=== PATIENT | female | born 1975 | race Caucasian/White ===

== ENCOUNTER 2016-11-21 22:54 | Inpatient (IN) | payer OTHER ==
[~2016-11-21] VITALS: Ht 162.6 cm; Wt 88.9 kg
[~2016-11-21 22:54] MED LIST: RANI300T3 PO
[2016-11-22 00:14] LABS: BASO % 0 % (0-3); EOS % 0 % (0-3); HEMATOCRIT 38.8 % (36.0-47.0); HEMOGLOBIN 12.6 g/dL (12.0-15.5); LYMPH # 2.5 x10^3/uL (1.0-4.8); LYMPH % 42 % (24-48); MEAN CORPUSCULAR HEMOGLOBIN 26 pg (25-35); MEAN CORPUSCULAR HGB CONC 32 g/dL (31-37); MEAN CORPUSCULAR VOLUME 80 fL (79-100); MONO % 8 % (0-9); NEUT % 50 % (31-73); PLATELET COUNT 247 x10^3/uL (140-400); RED BLOOD COUNT 4.85 x10^6/uL (3.50-5.40); RED CELL DISTRIBUTION WIDTH 18.2 % (11.5-14.5); WHITE BLOOD COUNT 5.9 x10^3/uL (4.0-11.0)
[2016-11-22 00:24] LABS: GFR 61.1; INR 1.1 (0.8-1.1); POTASSIUM 3.1 mmol/L (3.5-5.1); PROTHROMBIN TIME PATIENT 13.8 SEC (11.7-14.0)
[2016-11-22 00:28] LABS: TOTAL BILIRUBIN 0.6 mg/dL (0.2-1.0); TOTAL PROTEIN 8.2 g/dL (6.4-8.2)
--- NOTE | 2016-11-22 00:37 | RAD ---
INDICATION: Right-sided weakness and slurred speech COMPARISON: None TECHNIQUE: Axial CT images obtained through the head. One or more of the following individualized dose reduction techniques were utilized for this examination: 1. Automated exposure control; 2. Adjustment of the mA and/or kV according to patient size; 3. Use of iterative reconstruction technique. FINDINGS: No midline shift. Ventricles and sulci are prominent. Basilar cistern patent. No gross hemorrhage or intracranial mass. No displaced skull fracture. Regions of low attenuation of the white matter. IMPRESSION: No acute intracranial hemorrhage. Regions of low attenuation of the white matter. Nonspecific but frequently secondary to small vessel ischemic disease. Other possible causes include sequela of demyelination or migraine. MRI could better assess whether any of these foci are acute. This is more than typically seen for the patient's age. Electronically signed by: Bienvenido Quigley (November 22, 2016 00:34:55)
[2016-11-22 01:05] LABS: BILIRUBIN,URINE SMALL (NEG); GLUCOSE,URINE NEGATIVE (NEG); NITRITE,URINE NEGATIVE (NEG); PH,URINE 5.5; PROTEIN,URINE NEGATIVE (NEG-TRACE); UROBILINOGEN,URINE 0.2 mg/dL (0.2 mg/dL)
[2016-11-22 01:17] LABS: BACTERIA,URINE FEW /HPF (0-FEW); RBC,URINE 0 /HPF (0-2)
[2016-11-22 01:18] LABS: SQUAMOUS EPITHELIAL CELL,UR MOD /LPF
[2016-11-22] MEDS ORDERED: ACETAMINOPHEN 325 MG TABLET. PO PRN (01:45)
[2016-11-22] MEDS ORDERED: POTASSIUM CHLORIDE 20 MEQ TABLET.ER. PO ONE (01:45)
[2016-11-22] MEDS ORDERED: ONDANSETRON PF 4 MG/2 ML VIAL. IV PRN (01:45)
[2016-11-22 02:00] LABS: BARBITURATES NEG (NEG); BENZODIAZEPINES NEG (NEG); CANNABINOIDS NEG (NEG); COCAINE NEG (NEG); METHADONE NEG (NEG); OPIATES NEG (NEG); PHENCYCLIDINE NEG (NEG)
[2016-11-22] MEDS ORDERED: ASPIRIN CHEWABLE 81 MG TABLET. PO ONE (02:00)
[2016-11-22 03:00] VITALS: BP 125/65
[2016-11-22] MEDS ORDERED: TOPI50TA75 PO (04:56)
[2016-11-22] MEDS ORDERED: ELET40TA PO (04:56)
[2016-11-22] MEDS ORDERED: ALPR0.5T6 PO (04:56)
[2016-11-22] MEDS ORDERED: HYDR25TA PO (04:56)
[2016-11-22] MEDS ORDERED: VORT10TA PO (04:56)
[2016-11-22] MEDS ORDERED: MIRT30TA3 PO (04:56)
[2016-11-22] MEDS ORDERED: ALPR0.254 PO (04:56)
[2016-11-22] MEDS ORDERED: METO25TA9 PO (04:56)
--- NOTE | 2016-11-22 05:39 | PHYS DOC ---
Past Medical History Past Medical History: Anxiety, Hypertension, Migraines, Other Additional Past Medical Histor: MS Past Surgical History: Alcohol Use: None Drug Use: Marijuana Adult General Chief Complaint Chief Complaint: NEURO SYMPTOMS/DEFICITS HPI HPI Patient is a 40 year old female who has a history significant for multiple sclerosis, hypertension, presents here today secondary to right sided pain for 2 days. Patient reports that her family was concerned that she was having a stroke so they brought her here to the ER. Patient reports that she was unable to the car secondary to weakness to her right side of her body. Patient presents to the ER today reporting that the symptoms been going on for approximately 2 days now. Patient complaining of right-sided facial droop also that's occurred about 2 days ago. Patient plans of right arm and leg weakness for 2 days. Patient appears to have a very hard time distinguishing whether or not her weakness difficulty walking secondary to pain to her upper and lower extremities versus secondary to weakness however patient reports that she feels unsteady and feels like she is going to fall patient denies any history of Nguyen' s palsy in the past. Patient denies any history of right facial droop in the past. Patient denies any recent fevers shakes chills nausea vomiting diarrhea chest pain shortness of breath cough cold or runny nose. Patient reports that she does have a history significant for bipolar affective disorder as well as multiple sclerosis. Patient reports that she had a back in 1999. Patient reports that she smokes does not drink occasionally smokes marijuana secondary to an eye problem. She reports that she had a recent admission for heart problems back in July at [facility]. Patient's physical exam is significant for right facial droop with difficulty raising her right eyebrow. This makes me feel that her symptoms are more likely secondary to Nguyen's palsy however patient reports that she has weakness to her right upper and lower extremities as well too. On examination patient's strength are 5 out of 5 in her upper and lower extremities. Patient's sensation is intact to her upper or lower 70s. Patient is able to ambulate in the ER around her room however she reports that when she does stand she feels that she' s been off all over to her right side. Patient's tongue deviates to the right. Patient's cranial nerves other than described above were all intact. Patient's ER workup was significant for a CT scan that did not show any acute pathology. Patient's symptoms started greater than 2 days ago therefore a stroke alert was not called and the patient is not a candidate for any kind of lytic therapy. Patient's presentation is somewhat confusing as her facial droop and her weakness to her right forehead makes me think that her facial droop is more consistent with a Nguyen's palsy however patient is insistent that she also has right upper and lower extremities weakness as well. Patient is able to and blood however she does feel that she is going to fall over to her right side. Given the complexity of the patient's symptoms I feel it would be prudent to admit the patient for further evaluation and evaluation by neurological specialist. Patient's Nguyen's palsy is greater than 48 hours out therefore steroids and antiretrovirals are likely not indicated at this time either. Review of Systems Review of Systems Constitutional: Denies fever or chills [] Eyes: Denies change in visual acuity, redness, or eye pain [] HENT: Denies nasal congestion or sore throat [] All other review systems are negative except as documented in history of present illness portion. Allergies Allergies Allergies Coded Allergies Type Severity Reaction Last Updated Verified Sulfa (Sulfonamide Antibiotics) Allergy Intermediate 07/31/15 Yes Physical Exam Physical Exam Constitutional: Well developed, well nourished, no acute distress, non-toxic appearance. [] HENT: Normocephalic, atraumatic, bilateral external ears normal, oropharynx moist, no oral exudates, nose normal. [] Eyes: PERRLA, EOMI, conjunctiva normal, no discharge. [] Neck: Normal range of motion, no tenderness, supple, no stridor. [] Cardiovascular:Heart rate regular rhythm, Lungs & Thorax: Bilateral breath sounds clear to auscultation [] Abdomen: Bowel sounds normal, soft, no tenderness, no masses, no pulsatile masses. [] Skin: Warm, dry, no erythema, no rash. [] Back: No tenderness, Extremities: Patient is tenderness palpation with range of motion to her lower extremities. Patient's full range of motion intact. Patient has no deformities noted. Neurologic: Alert and oriented X 3, see above for neuro exam. Psychologic: Affect normal, judgement normal, mood normal. [] Current Patient Data Vital Signs Vital Signs Date Time Temp Pulse Resp B/P (MAP) Pulse Ox O2 Delivery O2 Flow Rate FiO2 11/22/16 01:39 82 98/60 (73) 98 Room Air 11/21/16 23:13 97.8 16 97.8 Lab Values Laboratory Tests Test 11/21/16 23:07 11/22/16 00:24 White Blood Count 5.9 x10^3/uL (4.0-11.0) Red Blood Count 4.85 x10^6/uL (3.50-5.40) Hemoglobin 12.6 g/dL (12.0-15.5) Hematocrit 38.8 % (36.0-47.0) Mean Corpuscular Volume 80 fL (79-100) Mean Corpuscular Hemoglobin 26 pg (25-35) Mean Corpuscular Hemoglobin Concent 32 g/dL (31-37) Red Cell Distribution Width 18.2 % (11.5-14.5) H Platelet Count 247 x10^3/uL (140-400) Neutrophils (%) (Auto) 50 % (31-73) Lymphocytes (%) (Auto) 42 % (24-48) Monocytes (%) (Auto) 8 % (0-9) Eosinophils (%) (Auto) 0 % (0-3) Basophils (%) (Auto) 0 % (0-3) Neutrophils # (Auto) 2.9 x10^3uL (1.8-7.7) Lymphocytes # (Auto) 2.5 x10^3/uL (1.0-4.8) Monocytes # (Auto) 0.4 x10^3/uL (0.0-1.1) Eosinophils # (Auto) 0.0 x10^3/uL (0.0-0.7) Basophils # (Auto) 0.0 x10^3/uL (0.0-0.2) Prothrombin Time 13.8 SEC (11.7-14.0) Prothrombin Time INR 1.1 (0.8-1.1) Sodium Level 140 mmol/L (136-145) Potassium Level 3.1 mmol/L (3.5-5.1) L Chloride Level 103 mmol/L (98-107) Carbon Dioxide Level 22 mmol/L (21-32) Anion Gap 15 (6-14) H Blood Urea Nitrogen 22 mg/dL (7-20) H Creatinine 1.0 mg/dL (0.6-1.0) Estimated GFR (Cockcroft-Gault) 61.1 BUN/Creatinine Ratio 22 (6-20) H Glucose Level 84 mg/dL (70-99) Calcium Level 9.0 mg/dL (8.5-10.1) Total Bilirubin 0.6 mg/dL (0.2-1.0) Aspartate Amino Transferase (AST) 23 U/L (15-37) Alanine Aminotransferase (ALT) 38 U/L (14-59) Alkaline Phosphatase 82 U/L (46-116) Troponin I Quantitative < 0.017 ng/mL (0.000-0.055) Total Protein 8.2 g/dL (6.4-8.2) Albumin 4.0 g/dL (3.4-5.0) Albumin/Globulin Ratio 1.0 (1.0-1.7) Urine Collection Type Unknown Urine Color Yellow Urine Clarity Clear Urine pH 5.5 Urine Specific [place] 1.015 Urine Protein Negative mg/dL (NEG-TRACE) Urine Glucose (UA) Negative mg/dL (NEG) Urine Ketones (Stick) 40 mg/dL (NEG) Urine Blood Negative (NEG) Urine Nitrite Negative (NEG) Urine Bilirubin Small (NEG) Urine Urobilinogen Dipstick 0.2 mg/dL (0.2 mg/dL) Urine Leukocyte Esterase Trace (NEG) Urine RBC 0 /HPF (0-2) Urine WBC 5-10 /HPF (0-4) Urine Squamous Epithelial Cells Mod /LPF Urine Bacteria Few /HPF (0-FEW) Urine Mucus Mod /LPF Urine Opiates Screen Neg (NEG) Urine Methadone Screen Neg (NEG) Urine Barbiturates Neg (NEG) Urine Phencyclidine Screen Neg (NEG) Urine Amphetamine/Methamphetamine Neg (NEG) Urine Benzodiazepines Screen Neg (NEG) Urine Cocaine Screen Neg (NEG) Urine Cannabinoids Screen Neg (NEG) Urine Ethyl Alcohol Neg (NEG) Laboratory Tests 11/21/16 23:07 Laboratory Tests 11/21/16 23:07 EKG EKG [] Radiology/Procedures Radiology/Procedures [] Course & Med Decision Making Course & Med Decision Making Pertinent Labs and Imaging studies reviewed. (See chart for details) [] Dragon Disclaimer Dragon Disclaimer This electronic medical record was generated, in whole or in part, using a voice recognition dictation system. Departure Departure Impression: Primary Impression: Stroke Additional Impression: Nguyen's palsy Disposition: ADMITTED INPATIENT Admitting Physician: Inez Caputo Condition: STABLE Referrals: NO PCP (PCP) Problem Qualifiers INNA LO MD November 22, 2016 05:39
[2016-11-22 07:00] VITALS: BP 107/52
--- NOTE | 2016-11-22 07:16 | RAD ---
Chest, 2 views, 11/22/2016: History: Weakness The heart size and pulmonary vascularity are normal. No pulmonary infiltrates are seen. There is no evidence of pleural fluid. There is a minimal thoracic scoliosis. IMPRESSION: No acute cardiopulmonary abnormality is detected.
[2016-11-22] MEDS ORDERED: ALPRAZolam 0.5 MG TABLET PO PRN (10:30)
[2016-11-22] MEDS ORDERED: hydrOXYzine PAMOATE 25 MG CAPSULE PO PRN (10:45)
--- NOTE | 2016-11-22 10:49 | PDOC1 ---
History and Physical Date of Admission Date of Admission DATE: 11/22/16 TIME: 10:42 Identification/Chief Complaint Chief Complaint R sided facial droop, R sided weakness Problems: Source Source: Caregiver, Chart review, Patient History of Present Illness History of Present Illness 40 y.o pleasnat female dx with MS some 4 yrs ago? folows with Behzad Contreras but is not or has never been on medication for it, comes in last night as encouraged by family bec of concerns for possible stroke, SHe presented with 2 day hx of R sided weakness, R sided facial droop, and some slurring speech? but i do believe lack of teeth/dentures might be contributing to speech issues, In any case, CT head neg for acute CVA, got 324 chewable ASA at ER, COncerns for r.o stroke vs MS flare vs Nguyen's palsy hence admitted, VS ok. HOme meds reviewed and renewed. SHe was dx with MS via MRI she claims when she presented with migraines and possibly some weakness - not the best historian Past Medical History Cardiovascular: HTN CENTRAL NERVOUS SYSTEM: Migraine, Other (MS) Psych: Anxiety Past Surgical History Past Surgical History: No pertinent history Family History Family History: No Significant, Other (reviewed, non contributory) Social History Smoke: No ALCOHOL: none Drugs: None Current Problem List Problem List Problems Medical Problems: (1) Nguyen's palsy Status: Acute Problems: Current Medications Current Medications Current Medications Potassium Chloride (Klor-Con) 40 meq 1X ONCE PO Last administered on 02:27; Start 11/22/16 at 01:45; Stop 11/22/16 at 01:46; Status DC Ondansetron HCl (Zofran) 4 mg PRN Q8HRS PRN IV NAUSEA/VOMITING Last administered on 11/22/16 10:03; Start 11/22/16 at 01:45; Stop 11/23/16 at 01:44 Acetaminophen (Tylenol) 650 mg PRN Q4HRS PRN PO FEVER Last administered on 11/22 10:03; Start 11/22/16 at 01:45; Stop 11/23/16 at 01:44 Aspirin (Children'S Aspirin) 324 mg 1X ONCE PO Last administered on 11/22/16 02:26; Start 11/22/16 at 02:00; Stop 11/22/16 at 02:01; Status DC Alprazolam (Xanax) 0.25 mg DAILY PRN PO ANXIETY; Start 11/22/16 at 10:30; Status UNV Alprazolam (Xanax) 0.5 mg DAILY PRN PO ANXIETY / AGITATION; Start 11/22/16 at 10:30; Status UNV Metoprolol Succinate (Toprol Xl) 25 mg DAILY PO ; Start 11/23/16 at 09:00; Status UNV Non-Formulary Medication 40 mg DAILY PO ; Start 11/23/16 at 09:00; Status UNV Non-Formulary Medication 1 tab BID PRN PO ANXIETY; Start 11/22/16 at 10:30; Status UNV Non-Formulary Medication 1 tab QHS PO ; Start 11/22/16 at 21:00; Status UNV Non-Formulary Medication 1 tab QHS PO ; Start 11/22/16 at 21:00; Status UNV Non-Formulary Medication 1 tab BID PO ; Start 11/22/16 at 21:00; Status UNV Non-Formulary Medication 10 mg DAILY PO ; Start 11/23/16 at 09:00; Status UNV Active Scripts Active Zantac (Ranitidine Hcl) 300 Mg Tablet 1 Tab PO QHS Reported Alprazolam 0.5 Mg Tablet 1 Tab PO DAILY PRN Alprazolam 0.25 Mg Tablet 1 Tab PO DAILY PRN Topiramate 50 Mg Tablet 1 Tab PO BID Mirtazapine 30 Mg Tablet 1 Tab PO QHS Hydroxyzine Hcl 25 Mg Tablet 1 Tab PO BID PRN Relpax (Eletriptan Hbr) 40 Mg Tablet 40 Mg PO DAILY Trintellix (Vortioxetine) 10 Mg Tablet 10 Mg PO DAILY Metoprolol Succinate ( Xl ) (Metoprolol Succinate) 25 Mg Tab.er.24h 1 Tab PO DAILY Allergies Allergies: Coded Allergies: Sulfa (Sulfonamide Antibiotics) (Verified Allergy, Intermediate, 07/31/15) ROS General: No: Chills, Night Sweats, Fatigue, Malaise, Appetite, Other PSYCHOLOGICAL ROS: No: Anxiety, Behavioral Disorder, Concentration difficultie , Decreased libido, Depression, Disorientation, Hallucinations, Hostility, Irritablity, Memory difficulties, Mood Swings, Obsessive thoughts, Physical abuse, Sexual abuse, Sleep disturbances, Suicidal ideation, Other Eyes: No Blurry vision, No Decreased vision, No Double vision, No Dry eyes, No Excessive tearing, No Eye Pain, No Itchy Eyes, No Loss of vision, No Photophobia , No Scotomata, No Uses contacts, No Uses glasses, No Other HEENT: No: Heacaches, Visual Changes, Hearing change, Nasal congestion, Nasal discharge, Oral lesions, Sinus pain, Sore Throat, Epistaxis, Sneezing, Snoring, Tinnitus, Vertigo, Vocal changes, Other ALLERGY AND IMMUNOLOGY: No: Hives, Insect Bite Sensitivity, Itchy/Watery Eyes, Nasal Congestion, Post Nasal Drip, Seasonal Allergies, Other Hematological and Lymphatic: No: Bleeding Problems, Blood Clots, Blood Transfusions, Brusing, Night Sweats, Pallor, Swollen Lymph Nodes, Other ENDOCRINE: No: Breast Changes, Galactorrhea, Hair Pattern Changes, Hot Flashes , Malaise/lethargy, Mood Swings, Palpitations, Polydipsia/polyuria, Skin Changes , Temperature Intolerance, Unexpected Weight Changes, Other Breast: No New/Changing Breast Lumps, No Nipple changes, No Nipple discharge, No Other Respiratory: No: Cough, Hemoptysis, Orthopnea, Pleuritic Pain, Shortness of breath, SOB with excertion, Sputum Changes, Stridor, Tachypnea, Wheezing, Other Cardiovascular: No Chest Pain, No Palpitations, No Orthopnea, No Paroxysmal Noc. Dyspnea, No Edema, No Lt Headedness, No Other Gastrointestinal: No Nausea, No Vomiting, No Abdominal Pain, No Diarrhea, No Constipation, No Melena, No Hematochezia, No Other Genitourinary: No Dysuria, No Frequency, No Incontinence, No Hematuria, No Retention, No Discharge, No Urgency, No Pain, No Flank Pain, No Other, No , No , No , No , No , No , No Musculoskeletal: Yes Other (R sided weakness, slurred speech, R facial droop) Neurological: Yes Other (as per hPI) Skin: No Dry Skin, No Eczema, No Hair Changes, No Lumps, No Mole Changes, No Mottling, No Nail Changes, No Pruritus, No Rash, No Skin Lesion Changes, No Other, No Acne Physical Exam General: Alert, Oriented X3, Cooperative, No acute distress HEENT: Other (SHallow R NLF, weak EOMs on R ) Lungs: Clear to auscultation, Normal air movement Heart: S1S2, RRR, no thrills, no rubs, no gallops, no murmurs Cardiovascular: S1, S2 Breasts: Normal Abdomen: Normal bowel sounds, Soft, No tenderness, No hepatosplenomegaly, No masses Rectal Exam: not examined PELVIC: Nml ext genitalia Extremities: No clubbing, No cyanosis, No edema, Normal pulses, No tenderness/ swelling Skin: No rashes, No breakdown, No significant lesion Neuro: Other (R side 4/5; left 5/5; DTTR 2 plus, no sensory deficit, [place] RNLF, tongue protrusion deviated to R, intact EOMS) Psych/Mental Status: Mental status NL, Mood NL Vitals Vitals Vital Signs Date Time Temp Pulse Resp B/P (MAP) Pulse Ox O2 Delivery O2 Flow Rate FiO2 11/22/16 08:00 Room Air 11/22/16 07:00 98.0 77 18 107/52 (70) 98 98.0 Labs Labs Laboratory Tests Test 11/21/16 23:07 11/22/16 00:24 White Blood Count 5.9 x10^3/uL (4.0-11.0) Red Blood Count 4.85 x10^6/uL (3.50-5.40) Hemoglobin 12.6 g/dL (12.0-15.5) Hematocrit 38.8 % (36.0-47.0) Mean Corpuscular Volume 80 fL (79-100) Mean Corpuscular Hemoglobin 26 pg (25-35) Mean Corpuscular Hemoglobin Concent 32 g/dL (31-37) Red Cell Distribution Width 18.2 % (11.5-14.5) Platelet Count 247 x10^3/uL (140-400) Neutrophils (%) (Auto) 50 % (31-73) Lymphocytes (%) (Auto) 42 % (24-48) Monocytes (%) (Auto) 8 % (0-9) Eosinophils (%) (Auto) 0 % (0-3) Basophils (%) (Auto) 0 % (0-3) Neutrophils # (Auto) 2.9 x10^3uL (1.8-7.7) Lymphocytes # (Auto) 2.5 x10^3/uL (1.0-4.8) Monocytes # (Auto) 0.4 x10^3/uL (0.0-1.1) Eosinophils # (Auto) 0.0 x10^3/uL (0.0-0.7) Basophils # (Auto) 0.0 x10^3/uL (0.0-0.2) Prothrombin Time 13.8 SEC (11.7-14.0) Prothromb Time International Ratio 1.1 (0.8-1.1) Sodium Level 140 mmol/L (136-145) Potassium Level 3.1 mmol/L (3.5-5.1) Chloride Level 103 mmol/L (98-107) Carbon Dioxide Level 22 mmol/L (21-32) Anion Gap 15 (6-14) Blood Urea Nitrogen 22 mg/dL (7-20) Creatinine 1.0 mg/dL (0.6-1.0) Estimated GFR (Cockcroft-Gault) 61.1 BUN/Creatinine Ratio 22 (6-20) Glucose Level 84 mg/dL (70-99) Calcium Level 9.0 mg/dL (8.5-10.1) Total Bilirubin 0.6 mg/dL (0.2-1.0) Aspartate Amino Transf (AST/SGOT) 23 U/L (15-37) Alanine Aminotransferase (ALT/SGPT) 38 U/L (14-59) Alkaline Phosphatase 82 U/L (46-116) Troponin I Quantitative < 0.017 ng/mL (0.000-0.055) Total Protein 8.2 g/dL (6.4-8.2) Albumin 4.0 g/dL (3.4-5.0) Albumin/Globulin Ratio 1.0 (1.0-1.7) Urine Collection Type Unknown Urine Color Yellow Urine Clarity Clear Urine pH 5.5 Urine Specific [place] 1.015 Urine Protein Negative mg/dL (NEG-TRACE) Urine Glucose (UA) Negative mg/dL (NEG) Urine Ketones (Stick) 40 mg/dL (NEG) Urine Blood Negative (NEG) Urine Nitrite Negative (NEG) Urine Bilirubin Small (NEG) Urine Urobilinogen Dipstick 0.2 mg/dL (0.2 mg/dL) Urine Leukocyte Esterase Trace (NEG) Urine RBC 0 /HPF (0-2) Urine WBC 5-10 /HPF (0-4) Urine Squamous Epithelial Cells Mod /LPF Urine Bacteria Few /HPF (0-FEW) Urine Mucus Mod /LPF Urine Opiates Screen Neg (NEG) Urine Methadone Screen Neg (NEG) Urine Barbiturates Neg (NEG) Urine Phencyclidine Screen Neg (NEG) Urine Amphetamine/Methamphetamine Neg (NEG) Urine Benzodiazepines Screen Neg (NEG) Urine Cocaine Screen Neg (NEG) Urine Cannabinoids Screen Neg (NEG) Urine Ethyl Alcohol Neg (NEG) Laboratory Tests Test 11/21/16 23:07 11/22/16 00:24 White Blood Count 5.9 x10^3/uL (4.0-11.0) Red Blood Count 4.85 x10^6/uL (3.50-5.40) Hemoglobin 12.6 g/dL (12.0-15.5) Hematocrit 38.8 % (36.0-47.0) Mean Corpuscular Volume 80 fL (79-100) Mean Corpuscular Hemoglobin 26 pg (25-35) Mean Corpuscular Hemoglobin Concent 32 g/dL (31-37) Red Cell Distribution Width 18.2 % (11.5-14.5) Platelet Count 247 x10^3/uL (140-400) Neutrophils (%) (Auto) 50 % (31-73) Lymphocytes (%) (Auto) 42 % (24-48) Monocytes (%) (Auto) 8 % (0-9) Eosinophils (%) (Auto) 0 % (0-3) Basophils (%) (Auto) 0 % (0-3) Neutrophils # (Auto) 2.9 x10^3uL (1.8-7.7) Lymphocytes # (Auto) 2.5 x10^3/uL (1.0-4.8) Monocytes # (Auto) 0.4 x10^3/uL (0.0-1.1) Eosinophils # (Auto) 0.0 x10^3/uL (0.0-0.7) Basophils # (Auto) 0.0 x10^3/uL (0.0-0.2) Prothrombin Time 13.8 SEC (11.7-14.0) Prothromb Time International Ratio 1.1 (0.8-1.1) Sodium Level 140 mmol/L (136-145) Potassium Level 3.1 mmol/L (3.5-5.1) Chloride Level 103 mmol/L (98-107) Carbon Dioxide Level 22 mmol/L (21-32) Anion Gap 15 (6-14) Blood Urea Nitrogen 22 mg/dL (7-20) Creatinine 1.0 mg/dL (0.6-1.0) Estimated GFR (Cockcroft-Gault) 61.1 BUN/Creatinine Ratio 22 (6-20) Glucose Level 84 mg/dL (70-99) Calcium Level 9.0 mg/dL (8.5-10.1) Total Bilirubin 0.6 mg/dL (0.2-1.0) Aspartate Amino Transf (AST/SGOT) 23 U/L (15-37) Alanine Aminotransferase (ALT/SGPT) 38 U/L (14-59) Alkaline Phosphatase 82 U/L (46-116) Troponin I Quantitative < 0.017 ng/mL (0.000-0.055) Total Protein 8.2 g/dL (6.4-8.2) Albumin 4.0 g/dL (3.4-5.0) Albumin/Globulin Ratio 1.0 (1.0-1.7) Urine Collection Type Unknown Urine Color Yellow Urine Clarity Clear Urine pH 5.5 Urine Specific [place] 1.015 Urine Protein Negative mg/dL (NEG-TRACE) Urine Glucose (UA) Negative mg/dL (NEG) Urine Ketones (Stick) 40 mg/dL (NEG) Urine Blood Negative (NEG) Urine Nitrite Negative (NEG) Urine Bilirubin Small (NEG) Urine Urobilinogen Dipstick 0.2 mg/dL (0.2 mg/dL) Urine Leukocyte Esterase Trace (NEG) Urine RBC 0 /HPF (0-2) Urine WBC 5-10 /HPF (0-4) Urine Squamous Epithelial Cells Mod /LPF Urine Bacteria Few /HPF (0-FEW) Urine Mucus Mod /LPF Urine Opiates Screen Neg (NEG) Urine Methadone Screen Neg (NEG) Urine Barbiturates Neg (NEG) Urine Phencyclidine Screen Neg (NEG) Urine Amphetamine/Methamphetamine Neg (NEG) Urine Benzodiazepines Screen Neg (NEG) Urine Cocaine Screen Neg (NEG) Urine Cannabinoids Screen Neg (NEG) Urine Ethyl Alcohol Neg (NEG) VTE Prophylaxis Ordered VTE Prophylaxis Devices: Yes VTE Pharmacological Prophylaxi: Yes Assessment/Plan Assessment/Plan 1. R facial droop, R sided weakness RUE and RLE. - could be Nguyen's palsy, r.o acute CVA or even MS flare - MMT might be 4.5 on R side, 5./5 on left, DTRs appreciable - could be Nguyen's palsy, r.o acute CVA or even MS flare - check ESR, MRI brain, cont ASA 325 daily for now - consult neuro 2. Anxiety NOS 3. HTN, controlled Resume meds JUAN RN and pt ALINE SOLIS MD November 22, 2016 10:49
[2016-11-22 11:00] VITALS: BP 103/51
[2016-11-22] MEDS: METOPROLOL SUCC 24HR ER 25 MG TAB.ER.24H. PO SCH (11:00)
--- NOTE | 2016-11-22 11:41 | ACF ---
Admission Forms Criteria TELEMETRY CARE Telemetry Admission Guidelines (Place 'X' for any and all applicable criteria): Admission to telemetry [A] may be indicated for ANY ONE of the following(1)(2)(3 )(4)(5): [ ]I. Cardiac disease, including ANY ONE of the following (9)(10)(11)(12)(13 ): [ ]a) Postacute LA [ ]b) Low-risk patients with ST-segment elevation LA who have undergone successful percutaneous coronary intervention [ ]c) Unstable angina [ ]d) Suspected LA (until it is ruled out) [ ]e) Post cardiac surgery (first 48 to 72 hours unless complications occur) [ ]f) Acute arrhythmias (including significant tachycardia or bradycardia) [B] [ ]g) Firing of an implantable cardioverter defibrillator [C] [ ]h) Suspected pacemaker or implantable cardioverter defibrillator malfunction (10) [ ]i) New administration or adjustment of an antiarrhythmic drug [D ] [ ]j) Child admitted for acute congestive heart failure [ ]j) Long QT syndrome [ ]k) Advanced heart block (eg, second-degree Mobitz type II, third- degree heart block) [ ]l) Acute myocarditis or pericarditis [ ]m) Short-term (ambulatory or inpatient) monitoring after a cardiac procedure as indicated by ANY ONE of the following [E]: [ ]i) Electrophysiologic studies [ ]ii) Percutaneous coronary intervention with stent placement [ ]iii) Pacemaker placement with cardiac conduction defect [ ]iv) Implantable cardiac defibrillator placement [ ]II. Drug overdose or poisoning with substance that causes arrhythmias or QT prolongation (eg, phenothiazines, sympathomimetic agents, cyclic antidepressants, digitalis, antiarrhythmic drugs)(15) [ ]III. Short-term (ambulatory or inpatient) monitoring after therapeutic or diagnostic procedure requiring conscious sedation or anesthesia (eg, endoscopy, elective cardioversion) [X]IV. Acute cerebrovascular even[F](18) [ ]V. Massive blood transfusion (eg, at least 10 units of packed red blood cells in 24 hours) [ ]. Variceal bleeding after endoscopy, sclerotherapy, or IV vasopressin [ ]VII. Uncorrected electrolyte abnormalities associated with an increased risk of dangerous arrhythmia [G]; examples include [ ]a) Hyperkalemia with attributable ECG changes [ ]b) Potassium greater than 6.5 mmol/L (mEq/L) in a patient without history of chronic renal disease [ ]c) Prolonged QT attributed to hypokalemia, hypomagnesemia, or hypocalcemia [ ]VIII.Unexplained syncope or other neurologic event suspected of being due to arrhythmia due to a finding that increases risk; examples include(19)(20)(21): [ ]a) High-risk ECG findings (eg, bifascicular block, bradycardia, abnormal QT interval, ventricular pre- excitation) [ ]b) History of previous syncope due to arrhythmia [ ]c) Abnormal ventricular function (eg, reduced ejection fraction ) [ ]d) Exertional or supine syncope [ ]e) Concerning syncope characteristics (eg, sudden loss of consciousness without prodrome) [ ]f) Family history of sudden [ ]g) Use of arrhythmogenic medication [ ]h) Suspected cardiac ischemia [ ]i) Known channelopathy (eg, long QT syndrome, Brugada syndrome, or catecholaminergic paroxysmal ventricular tachycardia) [ ]j) Known structural heart disease (eg, hypertrophic cardiomyopathy , severe valvular disease) [ ]k) Palpitations preceding syncope The original [employer] content created by [employer] has been revised. The portions of the content which have been revised are identified through the use of italic text or in bold, and [facility] has neither reviewed nor approved the modified material. All other unmodified content is copyright [employer]. Please see references footnoted in the original [employer] edition 2016 Admission Criteria Met?: Yes JENNIFER TOM November 22, 2016 11:41
[2016-11-22] MEDS: TOPIRAMATE 25 MG TABLET. PO SCH ×2 (11:49→20:12)
[2016-11-22] MEDS: ASPIRIN ENTERIC COATED 325 MG TABLET.DR. PO SCH (11:51)
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
[2016-11-22] MEDS: VORTIOXETINE 10 MG PO SCH (14:02)
[2016-11-22] MEDS: ELETRIPTAN HBR PO SCH (14:02)
--- NOTE | 2016-11-22 14:38 | EKG ---
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
[2016-11-22 15:00] VITALS: BP 113/77
[2016-11-22] MEDS ORDERED: GADOBUTROL 10 MMOL/10 ML VIAL IV ONE (15:15)
--- NOTE | 2016-11-22 16:37 | RAD ---
PROCEDURE MRI of the brain without and with contrast 11/22/2016 HISTORY Bilateral hand tremors. History multiple sclerosis. New right facial weakness. TECHNIQUE Unenhanced T1 weighted and FLAIR sagittal and axial and gradient echo, T2 weighted and diffusion weighted axial and T1 weighted coronal images of the brain were obtained. After the intravenous administration off of 9 cc of Gadovist, enhanced T1 weighted axial, sagittal and coronal images of the brain were obtained. FINDINGS Comparison is made the patient's CT scan of the head dated 11/22/2016. The ventricles and sulci are within normal limits in size and configuration. Extensive patchy, confluent and oval-shaped areas of abnormally increased signal intensity are seen throughout the periventricular, deep and subcortical white matter of both cerebral hemispheres along with the cerebellar hemispheres, right greater than left and scattered throughout the basal ganglia regions and padmini/medulla on the FLAIR and T2 weighted images. These lesions vary from 2 millimeters to 2.1 centimeters in size. They are consistent with the patient's history of multiple sclerosis. Innumerable focal areas of abnormal contrast enhancement (numbering greater than 30 discrete areas) are seen involving lesions throughout the white matter of both cerebral hemispheres along with the padmini and medulla. These areas of enhancement vary from 2 millimeters to 2 centimeters in size and are consistent with areas of active demyelination. There is no MRI evidence of acute ischemia/infarction. No extra-axial fluid collection is seen The paranasal sinuses are essentially clear. There is a minimal left mastoid effusion. Normal flow voids are seen within the major vascular structures surrounding the brain parenchyma. IMPRESSION Extensive areas of signal abnormality are seen throughout the brain consistent with the patient's history of multiple sclerosis. Innumerable areas of abnormal contrast enhancement are seen consistent with areas of extensive active demyelination. Electronically signed by: Afshin Palafox MD (November 22, 2016 16:35:14)
[2016-11-22 19:00] VITALS: BP 107/47
[2016-11-22] MEDS: ALPRAZolam 0.25 MG TABLET PO PRN (20:13)
[2016-11-22] MEDS: FAMOTIDINE 20 MG TABLET. PO SCH (20:13)
[2016-11-22] MEDS: MIRTAZAPINE 15 MG TABLET PO SCH (20:13)
[2016-11-23 03:24] VITALS: BP 92/48
[2016-11-23] MEDS: ACETAMINOPHEN 325 MG TABLET. PO PRN ×2 (07:48→15:26)
[2016-11-23 07:57] VITALS: BP 102/46
[2016-11-23] MEDS: TOPIRAMATE 25 MG TABLET. PO SCH ×2 (09:22→20:29)
[2016-11-23] MEDS: METOPROLOL SUCC 24HR ER 25 MG TAB.ER.24H. PO SCH (09:22)
[2016-11-23] MEDS: ASPIRIN ENTERIC COATED 325 MG TABLET.DR. PO SCH (09:22)
[2016-11-23] MEDS: ELETRIPTAN HBR PO SCH (09:23)
[2016-11-23] MEDS: VORTIOXETINE 10 MG PO SCH (09:23)
[2016-11-23] MEDS: methylPREDNISolone SOD SUCC 1,000 MG in IV NORMAL SALINE 100ML 100 ML IV SCH (09:59)
[2016-11-23] MEDS ORDERED: ONDANSETRON PF 4 MG/2 ML VIAL. IV PRN (10:15)
[2016-11-23 10:55] VITALS: BP 109/64
--- NOTE | 2016-11-23 12:11 | PDOC ---
PROGRESS NOTES Chief Complaint Chief Complaint 1. MS flare 2. Anxiety NOS 3. HTN, controlled History of Present Illness History of Present Illness MRI brain, i have personally reviewed shows active demyelination ESR normal NOw getting first of 5 dose IV solumedrol 1 gm daily Neuro note reviewed BP ok (not high) BS not recorded - non dm PLAN: needs 5 days in house stay IV solu WOF hyperglycemia and hTN COnt daily PT/OT Dw RN and case mx Vitals Vitals Vital Signs Date Time Temp Pulse Resp B/P (MAP) Pulse Ox O2 Delivery O2 Flow Rate FiO2 11/23/16 10:55 97.8 94 109/64 (79) 98 Room Air 97.8 11/22/16 23:00 16 Physical Exam General: Alert, Oriented X3, Cooperative, No acute distress Abdomen: Normal bowel sounds, Soft, No tenderness, No hepatosplenomegaly, No masses Extremities: No clubbing, No cyanosis, No edema, Normal pulses, No tenderness/ swelling Skin: No rashes, No breakdown, No significant lesion Review of Systems Review of Systems shakes, facial droop, no emesis, n.v.abd pain, cp, soa Assessment and Plan Assessmemt and Plan Problems Medical Problems: (1) Nguyen's palsy Status: Acute Problems: Comment Review of Relevant I have reviewed the following items rayne (where applicable) has been applied. Labs Laboratory Tests Test 11/21/16 23:07 11/22/16 00:24 11/22/16 11:20 White Blood Count 5.9 x10^3/uL (4.0-11.0) Red Blood Count 4.85 x10^6/uL (3.50-5.40) Hemoglobin 12.6 g/dL (12.0-15.5) Hematocrit 38.8 % (36.0-47.0) Mean Corpuscular Volume 80 fL (79-100) Mean Corpuscular Hemoglobin 26 pg (25-35) Mean Corpuscular Hemoglobin Concent 32 g/dL (31-37) Red Cell Distribution Width 18.2 % (11.5-14.5) Platelet Count 247 x10^3/uL (140-400) Neutrophils (%) (Auto) 50 % (31-73) Lymphocytes (%) (Auto) 42 % (24-48) Monocytes (%) (Auto) 8 % (0-9) Eosinophils (%) (Auto) 0 % (0-3) Basophils (%) (Auto) 0 % (0-3) Neutrophils # (Auto) 2.9 x10^3uL (1.8-7.7) Lymphocytes # (Auto) 2.5 x10^3/uL (1.0-4.8) Monocytes # (Auto) 0.4 x10^3/uL (0.0-1.1) Eosinophils # (Auto) 0.0 x10^3/uL (0.0-0.7) Basophils # (Auto) 0.0 x10^3/uL (0.0-0.2) Prothrombin Time 13.8 SEC (11.7-14.0) Prothromb Time International Ratio 1.1 (0.8-1.1) Sodium Level 140 mmol/L (136-145) Potassium Level 3.1 mmol/L (3.5-5.1) Chloride Level 103 mmol/L (98-107) Carbon Dioxide Level 22 mmol/L (21-32) Anion Gap 15 (6-14) Blood Urea Nitrogen 22 mg/dL (7-20) Creatinine 1.0 mg/dL (0.6-1.0) Estimated GFR (Cockcroft-Gault) 61.1 BUN/Creatinine Ratio 22 (6-20) Glucose Level 84 mg/dL (70-99) Calcium Level 9.0 mg/dL (8.5-10.1) Total Bilirubin 0.6 mg/dL (0.2-1.0) Aspartate Amino Transf (AST/SGOT) 23 U/L (15-37) Alanine Aminotransferase (ALT/SGPT) 38 U/L (14-59) Alkaline Phosphatase 82 U/L (46-116) Troponin I Quantitative < 0.017 ng/mL (0.000-0.055) Total Protein 8.2 g/dL (6.4-8.2) Albumin 4.0 g/dL (3.4-5.0) Albumin/Globulin Ratio 1.0 (1.0-1.7) Urine Collection Type Unknown Urine Color Yellow Urine Clarity Clear Urine pH 5.5 Urine Specific [place] 1.015 Urine Protein Negative mg/dL (NEG-TRACE) Urine Glucose (UA) Negative mg/dL (NEG) Urine Ketones (Stick) 40 mg/dL (NEG) Urine Blood Negative (NEG) Urine Nitrite Negative (NEG) Urine Bilirubin Small (NEG) Urine Urobilinogen Dipstick 0.2 mg/dL (0.2 mg/dL) Urine Leukocyte Esterase Trace (NEG) Urine RBC 0 /HPF (0-2) Urine WBC 5-10 /HPF (0-4) Urine Squamous Epithelial Cells Mod /LPF Urine Bacteria Few /HPF (0-FEW) Urine Mucus Mod /LPF Urine Opiates Screen Neg (NEG) Urine Methadone Screen Neg (NEG) Urine Barbiturates Neg (NEG) Urine Phencyclidine Screen Neg (NEG) Urine Amphetamine/Methamphetamine Neg (NEG) Urine Benzodiazepines Screen Neg (NEG) Urine Cocaine Screen Neg (NEG) Urine Cannabinoids Screen Neg (NEG) Urine Ethyl Alcohol Neg (NEG) Erythrocyte Sedimentation Rate 12 (0-25) Microbiology 11/22/16 Urine Culture - Preliminary, Resulted 11/22/16 Urine Culture Result 1 (SHERRI) - Preliminary, Resulted Medications Current Medications Potassium Chloride (Klor-Con) 40 meq 1X ONCE PO Last administered on 02:27; Start 11/22/16 at 01:45; Stop 11/22/16 at 01:46; Status DC Ondansetron HCl (Zofran) 4 mg PRN Q8HRS PRN IV NAUSEA/VOMITING Last administered on 11/22/16 10:03; Start 11/22/16 at 01:45; Stop 11/23/16 at 01:44 ; Status DC Acetaminophen (Tylenol) 650 mg PRN Q4HRS PRN PO FEVER Last administered on 11/22 10:03; Start 11/22/16 at 01:45; Stop 11/23/16 at 01:44; Status DC Aspirin (Children'S Aspirin) 324 mg 1X ONCE PO Last administered on 11/22/16 02:26; Start 11/22/16 at 02:00; Stop 11/22/16 at 02:01; Status DC Alprazolam (Xanax) 0.25 mg PRN DAILY PRN PO ANXIETY Last administered on 20:13; Start 11/22/16 at 10:30 Alprazolam (Xanax) 0.5 mg PRN DAILY PRN PO ANXIETY / AGITATION; Start 11/22/16 at 10:30 Metoprolol Succinate (Toprol Xl) 25 mg DAILY PO Last administered on 11/23/16 09:22; Start 11/22/16 at 11:00 Non-Formulary Medication 10 mg DAILY PO Last administered on 11/23/16 09:23; Start 11/22/16 at 14:00 Hydroxyzine Pamoate (Vistaril) 25 mg PRN BID PRN PO ANXIETY; Start 11/22/16 at 10:45 Mirtazapine (Remeron) 30 mg QHS PO Last administered on 11/22/16 20:13; Start 11/22/16 at 21:00 Famotidine (Pepcid) 20 mg QHS PO Last administered on 11/22/16 20:13; Start at 21:00 Topiramate (Topamax) 50 mg BID PO Last administered on 11/23/16 09:22; Start 11/22/16 at 11:00 Non-Formulary Medication 40 mg DAILY PO Last administered on 11/23/16 09:23; Start 11/22/16 at 14:00 Aspirin (Ecotrin) 325 mg DAILYWBKFT PO Last administered on 11/23/16 09:22; Start 11/22/16 at 11:30 Gadobutrol (Gadavist) 9 mmol 1X ONCE IV Last administered on 11/22/16 15:33; Start 11/22/16 at 15:15; Stop 11/22/16 at 15:16; Status DC Methylprednisolone Sodium Succinate 1000 mg/Sodium Chloride 100 ml @ 100 mls/ hr DAILY IV Last administered on 11/23/16 09:59; Start 11/23/16 at 09:00; Stop 11/27/16 at 09:59 Acetaminophen (Tylenol) 650 mg PRN Q6HRS PRN PO PAIN Last administered on 07:48; Start 11/23/16 at 07:45 Ondansetron HCl (Zofran) 4 mg PRN Q6HRS PRN IV NAUSEA/VOMITING Last administered on 11/23/16 10:19; Start 11/23/16 at 10:15 Active Scripts Active Zantac (Ranitidine Hcl) 300 Mg Tablet 1 Tab PO QHS Reported Alprazolam 0.5 Mg Tablet 1 Tab PO DAILY PRN Alprazolam 0.25 Mg Tablet 1 Tab PO DAILY PRN Topiramate 50 Mg Tablet 1 Tab PO BID Mirtazapine 30 Mg Tablet 1 Tab PO QHS Hydroxyzine Hcl 25 Mg Tablet 1 Tab PO BID PRN Relpax (Eletriptan Hbr) 40 Mg Tablet 40 Mg PO DAILY Trintellix (Vortioxetine) 10 Mg Tablet 10 Mg PO DAILY Metoprolol Succinate ( Xl ) (Metoprolol Succinate) 25 Mg Tab.er.24h 1 Tab PO DAILY Vitals/I & O Vital Sign - Last 24 Hours 11/22/16 11/22/16 11/22/16 11/22/16 15:00 19:00 20:00 23:00 Temp 96.6 97.9 96.6 97.9 Pulse 98 86 Resp 14 16 16 B/P (MAP) 113/77 (89) 107/47 (67) Pulse Ox 98 O2 Delivery Room Air Room Air Room Air Room Air 11/23/16 11/23/16 11/23/16 11/23/16 03:24 07:53 07:57 09:22 Temp 98.1 97.9 98.1 97.9 Pulse 74 79 79 B/P (MAP) 92/48 (63) 102/46 (64) 102/46 Pulse Ox 98 99 O2 Delivery Room Air Room Air Room Air 11/23/16 10:55 Temp 97.8 97.8 Pulse 94 B/P (MAP) 109/64 (79) Pulse Ox 98 O2 Delivery Room Air Intake and Output 11/22/16 11/22/16 11/23/16 15:00 23:00 07:00 Intake Total 120 ml 800 ml Balance 120 ml 800 ml ALINE SOLIS MD November 23, 2016 12:11
[2016-11-23 15:13] VITALS: BP 115/59
--- NOTE | 2016-11-23 15:35 | PDOC ---
PROGRESS NOTES Assessment Problems Medical Problems: (1) Nguyen's palsy Status: Acute Multiple sclerosis exacerbation, facial weakness is peripheral in nature but this can sometimes be seen in multiple sclerosis due to demyelination of central fibers of the facial nerve Plan IV Solu-Medrol 5 days, then oral steroid taper Rehabilitation modalities and consult Obtain prior records from Dr. Wen She has Tylenol for pain and I will add on some tramadol. Subjective Complains of right-sided pain Objective Vital Signs Date Time Temp Pulse Resp B/P (MAP) Pulse Ox O2 Delivery O2 Flow Rate FiO2 11/23/16 15:13 97.5 101 115/59 (77) 99 Room Air 97.5 11/22/16 23:00 16 Intake and Output 11/23/16 07:00 Intake Total 920 ml Balance 920 ml Intake Oral 920 ml # Voids 2 PHYSICAL EXAM Alert. Oriented to time, place and person. Consistent with intellectual disability PERRL. EOMI. CN: Right peripheral facial weakness. Muscle tone: normal. Muscle strength: 4/5 DTR: 2+ Plantar reflex: Flexor Gait: not examined in bed. Sensory exam: no abnormal findings. No cerebellar signs elicited. Review of Relevant I have reviewed the following items rayne (where applicable) has been applied. Labs Laboratory Tests Test 11/21/16 23:07 11/22/16 00:24 11/22/16 11:20 White Blood Count 5.9 x10^3/uL (4.0-11.0) Red Blood Count 4.85 x10^6/uL (3.50-5.40) Hemoglobin 12.6 g/dL (12.0-15.5) Hematocrit 38.8 % (36.0-47.0) Mean Corpuscular Volume 80 fL (79-100) Mean Corpuscular Hemoglobin 26 pg (25-35) Mean Corpuscular Hemoglobin Concent 32 g/dL (31-37) Red Cell Distribution Width 18.2 % (11.5-14.5) Platelet Count 247 x10^3/uL (140-400) Neutrophils (%) (Auto) 50 % (31-73) Lymphocytes (%) (Auto) 42 % (24-48) Monocytes (%) (Auto) 8 % (0-9) Eosinophils (%) (Auto) 0 % (0-3) Basophils (%) (Auto) 0 % (0-3) Neutrophils # (Auto) 2.9 x10^3uL (1.8-7.7) Lymphocytes # (Auto) 2.5 x10^3/uL (1.0-4.8) Monocytes # (Auto) 0.4 x10^3/uL (0.0-1.1) Eosinophils # (Auto) 0.0 x10^3/uL (0.0-0.7) Basophils # (Auto) 0.0 x10^3/uL (0.0-0.2) Prothrombin Time 13.8 SEC (11.7-14.0) Prothromb Time International Ratio 1.1 (0.8-1.1) Sodium Level 140 mmol/L (136-145) Potassium Level 3.1 mmol/L (3.5-5.1) Chloride Level 103 mmol/L (98-107) Carbon Dioxide Level 22 mmol/L (21-32) Anion Gap 15 (6-14) Blood Urea Nitrogen 22 mg/dL (7-20) Creatinine 1.0 mg/dL (0.6-1.0) Estimated GFR (Cockcroft-Gault) 61.1 BUN/Creatinine Ratio 22 (6-20) Glucose Level 84 mg/dL (70-99) Calcium Level 9.0 mg/dL (8.5-10.1) Total Bilirubin 0.6 mg/dL (0.2-1.0) Aspartate Amino Transf (AST/SGOT) 23 U/L (15-37) Alanine Aminotransferase (ALT/SGPT) 38 U/L (14-59) Alkaline Phosphatase 82 U/L (46-116) Troponin I Quantitative < 0.017 ng/mL (0.000-0.055) Total Protein 8.2 g/dL (6.4-8.2) Albumin 4.0 g/dL (3.4-5.0) Albumin/Globulin Ratio 1.0 (1.0-1.7) Urine Collection Type Unknown Urine Color Yellow Urine Clarity Clear Urine pH 5.5 Urine Specific [place] 1.015 Urine Protein Negative mg/dL (NEG-TRACE) Urine Glucose (UA) Negative mg/dL (NEG) Urine Ketones (Stick) 40 mg/dL (NEG) Urine Blood Negative (NEG) Urine Nitrite Negative (NEG) Urine Bilirubin Small (NEG) Urine Urobilinogen Dipstick 0.2 mg/dL (0.2 mg/dL) Urine Leukocyte Esterase Trace (NEG) Urine RBC 0 /HPF (0-2) Urine WBC 5-10 /HPF (0-4) Urine Squamous Epithelial Cells Mod /LPF Urine Bacteria Few /HPF (0-FEW) Urine Mucus Mod /LPF Urine Opiates Screen Neg (NEG) Urine Methadone Screen Neg (NEG) Urine Barbiturates Neg (NEG) Urine Phencyclidine Screen Neg (NEG) Urine Amphetamine/Methamphetamine Neg (NEG) Urine Benzodiazepines Screen Neg (NEG) Urine Cocaine Screen Neg (NEG) Urine Cannabinoids Screen Neg (NEG) Urine Ethyl Alcohol Neg (NEG) Erythrocyte Sedimentation Rate 12 (0-25) Microbiology 11/22/16 Urine Culture - Preliminary, Resulted 11/22/16 Urine Culture Result 1 (SHERRI) - Preliminary, Resulted Medications Current Medications Potassium Chloride (Klor-Con) 40 meq 1X ONCE PO Last administered on 02:27; Start 11/22/16 at 01:45; Stop 11/22/16 at 01:46; Status DC Ondansetron HCl (Zofran) 4 mg PRN Q8HRS PRN IV NAUSEA/VOMITING Last administered on 11/22/16 10:03; Start 11/22/16 at 01:45; Stop 11/23/16 at 01:44 ; Status DC Acetaminophen (Tylenol) 650 mg PRN Q4HRS PRN PO FEVER Last administered on 11/22 10:03; Start 11/22/16 at 01:45; Stop 11/23/16 at 01:44; Status DC Aspirin (Children'S Aspirin) 324 mg 1X ONCE PO Last administered on 11/22/16 02:26; Start 11/22/16 at 02:00; Stop 11/22/16 at 02:01; Status DC Alprazolam (Xanax) 0.25 mg PRN DAILY PRN PO ANXIETY Last administered on 20:13; Start 11/22/16 at 10:30 Alprazolam (Xanax) 0.5 mg PRN DAILY PRN PO ANXIETY / AGITATION; Start 11/22/16 at 10:30 Metoprolol Succinate (Toprol Xl) 25 mg DAILY PO Last administered on 11/23/16 09:22; Start 11/22/16 at 11:00 Non-Formulary Medication 10 mg DAILY PO Last administered on 11/23/16 09:23; Start 11/22/16 at 14:00 Hydroxyzine Pamoate (Vistaril) 25 mg PRN BID PRN PO ANXIETY; Start 11/22/16 at 10:45 Mirtazapine (Remeron) 30 mg QHS PO Last administered on 11/22/16 20:13; Start 11/22/16 at 21:00 Famotidine (Pepcid) 20 mg QHS PO Last administered on 11/22/16 20:13; Start at 21:00 Topiramate (Topamax) 50 mg BID PO Last administered on 11/23/16 09:22; Start 11/22/16 at 11:00 Non-Formulary Medication 40 mg DAILY PO Last administered on 11/23/16 09:23; Start 11/22/16 at 14:00 Aspirin (Ecotrin) 325 mg DAILYWBKFT PO Last administered on 11/23/16 09:22; Start 11/22/16 at 11:30 Gadobutrol (Gadavist) 9 mmol 1X ONCE IV Last administered on 11/22/16 15:33; Start 11/22/16 at 15:15; Stop 11/22/16 at 15:16; Status DC Methylprednisolone Sodium Succinate 1000 mg/Sodium Chloride 100 ml @ 100 mls/ hr DAILY IV Last administered on 11/23/16 09:59; Start 11/23/16 at 09:00; Stop 11/27/16 at 09:59 Acetaminophen (Tylenol) 650 mg PRN Q6HRS PRN PO PAIN Last administered on 15:26; Start 11/23/16 at 07:45 Ondansetron HCl (Zofran) 4 mg PRN Q6HRS PRN IV NAUSEA/VOMITING Last administered on 11/23/16 10:19; Start 11/23/16 at 10:15 Active Scripts Active Zantac (Ranitidine Hcl) 300 Mg Tablet 1 Tab PO QHS Reported Alprazolam 0.5 Mg Tablet 1 Tab PO DAILY PRN Alprazolam 0.25 Mg Tablet 1 Tab PO DAILY PRN Topiramate 50 Mg Tablet 1 Tab PO BID Mirtazapine 30 Mg Tablet 1 Tab PO QHS Hydroxyzine Hcl 25 Mg Tablet 1 Tab PO BID PRN Relpax (Eletriptan Hbr) 40 Mg Tablet 40 Mg PO DAILY Trintellix (Vortioxetine) 10 Mg Tablet 10 Mg PO DAILY Metoprolol Succinate ( Xl ) (Metoprolol Succinate) 25 Mg Tab.er.24h 1 Tab PO DAILY Vitals/I & O Vital Sign - Last 24 Hours 11/22/16 11/22/16 11/22/16 11/23/16 19:00 20:00 23:00 03:24 Temp 97.9 98.1 97.9 98.1 Pulse 86 74 Resp 16 16 B/P (MAP) 107/47 (67) 92/48 (63) Pulse Ox 98 98 O2 Delivery Room Air Room Air Room Air Room Air 11/23/16 11/23/16 11/23/16 11/23/16 07:53 07:57 09:22 10:55 Temp 97.9 97.8 97.9 97.8 Pulse 79 79 94 B/P (MAP) 102/46 (64) 102/46 109/64 (79) Pulse Ox 99 98 O2 Delivery Room Air Room Air Room Air 11/23/16 15:13 Temp 97.5 97.5 Pulse 101 B/P (MAP) 115/59 (77) Pulse Ox 99 O2 Delivery Room Air Intake and Output 11/22/16 11/22/16 11/23/16 15:00 23:00 07:00 Intake Total 120 ml 800 ml Balance 120 ml 800 ml Images Brain MRI: FINDINGS Comparison is made the patient's CT scan of the head dated 11/22/2016. The ventricles and sulci are within normal limits in size and configuration. Extensive patchy, confluent and oval-shaped areas of abnormally increased signal intensity are seen throughout the periventricular, deep and subcortical white matter of both cerebral hemispheres along with the cerebellar hemispheres, right greater than left and scattered throughout the basal ganglia regions and padmini/medulla on the FLAIR and T2 weighted images. These lesions vary from 2 millimeters to 2.1 centimeters in size. They are consistent with the patient's history of multiple sclerosis. Innumerable focal areas of abnormal contrast enhancement (numbering greater than 30 discrete areas) are seen involving lesions throughout the white matter of both cerebral hemispheres along with the padmini and medulla. These areas of enhancement vary from 2 millimeters to 2 centimeters in size and are consistent with areas of active demyelination. There is no MRI evidence of acute ischemia/infarction. No extra-axial fluid collection is seen The paranasal sinuses are essentially clear. There is a minimal left mastoid effusion. Normal flow voids are seen within the major vascular structures surrounding the brain parenchyma. IMPRESSION Extensive areas of signal abnormality are seen throughout the brain consistent with the patient's history of multiple sclerosis. Innumerable areas of abnormal contrast enhancement are seen consistent with areas of extensive active demyelination. BRITTANIE WILLIS MD November 23, 2016 15:35
[2016-11-23] MEDS ORDERED: traMADol 50 MG TABLET PO PRN (15:45)
[2016-11-23 19:20] VITALS: BP 104/60
[2016-11-23] MEDS: GABAPENTIN 100 MG CAPSULE. PO SCH (20:29)
[2016-11-23] MEDS: MIRTAZAPINE 15 MG TABLET PO SCH (20:29)
[2016-11-23] MEDS: FAMOTIDINE 20 MG TABLET. PO SCH (20:29)
[2016-11-23 23:25] VITALS: BP 95/50
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
[2016-11-24 03:30] VITALS: BP 97/53
[2016-11-24 06:53] LABS: CREATININE 0.7 mg/dL (0.6-1.0); GFR 92.2; POTASSIUM 4.3 mmol/L (3.5-5.1)
[2016-11-24 07:00] VITALS: BP 107/65
[2016-11-24] MEDS: ACETAMINOPHEN 325 MG TABLET. PO PRN (07:30)
[2016-11-24] MEDS: GABAPENTIN 100 MG CAPSULE. PO SCH ×3 (08:35→20:50)
[2016-11-24] MEDS: ASPIRIN ENTERIC COATED 325 MG TABLET.DR. PO SCH (08:35)
[2016-11-24] MEDS: ELETRIPTAN HBR PO SCH (08:36)
[2016-11-24] MEDS: METOPROLOL SUCC 24HR ER 25 MG TAB.ER.24H. PO SCH (08:36)
[2016-11-24] MEDS: TOPIRAMATE 25 MG TABLET. PO SCH ×2 (08:36→20:50)
[2016-11-24] MEDS: VORTIOXETINE 10 MG PO SCH (08:38)
--- NOTE | 2016-11-24 09:43 | PDOC ---
PROGRESS NOTES Subjective Subjective No new complaints. Objective Objective Vital Signs Date Time Temp Pulse Resp B/P (MAP) Pulse Ox O2 Delivery O2 Flow Rate FiO2 11/24/16 08:36 80 107/65 11/24/16 08:00 Room Air 11/24/16 07:00 97.5 18 100 97.5 Intake and Output 11/24/16 07:00 Intake Total 1790 ml Balance 1790 ml Intake Oral 1790 ml # Voids 4 Physical Exam Physical Exam She is alert and comfortable and walking independently using roller walker. Assessment Assessment Problems Medical Problems: (1) Nguyen's palsy Status: Acute Plan Plan of Care To ask physical therapy to work on stairs and home with out patient follow up when medically stable. Comment Review of Relevant I have reviewed the following items rayne (where applicable) has been applied. Labs Laboratory Tests Test 11/22/16 11:20 11/24/16 05:55 Erythrocyte Sedimentation Rate 12 (0-25) Sodium Level 143 mmol/L (136-145) Potassium Level 4.3 mmol/L (3.5-5.1) Chloride Level 110 mmol/L (98-107) Carbon Dioxide Level 22 mmol/L (21-32) Anion Gap 11 (6-14) Blood Urea Nitrogen 17 mg/dL (7-20) Creatinine 0.7 mg/dL (0.6-1.0) Estimated GFR (Cockcroft-Gault) 92.2 Glucose Level 131 mg/dL (70-99) Calcium Level 9.0 mg/dL (8.5-10.1) Laboratory Tests Test 11/24/16 05:55 Sodium Level 143 mmol/L (136-145) Potassium Level 4.3 mmol/L (3.5-5.1) Chloride Level 110 mmol/L (98-107) Carbon Dioxide Level 22 mmol/L (21-32) Anion Gap 11 (6-14) Blood Urea Nitrogen 17 mg/dL (7-20) Creatinine 0.7 mg/dL (0.6-1.0) Estimated GFR (Cockcroft-Gault) 92.2 Glucose Level 131 mg/dL (70-99) Calcium Level 9.0 mg/dL (8.5-10.1) Microbiology 11/22/16 Urine Culture - Final, Complete 11/22/16 Urine Culture Result 1 (SHERRI) - Final, Complete Medications Current Medications Potassium Chloride (Klor-Con) 40 meq 1X ONCE PO Last administered on 02:27; Start 11/22/16 at 01:45; Stop 11/22/16 at 01:46; Status DC Ondansetron HCl (Zofran) 4 mg PRN Q8HRS PRN IV NAUSEA/VOMITING Last administered on 11/22/16 10:03; Start 11/22/16 at 01:45; Stop 11/23/16 at 01:44 ; Status DC Acetaminophen (Tylenol) 650 mg PRN Q4HRS PRN PO FEVER Last administered on 11/22 10:03; Start 11/22/16 at 01:45; Stop 11/23/16 at 01:44; Status DC Aspirin (Children'S Aspirin) 324 mg 1X ONCE PO Last administered on 11/22/16 02:26; Start 11/22/16 at 02:00; Stop 11/22/16 at 02:01; Status DC Alprazolam (Xanax) 0.25 mg PRN DAILY PRN PO ANXIETY Last administered on 20:13; Start 11/22/16 at 10:30 Alprazolam (Xanax) 0.5 mg PRN DAILY PRN PO ANXIETY / AGITATION; Start 11/22/16 at 10:30 Metoprolol Succinate (Toprol Xl) 25 mg DAILY PO Last administered on 11/24/16 08:36; Start 11/22/16 at 11:00 Non-Formulary Medication 10 mg DAILY PO Last administered on 11/23/16 09:23; Start 11/22/16 at 14:00 Hydroxyzine Pamoate (Vistaril) 25 mg PRN BID PRN PO ANXIETY; Start 11/22/16 at 10:45 Mirtazapine (Remeron) 30 mg QHS PO Last administered on 11/23/16 20:29; Start 11/22/16 at 21:00 Famotidine (Pepcid) 20 mg QHS PO Last administered on 11/23/16 20:29; Start at 21:00 Topiramate (Topamax) 50 mg BID PO Last administered on 11/24/16 08:36; Start 11/22/16 at 11:00 Non-Formulary Medication 40 mg DAILY PO Last administered on 11/24/16 08:36; Start 11/22/16 at 14:00 Aspirin (Ecotrin) 325 mg DAILYWBKFT PO Last administered on 11/24/16 08:35; Start 11/22/16 at 11:30 Gadobutrol (Gadavist) 9 mmol 1X ONCE IV Last administered on 11/22/16 15:33; Start 11/22/16 at 15:15; Stop 11/22/16 at 15:16; Status DC Methylprednisolone Sodium Succinate 1000 mg/Sodium Chloride 100 ml @ 100 mls/ hr DAILY IV Last administered on 11/23/16 09:59; Start 11/23/16 at 09:00; Stop 11/27/16 at 09:59 Acetaminophen (Tylenol) 650 mg PRN Q6HRS PRN PO PAIN Last administered on 07:30; Start 11/23/16 at 07:45 Ondansetron HCl (Zofran) 4 mg PRN Q6HRS PRN IV NAUSEA/VOMITING Last administered on 11/23/16 10:19; Start 11/23/16 at 10:15 Tramadol HCl (Ultram) 50 mg PRN Q6HRS PRN PO PAIN; Start 11/23/16 at 15:45 Gabapentin (Neurontin) 100 mg TID PO Last administered on 11/24/16 08:35; Start 11/23/16 at 21:00 Insulin Aspart (NovoLOG) 0-9 UNITS TIDWMEALS SQ ; Start 11/24/16 at 12:00; Status UNV Dextrose (Dextrose 50%-Water Syringe) 12.5 gm PRN Q15MIN PRN IV SEE COMMENTS; Start 11/24/16 at 09:45; Status UNV Albuterol/ Ipratropium (Duoneb) 3 ml RTQID NEB ; Start 11/24/16 at 12:00; Status UNV Albuterol Sulfate (Ventolin Neb Soln) 2.5 mg PRN Q4HRS PRN NEB SHORTNESS OF BREATH; Start 11/24/16 at 09:45; Status UNV Active Scripts Active Zantac (Ranitidine Hcl) 300 Mg Tablet 1 Tab PO QHS Reported Alprazolam 0.5 Mg Tablet 1 Tab PO DAILY PRN Alprazolam 0.25 Mg Tablet 1 Tab PO DAILY PRN Topiramate 50 Mg Tablet 1 Tab PO BID Mirtazapine 30 Mg Tablet 1 Tab PO QHS Hydroxyzine Hcl 25 Mg Tablet 1 Tab PO BID PRN Relpax (Eletriptan Hbr) 40 Mg Tablet 40 Mg PO DAILY Trintellix (Vortioxetine) 10 Mg Tablet 10 Mg PO DAILY Metoprolol Succinate ( Xl ) (Metoprolol Succinate) 25 Mg Tab.er.24h 1 Tab PO DAILY Vitals/I & O Vital Sign - Last 24 Hours 11/23/16 11/23/16 11/23/16 11/23/16 10:55 15:13 19:20 20:05 Temp 97.8 97.5 97.5 97.8 97.5 97.5 Pulse 94 101 104 Resp 18 B/P (MAP) 109/64 (79) 115/59 (77) 104/60 (75) Pulse Ox 98 99 98 O2 Delivery Room Air Room Air Room Air Room Air 11/23/16 11/24/16 11/24/16 11/24/16 23:25 03:30 07:00 08:00 Temp 97.5 97.7 97.5 97.5 97.7 97.5 Pulse 67 80 80 Resp 18 18 18 B/P (MAP) 95/50 (65) 97/53 (68) 107/65 (79) Pulse Ox 98 97 100 O2 Delivery Room Air Room Air Room Air Room Air 11/24/16 08:36 Pulse 80 B/P (MAP) 107/65 Intake and Output 11/23/16 11/23/16 11/24/16 15:00 23:00 07:00 Intake Total 840 ml 950 ml Balance 840 ml 950 ml ELKE ROBIN MD November 24, 2016 09:43
[2016-11-24] MEDS ORDERED: ALBUTEROL SULFATE 2.5 MG/3 ML NEBU. NEB PRN (09:45)
[2016-11-24] MEDS ORDERED: DEXTROSE 50% 25 GM / 50ML DISP.SYRIN. IV PRN (09:45)
[2016-11-24] MEDS: methylPREDNISolone SOD SUCC 1,000 MG in IV NORMAL SALINE 100ML 100 ML IV SCH (09:53)
[2016-11-24 11:00] VITALS: BP 97/64
--- NOTE | 2016-11-24 11:32 | PDOC ---
PROGRESS NOTES Assessment Problems Medical Problems: (1) Nguyen's palsy Status: Acute Multiple sclerosis exacerbation, facial weakness is peripheral in nature but this can sometimes be seen in multiple sclerosis due to demyelination of central fibers of the facial nerve Plan She has Tylenol for pain and I will add on some tramadol. Subjective Complains of right-sided pain Objective Vital Signs Date Time Temp Pulse Resp B/P (MAP) Pulse Ox O2 Delivery O2 Flow Rate FiO2 11/23/16 15:13 97.5 101 115/59 (77) 99 Room Air 97.5 11/22/16 23:00 16 Intake and Output 11/23/16 07:00 Intake Total 920 ml Balance 920 ml Intake Oral 920 ml # Voids 2 PHYSICAL EXAM Plan IV Solu-Medrol day 08/13 today, then oral steroid taper Rehabilitation modalities, appreciate Dr. Saldivar's consult; it looks like he is anticipating discharge with home physical therapy Await prior records from Dr. Wen Subjective Feeling better Objective Vital Signs Date Time Temp Pulse Resp B/P (MAP) Pulse Ox O2 Delivery O2 Flow Rate FiO2 11/24/16 11:00 97.4 62 18 97/64 (75) 96 Room Air 97.4 Intake and Output 11/24/16 07:00 Intake Total 1790 ml Balance 1790 ml Intake Oral 1790 ml # Voids 4 PHYSICAL EXAM Alert. Oriented to time, place and person. Consistent with intellectual disability PERRL. EOMI. CN: Right peripheral facial weakness. No evidence of conjunctivitis Muscle tone: normal. Muscle strength: 4/5 DTR: 2+ Plantar reflex: Flexor Gait: not examined in bed. Sensory exam: no abnormal findings. No cerebellar signs elicited. Review of Relevant I have reviewed the following items rayne (where applicable) has been applied. Labs Laboratory Tests Test 11/24/16 05:55 Sodium Level 143 mmol/L (136-145) Potassium Level 4.3 mmol/L (3.5-5.1) Chloride Level 110 mmol/L (98-107) Carbon Dioxide Level 22 mmol/L (21-32) Anion Gap 11 (6-14) Blood Urea Nitrogen 17 mg/dL (7-20) Creatinine 0.7 mg/dL (0.6-1.0) Estimated GFR (Cockcroft-Gault) 92.2 Glucose Level 131 mg/dL (70-99) Calcium Level 9.0 mg/dL (8.5-10.1) Laboratory Tests Test 11/24/16 05:55 Sodium Level 143 mmol/L (136-145) Potassium Level 4.3 mmol/L (3.5-5.1) Chloride Level 110 mmol/L (98-107) Carbon Dioxide Level 22 mmol/L (21-32) Anion Gap 11 (6-14) Blood Urea Nitrogen 17 mg/dL (7-20) Creatinine 0.7 mg/dL (0.6-1.0) Estimated GFR (Cockcroft-Gault) 92.2 Glucose Level 131 mg/dL (70-99) Calcium Level 9.0 mg/dL (8.5-10.1) Microbiology 11/22/16 Urine Culture - Final, Complete 11/22/16 Urine Culture Result 1 (SHERRI) - Final, Complete Medications Current Medications Potassium Chloride (Klor-Con) 40 meq 1X ONCE PO Last administered on 02:27; Start 11/22/16 at 01:45; Stop 11/22/16 at 01:46; Status DC Ondansetron HCl (Zofran) 4 mg PRN Q8HRS PRN IV NAUSEA/VOMITING Last administered on 11/22/16 10:03; Start 11/22/16 at 01:45; Stop 11/23/16 at 01:44 ; Status DC Acetaminophen (Tylenol) 650 mg PRN Q4HRS PRN PO FEVER Last administered on 11/22 10:03; Start 11/22/16 at 01:45; Stop 11/23/16 at 01:44; Status DC Aspirin (Children'S Aspirin) 324 mg 1X ONCE PO Last administered on 11/22/16 02:26; Start 11/22/16 at 02:00; Stop 11/22/16 at 02:01; Status DC Alprazolam (Xanax) 0.25 mg PRN DAILY PRN PO ANXIETY Last administered on 20:13; Start 11/22/16 at 10:30 Alprazolam (Xanax) 0.5 mg PRN DAILY PRN PO ANXIETY / AGITATION; Start 11/22/16 at 10:30 Metoprolol Succinate (Toprol Xl) 25 mg DAILY PO Last administered on 11/24/16 08:36; Start 11/22/16 at 11:00 Non-Formulary Medication 10 mg DAILY PO Last administered on 11/23/16 09:23; Start 11/22/16 at 14:00 Hydroxyzine Pamoate (Vistaril) 25 mg PRN BID PRN PO ANXIETY; Start 11/22/16 at 10:45 Mirtazapine (Remeron) 30 mg QHS PO Last administered on 11/23/16 20:29; Start 11/22/16 at 21:00 Famotidine (Pepcid) 20 mg QHS PO Last administered on 11/23/16 20:29; Start at 21:00 Topiramate (Topamax) 50 mg BID PO Last administered on 11/24/16 08:36; Start 11/22/16 at 11:00 Non-Formulary Medication 40 mg DAILY PO Last administered on 11/24/16 08:36; Start 11/22/16 at 14:00 Aspirin (Ecotrin) 325 mg DAILYWBKFT PO Last administered on 11/24/16 08:35; Start 11/22/16 at 11:30 Gadobutrol (Gadavist) 9 mmol 1X ONCE IV Last administered on 11/22/16 15:33; Start 11/22/16 at 15:15; Stop 11/22/16 at 15:16; Status DC Methylprednisolone Sodium Succinate 1000 mg/Sodium Chloride 100 ml @ 100 mls/ hr DAILY IV Last administered on 11/24/16 09:53; Start 11/23/16 at 09:00; Stop 11/27/16 at 09:59 Acetaminophen (Tylenol) 650 mg PRN Q6HRS PRN PO PAIN Last administered on 07:30; Start 11/23/16 at 07:45 Ondansetron HCl (Zofran) 4 mg PRN Q6HRS PRN IV NAUSEA/VOMITING Last administered on 11/23/16 10:19; Start 11/23/16 at 10:15 Tramadol HCl (Ultram) 50 mg PRN Q6HRS PRN PO PAIN; Start 11/23/16 at 15:45 Gabapentin (Neurontin) 100 mg TID PO Last administered on 11/24/16 08:35; Start 11/23/16 at 21:00 Insulin Aspart (NovoLOG) 0-9 UNITS TIDWMEALS SQ ; Start 11/24/16 at 12:00 Dextrose (Dextrose 50%-Water Syringe) 12.5 gm PRN Q15MIN PRN IV SEE COMMENTS; Start 11/24/16 at 09:45 Albuterol/ Ipratropium (Duoneb) 3 ml RTQID NEB ; Start 11/24/16 at 12:00 Albuterol Sulfate (Ventolin Neb Soln) 2.5 mg PRN Q4HRS PRN NEB SHORTNESS OF BREATH; Start 11/24/16 at 09:45 Active Scripts Active Zantac (Ranitidine Hcl) 300 Mg Tablet 1 Tab PO QHS Reported Alprazolam 0.5 Mg Tablet 1 Tab PO DAILY PRN Alprazolam 0.25 Mg Tablet 1 Tab PO DAILY PRN Topiramate 50 Mg Tablet 1 Tab PO BID Mirtazapine 30 Mg Tablet 1 Tab PO QHS Hydroxyzine Hcl 25 Mg Tablet 1 Tab PO BID PRN Relpax (Eletriptan Hbr) 40 Mg Tablet 40 Mg PO DAILY Trintellix (Vortioxetine) 10 Mg Tablet 10 Mg PO DAILY Metoprolol Succinate ( Xl ) (Metoprolol Succinate) 25 Mg Tab.er.24h 1 Tab PO DAILY Vitals/I & O Vital Sign - Last 24 Hours 11/23/16 11/23/16 11/23/16 11/23/16 15:13 19:20 20:05 23:25 Temp 97.5 97.5 97.5 97.5 97.5 97.5 Pulse 101 104 67 Resp 18 18 B/P (MAP) 115/59 (77) 104/60 (75) 95/50 (65) Pulse Ox 99 98 98 O2 Delivery Room Air Room Air Room Air Room Air 11/24/16 11/24/16 11/24/16 11/24/16 03:30 07:00 08:00 08:36 Temp 97.7 97.5 97.7 97.5 Pulse 80 80 80 Resp 18 18 B/P (MAP) 97/53 (68) 107/65 (79) 107/65 Pulse Ox 97 100 O2 Delivery Room Air Room Air Room Air 11/24/16 11:00 Temp 97.4 97.4 Pulse 62 Resp 18 B/P (MAP) 97/64 (75) Pulse Ox 96 O2 Delivery Room Air Intake and Output 11/23/16 11/23/16 11/24/16 15:00 23:00 07:00 Intake Total 840 ml 950 ml Balance 840 ml 950 ml BRITTANIE WILLIS MD November 24, 2016 11:32
[2016-11-24] MEDS: INSULIN ASPART 300 UNITS/3 ML INSULN.PEN SQ SCH ×2 (12:00→17:34)
--- NOTE | 2016-11-24 12:34 | PDOC ---
PROGRESS NOTES Chief Complaint Chief Complaint 1. MS flare 2. Anxiety NOS 3. HTN, controlled History of Present Illness History of Present Illness Complains of some SOA or chest congestion VS ok Sats ok CXR on admit ok CLaims uses inhalers at home Still R sided facial droop Claimed yesterday feet went numb and R leg still weak ON day 2 1gm IV steroid Appreciate physiatry note K 4 plus from 3.1 dw [employer] - will upgrade to reg diet today (she needs dentures) PLAN: Nebs PT/OT- HH vs snu - pt agreeable to rehab SW on case Add SSI, high dose (non dm but on 1 gm steroid0 - dw her she is ok with it Dw RN and case mx Vitals Vitals Vital Signs Date Time Temp Pulse Resp B/P (MAP) Pulse Ox O2 Delivery O2 Flow Rate FiO2 11/24/16 11:00 97.4 62 18 97/64 (75) 96 Room Air 97.4 Physical Exam General: Alert, Oriented X3, Cooperative, No acute distress Abdomen: Normal bowel sounds, Soft, No tenderness, No hepatosplenomegaly, No masses Extremities: No clubbing, No cyanosis, No edema, Normal pulses, No tenderness/ swelling Skin: No rashes, No breakdown, No significant lesion Labs LABS Laboratory Tests Test 11/24/16 05:55 11/24/16 11:44 Sodium Level 143 mmol/L (136-145) Potassium Level 4.3 mmol/L (3.5-5.1) Chloride Level 110 mmol/L (98-107) Carbon Dioxide Level 22 mmol/L (21-32) Anion Gap 11 (6-14) Blood Urea Nitrogen 17 mg/dL (7-20) Creatinine 0.7 mg/dL (0.6-1.0) Estimated GFR (Cockcroft-Gault) 92.2 Glucose Level 131 mg/dL (70-99) Calcium Level 9.0 mg/dL (8.5-10.1) Glucose (Fingerstick) 151 mg/dL (70-99) Review of Systems Review of Systems R sided facial droop, weak R side, R ft numbness Assessment and Plan Assessmemt and Plan Problems Medical Problems: (1) Nguyen's palsy Status: Acute Problems: Comment Review of Relevant I have reviewed the following items rayne (where applicable) has been applied. Labs Laboratory Tests Test 11/24/16 05:55 11/24/16 11:44 Sodium Level 143 mmol/L (136-145) Potassium Level 4.3 mmol/L (3.5-5.1) Chloride Level 110 mmol/L (98-107) Carbon Dioxide Level 22 mmol/L (21-32) Anion Gap 11 (6-14) Blood Urea Nitrogen 17 mg/dL (7-20) Creatinine 0.7 mg/dL (0.6-1.0) Estimated GFR (Cockcroft-Gault) 92.2 Glucose Level 131 mg/dL (70-99) Calcium Level 9.0 mg/dL (8.5-10.1) Glucose (Fingerstick) 151 mg/dL (70-99) Laboratory Tests Test 11/24/16 05:55 11/24/16 11:44 Sodium Level 143 mmol/L (136-145) Potassium Level 4.3 mmol/L (3.5-5.1) Chloride Level 110 mmol/L (98-107) Carbon Dioxide Level 22 mmol/L (21-32) Anion Gap 11 (6-14) Blood Urea Nitrogen 17 mg/dL (7-20) Creatinine 0.7 mg/dL (0.6-1.0) Estimated GFR (Cockcroft-Gault) 92.2 Glucose Level 131 mg/dL (70-99) Calcium Level 9.0 mg/dL (8.5-10.1) Glucose (Fingerstick) 151 mg/dL (70-99) Microbiology 11/22/16 Urine Culture - Final, Complete 11/22/16 Urine Culture Result 1 (SHERRI) - Final, Complete Medications Current Medications Potassium Chloride (Klor-Con) 40 meq 1X ONCE PO Last administered on 02:27; Start 11/22/16 at 01:45; Stop 11/22/16 at 01:46; Status DC Ondansetron HCl (Zofran) 4 mg PRN Q8HRS PRN IV NAUSEA/VOMITING Last administered on 11/22/16 10:03; Start 11/22/16 at 01:45; Stop 11/23/16 at 01:44 ; Status DC Acetaminophen (Tylenol) 650 mg PRN Q4HRS PRN PO FEVER Last administered on 11/22 10:03; Start 11/22/16 at 01:45; Stop 11/23/16 at 01:44; Status DC Aspirin (Children'S Aspirin) 324 mg 1X ONCE PO Last administered on 11/22/16 02:26; Start 11/22/16 at 02:00; Stop 11/22/16 at 02:01; Status DC Alprazolam (Xanax) 0.25 mg PRN DAILY PRN PO ANXIETY Last administered on 20:13; Start 11/22/16 at 10:30 Alprazolam (Xanax) 0.5 mg PRN DAILY PRN PO ANXIETY / AGITATION; Start 11/22/16 at 10:30 Metoprolol Succinate (Toprol Xl) 25 mg DAILY PO Last administered on 11/24/16 08:36; Start 11/22/16 at 11:00 Non-Formulary Medication 10 mg DAILY PO Last administered on 11/23/16 09:23; Start 11/22/16 at 14:00 Hydroxyzine Pamoate (Vistaril) 25 mg PRN BID PRN PO ANXIETY; Start 11/22/16 at 10:45 Mirtazapine (Remeron) 30 mg QHS PO Last administered on 11/23/16 20:29; Start 11/22/16 at 21:00 Famotidine (Pepcid) 20 mg QHS PO Last administered on 11/23/16 20:29; Start at 21:00 Topiramate (Topamax) 50 mg BID PO Last administered on 11/24/16 08:36; Start 11/22/16 at 11:00 Non-Formulary Medication 40 mg DAILY PO Last administered on 11/24/16 08:36; Start 11/22/16 at 14:00 Aspirin (Ecotrin) 325 mg DAILYWBKFT PO Last administered on 11/24/16 08:35; Start 11/22/16 at 11:30 Gadobutrol (Gadavist) 9 mmol 1X ONCE IV Last administered on 11/22/16 15:33; Start 11/22/16 at 15:15; Stop 11/22/16 at 15:16; Status DC Methylprednisolone Sodium Succinate 1000 mg/Sodium Chloride 100 ml @ 100 mls/ hr DAILY IV Last administered on 11/24/16 09:53; Start 11/23/16 at 09:00; Stop 11/27/16 at 09:59 Acetaminophen (Tylenol) 650 mg PRN Q6HRS PRN PO PAIN Last administered on 07:30; Start 11/23/16 at 07:45 Ondansetron HCl (Zofran) 4 mg PRN Q6HRS PRN IV NAUSEA/VOMITING Last administered on 11/23/16 10:19; Start 11/23/16 at 10:15 Tramadol HCl (Ultram) 50 mg PRN Q6HRS PRN PO PAIN; Start 11/23/16 at 15:45 Gabapentin (Neurontin) 100 mg TID PO Last administered on 11/24/16 08:35; Start 11/23/16 at 21:00 Insulin Aspart (NovoLOG) 0-9 UNITS TIDWMEALS SQ ; Start 11/24/16 at 12:00 Dextrose (Dextrose 50%-Water Syringe) 12.5 gm PRN Q15MIN PRN IV SEE COMMENTS; Start 11/24/16 at 09:45 Albuterol/ Ipratropium (Duoneb) 3 ml RTQID NEB ; Start 11/24/16 at 12:00 Albuterol Sulfate (Ventolin Neb Soln) 2.5 mg PRN Q4HRS PRN NEB SHORTNESS OF BREATH; Start 11/24/16 at 09:45 Active Scripts Active Zantac (Ranitidine Hcl) 300 Mg Tablet 1 Tab PO QHS Reported Alprazolam 0.5 Mg Tablet 1 Tab PO DAILY PRN Alprazolam 0.25 Mg Tablet 1 Tab PO DAILY PRN Topiramate 50 Mg Tablet 1 Tab PO BID Mirtazapine 30 Mg Tablet 1 Tab PO QHS Hydroxyzine Hcl 25 Mg Tablet 1 Tab PO BID PRN Relpax (Eletriptan Hbr) 40 Mg Tablet 40 Mg PO DAILY Trintellix (Vortioxetine) 10 Mg Tablet 10 Mg PO DAILY Metoprolol Succinate ( Xl ) (Metoprolol Succinate) 25 Mg Tab.er.24h 1 Tab PO DAILY Vitals/I & O Vital Sign - Last 24 Hours 11/23/16 11/23/16 11/23/16 11/23/16 15:13 19:20 20:05 23:25 Temp 97.5 97.5 97.5 97.5 97.5 97.5 Pulse 101 104 67 Resp 18 18 B/P (MAP) 115/59 (77) 104/60 (75) 95/50 (65) Pulse Ox 99 98 98 O2 Delivery Room Air Room Air Room Air Room Air 11/24/16 11/24/16 11/24/16 11/24/16 03:30 07:00 08:00 08:36 Temp 97.7 97.5 97.7 97.5 Pulse 80 80 80 Resp 18 18 B/P (MAP) 97/53 (68) 107/65 (79) 107/65 Pulse Ox 97 100 O2 Delivery Room Air Room Air Room Air 11/24/16 11:00 Temp 97.4 97.4 Pulse 62 Resp 18 B/P (MAP) 97/64 (75) Pulse Ox 96 O2 Delivery Room Air Intake and Output 11/23/16 11/23/16 11/24/16 15:00 23:00 07:00 Intake Total 840 ml 950 ml Balance 840 ml 950 ml ALINE SOLIS MD November 24, 2016 12:34
[2016-11-24] MEDS: IPRATRPIUM/ALBUTEROL 0.5/2.5MG 3 ML NEBU. NEB SCH ×3 (12:40→19:41)
[2016-11-24 15:00] VITALS: BP 131/62
[2016-11-24 19:30] VITALS: BP 108/58
[2016-11-24] MEDS: FAMOTIDINE 20 MG TABLET. PO SCH (20:50)
[2016-11-24] MEDS: MIRTAZAPINE 15 MG TABLET PO SCH (20:50)
[2016-11-24 23:30] VITALS: BP 99/56
[2016-11-25 03:35] VITALS: BP 107/61
[2016-11-25 07:00] VITALS: BP 115/68
[2016-11-25] MEDS: IPRATRPIUM/ALBUTEROL 0.5/2.5MG 3 ML NEBU. NEB SCH ×4 (07:57→19:14)
[2016-11-25] MEDS: INSULIN ASPART 300 UNITS/3 ML INSULN.PEN SQ SCH ×3 (08:00→17:00)
[2016-11-25] MEDS: ASPIRIN ENTERIC COATED 325 MG TABLET.DR. PO SCH (08:32)
[2016-11-25] MEDS: GABAPENTIN 100 MG CAPSULE. PO SCH ×3 (08:32→21:12)
[2016-11-25] MEDS: ELETRIPTAN HBR PO SCH (08:33)
[2016-11-25] MEDS: METOPROLOL SUCC 24HR ER 25 MG TAB.ER.24H. PO SCH (08:33)
[2016-11-25] MEDS: VORTIOXETINE 10 MG PO SCH (08:33)
[2016-11-25] MEDS: TOPIRAMATE 25 MG TABLET. PO SCH ×2 (08:33→21:12)
[2016-11-25] MEDS: methylPREDNISolone SOD SUCC 1,000 MG in IV NORMAL SALINE 100ML 100 ML IV SCH (09:36)
--- NOTE | 2016-11-25 09:43 | PDOC ---
PROGRESS NOTES Subjective Subjective No new complaints. Objective Objective Vital Signs Date Time Temp Pulse Resp B/P (MAP) Pulse Ox O2 Delivery O2 Flow Rate FiO2 11/25/16 08:33 82 115/68 11/25/16 07:59 99 Room Air 11/25/16 07:00 97.9 18 97.9 Intake and Output 11/25/16 06:59 Intake Total 600 ml Output Total 975 ml Balance -375 ml Intake Oral 500 ml IV Total 100 ml Output Urine Total 975 ml Physical Exam Physical Exam She is comfortable supine in bed but has been walking with roller walker in her room. Assessment Assessment Problems Medical Problems: (1) Nguyen's palsy Status: Acute Plan Plan of Care To ask physical therapy to work on stairs climbing. Comment Review of Relevant I have reviewed the following items rayne (where applicable) has been applied. Labs Laboratory Tests Test 11/24/16 05:55 11/24/16 11:44 11/24/16 16:48 11/24/16 20:58 Sodium Level 143 mmol/L (136-145) Potassium Level 4.3 mmol/L (3.5-5.1) Chloride Level 110 mmol/L (98-107) Carbon Dioxide Level 22 mmol/L (21-32) Anion Gap 11 (6-14) Blood Urea Nitrogen 17 mg/dL (7-20) Creatinine 0.7 mg/dL (0.6-1.0) Estimated GFR (Cockcroft-Gault) 92.2 Glucose Level 131 mg/dL (70-99) Calcium Level 9.0 mg/dL (8.5-10.1) Glucose (Fingerstick) 151 mg/dL (70-99) 182 mg/dL (70-99) 168 mg/dL (70-99) Laboratory Tests Test 11/24/16 11:44 11/24/16 16:48 11/24/16 20:58 Glucose (Fingerstick) 151 mg/dL (70-99) 182 mg/dL (70-99) 168 mg/dL (70-99) Microbiology 11/22/16 Urine Culture - Final, Complete 11/22/16 Urine Culture Result 1 (SHERRI) - Final, Complete Medications Current Medications Potassium Chloride (Klor-Con) 40 meq 1X ONCE PO Last administered on t 02:27; Start 11/22/16 at 01:45; Stop 11/22/16 at 01:46; Status DC Ondansetron HCl (Zofran) 4 mg PRN Q8HRS PRN IV NAUSEA/VOMITING Last administered on 11/22/16 10:03; Start 11/22/16 at 01:45; Stop 11/23/16 at 01:44 ; Status DC Acetaminophen (Tylenol) 650 mg PRN Q4HRS PRN PO FEVER Last administered on 11/22 10:03; Start 11/22/16 at 01:45; Stop 11/23/16 at 01:44; Status DC Aspirin (Children'S Aspirin) 324 mg 1X ONCE PO Last administered on 11/22/16 02:26; Start 11/22/16 at 02:00; Stop 11/22/16 at 02:01; Status DC Alprazolam (Xanax) 0.25 mg PRN DAILY PRN PO ANXIETY Last administered on 20:13; Start 11/22/16 at 10:30 Alprazolam (Xanax) 0.5 mg PRN DAILY PRN PO ANXIETY / AGITATION; Start 11/22/16 at 10:30 Metoprolol Succinate (Toprol Xl) 25 mg DAILY PO Last administered on 11/25/16 08:33; Start 11/22/16 at 11:00 Non-Formulary Medication 10 mg DAILY PO Last administered on 11/23/16 09:23; Start 11/22/16 at 14:00 Hydroxyzine Pamoate (Vistaril) 25 mg PRN BID PRN PO ANXIETY; Start 11/22/16 at 10:45 Mirtazapine (Remeron) 30 mg QHS PO Last administered on 11/24/16 20:50; Start 11/22/16 at 21:00 Famotidine (Pepcid) 20 mg QHS PO Last administered on 11/24/16 20:50; Start at 21:00 Topiramate (Topamax) 50 mg BID PO Last administered on 11/25/16 08:33; Start 11/22/16 at 11:00 Non-Formulary Medication 40 mg DAILY PO Last administered on 11/25/16 08:33; Start 11/22/16 at 14:00 Aspirin (Ecotrin) 325 mg DAILYWBKFT PO Last administered on 11/25/16 08:32; Start 11/22/16 at 11:30 Gadobutrol (Gadavist) 9 mmol 1X ONCE IV Last administered on 11/22/16 15:33; Start 11/22/16 at 15:15; Stop 11/22/16 at 15:16; Status DC Methylprednisolone Sodium Succinate 1000 mg/Sodium Chloride 100 ml @ 100 mls/ hr DAILY IV Last administered on 11/25/16 09:36; Start 11/23/16 at 09:00; Stop 11/27/16 at 09:59 Acetaminophen (Tylenol) 650 mg PRN Q6HRS PRN PO PAIN Last administered on 07:30; Start 11/23/16 at 07:45 Ondansetron HCl (Zofran) 4 mg PRN Q6HRS PRN IV NAUSEA/VOMITING Last administered on 11/23/16 10:19; Start 11/23/16 at 10:15 Tramadol HCl (Ultram) 50 mg PRN Q6HRS PRN PO PAIN; Start 11/23/16 at 15:45 Gabapentin (Neurontin) 100 mg TID PO Last administered on 11/25/16 08:32; Start 11/23/16 at 21:00 Insulin Aspart (NovoLOG) 0-9 UNITS TIDWMEALS SQ Last administered on 11/24/16 17:34; Start 11/24/16 at 12:00 Dextrose (Dextrose 50%-Water Syringe) 12.5 gm PRN Q15MIN PRN IV SEE COMMENTS; Start 11/24/16 at 09:45 Albuterol/ Ipratropium (Duoneb) 3 ml RTQID NEB Last administered on 11/25/16 07:57; Start 11/24/16 at 12:00 Albuterol Sulfate (Ventolin Neb Soln) 2.5 mg PRN Q4HRS PRN NEB SHORTNESS OF BREATH; Start 11/24/16 at 09:45 Active Scripts Active Zantac (Ranitidine Hcl) 300 Mg Tablet 1 Tab PO QHS Reported Alprazolam 0.5 Mg Tablet 1 Tab PO DAILY PRN Alprazolam 0.25 Mg Tablet 1 Tab PO DAILY PRN Topiramate 50 Mg Tablet 1 Tab PO BID Mirtazapine 30 Mg Tablet 1 Tab PO QHS Hydroxyzine Hcl 25 Mg Tablet 1 Tab PO BID PRN Relpax (Eletriptan Hbr) 40 Mg Tablet 40 Mg PO DAILY Trintellix (Vortioxetine) 10 Mg Tablet 10 Mg PO DAILY Metoprolol Succinate ( Xl ) (Metoprolol Succinate) 25 Mg Tab.er.24h 1 Tab PO DAILY Vitals/I & O Vital Sign - Last 24 Hours 11/24/16 11/24/16 11/24/16 11/24/16 11:00 12:46 15:00 16:09 Temp 97.4 97.6 97.4 97.6 Pulse 62 96 Resp 18 18 B/P (MAP) 97/64 (75) 131/62 (85) Pulse Ox 96 99 97 99 O2 Delivery Room Air Room Air Room Air Room Air 11/24/16 11/24/16 11/24/16 11/24/16 19:30 19:42 20:15 23:30 Temp 97.7 98.2 97.7 98.2 Pulse 89 77 Resp 18 18 B/P (MAP) 108/58 (75) 99/56 (70) Pulse Ox 97 96 O2 Delivery Room Air Room Air Room Air Room Air 11/25/16 11/25/16 11/25/16 11/25/16 03:35 07:00 07:59 08:33 Temp 97.6 97.9 97.6 97.9 Pulse 64 82 82 Resp 18 18 B/P (MAP) 107/61 (76) 115/68 (84) 115/68 Pulse Ox 100 100 99 O2 Delivery Room Air Room Air Room Air Intake and Output 11/24/16 11/24/16 11/25/16 14:59 22:59 06:59 Intake Total 100 ml 500 ml 0 ml Output Total 975 ml 0 ml Balance 100 ml -475 ml 0 ml ELKE ROBIN MD November 25, 2016 09:43
[2016-11-25 10:50] VITALS: BP 116/45
--- NOTE | 2016-11-25 13:07 | PDOC ---
PROGRESS NOTES Chief Complaint Chief Complaint 1. MS flare 2. Anxiety NOS 3. HTN, controlled History of Present Illness History of Present Illness R foot numbness BS ok, BP ok On day 2 1 gm solu IV for MS flare FAce now improved, I appreciate a R NLF PLAN: COnt IV steroids for 5 days duration total (end day Sunday) Recommend Acute rehab dw Rn and pt Vitals Vitals Vital Signs Date Time Temp Pulse Resp B/P (MAP) Pulse Ox O2 Delivery O2 Flow Rate FiO2 11/25/16 11:43 Room Air 11/25/16 10:50 97.9 86 18 116/45 (68) 99 97.9 Physical Exam General: Alert, Oriented X3, Cooperative, No acute distress Abdomen: Normal bowel sounds, Soft, No tenderness, No hepatosplenomegaly, No masses Extremities: No clubbing, No cyanosis, No edema, Normal pulses, No tenderness/ swelling Skin: No rashes, No breakdown, No significant lesion Labs LABS Laboratory Tests Test 11/24/16 16:48 11/24/16 20:58 11/25/16 07:49 11/25/16 12:02 Glucose (Fingerstick) 182 mg/dL (70-99) 168 mg/dL (70-99) 98 mg/dL (70-99) 104 mg/dL (70-99) Review of Systems Review of Systems R foot numbness, improved weakness, no n.v.d.emesis Assessment and Plan Assessmemt and Plan Problems Medical Problems: (1) Nguyen's palsy Status: Acute Problems: Comment Review of Relevant I have reviewed the following items rayne (where applicable) has been applied. Labs Laboratory Tests Test 11/24/16 05:55 11/24/16 11:44 11/24/16 16:48 11/24/16 20:58 Sodium Level 143 mmol/L (136-145) Potassium Level 4.3 mmol/L (3.5-5.1) Chloride Level 110 mmol/L (98-107) Carbon Dioxide Level 22 mmol/L (21-32) Anion Gap 11 (6-14) Blood Urea Nitrogen 17 mg/dL (7-20) Creatinine 0.7 mg/dL (0.6-1.0) Estimated GFR (Cockcroft-Gault) 92.2 Glucose Level 131 mg/dL (70-99) Calcium Level 9.0 mg/dL (8.5-10.1) Glucose (Fingerstick) 151 mg/dL (70-99) 182 mg/dL (70-99) 168 mg/dL (70-99) Test 11/25/16 07:49 11/25/16 12:02 Glucose (Fingerstick) 98 mg/dL (70-99) 104 mg/dL (70-99) Laboratory Tests Test 11/24/16 16:48 11/24/16 20:58 11/25/16 07:49 11/25/16 12:02 Glucose (Fingerstick) 182 mg/dL (70-99) 168 mg/dL (70-99) 98 mg/dL (70-99) 104 mg/dL (70-99) Microbiology 11/22/16 Urine Culture - Final, Complete 11/22/16 Urine Culture Result 1 (SHERRI) - Final, Complete Medications Current Medications Potassium Chloride (Klor-Con) 40 meq 1X ONCE PO Last administered on 02:27; Start 11/22/16 at 01:45; Stop 11/22/16 at 01:46; Status DC Ondansetron HCl (Zofran) 4 mg PRN Q8HRS PRN IV NAUSEA/VOMITING Last administered on 11/22/16 10:03; Start 11/22/16 at 01:45; Stop 11/23/16 at 01:44 ; Status DC Acetaminophen (Tylenol) 650 mg PRN Q4HRS PRN PO FEVER Last administered on 11/22 10:03; Start 11/22/16 at 01:45; Stop 11/23/16 at 01:44; Status DC Aspirin (Children'S Aspirin) 324 mg 1X ONCE PO Last administered on 11/22/16 02:26; Start 11/22/16 at 02:00; Stop 11/22/16 at 02:01; Status DC Alprazolam (Xanax) 0.25 mg PRN DAILY PRN PO ANXIETY Last administered on 20:13; Start 11/22/16 at 10:30 Alprazolam (Xanax) 0.5 mg PRN DAILY PRN PO ANXIETY / AGITATION; Start 11/22/16 at 10:30 Metoprolol Succinate (Toprol Xl) 25 mg DAILY PO Last administered on 11/25/16 08:33; Start 11/22/16 at 11:00 Non-Formulary Medication 10 mg DAILY PO Last administered on 11/23/16 09:23; Start 11/22/16 at 14:00 Hydroxyzine Pamoate (Vistaril) 25 mg PRN BID PRN PO ANXIETY; Start 11/22/16 at 10:45 Mirtazapine (Remeron) 30 mg QHS PO Last administered on 11/24/16 20:50; Start 11/22/16 at 21:00 Famotidine (Pepcid) 20 mg QHS PO Last administered on 11/24/16 20:50; Start at 21:00 Topiramate (Topamax) 50 mg BID PO Last administered on 11/25/16 08:33; Start 11/22/16 at 11:00 Non-Formulary Medication 40 mg DAILY PO Last administered on 11/25/16 08:33; Start 11/22/16 at 14:00 Aspirin (Ecotrin) 325 mg DAILYWBKFT PO Last administered on 11/25/16 08:32; Start 11/22/16 at 11:30 Gadobutrol (Gadavist) 9 mmol 1X ONCE IV Last administered on 11/22/16 15:33; Start 11/22/16 at 15:15; Stop 11/22/16 at 15:16; Status DC Methylprednisolone Sodium Succinate 1000 mg/Sodium Chloride 100 ml @ 100 mls/ hr DAILY IV Last administered on 11/25/16 09:36; Start 11/23/16 at 09:00; Stop 11/27/16 at 09:59 Acetaminophen (Tylenol) 650 mg PRN Q6HRS PRN PO PAIN Last administered on 07:30; Start 11/23/16 at 07:45 Ondansetron HCl (Zofran) 4 mg PRN Q6HRS PRN IV NAUSEA/VOMITING Last administered on 11/23/16 10:19; Start 11/23/16 at 10:15 Tramadol HCl (Ultram) 50 mg PRN Q6HRS PRN PO PAIN; Start 11/23/16 at 15:45 Gabapentin (Neurontin) 100 mg TID PO Last administered on 11/25/16 08:32; Start 11/23/16 at 21:00 Insulin Aspart (NovoLOG) 0-9 UNITS TIDWMEALS SQ Last administered on 11/24/16 17:34; Start 11/24/16 at 12:00 Dextrose (Dextrose 50%-Water Syringe) 12.5 gm PRN Q15MIN PRN IV SEE COMMENTS; Start 11/24/16 at 09:45 Albuterol/ Ipratropium (Duoneb) 3 ml RTQID NEB Last administered on 11/25/16 11:42; Start 11/24/16 at 12:00 Albuterol Sulfate (Ventolin Neb Soln) 2.5 mg PRN Q4HRS PRN NEB SHORTNESS OF BREATH; Start 11/24/16 at 09:45 Active Scripts Active Zantac (Ranitidine Hcl) 300 Mg Tablet 1 Tab PO QHS Reported Alprazolam 0.5 Mg Tablet 1 Tab PO DAILY PRN Alprazolam 0.25 Mg Tablet 1 Tab PO DAILY PRN Topiramate 50 Mg Tablet 1 Tab PO BID Mirtazapine 30 Mg Tablet 1 Tab PO QHS Hydroxyzine Hcl 25 Mg Tablet 1 Tab PO BID PRN Relpax (Eletriptan Hbr) 40 Mg Tablet 40 Mg PO DAILY Trintellix (Vortioxetine) 10 Mg Tablet 10 Mg PO DAILY Metoprolol Succinate ( Xl ) (Metoprolol Succinate) 25 Mg Tab.er.24h 1 Tab PO DAILY Vitals/I & O Vital Sign - Last 24 Hours 11/24/16 11/24/16 11/24/16 11/24/16 15:00 16:09 19:30 19:42 Temp 97.6 97.7 97.6 97.7 Pulse 96 89 Resp 18 18 B/P (MAP) 131/62 (85) 108/58 (75) Pulse Ox 97 99 97 O2 Delivery Room Air Room Air Room Air Room Air 11/24/16 11/24/16 11/25/16 11/25/16 20:15 23:30 03:35 07:00 Temp 98.2 97.6 97.9 98.2 97.6 97.9 Pulse 77 64 82 Resp 18 18 18 B/P (MAP) 99/56 (70) 107/61 (76) 115/68 (84) Pulse Ox 96 100 100 O2 Delivery Room Air Room Air Room Air Room Air 11/25/16 11/25/16 11/25/16 11/25/16 07:59 08:33 10:50 11:43 Temp 97.9 97.9 Pulse 82 86 Resp 18 B/P (MAP) 115/68 116/45 (68) Pulse Ox 99 99 O2 Delivery Room Air Room Air Room Air Intake and Output 11/24/16 11/24/16 11/25/16 15:00 23:00 07:00 Intake Total 100 ml 500 ml 0 ml Output Total 975 ml 0 ml Balance 100 ml -475 ml 0 ml ALINE SOLIS MD November 25, 2016 13:07
[2016-11-25 15:00] VITALS: BP 112/63
[2016-11-25 19:35] VITALS: BP 118/56
[2016-11-25] MEDS: FAMOTIDINE 20 MG TABLET. PO SCH (21:12)
[2016-11-25] MEDS: ALPRAZolam 0.25 MG TABLET PO PRN (21:12)
[2016-11-25] MEDS: MIRTAZAPINE 15 MG TABLET PO SCH (21:12)
[2016-11-25 23:56] VITALS: BP 86/46
[2016-11-26 03:54] VITALS: BP 101/59
[2016-11-26 07:00] VITALS: BP 113/73
[2016-11-26] MEDS: IPRATRPIUM/ALBUTEROL 0.5/2.5MG 3 ML NEBU. NEB SCH ×4 (07:50→20:36)
[2016-11-26] MEDS: INSULIN ASPART 300 UNITS/3 ML INSULN.PEN SQ SCH ×3 (08:00→16:50)
[2016-11-26] MEDS: ASPIRIN ENTERIC COATED 325 MG TABLET.DR. PO SCH (08:38)
[2016-11-26] MEDS: methylPREDNISolone SOD SUCC 1,000 MG in IV NORMAL SALINE 100ML 100 ML IV SCH (08:39)
[2016-11-26] MEDS: METOPROLOL SUCC 24HR ER 25 MG TAB.ER.24H. PO SCH (08:39)
[2016-11-26] MEDS: TOPIRAMATE 25 MG TABLET. PO SCH ×2 (08:39→21:31)
[2016-11-26] MEDS: GABAPENTIN 100 MG CAPSULE. PO SCH ×3 (08:39→21:31)
[2016-11-26] MEDS: ELETRIPTAN HBR PO SCH (08:40)
[2016-11-26] MEDS: VORTIOXETINE 10 MG PO SCH (08:40)
[2016-11-26 11:00] VITALS: BP 112/65
--- NOTE | 2016-11-26 11:55 | PDOC ---
PROGRESS NOTES Chief Complaint Chief Complaint 1. MS flare 2. Anxiety NOS 3. HTN, controlled History of Present Illness History of Present Illness Did 2 sets of stairs today with PT Yesterday did only one set R LE weakness seems to be getting better She now has a visible R NLF (was shallow on admission) Agreeable to rehab () or [facility] BP and BS ok PLAN: LAst day of IV solu on sunday (to complete 5 day course) Then dc to rehab once SW has set this up, hopefully sunday too dw RN and pt Vitals Vitals Vital Signs Date Time Temp Pulse Resp B/P (MAP) Pulse Ox O2 Delivery O2 Flow Rate FiO2 11/26/16 11:47 Room Air 11/26/16 11:00 97.5 87 18 112/65 (81) 98 97.5 Physical Exam General: Alert, Oriented X3, Cooperative, No acute distress Abdomen: Normal bowel sounds, Soft, No tenderness, No hepatosplenomegaly, No masses Extremities: No clubbing, No cyanosis, No edema, Normal pulses, No tenderness/ swelling Skin: No rashes, No breakdown, No significant lesion Labs LABS Laboratory Tests Test 11/25/16 12:02 11/25/16 17:02 11/25/16 19:04 11/26/16 08:01 Glucose (Fingerstick) 104 mg/dL (70-99) 144 mg/dL (70-99) 206 mg/dL (70-99) 77 mg/dL (70-99) Review of Systems Review of Systems R LE weakness, no SOA, CP, abd pain, emesis Assessment and Plan Assessmemt and Plan Problems Medical Problems: (1) Nguyen's palsy Status: Acute Problems: Comment Review of Relevant I have reviewed the following items rayne (where applicable) has been applied. Labs Laboratory Tests Test 11/24/16 16:48 11/24/16 20:58 11/25/16 07:49 11/25/16 12:02 Glucose (Fingerstick) 182 mg/dL (70-99) 168 mg/dL (70-99) 98 mg/dL (70-99) 104 mg/dL (70-99) Test 11/25/16 17:02 11/25/16 19:04 11/26/16 08:01 Glucose (Fingerstick) 144 mg/dL (70-99) 206 mg/dL (70-99) 77 mg/dL (70-99) Laboratory Tests Test 11/25/16 12:02 11/25/16 17:02 11/25/16 19:04 11/26/16 08:01 Glucose (Fingerstick) 104 mg/dL (70-99) 144 mg/dL (70-99) 206 mg/dL (70-99) 77 mg/dL (70-99) Microbiology 11/22/16 Urine Culture - Final, Complete 11/22/16 Urine Culture Result 1 (SHERRI) - Final, Complete Medications Current Medications Potassium Chloride (Klor-Con) 40 meq 1X ONCE PO Last administered on 02:27; Start 11/22/16 at 01:45; Stop 11/22/16 at 01:46; Status DC Ondansetron HCl (Zofran) 4 mg PRN Q8HRS PRN IV NAUSEA/VOMITING Last administered on 11/22/16 10:03; Start 11/22/16 at 01:45; Stop 11/23/16 at 01:44 ; Status DC Acetaminophen (Tylenol) 650 mg PRN Q4HRS PRN PO FEVER Last administered on 11/22 10:03; Start 11/22/16 at 01:45; Stop 11/23/16 at 01:44; Status DC Aspirin (Children'S Aspirin) 324 mg 1X ONCE PO Last administered on 11/22/16 02:26; Start 11/22/16 at 02:00; Stop 11/22/16 at 02:01; Status DC Alprazolam (Xanax) 0.25 mg PRN DAILY PRN PO ANXIETY Last administered on 21:12; Start 11/22/16 at 10:30 Alprazolam (Xanax) 0.5 mg PRN DAILY PRN PO ANXIETY / AGITATION; Start 11/22/16 at 10:30 Metoprolol Succinate (Toprol Xl) 25 mg DAILY PO Last administered on 11/26/16 08:39; Start 11/22/16 at 11:00 Non-Formulary Medication 10 mg DAILY PO Last administered on 11/23/16 09:23; Start 11/22/16 at 14:00 Hydroxyzine Pamoate (Vistaril) 25 mg PRN BID PRN PO ANXIETY; Start 11/22/16 at 10:45 Mirtazapine (Remeron) 30 mg QHS PO Last administered on 11/25/16 21:12; Start 11/22/16 at 21:00 Famotidine (Pepcid) 20 mg QHS PO Last administered on 11/25/16 21:12; Start at 21:00 Topiramate (Topamax) 50 mg BID PO Last administered on 11/26/16 08:39; Start 11/22/16 at 11:00 Non-Formulary Medication 40 mg DAILY PO Last administered on 11/25/16 08:33; Start 11/22/16 at 14:00 Aspirin (Ecotrin) 325 mg DAILYWBKFT PO Last administered on 11/26/16 08:38; Start 11/22/16 at 11:30 Gadobutrol (Gadavist) 9 mmol 1X ONCE IV Last administered on 11/22/16 15:33; Start 11/22/16 at 15:15; Stop 11/22/16 at 15:16; Status DC Methylprednisolone Sodium Succinate 1000 mg/Sodium Chloride 100 ml @ 100 mls/ hr DAILY IV Last administered on 11/26/16 08:39; Start 11/23/16 at 09:00; Stop 11/27/16 at 09:59 Acetaminophen (Tylenol) 650 mg PRN Q6HRS PRN PO MILD PAIN Last administered on 11/24/16 07:30; Start 11/23/16 at 07:45 Ondansetron HCl (Zofran) 4 mg PRN Q6HRS PRN IV NAUSEA/VOMITING Last administered on 11/23/16 10:19; Start 11/23/16 at 10:15 Tramadol HCl (Ultram) 50 mg PRN Q6HRS PRN PO MODERATE PAIN Last administered on 11/26/16 08:39; Start 11/23/16 at 15:45 Gabapentin (Neurontin) 100 mg TID PO Last administered on 11/26/16 08:39; Start 11/23/16 at 21:00 Insulin Aspart (NovoLOG) 0-9 UNITS TIDWMEALS SQ Last administered on 11/24/16 17:34; Start 11/24/16 at 12:00 Dextrose (Dextrose 50%-Water Syringe) 12.5 gm PRN Q15MIN PRN IV SEE COMMENTS; Start 11/24/16 at 09:45 Albuterol/ Ipratropium (Duoneb) 3 ml RTQID NEB Last administered on 11/26/16t 11:47; Start 11/24/16 at 12:00 Albuterol Sulfate (Ventolin Neb Soln) 2.5 mg PRN Q4HRS PRN NEB SHORTNESS OF BREATH; Start 11/24/16 at 09:45 Active Scripts Active Zantac (Ranitidine Hcl) 300 Mg Tablet 1 Tab PO QHS Reported Alprazolam 0.5 Mg Tablet 1 Tab PO DAILY PRN Alprazolam 0.25 Mg Tablet 1 Tab PO DAILY PRN Topiramate 50 Mg Tablet 1 Tab PO BID Mirtazapine 30 Mg Tablet 1 Tab PO QHS Hydroxyzine Hcl 25 Mg Tablet 1 Tab PO BID PRN Relpax (Eletriptan Hbr) 40 Mg Tablet 40 Mg PO DAILY Trintellix (Vortioxetine) 10 Mg Tablet 10 Mg PO DAILY Metoprolol Succinate ( Xl ) (Metoprolol Succinate) 25 Mg Tab.er.24h 1 Tab PO DAILY Vitals/I & O Vital Sign - Last 24 Hours 11/25/16 11/25/16 11/25/16 11/25/16 15:00 15:53 19:15 19:35 Temp 97.9 98.2 97.9 98.2 Pulse 100 110 Resp 18 18 B/P (MAP) 112/63 (79) 118/56 (76) Pulse Ox 99 98 97 O2 Delivery Room Air Room Air Room Air Room Air 11/25/16 11/25/16 11/26/16 11/26/16 20:00 23:56 03:54 07:00 Temp 98.3 97.9 97.6 98.3 97.9 97.6 Pulse 79 67 103 Resp 18 16 18 B/P (MAP) 86/46 (59) 101/59 (73) 113/73 (86) Pulse Ox 97 95 98 O2 Delivery Room Air Room Air Room Air Room Air 11/26/16 11/26/16 11/26/16 11/26/16 07:52 08:39 08:39 10:27 Pulse 103 B/P (MAP) 113/73 Pulse Ox 99 O2 Delivery Room Air Room Air Room Air 11/26/16 11/26/16 11:00 11:47 Temp 97.5 97.5 Pulse 87 Resp 18 B/P (MAP) 112/65 (81) Pulse Ox 98 O2 Delivery Room Air Room Air Intake and Output 11/25/16 11/25/16 11/26/16 15:00 23:00 07:00 Intake Total 200 ml 840 ml Output Total 550 ml Balance -350 ml 840 ml ALINE SOLIS MD November 26, 2016 11:55
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
[2016-11-26 15:00] VITALS: BP 107/56
[2016-11-26 19:30] VITALS: BP 118/70
[2016-11-26] MEDS: MIRTAZAPINE 15 MG TABLET PO SCH (21:31)
[2016-11-26] MEDS: FAMOTIDINE 20 MG TABLET. PO SCH (21:31)
[2016-11-26 23:30] VITALS: BP 90/50
[2016-11-27 03:35] VITALS: BP 90/56
[2016-11-27 07:00] VITALS: BP 114/67
[2016-11-27] MEDS: IPRATRPIUM/ALBUTEROL 0.5/2.5MG 3 ML NEBU. NEB SCH ×2 (07:56→12:10)
[2016-11-27] MEDS: INSULIN ASPART 300 UNITS/3 ML INSULN.PEN SQ SCH ×2 (08:00→12:01)
[2016-11-27] MEDS: ACETAMINOPHEN 325 MG TABLET. PO PRN (08:19)
[2016-11-27] MEDS: GABAPENTIN 100 MG CAPSULE. PO SCH ×2 (08:20→14:05)
[2016-11-27] MEDS: ASPIRIN ENTERIC COATED 325 MG TABLET.DR. PO SCH (08:20)
[2016-11-27] MEDS: TOPIRAMATE 25 MG TABLET. PO SCH (08:20)
[2016-11-27] MEDS: ELETRIPTAN HBR PO SCH (08:21)
[2016-11-27] MEDS: methylPREDNISolone SOD SUCC 1,000 MG in IV NORMAL SALINE 100ML 100 ML IV SCH (08:25)
[2016-11-27] MEDS: VORTIOXETINE 10 MG PO SCH (09:00)
[2016-11-27] MEDS: METOPROLOL SUCC 24HR ER 25 MG TAB.ER.24H. PO SCH (09:00)
--- NOTE | 2016-11-27 09:30 | PDOC ---
PROGRESS NOTES Subjective Subjective No new complaints. Objective Objective Vital Signs Date Time Temp Pulse Resp B/P (MAP) Pulse Ox O2 Delivery O2 Flow Rate FiO2 11/27/16 07:57 99 Room Air 11/27/16 07:00 98.3 74 18 114/67 (83) 98.3 Intake and Output 11/27/16 07:00 Intake Total 810 ml Output Total 750 ml Balance 60 ml Intake Oral 810 ml Output Urine Total 750 ml # Voids 2 Physical Exam Physical Exam She is comfortable supine in bed and she remains independent with her mobility at roller walker level and she manages 9 stairs with railing with physical therapy yesterday under supervision. Assessment Assessment Problems Medical Problems: (1) Nguyen's palsy Status: Acute Plan Plan of Prison with home health follow up when medically stable. Comment Review of Relevant I have reviewed the following items rayne (where applicable) has been applied. Labs Laboratory Tests Test 11/25/16 12:02 11/25/16 17:02 11/25/16 19:04 11/26/16 08:01 Glucose (Fingerstick) 104 mg/dL (70-99) 144 mg/dL (70-99) 206 mg/dL (70-99) 77 mg/dL (70-99) Test 11/26/16 11:48 11/26/16 16:33 11/26/16 21:25 11/27/16 07:30 Glucose (Fingerstick) 100 mg/dL (70-99) 148 mg/dL (70-99) 150 mg/dL (70-99) 90 mg/dL (70-99) Laboratory Tests Test 11/26/16 11:48 11/26/16 16:33 11/26/16 21:25 11/27/16 07:30 Glucose (Fingerstick) 100 mg/dL (70-99) 148 mg/dL (70-99) 150 mg/dL (70-99) 90 mg/dL (70-99) Microbiology 11/22/16 Urine Culture - Final, Complete 11/22/16 Urine Culture Result 1 (SHERRI) - Final, Complete Medications Current Medications Potassium Chloride (Klor-Con) 40 meq 1X ONCE PO Last administered on t 02:27; Start 11/22/16 at 01:45; Stop 11/22/16 at 01:46; Status DC Ondansetron HCl (Zofran) 4 mg PRN Q8HRS PRN IV NAUSEA/VOMITING Last administered on 11/22/16 10:03; Start 11/22/16 at 01:45; Stop 11/23/16 at 01:44 ; Status DC Acetaminophen (Tylenol) 650 mg PRN Q4HRS PRN PO FEVER Last administered on 11/22 10:03; Start 11/22/16 at 01:45; Stop 11/23/16 at 01:44; Status DC Aspirin (Children'S Aspirin) 324 mg 1X ONCE PO Last administered on 11/22/16 02:26; Start 11/22/16 at 02:00; Stop 11/22/16 at 02:01; Status DC Alprazolam (Xanax) 0.25 mg PRN DAILY PRN PO ANXIETY Last administered on 21:12; Start 11/22/16 at 10:30 Alprazolam (Xanax) 0.5 mg PRN DAILY PRN PO ANXIETY / AGITATION Last administered on 11/26/16 21:31; Start 11/22/16 at 10:30 Metoprolol Succinate (Toprol Xl) 25 mg DAILY PO Last administered on 11/26/16 08:39; Start 11/22/16 at 11:00 Non-Formulary Medication 10 mg DAILY PO Last administered on 11/23/16 09:23; Start 11/22/16 at 14:00 Hydroxyzine Pamoate (Vistaril) 25 mg PRN BID PRN PO ANXIETY; Start 11/22/16 at 10:45 Mirtazapine (Remeron) 30 mg QHS PO Last administered on 11/26/16 21:31; Start 11/22/16 at 21:00 Famotidine (Pepcid) 20 mg QHS PO Last administered on 11/26/16 21:31; Start at 21:00 Topiramate (Topamax) 50 mg BID PO Last administered on 11/27/16 08:20; Start 11/22/16 at 11:00 Non-Formulary Medication 40 mg DAILY PO Last administered on 11/27/16 08:21; Start 11/22/16 at 14:00 Aspirin (Ecotrin) 325 mg DAILYWBKFT PO Last administered on 11/27/16 08:20; Start 11/22/16 at 11:30 Gadobutrol (Gadavist) 9 mmol 1X ONCE IV Last administered on 11/22/16 15:33; Start 11/22/16 at 15:15; Stop 11/22/16 at 15:16; Status DC Methylprednisolone Sodium Succinate 1000 mg/Sodium Chloride 100 ml @ 100 mls/ hr DAILY IV Last administered on 11/27/16 08:25; Start 11/23/16 at 09:00; Stop 11/27/16 at 09:59 Acetaminophen (Tylenol) 650 mg PRN Q6HRS PRN PO MILD PAIN Last administered on 11/27/16 08:19; Start 11/23/16 at 07:45 Ondansetron HCl (Zofran) 4 mg PRN Q6HRS PRN IV NAUSEA/VOMITING Last administered on 11/23/16 10:19; Start 11/23/16 at 10:15 Tramadol HCl (Ultram) 50 mg PRN Q6HRS PRN PO MODERATE PAIN Last administered on 11/26/16 08:39; Start 11/23/16 at 15:45 Gabapentin (Neurontin) 100 mg TID PO Last administered on 11/27/16 08:20; Start 11/23/16 at 21:00 Insulin Aspart (NovoLOG) 0-9 UNITS TIDWMEALS SQ Last administered on 11/24/16 17:34; Start 11/24/16 at 12:00 Dextrose (Dextrose 50%-Water Syringe) 12.5 gm PRN Q15MIN PRN IV SEE COMMENTS; Start 11/24/16 at 09:45 Albuterol/ Ipratropium (Duoneb) 3 ml RTQID NEB Last administered on 11/27/16 07:56; Start 11/24/16 at 12:00 Albuterol Sulfate (Ventolin Neb Soln) 2.5 mg PRN Q4HRS PRN NEB SHORTNESS OF BREATH; Start 11/24/16 at 09:45 Active Scripts Active Zantac (Ranitidine Hcl) 300 Mg Tablet 1 Tab PO QHS Reported Alprazolam 0.5 Mg Tablet 1 Tab PO DAILY PRN Alprazolam 0.25 Mg Tablet 1 Tab PO DAILY PRN Topiramate 50 Mg Tablet 1 Tab PO BID Mirtazapine 30 Mg Tablet 1 Tab PO QHS Hydroxyzine Hcl 25 Mg Tablet 1 Tab PO BID PRN Relpax (Eletriptan Hbr) 40 Mg Tablet 40 Mg PO DAILY Trintellix (Vortioxetine) 10 Mg Tablet 10 Mg PO DAILY Metoprolol Succinate ( Xl ) (Metoprolol Succinate) 25 Mg Tab.er.24h 1 Tab PO DAILY Vitals/I & O Vital Sign - Last 24 Hours 11/26/16 11/26/16 11/26/16 11/26/16 10:27 11:00 11:47 15:00 Temp 97.5 97.8 97.5 97.8 Pulse 87 88 Resp 18 16 B/P (MAP) 112/65 (81) 107/56 (73) Pulse Ox 98 97 O2 Delivery Room Air Room Air Room Air Room Air 11/26/16 11/26/16 11/26/16 11/26/16 15:42 19:30 20:00 20:37 Temp 97.9 97.9 Pulse 89 Resp 18 B/P (MAP) 118/70 (86) Pulse Ox 97 O2 Delivery Room Air Room Air Room Air Room Air 11/26/16 11/27/16 11/27/16 11/27/16 23:30 03:35 07:00 07:57 Temp 98.2 98.3 98.3 98.2 98.3 98.3 Pulse 66 76 74 Resp 18 18 18 B/P (MAP) 90/50 (63) 90/56 (67) 114/67 (83) Pulse Ox 95 98 98 99 O2 Delivery Room Air Room Air Room Air Room Air Intake and Output 11/26/16 11/26/16 11/27/16 15:00 23:00 07:00 Intake Total 200 ml 610 ml Output Total 350 ml 400 ml Balance -150 ml 210 ml ELKE ROBIN MD November 27, 2016 09:30
[2016-11-27] MEDS ORDERED: ELET40TA PO (10:28)
[2016-11-27] MEDS ORDERED: ASPI325T11 PO (10:28)
[2016-11-27] MEDS ORDERED: TOPI50TA75 PO (10:28)
[2016-11-27] MEDS ORDERED: GABA-585 PO (10:28)
[2016-11-27] MEDS ORDERED: VORT10TA PO (10:28)
[2016-11-27 11:00] VITALS: BP 111/65
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
[2016-11-27] MEDS ORDERED: MAGNESIUM HYDROXIDE 2,400 MG/30 ML ORAL.SUSP. PO PRN (14:00)
--- NOTE | 2016-11-27 14:25 | PDOC3 ---
Discharge Summary [facility] Date of Admission: November 22, 2016 Discharge Date: November 27, 2016 Admitting Diagnosis 1. MS flare 2. Anxiety NOS 3. HTN, controlled 4. Smoker Problems: Final Diagnosis CONSULTS neuro Brief Hospital Course Elise is a 40 old F, MS, not following any neurologist nor on MS maintain meds, comes for right upper ext weakness, MRI showed MS exacerbation. Pt got solumedrol 1000mg iv daily x5, feels better today, able to walk with a walker, dosenot qualify for rehab. dc home with home health. asked pt to fu with a neurologist LEE to start MS maintain meds. dc time 35min General: Alert, Oriented X3, Cooperative, No acute distress Abdomen: Normal bowel sounds, Soft, No tenderness, No hepatosplenomegaly, No masses Extremities: No clubbing, No cyanosis, No edema, Normal pulses, No tenderness/ swelling. right upper ext strength 4/5 heart: RRr, NORMAL S1S2 Skin: No rashes, No breakdown, No significant lesionMs. Problems: Disposition HH CONDITION AT DISCHARGE: Improved Diet dm Scheduled Aspirin (Aspirin Ec), 325 MG PO DAILYWBKFT Eletriptan Hbr (Relpax), 40 MG PO DAILY Gabapentin (Gabapentin), 100 MG PO TID Metoprolol Succinate (Metoprolol Succinate ( Xl )), 1 TAB PO DAILY, (Reported) Mirtazapine (Mirtazapine), 1 TAB PO QHS, (Reported) Ranitidine Hcl (Zantac), 1 TAB PO QHS Topiramate (Topiramate), 1 TAB PO BID Vortioxetine Hydrobromide (Trintellix), 10 MG PO DAILY Scheduled PRN Alprazolam (Alprazolam), 1 TAB PO DAILY PRN for ANXIETY, (Reported) Hydroxyzine Hcl (Hydroxyzine Hcl), 1 TAB PO BID PRN for ANXIETY, (Reported) Discontinued Medications Alprazolam (Alprazolam), 1 TAB PO DAILY PRN for ANXIETY / AGITATION, (Reported) Follow Up neuro lee NANY TAVARES MD November 27, 2016 14:25
[2016-11-27 15:00] VITALS: BP 128/78
== END 2016-11-27 16:00 | disposition home health service (06) | DRG 59 ==
LOC: ER 22:54 → 6 SOUTH 11-22 01:42
PROVIDERS: ADMIT Internal Medicine; ATTEND Internal Medicine
DX: G35 Multiple sclerosis (principal); N39.0 Urinary tract infection, site not specified; G51.0 Bell's palsy; F31.9 Bipolar disorder, unspecified; F41.9 Anxiety disorder, unspecified; G43.909 Migraine, unspecified, not intractable, without status migrainosus; I25.10 Atherosclerotic heart disease of native coronary artery without angina pectoris; I10 Essential (primary) hypertension; F79 Unspecified intellectual disabilities; F17.210 Nicotine dependence, cigarettes, uncomplicated; E66.9 Obesity, unspecified; E11.65 Type 2 diabetes mellitus with hyperglycemia; R09.89 Other specified symptoms and signs involving the circulatory and respiratory systems; G56.01 Carpal tunnel syndrome, right upper limb; F12.90 Cannabis use, unspecified, uncomplicated; Z88.2 Allergy status to sulfonamides; Z91.410 Personal history of adult physical and sexual abuse; I25.2 Old myocardial infarction; Z68.33 Body mass index [BMI] 33.0-33.9, adult; Z79.82 Long term (current) use of aspirin; Z79.1 Long term (current) use of non-steroidal anti-inflammatories (NSAID); Z79.899 Other long term (current) drug therapy; Z79.4 Long term (current) use of insulin
CPT/HCPCS: 36415; 70450; 70553; 71020; 80048; 80053; 81001; 82947; 84484; 85027; 85610; 85651; 87086; 93005; 94250; 94640; 94760; A9585; G0481; J1815; J2405; J2930; J7620; 92610; 97110; 97116; 99285-25

== ENCOUNTER 2017-05-23 18:07 | Inpatient (IN) | payer OTHER ==
[~2017-05-23] VITALS: Ht 162.6 cm; Wt 83.0 kg
[~2017-05-23 18:07] MED LIST changes: +ALPR0.254 PO; +ALPR0.5T6 PO; +ASPI325T11 PO; +ELET40TA PO; +GABA-585 PO; +HYDR25TA PO; +METO-239 PO; +MIRT30TA3 PO; +TOPI50TA8 PO; +VORT10TA PO
[2017-05-23 21:00] VITALS: BP 116/67
[2017-05-23] MEDS: IV NORMAL SALINE 1000ML BAG 1,000 ML IV SCH (22:45)
[2017-05-23] MEDS: ONDANSETRON PF 4 MG/2 ML VIAL. IV PRN (23:24)
[2017-05-23] MEDS: ACETAMINOPHEN 325 MG TABLET. PO PRN (23:24)
[2017-05-24] VITALS (8 sets, daily range): BP systolic 84–110; BP diastolic 47–63
[2017-05-24] MEDS ORDERED: RIVA20TA2 PO (00:16)
[2017-05-24] MEDS ORDERED: CLON0.5T3 PO (00:17)
[2017-05-24] MEDS ORDERED: PROAIR HFA8.5 GM INH (00:19)
[2017-05-24] MEDS ORDERED: TRAM50TA PO (00:19)
[2017-05-24] MEDS: MORPHINE SULFATE 4 MG/ML DISP.SYRIN. IV PRN ×2 (06:18→19:41)
[2017-05-24 08:03] LABS: BASO % 1 % (0-3); EOS % 0 % (0-3); HEMATOCRIT 25.1 % (36.0-47.0); HEMOGLOBIN 7.6 g/dL (12.0-15.5); LYMPH # 2.1 x10^3/uL (1.0-4.8); LYMPH % 51 % (24-48); MEAN CORPUSCULAR HEMOGLOBIN 23 pg (25-35); MEAN CORPUSCULAR HGB CONC 31 g/dL (31-37); MEAN CORPUSCULAR VOLUME 75 fL (79-100); MONO % 9 % (0-9); NEUT % 38 % (31-73); PLATELET COUNT 241 x10^3/uL (140-400); RED BLOOD COUNT 3.36 x10^6/uL (3.50-5.40); RED CELL DISTRIBUTION WIDTH 18.3 % (11.5-14.5); WHITE BLOOD COUNT 4.1 x10^3/uL (4.0-11.0)
[2017-05-24 08:11] LABS: ALBUMIN 2.9 g/dL (3.4-5.0); ALBUMIN/GLOBULIN RATIO 0.9 (1.0-1.7); CALCIUM 8.3 mg/dL (8.5-10.1); CREATININE 0.7 mg/dL (0.6-1.0); GFR 91.8; POTASSIUM 3.5 mmol/L (3.5-5.1); TOTAL BILIRUBIN 0.3 mg/dL (0.2-1.0); TOTAL PROTEIN 6.3 g/dL (6.4-8.2)
[2017-05-24 08:18] LABS: INR 1.2 (0.8-1.1); PROTHROMBIN TIME PATIENT 14.9 SEC (11.7-14.0)
[2017-05-24] MEDS ORDERED: ALPRAZolam 0.25 MG TABLET PO PRN (09:15)
[2017-05-24] MEDS ORDERED: NON FORMULARY ITEM (Albuterol Sulfate (Proair Hfa Inhaler) 1 PUFF) INH PRN (09:15)
[2017-05-24 09:21] LABS: ANISOCYTOSIS SLIGHT; OVALOCYTES OCC; PLT ESTIMATE ADEQUATE (ADEQUATE)
--- NOTE | 2017-05-24 09:29 | PDOC1 ---
History and Physical Date of Admission Date of Admission DATE: 05/24/17 TIME: 09:23 Identification/Chief Complaint Chief Complaint nausea, bleeding Problems: Source Source: Chart review, Patient History of Present Illness History of Present Illness transferred from [facility] for vaginal bleeding 2 total weeks of bleeding, but for 2 days of worsened, bright blood from her vagina, she is sure it is not rectal bleeding, no stool, stools have been normal in consistency she has no count of pads or # of tampons she this AM, complains of nausea and feels like she will vomit. Was able to eat eggs, Past Medical History Cardiovascular: HTN, [place] CENTRAL NERVOUS SYSTEM: CVA, Other Psych: Anxiety, Bipolar, Depression, Panic, Other Past Surgical History Past Surgical History: Family History Family History: No Significant, Other Social History ALCOHOL: none Drugs: None Current Medications Current Medications Current Medications Acetaminophen (Tylenol) 650 mg PRN Q6HRS PRN PO PAIN Last administered on 05/23 23:24; Start 05/23/17 at 22:45 Morphine Sulfate 4 mg PRN Q4HRS PRN IV PAIN Last administered on 05/24/17 06: 18; Start 05/23/17 at 22:45 Sodium Chloride 1,000 ml @ 100 mls/hr Q10H IV Last administered on 05/23/17 22:45; Start 05/23/17 at 22:45 Ondansetron HCl (Zofran) 4 mg PRN Q4HRS PRN IV NAUSEA/VOMITING Last administered on 05/23/17 23:24; Start 05/23/17 at 22:45 Alprazolam (Xanax) 0.25 mg DAILY PRN PO ANXIETY; Start 05/24/17 at 09:15; Status UNV Clonazepam (KlonoPIN) 0.5 mg DAILY PRN PO ANXIETY; Start 05/24/17 at 09:15; Status UNV Gabapentin (Neurontin) 100 mg TID PO ; Start 05/24/17 at 14:00; Status UNV Non-Formulary Medication 1 puff PRN Q6HRS PRN INH SHORTNESS OF BREATH; Start 05/24/17 at 09:15; Status UNV Non-Formulary Medication 40 mg DAILY PO ; Start 05/25/17 at 09:00; Status UNV Non-Formulary Medication 1 tab BID PRN PO ANXIETY; Start 05/24/17 at 09:15; Status UNV Non-Formulary Medication 1 tab QHS PO ; Start 05/24/17 at 21:00; Status UNV Non-Formulary Medication 1 tab QHS PO ; Start 05/24/17 at 21:00; Status UNV Non-Formulary Medication 1 tab BID PO ; Start 05/24/17 at 21:00; Status UNV Non-Formulary Medication 10 mg DAILY PO ; Start 05/25/17 at 09:00; Status UNV Active Scripts Active Gabapentin 100 Mg Capsule 100 Mg PO TID Aspirin Ec (Aspirin) 325 Mg Tablet.dr 325 Mg PO DAILYWBKFT 30 Days Topiramate 50 Mg Tablet 1 Tab PO BID Relpax (Eletriptan Hbr) 40 Mg Tablet 40 Mg PO DAILY 30 Days Trintellix (Vortioxetine) 10 Mg Tablet 10 Mg PO DAILY 30 Days Zantac (Ranitidine Hcl) 300 Mg Tablet 1 Tab PO QHS Reported Proair Hfa Inhaler (Albuterol Sulfate) 8.5 Gm Hfa.aer.ad 1 Puff INH PRN Q6HRS PRN Tramadol Hcl 50 Mg Tablet 1 Tab PO PRN Q6HRS Clonazepam 0.5 Mg Tablet 1 Tab PO DAILY PRN Xarelto (Rivaroxaban) 20 Mg Tablet 20 Mg PO DAILY Alprazolam 0.25 Mg Tablet 1 Tab PO DAILY PRN Mirtazapine 30 Mg Tablet 1 Tab PO QHS Hydroxyzine Hcl 25 Mg Tablet 1 Tab PO BID PRN Metoprolol Succinate ( Xl ) (Metoprolol Succinate) 25 Mg Tab.er.24h 1 Tab PO DAILY Allergies Allergies: Coded Allergies: Sulfa (Sulfonamide Antibiotics) (Verified Allergy, Intermediate, 07/31/15) ROS General: YES: Fatigue, No: Chills, Night Sweats, Malaise, Appetite, Other PSYCHOLOGICAL ROS: No: Anxiety, Behavioral Disorder, Concentration difficultie , Decreased libido, Depression, Disorientation, Hallucinations, Hostility, Irritablity, Memory difficulties, Mood Swings, Obsessive thoughts, Physical abuse, Sexual abuse, Sleep disturbances, Suicidal ideation, Other Eyes: No Blurry vision, No Decreased vision, No Double vision, No Dry eyes, No Excessive tearing, No Eye Pain, No Itchy Eyes, No Loss of vision, No Photophobia , No Scotomata, No Uses contacts, No Uses glasses, No Other HEENT: YES: Heacaches, No: Visual Changes, Hearing change, Nasal congestion, Nasal discharge, Oral lesions, Sinus pain, Sore Throat, Epistaxis, Sneezing, Snoring, Tinnitus, Vertigo, Vocal changes, Other Respiratory: No: Cough, Hemoptysis, Orthopnea, Pleuritic Pain, Shortness of breath, SOB with excertion, Sputum Changes, Stridor, Tachypnea, Wheezing, Other Cardiovascular: No Chest Pain, No Palpitations, No Orthopnea, No Paroxysmal Noc. Dyspnea, No Edema, No Lt Headedness, No Other Gastrointestinal: Yes Nausea, Yes Abdominal Pain, No Vomiting, No Diarrhea, No Constipation, No Melena, No Hematochezia, No Other Genitourinary: No Dysuria, No Frequency, No Incontinence, No Hematuria, No Retention, No Discharge, No Urgency, No Pain, No Flank Pain, No Other, No , No , No , No , No , No , No Musculoskeletal: Yes Joint Stiffness, No Gait Disturbance, No Joint Pain, No Joint Swelling, No Muscle Pain, No Muscular Weakness, No Pain In:, No Swelling In:, No Other Neurological: No Behavorial Changes, No Bowel/Bladder ControlChng, No Confusion , No Dizziness, No Gait Disturbance, No Headaches, No Impaired Coord/balance, No Memory Loss, No Numbness/Tingling, No Seizures, No Speech Problems, No Tremors, No Visual Changes, No Weakness, No Other Skin: Yes Dry Skin, No Eczema, No Hair Changes, No Lumps, No Mole Changes, No Mottling, No Nail Changes, No Pruritus, No Rash, No Skin Lesion Changes, No Other, No Acne Physical Exam General: Alert, Oriented X3, Cooperative, mild distress, moderate distress HEENT: EOMI Heart: no gallops, no murmurs Abdomen: Normal bowel sounds, Soft Extremities: No clubbing, No cyanosis, No edema Skin: No significant lesion Neuro: Normal speech, Sensation intact Psych/Mental Status: Mood NL Vitals Vitals Vital Signs Date Time Temp Pulse Resp B/P (MAP) Pulse Ox O2 Delivery O2 Flow Rate FiO2 05/24/17 08:00 98.9 73 16 102/60 (74) 100 Room Air 98.9 Labs Labs Laboratory Tests Test 11/16/17 07:45 White Blood Count 4.1 x10^3/uL (4.0-11.0) Red Blood Count 3.36 x10^6/uL (3.50-5.40) Hemoglobin 7.6 g/dL (12.0-15.5) Hematocrit 25.1 % (36.0-47.0) Mean Corpuscular Volume 75 fL (79-100) Mean Corpuscular Hemoglobin 23 pg (25-35) Mean Corpuscular Hemoglobin Concent 31 g/dL (31-37) Red Cell Distribution Width 18.3 % (11.5-14.5) Platelet Count 241 x10^3/uL (140-400) Neutrophils (%) (Auto) 38 % (31-73) Lymphocytes (%) (Auto) 51 % (24-48) Monocytes (%) (Auto) 9 % (0-9) Eosinophils (%) (Auto) 0 % (0-3) Basophils (%) (Auto) 1 % (0-3) Neutrophils # (Auto) 1.6 x10^3uL (1.8-7.7) Lymphocytes # (Auto) 2.1 x10^3/uL (1.0-4.8) Monocytes # (Auto) 0.4 x10^3/uL (0.0-1.1) Eosinophils # (Auto) 0.0 x10^3/uL (0.0-0.7) Basophils # (Auto) 0.0 x10^3/uL (0.0-0.2) Platelet Estimate Adequate (ADEQUATE) Anisocytosis Slight Ovalocytes Occ Prothrombin Time 14.9 SEC (11.7-14.0) Prothromb Time International Ratio 1.2 (0.8-1.1) Sodium Level 143 mmol/L (136-145) Potassium Level 3.5 mmol/L (3.5-5.1) Chloride Level 109 mmol/L (98-107) Carbon Dioxide Level 25 mmol/L (21-32) Anion Gap 9 (6-14) Blood Urea Nitrogen 15 mg/dL (7-20) Creatinine 0.7 mg/dL (0.6-1.0) Estimated GFR (Cockcroft-Gault) 91.8 BUN/Creatinine Ratio 21 (6-20) Glucose Level 85 mg/dL (70-99) Calcium Level 8.3 mg/dL (8.5-10.1) Total Bilirubin 0.3 mg/dL (0.2-1.0) Aspartate Amino Transf (AST/SGOT) 12 U/L (15-37) Alanine Aminotransferase (ALT/SGPT) 18 U/L (14-59) Alkaline Phosphatase 56 U/L (46-116) Total Protein 6.3 g/dL (6.4-8.2) Albumin 2.9 g/dL (3.4-5.0) Albumin/Globulin Ratio 0.9 (1.0-1.7) Laboratory Tests Test 05/24/17 07:45 White Blood Count 4.1 x10^3/uL (4.0-11.0) Red Blood Count 3.36 x10^6/uL (3.50-5.40) Hemoglobin 7.6 g/dL (12.0-15.5) Hematocrit 25.1 % (36.0-47.0) Mean Corpuscular Volume 75 fL (79-100) Mean Corpuscular Hemoglobin 23 pg (25-35) Mean Corpuscular Hemoglobin Concent 31 g/dL (31-37) Red Cell Distribution Width 18.3 % (11.5-14.5) Platelet Count 241 x10^3/uL (140-400) Neutrophils (%) (Auto) 38 % (31-73) Lymphocytes (%) (Auto) 51 % (24-48) Monocytes (%) (Auto) 9 % (0-9) Eosinophils (%) (Auto) 0 % (0-3) Basophils (%) (Auto) 1 % (0-3) Neutrophils # (Auto) 1.6 x10^3uL (1.8-7.7) Lymphocytes # (Auto) 2.1 x10^3/uL (1.0-4.8) Monocytes # (Auto) 0.4 x10^3/uL (0.0-1.1) Eosinophils # (Auto) 0.0 x10^3/uL (0.0-0.7) Basophils # (Auto) 0.0 x10^3/uL (0.0-0.2) Platelet Estimate Adequate (ADEQUATE) Anisocytosis Slight Ovalocytes Occ Prothrombin Time 14.9 SEC (11.7-14.0) Prothromb Time International Ratio 1.2 (0.8-1.1) Sodium Level 143 mmol/L (136-145) Potassium Level 3.5 mmol/L (3.5-5.1) Chloride Level 109 mmol/L (98-107) Carbon Dioxide Level 25 mmol/L (21-32) Anion Gap 9 (6-14) Blood Urea Nitrogen 15 mg/dL (7-20) Creatinine 0.7 mg/dL (0.6-1.0) Estimated GFR (Cockcroft-Gault) 91.8 BUN/Creatinine Ratio 21 (6-20) Glucose Level 85 mg/dL (70-99) Calcium Level 8.3 mg/dL (8.5-10.1) Total Bilirubin 0.3 mg/dL (0.2-1.0) Aspartate Amino Transf (AST/SGOT) 12 U/L (15-37) Alanine Aminotransferase (ALT/SGPT) 18 U/L (14-59) Alkaline Phosphatase 56 U/L (46-116) Total Protein 6.3 g/dL (6.4-8.2) Albumin 2.9 g/dL (3.4-5.0) Albumin/Globulin Ratio 0.9 (1.0-1.7) VTE Prophylaxis Ordered VTE Prophylaxis Devices: No VTE Pharmacological Prophylaxi: Yes Assessment/Plan Assessment/Plan acute abdominal pain, limited nausea without vomiting, will start zofran vaginal bleeding, consult Airway Controller, and stop the Xarelto and aspirin Anemia, acute blood loss, and appears iron deficient per MCV, check iron panel , B12, folate, consult Heme, recent left leg DVT, will stop Xarelto, should we consider IVC filter? MS migranes prior CVA on disability depression, anxiety, poss bipolar obesity, BMI 31, w moderate malnutrition admit GARRETT ARREAGA MD May 24, 2017 09:29
[2017-05-24] MEDS ORDERED: ALBUTEROL SULFATE 2.5 MG/3 ML NEBU. NEB PRN (09:45)
[2017-05-24 09:46] LABS: % SAT IRON 4 % (15-34); IRON,SERUM 12 ug/dL (50-170)
--- NOTE | 2017-05-24 11:31 | PDOC2 ---
GI CONSULT Reason For Consult: Nausea, abd pain HPI: HPI: 41 y/o female transferred from [facility] for menorrhagia. Describes heavy vaginal bleeding x 2 weeks. Associated w/ pelvic pain and n/v. Vomited 4 times yesterday, today able to tolerate liquids. Denies hematemesis, hematochezia, melena. No abd imaging. Recent h/o LLE DVT, has been on Xarelto and ASA. H/o occasional GERD, uses Zantac PRN. Maybe reflux has been worse x 2 weeks. No weight loss. No diarrhea or constipation. No previous EGD or colonoscopy. No NSAID use. No GB, liver, or pancreas history. Hgb was 12.6 in 11/2015, now 7.6. [employer] and hematology pending. PMH: PMH: MS, [place], CVA, HTN, GERD, migraines, anxiety, bipolar, depression, panic disorder , DVT, FH: Family History: No pertinent hx Social History: Smoke: Quit ALCOHOL: none Drugs: None ROS: GEN: Denies fevers, chills, sweats HEENT: Denies blurred vision, sore throat CV: Denies chest pain RESP: Denies shortness of air, cough GI: Per HPI : Denies hematuria, dysuria ENDO: Denies weight changes NEURO: Denies confusion, dizziness MSK: Denies weakness, joint pain/swelling SKIN: Denies jaundice, pruritus Vitals: Vitals: Vital Signs Date Time Temp Pulse Resp B/P (MAP) Pulse Ox O2 Delivery O2 Flow Rate FiO2 05/24/17 08:00 98.9 73 16 102/60 (74) 100 Room Air 98.9 Labs: Labs: Laboratory Tests Test 05/24/17 07:45 White Blood Count 4.1 x10^3/uL (4.0-11.0) Red Blood Count 3.36 x10^6/uL (3.50-5.40) Hemoglobin 7.6 g/dL (12.0-15.5) Hematocrit 25.1 % (36.0-47.0) Mean Corpuscular Volume 75 fL (79-100) Mean Corpuscular Hemoglobin 23 pg (25-35) Mean Corpuscular Hemoglobin Concent 31 g/dL (31-37) Red Cell Distribution Width 18.3 % (11.5-14.5) Platelet Count 241 x10^3/uL (140-400) Neutrophils (%) (Auto) 38 % (31-73) Lymphocytes (%) (Auto) 51 % (24-48) Monocytes (%) (Auto) 9 % (0-9) Eosinophils (%) (Auto) 0 % (0-3) Basophils (%) (Auto) 1 % (0-3) Neutrophils # (Auto) 1.6 x10^3uL (1.8-7.7) Lymphocytes # (Auto) 2.1 x10^3/uL (1.0-4.8) Monocytes # (Auto) 0.4 x10^3/uL (0.0-1.1) Eosinophils # (Auto) 0.0 x10^3/uL (0.0-0.7) Basophils # (Auto) 0.0 x10^3/uL (0.0-0.2) Platelet Estimate Adequate (ADEQUATE) Anisocytosis Slight Ovalocytes Occ Prothrombin Time 14.9 SEC (11.7-14.0) Prothromb Time International Ratio 1.2 (0.8-1.1) Sodium Level 143 mmol/L (136-145) Potassium Level 3.5 mmol/L (3.5-5.1) Chloride Level 109 mmol/L (98-107) Carbon Dioxide Level 25 mmol/L (21-32) Anion Gap 9 (6-14) Blood Urea Nitrogen 15 mg/dL (7-20) Creatinine 0.7 mg/dL (0.6-1.0) Estimated GFR (Cockcroft-Gault) 91.8 BUN/Creatinine Ratio 21 (6-20) Glucose Level 85 mg/dL (70-99) Calcium Level 8.3 mg/dL (8.5-10.1) Iron Level 12 ug/dL (50-170) Total Iron Binding Capacity 336 ug/dL (250-450) Iron Saturation 4 % (15-34) Total Bilirubin 0.3 mg/dL (0.2-1.0) Aspartate Amino Transf (AST/SGOT) 12 U/L (15-37) Alanine Aminotransferase (ALT/SGPT) 18 U/L (14-59) Alkaline Phosphatase 56 U/L (46-116) Total Protein 6.3 g/dL (6.4-8.2) Albumin 2.9 g/dL (3.4-5.0) Albumin/Globulin Ratio 0.9 (1.0-1.7) Allergies: Coded Allergies: Sulfa (Sulfonamide Antibiotics) (Verified Allergy, Intermediate, 07/31/15) Medications: Current Medications Medications (Trade) Dose Ordered Sig/Tootie Route PRN Reason Start Time Stop Time Status Last Admin Dose Admin Acetaminophen (Tylenol) 650 mg PRN Q6HRS PRN PO PAIN 05/23/17 22:45 05/23/17 23:24 Morphine Sulfate 4 mg PRN Q4HRS PRN IV PAIN 05/23/17 22:45 05/24/17 06:18 Sodium Chloride 1,000 ml @ 100 mls/hr Q10H IV 05/23/17 22:45 05/23/17 22:45 Ondansetron HCl (Zofran) 4 mg PRN Q4HRS PRN IV NAUSEA/VOMITING 05/23/17 22:45 05/23/17 23:24 Imaging: Imaging: - PE: GEN: NAD HEENT: Atraumatic, PERRL LUNGS: CTAB HEART: RRR ABD: NABS, S/ND, vague suprapubic and low BLQ discomfort toward groin EXTREMITY: No edema SKIN: No rashes, no jaundice NEURO/PSYCH: A & O 3 A/P: A/P: Menorrhagia, RUPERT LLE DVT on Xarelto, ASA N/v -onset w/ bleeding two weeks ago -tolerating liquid today Pelvic/low abd pain GERD -intermittent symptoms, takes H2 brett PRN -no previous EGD CRC screen -no previous, average risk -- Change to PPI for now, will review additional recs w/ Dr. Jane. Re: n/v, ?consider GB imaging or [facility] EGD and colonoscopy once menorrhagia/DVT addressed if anemia persists. ART BAIN May 24, 2017 11:31
--- NOTE | 2017-05-24 11:40 | PDOC2 ---
CONSULT Date of Consult Date of Consult DATE: 05/24/17 TIME: 11:30 Reason for Consult Reason for Consult: vaginal bleeding Referring Physician Referring Physician: Dr. Olvera Identification/Chief Complaint Chief Complaint vaginal bleeding and diarrhea Problems: Source Source: Chart review History of Present Illness Reason for Visit: 41 y/o presented to [facility] for vaginal bleeding for past 2 weeks and diarrhea. No fevers, chills, CP, SOB, dysuria or hematuria. Sono at [facility]' s reviewed and patient appears to have fibroids. Past Medical History Cardiovascular: HTN, [place] CENTRAL NERVOUS SYSTEM: CVA, Other Psych: Anxiety, Bipolar, Depression, Panic, Other Past Surgical History Past Surgical History: Family History Family History: No Significant, Other Social History ALCOHOL: none Drugs: None Current Medications Current Medications Current Medications Acetaminophen (Tylenol) 650 mg PRN Q6HRS PRN PO PAIN Last administered on 05/23 23:24; Start 05/23/17 at 22:45 Morphine Sulfate 4 mg PRN Q4HRS PRN IV PAIN Last administered on 05/24/17 06: 18; Start 05/23/17 at 22:45 Sodium Chloride 1,000 ml @ 100 mls/hr Q10H IV Last administered on 05/23/17 22:45; Start 05/23/17 at 22:45 Ondansetron HCl (Zofran) 4 mg PRN Q4HRS PRN IV NAUSEA/VOMITING Last administered on 05/23/17 23:24; Start 05/23/17 at 22:45 Alprazolam (Xanax) 0.25 mg PRN DAILY PRN PO ANXIETY; Start 05/24/17 at 09:15 Clonazepam (KlonoPIN) 0.5 mg PRN DAILY PRN PO ANXIETY; Start 05/24/17 at 09:15 Gabapentin (Neurontin) 100 mg TID PO ; Start 05/24/17 at 10:00 Non-Formulary Medication 1 puff PRN Q6HRS PRN INH SHORTNESS OF BREATH; Start 05/24/17 at 09:15; Stop 05/24/17 at 09:55; Status DC Non-Formulary Medication 40 mg DAILY PO ; Start 05/25/17 at 09:00; Status UNV Hydroxyzine Pamoate (Vistaril) 25 mg PRN BID PRN PO .ANXIETY; Start 05/24/17 at 09:45 Mirtazapine (Remeron) 30 mg QHS PO ; Start 05/24/17 at 21:00 Famotidine (Pepcid) 40 mg QHS PO ; Start 05/24/17 at 21:00 Topiramate (Topamax) 50 mg BID PO ; Start 05/24/17 at 09:45 Non-Formulary Medication 10 mg DAILY PO ; Start 05/25/17 at 09:00; Status UNV Albuterol Sulfate (Ventolin Neb Soln) 2.5 mg PRN Q6HRS PRN NEB SHORTNESS OF BREATH; Start 05/24/17 at 09:45 Active Scripts Active Gabapentin 100 Mg Capsule 100 Mg PO TID Aspirin Ec (Aspirin) 325 Mg Tablet.dr 325 Mg PO DAILYWBKFT 30 Days Topiramate 50 Mg Tablet 1 Tab PO BID Relpax (Eletriptan Hbr) 40 Mg Tablet 40 Mg PO DAILY 30 Days Trintellix (Vortioxetine) 10 Mg Tablet 10 Mg PO DAILY 30 Days Zantac (Ranitidine Hcl) 300 Mg Tablet 1 Tab PO QHS Reported Proair Hfa Inhaler (Albuterol Sulfate) 8.5 Gm Hfa.aer.ad 1 Puff INH PRN Q6HRS PRN Tramadol Hcl 50 Mg Tablet 1 Tab PO PRN Q6HRS Clonazepam 0.5 Mg Tablet 1 Tab PO DAILY PRN Xarelto (Rivaroxaban) 20 Mg Tablet 20 Mg PO DAILY Alprazolam 0.25 Mg Tablet 1 Tab PO DAILY PRN Mirtazapine 30 Mg Tablet 1 Tab PO QHS Hydroxyzine Hcl 25 Mg Tablet 1 Tab PO BID PRN Metoprolol Succinate ( Xl ) (Metoprolol Succinate) 25 Mg Tab.er.24h 1 Tab PO DAILY Allergies Allergies: Coded Allergies: Sulfa (Sulfonamide Antibiotics) (Verified Allergy, Intermediate, 07/31/15) ROS General: YES: Fatigue, Malaise PSYCHOLOGICAL ROS: No: Anxiety, Behavioral Disorder, Concentration difficultie , Decreased libido, Depression, Disorientation, Hallucinations, Hostility, Irritablity, Memory difficulties, Mood Swings, Obsessive thoughts, Physical abuse, Sexual abuse, Sleep disturbances, Suicidal ideation, Other Eyes: No Blurry vision, No Decreased vision, No Double vision, No Dry eyes, No Excessive tearing, No Eye Pain, No Itchy Eyes, No Loss of vision, No Photophobia , No Scotomata, No Uses contacts, No Uses glasses, No Other HEENT: No: Heacaches, Visual Changes, Hearing change, Nasal congestion, Nasal discharge, Oral lesions, Sinus pain, Sore Throat, Epistaxis, Sneezing, Snoring, Tinnitus, Vertigo, Vocal changes, Other ALLERGY AND IMMUNOLOGY: No: Hives, Insect Bite Sensitivity, Itchy/Watery Eyes, Nasal Congestion, Post Nasal Drip, Seasonal Allergies, Other Hematological and Lymphatic: No: Bleeding Problems, Blood Clots, Blood Transfusions, Brusing, Night Sweats, Pallor, Swollen Lymph Nodes, Other ENDOCRINE: No: Breast Changes, Galactorrhea, Hair Pattern Changes, Hot Flashes , Malaise/lethargy, Mood Swings, Palpitations, Polydipsia/polyuria, Skin Changes , Temperature Intolerance, Unexpected Weight Changes, Other Breast: No New/Changing Breast Lumps, No Nipple changes, No Nipple discharge, No Other Respiratory: No: Cough, Hemoptysis, Orthopnea, Pleuritic Pain, Shortness of breath, SOB with excertion, Sputum Changes, Stridor, Tachypnea, Wheezing, Other Cardiovascular: No Chest Pain, No Palpitations, No Orthopnea, No Paroxysmal Noc. Dyspnea, No Edema, No Lt Headedness, No Other Gastrointestinal: Yes Diarrhea, No Nausea, No Vomiting, No Abdominal Pain, No Constipation, No Melena, No Hematochezia, No Other Musculoskeletal: No Gait Disturbance, No Joint Pain, No Joint Stiffness, No Joint Swelling, No Muscle Pain, No Muscular Weakness, No Pain In:, No Swelling In:, No Other Physical Exam General: Alert, Cooperative HEENT: Atraumatic Lungs: Clear to auscultation Heart: Regular rate Abdomen: Normal bowel sounds, Soft Psych/Mental Status: Mental status NL Vitals VITALS Vital Signs Date Time Temp Pulse Resp B/P (MAP) Pulse Ox O2 Delivery O2 Flow Rate FiO2 05/24/17 11:29 99 Room Air 05/24/17 08:00 98.9 73 16 102/60 (74) 98.9 Labs Labs Laboratory Tests Test 05/24/17 07:45 White Blood Count 4.1 x10^3/uL (4.0-11.0) Red Blood Count 3.36 x10^6/uL (3.50-5.40) Hemoglobin 7.6 g/dL (12.0-15.5) Hematocrit 25.1 % (36.0-47.0) Mean Corpuscular Volume 75 fL (79-100) Mean Corpuscular Hemoglobin 23 pg (25-35) Mean Corpuscular Hemoglobin Concent 31 g/dL (31-37) Red Cell Distribution Width 18.3 % (11.5-14.5) Platelet Count 241 x10^3/uL (140-400) Neutrophils (%) (Auto) 38 % (31-73) Lymphocytes (%) (Auto) 51 % (24-48) Monocytes (%) (Auto) 9 % (0-9) Eosinophils (%) (Auto) 0 % (0-3) Basophils (%) (Auto) 1 % (0-3) Neutrophils # (Auto) 1.6 x10^3uL (1.8-7.7) Lymphocytes # (Auto) 2.1 x10^3/uL (1.0-4.8) Monocytes # (Auto) 0.4 x10^3/uL (0.0-1.1) Eosinophils # (Auto) 0.0 x10^3/uL (0.0-0.7) Basophils # (Auto) 0.0 x10^3/uL (0.0-0.2) Platelet Estimate Adequate (ADEQUATE) Anisocytosis Slight Ovalocytes Occ Prothrombin Time 14.9 SEC (11.7-14.0) Prothromb Time International Ratio 1.2 (0.8-1.1) Sodium Level 143 mmol/L (136-145) Potassium Level 3.5 mmol/L (3.5-5.1) Chloride Level 109 mmol/L (98-107) Carbon Dioxide Level 25 mmol/L (21-32) Anion Gap 9 (6-14) Blood Urea Nitrogen 15 mg/dL (7-20) Creatinine 0.7 mg/dL (0.6-1.0) Estimated GFR (Cockcroft-Gault) 91.8 BUN/Creatinine Ratio 21 (6-20) Glucose Level 85 mg/dL (70-99) Calcium Level 8.3 mg/dL (8.5-10.1) Iron Level 12 ug/dL (50-170) Total Iron Binding Capacity 336 ug/dL (250-450) Iron Saturation 4 % (15-34) Total Bilirubin 0.3 mg/dL (0.2-1.0) Aspartate Amino Transf (AST/SGOT) 12 U/L (15-37) Alanine Aminotransferase (ALT/SGPT) 18 U/L (14-59) Alkaline Phosphatase 56 U/L (46-116) Total Protein 6.3 g/dL (6.4-8.2) Albumin 2.9 g/dL (3.4-5.0) Albumin/Globulin Ratio 0.9 (1.0-1.7) Laboratory Tests Test 05/24/17 07:45 White Blood Count 4.1 x10^3/uL (4.0-11.0) Red Blood Count 3.36 x10^6/uL (3.50-5.40) Hemoglobin 7.6 g/dL (12.0-15.5) Hematocrit 25.1 % (36.0-47.0) Mean Corpuscular Volume 75 fL (79-100) Mean Corpuscular Hemoglobin 23 pg (25-35) Mean Corpuscular Hemoglobin Concent 31 g/dL (31-37) Red Cell Distribution Width 18.3 % (11.5-14.5) Platelet Count 241 x10^3/uL (140-400) Neutrophils (%) (Auto) 38 % (31-73) Lymphocytes (%) (Auto) 51 % (24-48) Monocytes (%) (Auto) 9 % (0-9) Eosinophils (%) (Auto) 0 % (0-3) Basophils (%) (Auto) 1 % (0-3) Neutrophils # (Auto) 1.6 x10^3uL (1.8-7.7) Lymphocytes # (Auto) 2.1 x10^3/uL (1.0-4.8) Monocytes # (Auto) 0.4 x10^3/uL (0.0-1.1) Eosinophils # (Auto) 0.0 x10^3/uL (0.0-0.7) Basophils # (Auto) 0.0 x10^3/uL (0.0-0.2) Platelet Estimate Adequate (ADEQUATE) Anisocytosis Slight Ovalocytes Occ Prothrombin Time 14.9 SEC (11.7-14.0) Prothromb Time International Ratio 1.2 (0.8-1.1) Sodium Level 143 mmol/L (136-145) Potassium Level 3.5 mmol/L (3.5-5.1) Chloride Level 109 mmol/L (98-107) Carbon Dioxide Level 25 mmol/L (21-32) Anion Gap 9 (6-14) Blood Urea Nitrogen 15 mg/dL (7-20) Creatinine 0.7 mg/dL (0.6-1.0) Estimated GFR (Cockcroft-Gault) 91.8 BUN/Creatinine Ratio 21 (6-20) Glucose Level 85 mg/dL (70-99) Calcium Level 8.3 mg/dL (8.5-10.1) Iron Level 12 ug/dL (50-170) Total Iron Binding Capacity 336 ug/dL (250-450) Iron Saturation 4 % (15-34) Total Bilirubin 0.3 mg/dL (0.2-1.0) Aspartate Amino Transf (AST/SGOT) 12 U/L (15-37) Alanine Aminotransferase (ALT/SGPT) 18 U/L (14-59) Alkaline Phosphatase 56 U/L (46-116) Total Protein 6.3 g/dL (6.4-8.2) Albumin 2.9 g/dL (3.4-5.0) Albumin/Globulin Ratio 0.9 (1.0-1.7) Assessment/Plan Assessment/Plan A: AUB : no active bleeding Fibroids Chronic blood loss anemia P: Will f/u in clinic in 2 weeks for embx. Recommend iron BID. Thank you for consult. TWAN VILLAREAL Jr, MD May 24, 2017 11:39
[2017-05-24] MEDS ORDERED: SUMAtriptan SUCCINATE 100 MG TABLET PO PRN (12:00)
[2017-05-24] MEDS: GABAPENTIN 100 MG CAPSULE. PO SCH ×3 (15:00→21:21)
[2017-05-24] MEDS: TOPIRAMATE 25 MG TABLET. PO SCH ×2 (15:14→21:24)
[2017-05-24 15:26] LABS: NEG OBC UR NEG; POS OBC UR POS
--- NOTE | 2017-05-24 17:23 | PDOC ---
Provider Note Provider Note Hem-Onc consult 1. DVT LLE 04/05/17 Plan f/u venous doppler. 2. Iron def anemia - ordered venofer. 3. vaginal bleeding - I d/w Customer Relationship Specialist See dictation [id number] JODEE SANTIAGO MD May 24, 2017 17:23
[2017-05-24 17:54] LABS: BILIRUBIN,URINE NEGATIVE (NEG); GLUCOSE,URINE NEGATIVE (NEG); NITRITE,URINE NEGATIVE (NEG); PROTEIN,URINE NEGATIVE (NEG-TRACE); UROBILINOGEN,URINE 0.2 mg/dL (0.2 mg/dL)
[2017-05-24] MEDS ORDERED: IRON SUCROSE COMPLEX 500 MG in IV NORMAL SALINE 250ML 250 ML IV ONE (18:00)
[2017-05-24 18:02] LABS: BACTERIA,URINE 0 /HPF (0-FEW); RBC,URINE 0 /HPF (0-2); SQUAMOUS EPITHELIAL CELL,UR FEW /LPF; WBC,URINE OCC /HPF (0-4)
[2017-05-24] MEDS: clonazePAM 0.5 MG TABLET PO PRN (18:13)
[2017-05-24] MEDS: hydrOXYzine PAMOATE 25 MG CAPSULE PO PRN (18:13)
[2017-05-24] MEDS: IV NORMAL SALINE 1000ML BAG 1,000 ML IV SCH (18:37)
[2017-05-24] MEDS: ONDANSETRON PF 4 MG/2 ML VIAL. IV PRN (19:40)
[2017-05-24] MEDS ORDERED: FAMOTIDINE 20 MG TABLET. PO SCH (21:00)
[2017-05-24] MEDS: MIRTAZAPINE 15 MG TABLET PO SCH (21:23)
[2017-05-25 04:40] LABS: BASO % 0 % (0-3); EOS % 0 % (0-3); HEMATOCRIT 27.7 % (36.0-47.0); HEMOGLOBIN 8.5 g/dL (12.0-15.5); LYMPH # 0.7 x10^3/uL (1.0-4.8); LYMPH % 12 % (24-48); MEAN CORPUSCULAR HEMOGLOBIN 23 pg (25-35); MEAN CORPUSCULAR HGB CONC 31 g/dL (31-37); MEAN CORPUSCULAR VOLUME 75 fL (79-100); MONO % 2 % (0-9); NEUT % 86 % (31-73); PLATELET COUNT 239 x10^3/uL (140-400); RED BLOOD COUNT 3.69 x10^6/uL (3.50-5.40); RED CELL DISTRIBUTION WIDTH 18.2 % (11.5-14.5); WHITE BLOOD COUNT 5.5 x10^3/uL (4.0-11.0)
[2017-05-25] MEDS: IV NORMAL SALINE 1000ML BAG 1,000 ML IV SCH ×2 (04:45→14:45)
[2017-05-25 05:30] VITALS: BP 112/71
[2017-05-25 05:49] LABS: ALBUMIN 3.3 g/dL (3.4-5.0); CALCIUM 8.2 mg/dL (8.5-10.1); CREATININE 0.9 mg/dL (0.6-1.0); GFR 68.7; POTASSIUM 3.4 mmol/L (3.5-5.1); TOTAL BILIRUBIN 0.1 mg/dL (0.2-1.0); TOTAL PROTEIN 6.7 g/dL (6.4-8.2)
[2017-05-25] MEDS: ONDANSETRON PF 4 MG/2 ML VIAL. IV PRN (06:46)
--- NOTE | 2017-05-25 08:06 | RAD ---
Left lower extremity venous duplex ultrasound 05/25/2017 Indication: Left lower extremity pain on walking. History of DVT. Patient currently anticoagulated. Comparison study: None Discussion: Ultrasound evaluation of the deep veins of left lower extremity was performed including color Doppler imaging evaluation of venous compressibility with augmentable blood flow on color Doppler imaging. There is no evidence of deep venous thrombosis involving left lower extremity. Interrogated veins are compressible and demonstrate augmentable flow. Impression: No evidence of deep venous thrombosis involving the left lower extremity.
--- NOTE | 2017-05-25 08:14 | RAD ---
Right upper quadrant ultrasound 05/24/2017 Indication: Right upper quadrant pain. Nausea, vomiting, abdominal pain. Comparison study: Ultrasound of the right upper quadrant from outside institution December 10, 2016 Discussion: Sonographic evaluation of the right upper quadrant was performed. Static images are submitted to PACS. The pancreas is not visualized secondary to overlying gas-filled bowel. The liver is grossly unremarkable in appearance. Liver measures 15 cm longitudinally. No focal hepatic lesions are seen. The gallbladder contains multiple shadowing stones. The gallbladder wall is non thickened. No pericholecystic fluid is identified. The common bile duct is mildly prominent at 5 mm. No intrahepatic biliary dilatation is appreciated. The right kidney is normal in appearance measuring 10.9 cm in length. Impression: 1. Cholelithiasis without evidence of cholecystitis 2. Top normal diameter of the common bile duct.
[2017-05-25 08:32] LABS: PLT ESTIMATE ADEQUATE (ADEQUATE)
[2017-05-25] MEDS ORDERED: NON FORMULARY ITEM (Vortioxetine Hydrobromide (Trintellix) 10 MG) PO SCH (09:00)
--- NOTE | 2017-05-25 09:48 | PDOC ---
PROGRESS NOTES Chief Complaint Chief Complaint acute abdominal pain, nausea without vomiting, improved vaginal bleeding, acute on chronic, may resume Xarelto soon per Heme Anemia, acute blood loss, and appears iron deficient per MCV, check iron panel , B12, folate, consult Heme, recent left leg DVT, will stop Xarelto, should we consider IVC filter? MS new on old left leg pain, pain shooting down leg, migranes prior CVA depression, anxiety, poss bipolar obesity, BMI 31, w moderate malnutrition History of Present Illness History of Present Illness left left pain Vitals Vitals Vital Signs Date Time Temp Pulse Resp B/P (MAP) Pulse Ox O2 Delivery O2 Flow Rate FiO2 05/25/17 05:30 98.6 99 18 112/71 (85) 96 Room Air 98.6 Physical Exam General: Alert, Cooperative, mild distress Heart: Regular rate, No murmurs Lungs: Clear Abdomen: Normal bowel sounds, Soft Extremities: No clubbing, No cyanosis, No edema Skin: No significant lesion Labs LABS Laboratory Tests Test 05/24/17 14:21 05/24/17 15:10 05/25/17 03:00 Urine Collection Type Unknown Urine Color Yellow Urine Clarity Clear Urine pH 6.0 Urine Specific [place] 1.010 Urine Protein Negative mg/dL (NEG-TRACE) Urine Glucose (UA) Negative mg/dL (NEG) Urine Ketones (Stick) Negative mg/dL (NEG) Urine Blood Small (NEG) Urine Nitrite Negative (NEG) Urine Bilirubin Negative (NEG) Urine Urobilinogen Dipstick 0.2 mg/dL (0.2 mg/dL) Urine Leukocyte Esterase Negative (NEG) Urine RBC 0 /HPF (0-2) Urine WBC Occ /HPF (0-4) Urine Squamous Epithelial Cells Few /LPF Urine Bacteria 0 /HPF (0-FEW) Urine Mucus Slight /LPF Urine Test Negative (NEG) White Blood Count 5.5 x10^3/uL (4.0-11.0) Red Blood Count 3.69 x10^6/uL (3.50-5.40) Hemoglobin 8.5 g/dL (12.0-15.5) Hematocrit 27.7 % (36.0-47.0) Mean Corpuscular Volume 75 fL (79-100) Mean Corpuscular Hemoglobin 23 pg (25-35) Mean Corpuscular Hemoglobin Concent 31 g/dL (31-37) Red Cell Distribution Width 18.2 % (11.5-14.5) Platelet Count 239 x10^3/uL (140-400) Neutrophils (%) (Auto) 86 % (31-73) Lymphocytes (%) (Auto) 12 % (24-48) Monocytes (%) (Auto) 2 % (0-9) Eosinophils (%) (Auto) 0 % (0-3) Basophils (%) (Auto) 0 % (0-3) Neutrophils # (Auto) 4.8 x10^3uL (1.8-7.7) Lymphocytes # (Auto) 0.7 x10^3/uL (1.0-4.8) Monocytes # (Auto) 0.1 x10^3/uL (0.0-1.1) Eosinophils # (Auto) 0.0 x10^3/uL (0.0-0.7) Basophils # (Auto) 0.0 x10^3/uL (0.0-0.2) Segmented Neutrophils % 81 % (35-66) Band Neutrophils % 1 % (0-9) Lymphocytes % 17 % (24-48) Monocytes % 1 % (0-10) Platelet Estimate Adequate (ADEQUATE) Sodium Level 144 mmol/L (136-145) Potassium Level 3.4 mmol/L (3.5-5.1) Chloride Level 108 mmol/L (98-107) Carbon Dioxide Level 26 mmol/L (21-32) Anion Gap 10 (6-14) Blood Urea Nitrogen 10 mg/dL (7-20) Creatinine 0.9 mg/dL (0.6-1.0) Estimated GFR (Cockcroft-Gault) 68.7 BUN/Creatinine Ratio 11 (6-20) Glucose Level 107 mg/dL (70-99) Calcium Level 8.2 mg/dL (8.5-10.1) Total Bilirubin 0.1 mg/dL (0.2-1.0) Aspartate Amino Transf (AST/SGOT) 14 U/L (15-37) Alanine Aminotransferase (ALT/SGPT) 18 U/L (14-59) Alkaline Phosphatase 60 U/L (46-116) Total Protein 6.7 g/dL (6.4-8.2) Albumin 3.3 g/dL (3.4-5.0) Albumin/Globulin Ratio 1.0 (1.0-1.7) Review of Systems Review of Systems no n.v.d left leg pain Assessment and Plan Assessmemt and Plan consult Dr. Saldivar, he has seen her before, may have already had MRI, he will eval Problems: Comment Review of Relevant I have reviewed the following items rayne (where applicable) has been applied. Labs Laboratory Tests Test 05/24/17 07:45 05/24/17 14:21 05/24/17 15:10 05/25/17 03:00 White Blood Count 4.1 x10^3/uL (4.0-11.0) 5.5 x10^3/uL (4.0-11.0) Red Blood Count 3.36 x10^6/uL (3.50-5.40) 3.69 x10^6/uL (3.50-5.40) Hemoglobin 7.6 g/dL (12.0-15.5) 8.5 g/dL (12.0-15.5) Hematocrit 25.1 % (36.0-47.0) 27.7 % (36.0-47.0) Mean Corpuscular Volume 75 fL (79-100) 75 fL (79-100) Mean Corpuscular Hemoglobin 23 pg (25-35) 23 pg (25-35) Mean Corpuscular Hemoglobin Concent 31 g/dL (31-37) 31 g/dL (31-37) Red Cell Distribution Width 18.3 % (11.5-14.5) 18.2 % (11.5-14.5) Platelet Count 241 x10^3/uL (140-400) 239 x10^3/uL (140-400) Neutrophils (%) (Auto) 38 % (31-73) 86 % (31-73) Lymphocytes (%) (Auto) 51 % (24-48) 12 % (24-48) Monocytes (%) (Auto) 9 % (0-9) 2 % (0-9) Eosinophils (%) (Auto) 0 % (0-3) 0 % (0-3) Basophils (%) (Auto) 1 % (0-3) 0 % (0-3) Neutrophils # (Auto) 1.6 x10^3uL (1.8-7.7) 4.8 x10^3uL (1.8-7.7) Lymphocytes # (Auto) 2.1 x10^3/uL (1.0-4.8) 0.7 x10^3/uL (1.0-4.8) Monocytes # (Auto) 0.4 x10^3/uL (0.0-1.1) 0.1 x10^3/uL (0.0-1.1) Eosinophils # (Auto) 0.0 x10^3/uL (0.0-0.7) 0.0 x10^3/uL (0.0-0.7) Basophils # (Auto) 0.0 x10^3/uL (0.0-0.2) 0.0 x10^3/uL (0.0-0.2) Platelet Estimate Adequate (ADEQUATE) Adequate (ADEQUATE) Anisocytosis Slight Ovalocytes Occ Prothrombin Time 14.9 SEC (11.7-14.0) Prothromb Time International Ratio 1.2 (0.8-1.1) Sodium Level 143 mmol/L (136-145) 144 mmol/L (136-145) Potassium Level 3.5 mmol/L (3.5-5.1) 3.4 mmol/L (3.5-5.1) Chloride Level 109 mmol/L (98-107) 108 mmol/L (98-107) Carbon Dioxide Level 25 mmol/L (21-32) 26 mmol/L (21-32) Anion Gap 9 (6-14) 10 (6-14) Blood Urea Nitrogen 15 mg/dL (7-20) 10 mg/dL (7-20) Creatinine 0.7 mg/dL (0.6-1.0) 0.9 mg/dL (0.6-1.0) Estimated GFR (Cockcroft-Gault) 91.8 68.7 BUN/Creatinine Ratio 21 (6-20) 11 (6-20) Glucose Level 85 mg/dL (70-99) 107 mg/dL (70-99) Calcium Level 8.3 mg/dL (8.5-10.1) 8.2 mg/dL (8.5-10.1) Iron Level 12 ug/dL (50-170) Total Iron Binding Capacity 336 ug/dL (250-450) Iron Saturation 4 % (15-34) Ferritin 4 ng/mL (8-252) Total Bilirubin 0.3 mg/dL (0.2-1.0) 0.1 mg/dL (0.2-1.0) Aspartate Amino Transf (AST/SGOT) 12 U/L (15-37) 14 U/L (15-37) Alanine Aminotransferase (ALT/SGPT) 18 U/L (14-59) 18 U/L (14-59) Alkaline Phosphatase 56 U/L (46-116) 60 U/L (46-116) Total Protein 6.3 g/dL (6.4-8.2) 6.7 g/dL (6.4-8.2) Albumin 2.9 g/dL (3.4-5.0) 3.3 g/dL (3.4-5.0) Albumin/Globulin Ratio 0.9 (1.0-1.7) 1.0 (1.0-1.7) Urine Collection Type Unknown Urine Color Yellow Urine Clarity Clear Urine pH 6.0 Urine Specific [place] 1.010 Urine Protein Negative mg/dL (NEG-TRACE) Urine Glucose (UA) Negative mg/dL (NEG) Urine Ketones (Stick) Negative mg/dL (NEG) Urine Blood Small (NEG) Urine Nitrite Negative (NEG) Urine Bilirubin Negative (NEG) Urine Urobilinogen Dipstick 0.2 mg/dL (0.2 mg/dL) Urine Leukocyte Esterase Negative (NEG) Urine RBC 0 /HPF (0-2) Urine WBC Occ /HPF (0-4) Urine Squamous Epithelial Cells Few /LPF Urine Bacteria 0 /HPF (0-FEW) Urine Mucus Slight /LPF Urine Test Negative (NEG) Segmented Neutrophils % 81 % (35-66) Band Neutrophils % 1 % (0-9) Lymphocytes % 17 % (24-48) Monocytes % 1 % (0-10) Laboratory Tests Test 05/24/17 14:21 05/24/17 15:10 05/25/17 03:00 Urine Collection Type Unknown Urine Color Yellow Urine Clarity Clear Urine pH 6.0 Urine Specific [place] 1.010 Urine Protein Negative mg/dL (NEG-TRACE) Urine Glucose (UA) Negative mg/dL (NEG) Urine Ketones (Stick) Negative mg/dL (NEG) Urine Blood Small (NEG) Urine Nitrite Negative (NEG) Urine Bilirubin Negative (NEG) Urine Urobilinogen Dipstick 0.2 mg/dL (0.2 mg/dL) Urine Leukocyte Esterase Negative (NEG) Urine RBC 0 /HPF (0-2) Urine WBC Occ /HPF (0-4) Urine Squamous Epithelial Cells Few /LPF Urine Bacteria 0 /HPF (0-FEW) Urine Mucus Slight /LPF Urine Test Negative (NEG) White Blood Count 5.5 x10^3/uL (4.0-11.0) Red Blood Count 3.69 x10^6/uL (3.50-5.40) Hemoglobin 8.5 g/dL (12.0-15.5) Hematocrit 27.7 % (36.0-47.0) Mean Corpuscular Volume 75 fL (79-100) Mean Corpuscular Hemoglobin 23 pg (25-35) Mean Corpuscular Hemoglobin Concent 31 g/dL (31-37) Red Cell Distribution Width 18.2 % (11.5-14.5) Platelet Count 239 x10^3/uL (140-400) Neutrophils (%) (Auto) 86 % (31-73) Lymphocytes (%) (Auto) 12 % (24-48) Monocytes (%) (Auto) 2 % (0-9) Eosinophils (%) (Auto) 0 % (0-3) Basophils (%) (Auto) 0 % (0-3) Neutrophils # (Auto) 4.8 x10^3uL (1.8-7.7) Lymphocytes # (Auto) 0.7 x10^3/uL (1.0-4.8) Monocytes # (Auto) 0.1 x10^3/uL (0.0-1.1) Eosinophils # (Auto) 0.0 x10^3/uL (0.0-0.7) Basophils # (Auto) 0.0 x10^3/uL (0.0-0.2) Segmented Neutrophils % 81 % (35-66) Band Neutrophils % 1 % (0-9) Lymphocytes % 17 % (24-48) Monocytes % 1 % (0-10) Platelet Estimate Adequate (ADEQUATE) Sodium Level 144 mmol/L (136-145) Potassium Level 3.4 mmol/L (3.5-5.1) Chloride Level 108 mmol/L (98-107) Carbon Dioxide Level 26 mmol/L (21-32) Anion Gap 10 (6-14) Blood Urea Nitrogen 10 mg/dL (7-20) Creatinine 0.9 mg/dL (0.6-1.0) Estimated GFR (Cockcroft-Gault) 68.7 BUN/Creatinine Ratio 11 (6-20) Glucose Level 107 mg/dL (70-99) Calcium Level 8.2 mg/dL (8.5-10.1) Total Bilirubin 0.1 mg/dL (0.2-1.0) Aspartate Amino Transf (AST/SGOT) 14 U/L (15-37) Alanine Aminotransferase (ALT/SGPT) 18 U/L (14-59) Alkaline Phosphatase 60 U/L (46-116) Total Protein 6.7 g/dL (6.4-8.2) Albumin 3.3 g/dL (3.4-5.0) Albumin/Globulin Ratio 1.0 (1.0-1.7) Medications Current Medications Acetaminophen (Tylenol) 650 mg PRN Q6HRS PRN PO PAIN Last administered on 05/23 23:24; Start 05/23/17 at 22:45 Morphine Sulfate 4 mg PRN Q4HRS PRN IV PAIN Last administered on 05/24/17 19: 41; Start 05/23/17 at 22:45 Sodium Chloride 1,000 ml @ 100 mls/hr Q10H IV Last administered on 05/24/17 18:37; Start 05/23/17 at 22:45 Ondansetron HCl (Zofran) 4 mg PRN Q4HRS PRN IV NAUSEA/VOMITING Last administered on 05/25/17 06:46; Start 05/23/17 at 22:45 Alprazolam (Xanax) 0.25 mg PRN DAILY PRN PO ANXIETY; Start 05/24/17 at 09:15 Clonazepam (KlonoPIN) 0.5 mg PRN DAILY PRN PO ANXIETY Last administered on 18:13; Start 05/24/17 at 09:15 Gabapentin (Neurontin) 100 mg TID PO Last administered on 05/24/17 21:21; Start 05/24/17 at 10:00 Non-Formulary Medication 1 puff PRN Q6HRS PRN INH SHORTNESS OF BREATH; Start 05/24/17 at 09:15; Stop 05/24/17 at 09:55; Status DC Sumatriptan Succinate (Imitrex) 100 mg PRN DAILY PRN PO MIGRAINE HEADACHE; Start 05/24/17 at 12:00 Hydroxyzine Pamoate (Vistaril) 25 mg PRN BID PRN PO .ANXIETY Last administered on 05/24/17 18:13; Start 05/24/17 at 09:45 Mirtazapine (Remeron) 30 mg QHS PO Last administered on 05/24/17 21:23; Start 05/24/17 at 21:00 Famotidine (Pepcid) 40 mg QHS PO ; Start 05/24/17 at 21:00; Stop 05/24/17 at 21:00; Status DC Topiramate (Topamax) 50 mg BID PO Last administered on 05/24/17 21:24; Start 05/24/17 at 09:45 Non-Formulary Medication 10 mg DAILY PO ; Start 05/25/17 at 09:00; Status UNV Albuterol Sulfate (Ventolin Neb Soln) 2.5 mg PRN Q6HRS PRN NEB SHORTNESS OF BREATH; Start 05/24/17 at 09:45 Pantoprazole Sodium (Protonix) 40 mg BIDAC PO ; Start 05/24/17 at 16:30 Iron Sucrose 500 mg/Sodium Chloride 275 ml @ 78.571 mls/ hr 1X ONCE IV Last administered on 05/24/17 19:41; Start 05/24/17 at 18:00; Stop 05/24/17 at 21 :29; Status DC Potassium Chloride (Klor-Con) 40 meq 1X ONCE PO ; Start 05/25/17 at 10:00; Stop 05/25/17 at 10:01 Active Scripts Active Gabapentin 100 Mg Capsule 100 Mg PO TID Aspirin Ec (Aspirin) 325 Mg Tablet.dr 325 Mg PO DAILYWBKFT 30 Days Topiramate 50 Mg Tablet 1 Tab PO BID Relpax (Eletriptan Hbr) 40 Mg Tablet 40 Mg PO DAILY 30 Days Trintellix (Vortioxetine) 10 Mg Tablet 10 Mg PO DAILY 30 Days Zantac (Ranitidine Hcl) 300 Mg Tablet 1 Tab PO QHS Reported Proair Hfa Inhaler (Albuterol Sulfate) 8.5 Gm Hfa.aer.ad 1 Puff INH PRN Q6HRS PRN Tramadol Hcl 50 Mg Tablet 1 Tab PO PRN Q6HRS Clonazepam 0.5 Mg Tablet 1 Tab PO DAILY PRN Xarelto (Rivaroxaban) 20 Mg Tablet 20 Mg PO DAILY Alprazolam 0.25 Mg Tablet 1 Tab PO DAILY PRN Mirtazapine 30 Mg Tablet 1 Tab PO QHS Hydroxyzine Hcl 25 Mg Tablet 1 Tab PO BID PRN Metoprolol Succinate ( Xl ) (Metoprolol Succinate) 25 Mg Tab.er.24h 1 Tab PO DAILY Vitals/I & O Vital Sign - Last 24 Hours 05/24/17 05/24/17 05/24/17 05/24/17 11:29 11:46 12:00 15:40 Temp 98.9 98.9 98.6 98.9 98.9 98.6 Pulse 76 76 86 Resp 14 B/P (MAP) 110/60 (77) 110/60 (77) 103/61 (75) Pulse Ox 99 99 99 99 O2 Delivery Room Air Room Air Room Air Room Air 05/24/17 05/24/17 05/24/17 05/25/17 19:00 20:40 22:45 00:00 Temp 98.2 98.4 98.2 98.4 Pulse 88 94 Resp 14 16 B/P (MAP) 96/60 (72) 99/63 (75) Pulse Ox 99 98 O2 Delivery Room Air Room Air Room Air Room Air 05/25/17 05/25/17 04:00 05:30 Temp 98.6 98.6 Pulse 99 Resp 18 B/P (MAP) 112/71 (85) Pulse Ox 96 O2 Delivery Room Air Room Air Intake and Output 05/24/17 05/24/17 05/25/17 15:00 23:00 07:00 Intake Total 960 ml 900 ml 400 ml Output Total 420 ml 1250 ml 1200 ml Balance 540 ml -350 ml -800 ml GARRETT ARREAGA MD May 25, 2017 09:48
[2017-05-25 10:00] VITALS: BP 89/43
[2017-05-25] MEDS ORDERED: POTASSIUM CHLORIDE 20 MEQ TABLET.ER. PO ONE (10:00)
--- NOTE | 2017-05-25 11:02 | PDOC ---
Subjective: Subjective: Left leg pain, lower abd discomfort. Nausea. No vomiting, says ate reg food last night. Objective: Vital Signs: Vital Signs Date Time Temp Pulse Resp B/P (MAP) Pulse Ox O2 Delivery O2 Flow Rate FiO2 05/25/17 10:00 98.6 90 18 89/43 (58) 97 Room Air 98.6 Labs: Laboratory Tests Test 05/24/17 14:21 05/24/17 15:10 05/25/17 03:00 Urine Collection Type Unknown Urine Color Yellow Urine Clarity Clear Urine pH 6.0 Urine Specific [place] 1.010 Urine Protein Negative mg/dL Urine Glucose (UA) Negative mg/dL Urine Ketones (Stick) Negative mg/dL Urine Blood Small Urine Nitrite Negative Urine Bilirubin Negative Urine Urobilinogen Dipstick 0.2 mg/dL Urine Leukocyte Esterase Negative Urine RBC 0 /HPF Urine WBC Occ /HPF Urine Squamous Epithelial Cells Few /LPF Urine Bacteria 0 /HPF Urine Mucus Slight /LPF Urine Test Negative White Blood Count 5.5 x10^3/uL Red Blood Count 3.69 x10^6/uL Hemoglobin 8.5 g/dL Hematocrit 27.7 % Mean Corpuscular Volume 75 fL Mean Corpuscular Hemoglobin 23 pg Mean Corpuscular Hemoglobin Concent 31 g/dL Red Cell Distribution Width 18.2 % Platelet Count 239 x10^3/uL Neutrophils (%) (Auto) 86 % Lymphocytes (%) (Auto) 12 % Monocytes (%) (Auto) 2 % Eosinophils (%) (Auto) 0 % Basophils (%) (Auto) 0 % Neutrophils # (Auto) 4.8 x10^3uL Lymphocytes # (Auto) 0.7 x10^3/uL Monocytes # (Auto) 0.1 x10^3/uL Eosinophils # (Auto) 0.0 x10^3/uL Basophils # (Auto) 0.0 x10^3/uL Segmented Neutrophils % 81 % Band Neutrophils % 1 % Lymphocytes % 17 % Monocytes % 1 % Platelet Estimate Adequate Sodium Level 144 mmol/L Potassium Level 3.4 mmol/L Chloride Level 108 mmol/L Carbon Dioxide Level 26 mmol/L Anion Gap 10 Blood Urea Nitrogen 10 mg/dL Creatinine 0.9 mg/dL Estimated GFR (Cockcroft-Gault) 68.7 BUN/Creatinine Ratio 11 Glucose Level 107 mg/dL Calcium Level 8.2 mg/dL Total Bilirubin 0.1 mg/dL Aspartate Amino Transf (AST/SGOT) 14 U/L Alanine Aminotransferase (ALT/SGPT) 18 U/L Alkaline Phosphatase 60 U/L Total Protein 6.7 g/dL Albumin 3.3 g/dL Albumin/Globulin Ratio 1.0 Imaging: US Impression: 1. Cholelithiasis without evidence of cholecystitis 2. Top normal diameter of the common bile duct. Impression: No evidence of deep venous thrombosis involving the left lower extremity. 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 ART BAIN May 25, 2017 11:02
--- NOTE | 2017-05-25 12:34 | PDOC ---
PROGRESS NOTES Subjective Subjective HPI - . DVT LLE 04/05/17. Resolved per f/u scan 05/24/17 ROS - decreased vaginal bleeding Objective Objective Vital Signs Date Time Temp Pulse Resp B/P (MAP) Pulse Ox O2 Delivery O2 Flow Rate FiO2 05/25/17 10:00 98.6 90 18 89/43 (58) 97 Room Air 98.6 Intake and Output 05/25/17 07:00 Intake Total 2260 ml Output Total 2870 ml Balance -610 ml Intake Oral 1360 ml Blood Product IV Normal Saline Flush 900 ml Output Urine Total 2870 ml # Voids 1 Assessment Assessment A/P 1. DVT LLE 04/05/17. Resolved per f/u scan 05/24/17. Hence no need for IVC filter. Resume xarelto to complete 6 months of anticoagulation when bleeding improves. If bleeding is a persistent issue then d/c xarelto as there is no residual DVT. I d/w Dr Tan 2. Iron def anemia - s/p venofer 05/24/17. Hb 8.5 on 05/25/17 3. 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 Labs Laboratory Tests Test 05/24/17 07:45 05/24/17 14:21 05/24/17 15:10 05/25/17 03:00 White Blood Count 4.1 x10^3/uL (4.0-11.0) 5.5 x10^3/uL (4.0-11.0) Red Blood Count 3.36 x10^6/uL (3.50-5.40) 3.69 x10^6/uL (3.50-5.40) Hemoglobin 7.6 g/dL (12.0-15.5) 8.5 g/dL (12.0-15.5) Hematocrit 25.1 % (36.0-47.0) 27.7 % (36.0-47.0) Mean Corpuscular Volume 75 fL (79-100) 75 fL (79-100) Mean Corpuscular Hemoglobin 23 pg (25-35) 23 pg (25-35) Mean Corpuscular Hemoglobin Concent 31 g/dL (31-37) 31 g/dL (31-37) Red Cell Distribution Width 18.3 % (11.5-14.5) 18.2 % (11.5-14.5) Platelet Count 241 x10^3/uL (140-400) 239 x10^3/uL (140-400) Neutrophils (%) (Auto) 38 % (31-73) 86 % (31-73) Lymphocytes (%) (Auto) 51 % (24-48) 12 % (24-48) Monocytes (%) (Auto) 9 % (0-9) 2 % (0-9) Eosinophils (%) (Auto) 0 % (0-3) 0 % (0-3) Basophils (%) (Auto) 1 % (0-3) 0 % (0-3) Neutrophils # (Auto) 1.6 x10^3uL (1.8-7.7) 4.8 x10^3uL (1.8-7.7) Lymphocytes # (Auto) 2.1 x10^3/uL (1.0-4.8) 0.7 x10^3/uL (1.0-4.8) Monocytes # (Auto) 0.4 x10^3/uL (0.0-1.1) 0.1 x10^3/uL (0.0-1.1) Eosinophils # (Auto) 0.0 x10^3/uL (0.0-0.7) 0.0 x10^3/uL (0.0-0.7) Basophils # (Auto) 0.0 x10^3/uL (0.0-0.2) 0.0 x10^3/uL (0.0-0.2) Platelet Estimate Adequate (ADEQUATE) Adequate (ADEQUATE) Anisocytosis Slight Ovalocytes Occ Prothrombin Time 14.9 SEC (11.7-14.0) Prothromb Time International Ratio 1.2 (0.8-1.1) Sodium Level 143 mmol/L (136-145) 144 mmol/L (136-145) Potassium Level 3.5 mmol/L (3.5-5.1) 3.4 mmol/L (3.5-5.1) Chloride Level 109 mmol/L (98-107) 108 mmol/L (98-107) Carbon Dioxide Level 25 mmol/L (21-32) 26 mmol/L (21-32) Anion Gap 9 (6-14) 10 (6-14) Blood Urea Nitrogen 15 mg/dL (7-20) 10 mg/dL (7-20) Creatinine 0.7 mg/dL (0.6-1.0) 0.9 mg/dL (0.6-1.0) Estimated GFR (Cockcroft-Gault) 91.8 68.7 BUN/Creatinine Ratio 21 (6-20) 11 (6-20) Glucose Level 85 mg/dL (70-99) 107 mg/dL (70-99) Calcium Level 8.3 mg/dL (8.5-10.1) 8.2 mg/dL (8.5-10.1) Iron Level 12 ug/dL (50-170) Total Iron Binding Capacity 336 ug/dL (250-450) Iron Saturation 4 % (15-34) Ferritin 4 ng/mL (8-252) Total Bilirubin 0.3 mg/dL (0.2-1.0) 0.1 mg/dL (0.2-1.0) Aspartate Amino Transf (AST/SGOT) 12 U/L (15-37) 14 U/L (15-37) Alanine Aminotransferase (ALT/SGPT) 18 U/L (14-59) 18 U/L (14-59) Alkaline Phosphatase 56 U/L (46-116) 60 U/L (46-116) Total Protein 6.3 g/dL (6.4-8.2) 6.7 g/dL (6.4-8.2) Albumin 2.9 g/dL (3.4-5.0) 3.3 g/dL (3.4-5.0) Albumin/Globulin Ratio 0.9 (1.0-1.7) 1.0 (1.0-1.7) Urine Collection Type Unknown Urine Color Yellow Urine Clarity Clear Urine pH 6.0 Urine Specific [place] 1.010 Urine Protein Negative mg/dL (NEG-TRACE) Urine Glucose (UA) Negative mg/dL (NEG) Urine Ketones (Stick) Negative mg/dL (NEG) Urine Blood Small (NEG) Urine Nitrite Negative (NEG) Urine Bilirubin Negative (NEG) Urine Urobilinogen Dipstick 0.2 mg/dL (0.2 mg/dL) Urine Leukocyte Esterase Negative (NEG) Urine RBC 0 /HPF (0-2) Urine WBC Occ /HPF (0-4) Urine Squamous Epithelial Cells Few /LPF Urine Bacteria 0 /HPF (0-FEW) Urine Mucus Slight /LPF Urine Test Negative (NEG) Segmented Neutrophils % 81 % (35-66) Band Neutrophils % 1 % (0-9) Lymphocytes % 17 % (24-48) Monocytes % 1 % (0-10) Laboratory Tests Test 05/24/17 14:21 05/24/17 15:10 05/25/17 03:00 Urine Collection Type Unknown Urine Color Yellow Urine Clarity Clear Urine pH 6.0 Urine Specific [place] 1.010 Urine Protein Negative mg/dL (NEG-TRACE) Urine Glucose (UA) Negative mg/dL (NEG) Urine Ketones (Stick) Negative mg/dL (NEG) Urine Blood Small (NEG) Urine Nitrite Negative (NEG) Urine Bilirubin Negative (NEG) Urine Urobilinogen Dipstick 0.2 mg/dL (0.2 mg/dL) Urine Leukocyte Esterase Negative (NEG) Urine RBC 0 /HPF (0-2) Urine WBC Occ /HPF (0-4) Urine Squamous Epithelial Cells Few /LPF Urine Bacteria 0 /HPF (0-FEW) Urine Mucus Slight /LPF Urine Test Negative (NEG) White Blood Count 5.5 x10^3/uL (4.0-11.0) Red Blood Count 3.69 x10^6/uL (3.50-5.40) Hemoglobin 8.5 g/dL (12.0-15.5) Hematocrit 27.7 % (36.0-47.0) Mean Corpuscular Volume 75 fL (79-100) Mean Corpuscular Hemoglobin 23 pg (25-35) Mean Corpuscular Hemoglobin Concent 31 g/dL (31-37) Red Cell Distribution Width 18.2 % (11.5-14.5) Platelet Count 239 x10^3/uL (140-400) Neutrophils (%) (Auto) 86 % (31-73) Lymphocytes (%) (Auto) 12 % (24-48) Monocytes (%) (Auto) 2 % (0-9) Eosinophils (%) (Auto) 0 % (0-3) Basophils (%) (Auto) 0 % (0-3) Neutrophils # (Auto) 4.8 x10^3uL (1.8-7.7) Lymphocytes # (Auto) 0.7 x10^3/uL (1.0-4.8) Monocytes # (Auto) 0.1 x10^3/uL (0.0-1.1) Eosinophils # (Auto) 0.0 x10^3/uL (0.0-0.7) Basophils # (Auto) 0.0 x10^3/uL (0.0-0.2) Segmented Neutrophils % 81 % (35-66) Band Neutrophils % 1 % (0-9) Lymphocytes % 17 % (24-48) Monocytes % 1 % (0-10) Platelet Estimate Adequate (ADEQUATE) Sodium Level 144 mmol/L (136-145) Potassium Level 3.4 mmol/L (3.5-5.1) Chloride Level 108 mmol/L (98-107) Carbon Dioxide Level 26 mmol/L (21-32) Anion Gap 10 (6-14) Blood Urea Nitrogen 10 mg/dL (7-20) Creatinine 0.9 mg/dL (0.6-1.0) Estimated GFR (Cockcroft-Gault) 68.7 BUN/Creatinine Ratio 11 (6-20) Glucose Level 107 mg/dL (70-99) Calcium Level 8.2 mg/dL (8.5-10.1) Total Bilirubin 0.1 mg/dL (0.2-1.0) Aspartate Amino Transf (AST/SGOT) 14 U/L (15-37) Alanine Aminotransferase (ALT/SGPT) 18 U/L (14-59) Alkaline Phosphatase 60 U/L (46-116) Total Protein 6.7 g/dL (6.4-8.2) Albumin 3.3 g/dL (3.4-5.0) Albumin/Globulin Ratio 1.0 (1.0-1.7) Medications Current Medications Acetaminophen (Tylenol) 650 mg PRN Q6HRS PRN PO PAIN Last administered on 05/23 23:24; Start 05/23/17 at 22:45 Morphine Sulfate 4 mg PRN Q4HRS PRN IV PAIN Last administered on 05/24/17 19: 41; Start 05/23/17 at 22:45 Sodium Chloride 1,000 ml @ 100 mls/hr Q10H IV Last administered on 11/16/17at 18:37; Start 05/23/17 at 22:45 Ondansetron HCl (Zofran) 4 mg PRN Q4HRS PRN IV NAUSEA/VOMITING Last administered on 05/25/17 06:46; Start 05/23/17 at 22:45 Alprazolam (Xanax) 0.25 mg PRN DAILY PRN PO ANXIETY; Start 05/24/17 at 09:15 Clonazepam (KlonoPIN) 0.5 mg PRN DAILY PRN PO ANXIETY Last administered on 18:13; Start 05/24/17 at 09:15 Gabapentin (Neurontin) 100 mg TID PO Last administered on 05/24/17 21:21; Start 05/24/17 at 10:00 Non-Formulary Medication 1 puff PRN Q6HRS PRN INH SHORTNESS OF BREATH; Start 05/24/17 at 09:15; Stop 05/24/17 at 09:55; Status DC Sumatriptan Succinate (Imitrex) 100 mg PRN DAILY PRN PO MIGRAINE HEADACHE; Start 05/24/17 at 12:00 Hydroxyzine Pamoate (Vistaril) 25 mg PRN BID PRN PO .ANXIETY Last administered on 05/24/17 18:13; Start 05/24/17 at 09:45 Mirtazapine (Remeron) 30 mg QHS PO Last administered on 05/24/17 21:23; Start 05/24/17 at 21:00 Famotidine (Pepcid) 40 mg QHS PO ; Start 05/24/17 at 21:00; Stop 05/24/17 at 21:00; Status DC Topiramate (Topamax) 50 mg BID PO Last administered on 05/24/17 21:24; Start 05/24/17 at 09:45 Non-Formulary Medication 10 mg DAILY PO ; Start 05/25/17 at 09:00; Status UNV Albuterol Sulfate (Ventolin Neb Soln) 2.5 mg PRN Q6HRS PRN NEB SHORTNESS OF BREATH; Start 05/24/17 at 09:45 Pantoprazole Sodium (Protonix) 40 mg BIDAC PO ; Start 05/24/17 at 16:30 Iron Sucrose 500 mg/Sodium Chloride 275 ml @ 78.571 mls/ hr 1X ONCE IV Last administered on 05/24/17t 19:41; Start 05/24/17 at 18:00; Stop 05/24/17 at 21 :29; Status DC Potassium Chloride (Klor-Con) 40 meq 1X ONCE PO ; Start 05/25/17 at 10:00; Stop 05/25/17 at 10:01; Status DC Active Scripts Active Gabapentin 100 Mg Capsule 100 Mg PO TID Aspirin Ec (Aspirin) 325 Mg Tablet.dr 325 Mg PO DAILYWBKFT 30 Days Topiramate 50 Mg Tablet 1 Tab PO BID Relpax (Eletriptan Hbr) 40 Mg Tablet 40 Mg PO DAILY 30 Days Trintellix (Vortioxetine) 10 Mg Tablet 10 Mg PO DAILY 30 Days Zantac (Ranitidine Hcl) 300 Mg Tablet 1 Tab PO QHS Reported Proair Hfa Inhaler (Albuterol Sulfate) 8.5 Gm Hfa.aer.ad 1 Puff INH PRN Q6HRS PRN Tramadol Hcl 50 Mg Tablet 1 Tab PO PRN Q6HRS Clonazepam 0.5 Mg Tablet 1 Tab PO DAILY PRN Xarelto (Rivaroxaban) 20 Mg Tablet 20 Mg PO DAILY Alprazolam 0.25 Mg Tablet 1 Tab PO DAILY PRN Mirtazapine 30 Mg Tablet 1 Tab PO QHS Hydroxyzine Hcl 25 Mg Tablet 1 Tab PO BID PRN Metoprolol Succinate ( Xl ) (Metoprolol Succinate) 25 Mg Tab.er.24h 1 Tab PO DAILY Vitals/I & O Vital Sign - Last 24 Hours 05/24/17 05/24/17 05/24/17 05/24/17 15:40 19:00 20:40 22:45 Temp 98.6 98.2 98.4 98.6 98.2 98.4 Pulse 86 88 94 Resp 14 14 16 B/P (MAP) 103/61 (75) 96/60 (72) 99/63 (75) Pulse Ox 99 99 98 O2 Delivery Room Air Room Air Room Air Room Air 05/25/17 05/25/17 05/25/17 05/25/17 00:00 04:00 05:30 10:00 Temp 98.6 98.6 98.6 98.6 Pulse 99 90 Resp 18 18 B/P (MAP) 112/71 (85) 89/43 (58) Pulse Ox 96 97 O2 Delivery Room Air Room Air Room Air Room Air Intake and Output 05/24/17 05/24/17 05/25/17 15:00 23:00 07:00 Intake Total 960 ml 900 ml 400 ml Output Total 420 ml 1250 ml 1200 ml Balance 540 ml -350 ml -800 ml JODEE SANTIAGO MD May 25, 2017 12:34
--- NOTE | 2017-05-25 12:47 | PDOC2 ---
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, fibroids, no immediate plans Persistent nausea, abdominal pain--findings of cholelithiasis--pain aggravated by eating Past Medical History Cardiovascular: HTN, [place] CENTRAL NERVOUS SYSTEM: CVA, Other Psych: Anxiety, Bipolar, Depression, Panic, Other Past Surgical History Past Surgical History: Family History Family History: No Significant, Other Social History Quit ALCOHOL: none Drugs: None Current Medications Current Medications Current Medications Acetaminophen (Tylenol) 650 mg PRN Q6HRS PRN PO PAIN Last administered on 05/23 23:24; Start 05/23/17 at 22:45 Morphine Sulfate 4 mg PRN Q4HRS PRN IV PAIN Last administered on 05/24/17 19: 41; Start 05/23/17 at 22:45 Sodium Chloride 1,000 ml @ 100 mls/hr Q10H IV Last administered on 05/24/17 18:37; Start 05/23/17 at 22:45 Ondansetron HCl (Zofran) 4 mg PRN Q4HRS PRN IV NAUSEA/VOMITING Last administered on 05/25/17 06:46; Start 05/23/17 at 22:45 Alprazolam (Xanax) 0.25 mg PRN DAILY PRN PO ANXIETY; Start 05/24/17 at 09:15 Clonazepam (KlonoPIN) 0.5 mg PRN DAILY PRN PO ANXIETY Last administered on 18:13; Start 05/24/17 at 09:15 Gabapentin (Neurontin) 100 mg TID PO Last administered on 05/24/17 21:21; Start 05/24/17 at 10:00 Non-Formulary Medication 1 puff PRN Q6HRS PRN INH SHORTNESS OF BREATH; Start 05/24/17 at 09:15; Stop 05/24/17 at 09:55; Status DC Sumatriptan Succinate (Imitrex) 100 mg PRN DAILY PRN PO MIGRAINE HEADACHE; Start 05/24/17 at 12:00 Hydroxyzine Pamoate (Vistaril) 25 mg PRN BID PRN PO .ANXIETY Last administered on 05/24/17 18:13; Start 05/24/17 at 09:45 Mirtazapine (Remeron) 30 mg QHS PO Last administered on 05/24/17 21:23; Start 05/24/17 at 21:00 Famotidine (Pepcid) 40 mg QHS PO ; Start 05/24/17 at 21:00; Stop 05/24/17 at 21:00; Status DC Topiramate (Topamax) 50 mg BID PO Last administered on 05/24/17 21:24; Start 05/24/17 at 09:45 Non-Formulary Medication 10 mg DAILY PO ; Start 05/25/17 at 09:00; Status UNV Albuterol Sulfate (Ventolin Neb Soln) 2.5 mg PRN Q6HRS PRN NEB SHORTNESS OF BREATH; Start 05/24/17 at 09:45 Pantoprazole Sodium (Protonix) 40 mg BIDAC PO ; Start 05/24/17 at 16:30 Iron Sucrose 500 mg/Sodium Chloride 275 ml @ 78.571 mls/ hr 1X ONCE IV Last administered on 05/24/17 19:41; Start 05/24/17 at 18:00; Stop 05/24/17 at 21 :29; Status DC Potassium Chloride (Klor-Con) 40 meq 1X ONCE PO ; Start 05/25/17 at 10:00; Stop 05/25/17 at 10:01; Status DC Active Scripts Active Gabapentin 100 Mg Capsule 100 Mg PO TID Aspirin Ec (Aspirin) 325 Mg Tablet.dr 325 Mg PO DAILYWBKFT 30 Days Topiramate 50 Mg Tablet 1 Tab PO BID Relpax (Eletriptan Hbr) 40 Mg Tablet 40 Mg PO DAILY 30 Days Trintellix (Vortioxetine) 10 Mg Tablet 10 Mg PO DAILY 30 Days Zantac (Ranitidine Hcl) 300 Mg Tablet 1 Tab PO QHS Reported Proair Hfa Inhaler (Albuterol Sulfate) 8.5 Gm Hfa.aer.ad 1 Puff INH PRN Q6HRS PRN Tramadol Hcl 50 Mg Tablet 1 Tab PO PRN Q6HRS Clonazepam 0.5 Mg Tablet 1 Tab PO DAILY PRN Xarelto (Rivaroxaban) 20 Mg Tablet 20 Mg PO DAILY Alprazolam 0.25 Mg Tablet 1 Tab PO DAILY PRN Mirtazapine 30 Mg Tablet 1 Tab PO QHS Hydroxyzine Hcl 25 Mg Tablet 1 Tab PO BID PRN Metoprolol Succinate ( Xl ) (Metoprolol Succinate) 25 Mg Tab.er.24h 1 Tab PO DAILY Allergies Allergies: Coded Allergies: Sulfa (Sulfonamide Antibiotics) (Verified Allergy, Intermediate, 07/31/15) ROS General: No: Chills, Other (fevers) PSYCHOLOGICAL ROS: No: Anxiety, Depression Eyes: No Blurry vision, No Double vision HEENT: No: Heacaches, Sore Throat Hematological and Lymphatic: YES: Bleeding Problems, Blood Clots Respiratory: No: Cough, Shortness of breath Cardiovascular: No Chest Pain, No Palpitations Gastrointestinal: Yes Other (see hpi) Genitourinary: No Dysuria, No Hematuria Musculoskeletal: No Joint Pain, No Muscle Pain Neurological: No Memory Loss, No Numbness/Tingling Skin: No Pruritus, No Rash Physical Exam General: Alert, Oriented X3, Cooperative, No acute distress HEENT: PERRLA, Mucous membr. moist/pink Lungs: Clear to auscultation, Normal air movement Heart: Regular rate, Normal S1, Normal S2, No murmurs Abdomen: Soft, Other (ND, tender upper abdomen ) Extremities: No clubbing, No cyanosis Skin: No rashes, No breakdown Neuro: Normal gait, Normal speech Psych/Mental Status: Mental status NL, Mood NL MUSCULOSKELETAL: No deformity, No swelling Vitals VITALS Vital Signs Date Time Temp Pulse Resp B/P (MAP) Pulse Ox O2 Delivery O2 Flow Rate FiO2 05/25/17 10:00 98.6 90 18 89/43 (58) 97 Room Air 98.6 Labs Labs Laboratory Tests Test 05/24/17 07:45 05/24/17 14:21 05/24/17 15:10 05/25/17 03:00 White Blood Count 4.1 x10^3/uL (4.0-11.0) 5.5 x10^3/uL (4.0-11.0) Red Blood Count 3.36 x10^6/uL (3.50-5.40) 3.69 x10^6/uL (3.50-5.40) Hemoglobin 7.6 g/dL (12.0-15.5) 8.5 g/dL (12.0-15.5) Hematocrit 25.1 % (36.0-47.0) 27.7 % (36.0-47.0) Mean Corpuscular Volume 75 fL (79-100) 75 fL (79-100) Mean Corpuscular Hemoglobin 23 pg (25-35) 23 pg (25-35) Mean Corpuscular Hemoglobin Concent 31 g/dL (31-37) 31 g/dL (31-37) Red Cell Distribution Width 18.3 % (11.5-14.5) 18.2 % (11.5-14.5) Platelet Count 241 x10^3/uL (140-400) 239 x10^3/uL (140-400) Neutrophils (%) (Auto) 38 % (31-73) 86 % (31-73) Lymphocytes (%) (Auto) 51 % (24-48) 12 % (24-48) Monocytes (%) (Auto) 9 % (0-9) 2 % (0-9) Eosinophils (%) (Auto) 0 % (0-3) 0 % (0-3) Basophils (%) (Auto) 1 % (0-3) 0 % (0-3) Neutrophils # (Auto) 1.6 x10^3uL (1.8-7.7) 4.8 x10^3uL (1.8-7.7) Lymphocytes # (Auto) 2.1 x10^3/uL (1.0-4.8) 0.7 x10^3/uL (1.0-4.8) Monocytes # (Auto) 0.4 x10^3/uL (0.0-1.1) 0.1 x10^3/uL (0.0-1.1) Eosinophils # (Auto) 0.0 x10^3/uL (0.0-0.7) 0.0 x10^3/uL (0.0-0.7) Basophils # (Auto) 0.0 x10^3/uL (0.0-0.2) 0.0 x10^3/uL (0.0-0.2) Platelet Estimate Adequate (ADEQUATE) Adequate (ADEQUATE) Anisocytosis Slight Ovalocytes Occ Prothrombin Time 14.9 SEC (11.7-14.0) Prothromb Time International Ratio 1.2 (0.8-1.1) Sodium Level 143 mmol/L (136-145) 144 mmol/L (136-145) Potassium Level 3.5 mmol/L (3.5-5.1) 3.4 mmol/L (3.5-5.1) Chloride Level 109 mmol/L (98-107) 108 mmol/L (98-107) Carbon Dioxide Level 25 mmol/L (21-32) 26 mmol/L (21-32) Anion Gap 9 (6-14) 10 (6-14) Blood Urea Nitrogen 15 mg/dL (7-20) 10 mg/dL (7-20) Creatinine 0.7 mg/dL (0.6-1.0) 0.9 mg/dL (0.6-1.0) Estimated GFR (Cockcroft-Gault) 91.8 68.7 BUN/Creatinine Ratio 21 (6-20) 11 (6-20) Glucose Level 85 mg/dL (70-99) 107 mg/dL (70-99) Calcium Level 8.3 mg/dL (8.5-10.1) 8.2 mg/dL (8.5-10.1) Iron Level 12 ug/dL (50-170) Total Iron Binding Capacity 336 ug/dL (250-450) Iron Saturation 4 % (15-34) Ferritin 4 ng/mL (8-252) Total Bilirubin 0.3 mg/dL (0.2-1.0) 0.1 mg/dL (0.2-1.0) Aspartate Amino Transf (AST/SGOT) 12 U/L (15-37) 14 U/L (15-37) Alanine Aminotransferase (ALT/SGPT) 18 U/L (14-59) 18 U/L (14-59) Alkaline Phosphatase 56 U/L (46-116) 60 U/L (46-116) Total Protein 6.3 g/dL (6.4-8.2) 6.7 g/dL (6.4-8.2) Albumin 2.9 g/dL (3.4-5.0) 3.3 g/dL (3.4-5.0) Albumin/Globulin Ratio 0.9 (1.0-1.7) 1.0 (1.0-1.7) Urine Collection Type Unknown Urine Color Yellow Urine Clarity Clear Urine pH 6.0 Urine Specific [place] 1.010 Urine Protein Negative mg/dL (NEG-TRACE) Urine Glucose (UA) Negative mg/dL (NEG) Urine Ketones (Stick) Negative mg/dL (NEG) Urine Blood Small (NEG) Urine Nitrite Negative (NEG) Urine Bilirubin Negative (NEG) Urine Urobilinogen Dipstick 0.2 mg/dL (0.2 mg/dL) Urine Leukocyte Esterase Negative (NEG) Urine RBC 0 /HPF (0-2) Urine WBC Occ /HPF (0-4) Urine Squamous Epithelial Cells Few /LPF Urine Bacteria 0 /HPF (0-FEW) Urine Mucus Slight /LPF Urine Test Negative (NEG) Segmented Neutrophils % 81 % (35-66) Band Neutrophils % 1 % (0-9) Lymphocytes % 17 % (24-48) Monocytes % 1 % (0-10) Laboratory Tests Test 05/24/17 14:21 05/24/17 15:10 05/25/17 03:00 Urine Collection Type Unknown Urine Color Yellow Urine Clarity Clear Urine pH 6.0 Urine Specific [place] 1.010 Urine Protein Negative mg/dL (NEG-TRACE) Urine Glucose (UA) Negative mg/dL (NEG) Urine Ketones (Stick) Negative mg/dL (NEG) Urine Blood Small (NEG) Urine Nitrite Negative (NEG) Urine Bilirubin Negative (NEG) Urine Urobilinogen Dipstick 0.2 mg/dL (0.2 mg/dL) Urine Leukocyte Esterase Negative (NEG) Urine RBC 0 /HPF (0-2) Urine WBC Occ /HPF (0-4) Urine Squamous Epithelial Cells Few /LPF Urine Bacteria 0 /HPF (0-FEW) Urine Mucus Slight /LPF Urine Test Negative (NEG) White Blood Count 5.5 x10^3/uL (4.0-11.0) Red Blood Count 3.69 x10^6/uL (3.50-5.40) Hemoglobin 8.5 g/dL (12.0-15.5) Hematocrit 27.7 % (36.0-47.0) Mean Corpuscular Volume 75 fL (79-100) Mean Corpuscular Hemoglobin 23 pg (25-35) Mean Corpuscular Hemoglobin Concent 31 g/dL (31-37) Red Cell Distribution Width 18.2 % (11.5-14.5) Platelet Count 239 x10^3/uL (140-400) Neutrophils (%) (Auto) 86 % (31-73) Lymphocytes (%) (Auto) 12 % (24-48) Monocytes (%) (Auto) 2 % (0-9) Eosinophils (%) (Auto) 0 % (0-3) Basophils (%) (Auto) 0 % (0-3) Neutrophils # (Auto) 4.8 x10^3uL (1.8-7.7) Lymphocytes # (Auto) 0.7 x10^3/uL (1.0-4.8) Monocytes # (Auto) 0.1 x10^3/uL (0.0-1.1) Eosinophils # (Auto) 0.0 x10^3/uL (0.0-0.7) Basophils # (Auto) 0.0 x10^3/uL (0.0-0.2) Segmented Neutrophils % 81 % (35-66) Band Neutrophils % 1 % (0-9) Lymphocytes % 17 % (24-48) Monocytes % 1 % (0-10) Platelet Estimate Adequate (ADEQUATE) Sodium Level 144 mmol/L (136-145) Potassium Level 3.4 mmol/L (3.5-5.1) Chloride Level 108 mmol/L (98-107) Carbon Dioxide Level 26 mmol/L (21-32) Anion Gap 10 (6-14) Blood Urea Nitrogen 10 mg/dL (7-20) Creatinine 0.9 mg/dL (0.6-1.0) Estimated GFR (Cockcroft-Gault) 68.7 BUN/Creatinine Ratio 11 (6-20) Glucose Level 107 mg/dL (70-99) Calcium Level 8.2 mg/dL (8.5-10.1) Total Bilirubin 0.1 mg/dL (0.2-1.0) Aspartate Amino Transf (AST/SGOT) 14 U/L (15-37) Alanine Aminotransferase (ALT/SGPT) 18 U/L (14-59) Alkaline Phosphatase 60 U/L (46-116) Total Protein 6.7 g/dL (6.4-8.2) Albumin 3.3 g/dL (3.4-5.0) Albumin/Globulin Ratio 1.0 (1.0-1.7) Assessment/Plan Assessment/Plan abdominal pain , nausea menorrhagia, fibroids cholelithiasis, may need lap valorie--however hx of dvt and on xalerto --will have Dr Reyna review SPARKLE REYNA MD 05/25/17 2131: CONSULT Allergies Allergies: Coded Allergies: Sulfa (Sulfonamide Antibiotics) (Verified Allergy, Intermediate, 07/31/15) Assessment/Plan Assessment/Plan Pt seen and examined. Agree with Amparo's note Pt with c/o mild abd pain, but has been tolerating PO abd soft, mild TTP RUQ agree with treatment of vaginal bleeding will consider cholecystectomy pending treatment of DVT Thanks for consult! DESTINY JOHNS APRN May 25, 2017 12:47 SPARKLE REYNA MD May 25, 2017 21:31
[2017-05-25] MEDS: GABAPENTIN 100 MG CAPSULE. PO SCH (13:04)
[2017-05-25] MEDS: clonazePAM 0.5 MG TABLET PO PRN (13:05)
[2017-05-25] MEDS: hydrOXYzine PAMOATE 25 MG CAPSULE PO PRN ×2 (13:05→19:33)
[2017-05-25] MEDS: PANTOPRAZOLE 40 MG TABLET.DR. PO SCH (13:11)
[2017-05-25] MEDS: ACETAMINOPHEN 325 MG TABLET. PO PRN ×2 (13:11→19:33)
[2017-05-25 15:42] VITALS: BP 84/38
[2017-05-25] MEDS ORDERED: BUTALB/APAP/CAFEIN 50/325/40MG TABLET. PO PRN (17:30)
[2017-05-25 19:53] VITALS: BP 104/58
[2017-05-25] MEDS: MIRTAZAPINE 15 MG TABLET PO SCH (21:05)
[2017-05-25] MEDS: TOPIRAMATE 25 MG TABLET. PO SCH (21:06)
[2017-05-25] MEDS: GABAPENTIN 300 MG CAPSULE. PO SCH (21:06)
[2017-05-26] MEDS: IV NORMAL SALINE 1000ML BAG 1,000 ML IV SCH ×3 (00:45→20:45)
[2017-05-26 06:20] VITALS: BP 85/42
[2017-05-26] MEDS ORDERED: INFLUENZA VAX SCREEN BY RX. MC ONE (08:00)
[2017-05-26] MEDS ORDERED: FLU VACC QS2017-18 (36MOS+)/PF 0.5 ML SYRINGE. VAX IM ONE (09:00)
[2017-05-26] MEDS: GABAPENTIN 300 MG CAPSULE. PO SCH ×3 (09:05→21:56)
[2017-05-26] MEDS: TOPIRAMATE 25 MG TABLET. PO SCH ×2 (09:05→21:59)
[2017-05-26] MEDS: PANTOPRAZOLE 40 MG TABLET.DR. PO SCH ×3 (09:05→16:36)
--- NOTE | 2017-05-26 09:09 | PDOC ---
DESTINY JOHNS RECRUITMENT AND OUTREACH ASSISTANT 05/26/17 0909: SURGICAL PROGRESS NOTE Subjective having some breakfast no n/v still some RUQ pain Vital Signs Vital Signs Date Time Temp Pulse Resp B/P (MAP) Pulse Ox O2 Delivery O2 Flow Rate FiO2 05/26/17 06:20 97.7 90 18 85/42 (56) 97 97.7 05/25/17 19:53 Room Air I&O Intake and Output 05/26/17 07:00 Output Total 1300 ml Balance -1300 ml Output Urine Total 1300 ml # Voids 3 General: Alert, Oriented X3, Cooperative, No acute distress Abdomen: Soft, Other (mild ttp RUQ) Labs Laboratory Tests Test 05/24/17 14:21 05/24/17 15:10 05/25/17 03:00 Urine Collection Type Unknown Urine Color Yellow Urine Clarity Clear Urine pH 6.0 Urine Specific [place] 1.010 Urine Protein Negative mg/dL (NEG-TRACE) Urine Glucose (UA) Negative mg/dL (NEG) Urine Ketones (Stick) Negative mg/dL (NEG) Urine Blood Small (NEG) Urine Nitrite Negative (NEG) Urine Bilirubin Negative (NEG) Urine Urobilinogen Dipstick 0.2 mg/dL (0.2 mg/dL) Urine Leukocyte Esterase Negative (NEG) Urine RBC 0 /HPF (0-2) Urine WBC Occ /HPF (0-4) Urine Squamous Epithelial Cells Few /LPF Urine Bacteria 0 /HPF (0-FEW) Urine Mucus Slight /LPF Urine Test Negative (NEG) White Blood Count 5.5 x10^3/uL (4.0-11.0) Red Blood Count 3.69 x10^6/uL (3.50-5.40) Hemoglobin 8.5 g/dL (12.0-15.5) Hematocrit 27.7 % (36.0-47.0) Mean Corpuscular Volume 75 fL (79-100) Mean Corpuscular Hemoglobin 23 pg (25-35) Mean Corpuscular Hemoglobin Concent 31 g/dL (31-37) Red Cell Distribution Width 18.2 % (11.5-14.5) Platelet Count 239 x10^3/uL (140-400) Neutrophils (%) (Auto) 86 % (31-73) Lymphocytes (%) (Auto) 12 % (24-48) Monocytes (%) (Auto) 2 % (0-9) Eosinophils (%) (Auto) 0 % (0-3) Basophils (%) (Auto) 0 % (0-3) Neutrophils # (Auto) 4.8 x10^3uL (1.8-7.7) Lymphocytes # (Auto) 0.7 x10^3/uL (1.0-4.8) Monocytes # (Auto) 0.1 x10^3/uL (0.0-1.1) Eosinophils # (Auto) 0.0 x10^3/uL (0.0-0.7) Basophils # (Auto) 0.0 x10^3/uL (0.0-0.2) Segmented Neutrophils % 81 % (35-66) Band Neutrophils % 1 % (0-9) Lymphocytes % 17 % (24-48) Monocytes % 1 % (0-10) Platelet Estimate Adequate (ADEQUATE) Sodium Level 144 mmol/L (136-145) Potassium Level 3.4 mmol/L (3.5-5.1) Chloride Level 108 mmol/L (98-107) Carbon Dioxide Level 26 mmol/L (21-32) Anion Gap 10 (6-14) Blood Urea Nitrogen 10 mg/dL (7-20) Creatinine 0.9 mg/dL (0.6-1.0) Estimated GFR (Cockcroft-Gault) 68.7 BUN/Creatinine Ratio 11 (6-20) Glucose Level 107 mg/dL (70-99) Calcium Level 8.2 mg/dL (8.5-10.1) Total Bilirubin 0.1 mg/dL (0.2-1.0) Aspartate Amino Transf (AST/SGOT) 14 U/L (15-37) Alanine Aminotransferase (ALT/SGPT) 18 U/L (14-59) Alkaline Phosphatase 60 U/L (46-116) Total Protein 6.7 g/dL (6.4-8.2) Albumin 3.3 g/dL (3.4-5.0) Albumin/Globulin Ratio 1.0 (1.0-1.7) Assessment/Plan consider cholecystectomy, after completes DVT treatment Problems: SPARKLE CORDERO MD 05/26/17 1107: SURGICAL PROGRESS NOTE Assessment/Plan Pt seen and examined. Agree with Ms. Johns's note Pt appears comfortable, notes some upper abdominal pain abd soft, min TTP LUQ and RUQ cont supportive care Problems: DESTINY JOHNS APRN May 26, 2017 09:09 SPARKLE CORDERO MD May 26, 2017 11:07
--- NOTE | 2017-05-26 10:06 | CONS ---
DATE OF CONSULTATION: 05/25/2017 ATTENDING PHYSICIAN: Guy Olvera MD. The patient was seen at the request of Dr. Tan for evaluation about her left lower extremity pain. HISTORY OF PRESENT ILLNESS: This is a 41-year-old female with known hypertension, myocardial infarction, cerebrovascular accident, bipolar disorder, depression, panic episodes, anxiety, multiple sclerosis, being taken care by [facility] Neurology Department. The patient was admitted on 05/24/2017 as per transfer from [facility] for vaginal bleeding, going on for about 2 weeks prior to the hospitalization, but worse in the last 2 days, bright red blood from her vagina. The patient denies any trouble with her bowel or bladder control usually. The patient admits pain in her left lower extremity with associated numbness going on for the last few days. She denies any back pain. ALLERGIES: THE PATIENT IS KNOWN ALLERGIC TO SULFA. PHYSICAL EXAMINATION: The patient on physical examination today revealed a young female patient, in no acute distress. She is alert, oriented to time, place, person and circumstance and follows commands appropriately, moves all 4 extremities voluntarily where she had 4+/5 grade muscle strength. Deep tendon reflexes are 1-2+ and symmetrical and she had decreased touch and pinprick sensation in her left lower extremity when compared to right side, does not pertain to one particular dermatome or nerve distribution. Straight leg raising test is negative bilaterally. She had mild crepitus on range of motion of both knee joints without any obvious knee joint effusion. She is independent with bed mobility and transfers. She does not use proper body mechanics during mobility. She remains independent with her mobility using a roller walker. She can walk with wide-based gait without roller walker. She has some difficulty trying to walk on her tiptoes and on her heels. Her skin is intact at this time. No tenderness to palpation over cervical, thoracic or lumbar spine area noted at present time. ASSESSMENT: Young female with history of multiple sclerosis with numbness and pain in her left lower extremity. The patient also with known previous cerebrovascular accident, hypertension, myocardial infarction, anxiety, bipolar disorder, depression, panic episodes and recent vaginal bleeding. RECOMMENDATION: To try increasing the dose of gabapentin to 300 mg 3 times a day and to try Fioricet to help with her headaches as nursing staff reports of her more complaining about her headache rather than the left lower extremity pain. Dr. Tan, I appreciate asking me to participate in the care of this interesting patient. I will be glad to follow her with you as needed for rehabilitation. ELKE ROBIN MD DR: [place]/sabino JOB#: [id number] / [id number]
[2017-05-26 11:37] VITALS: BP 97/55
[2017-05-26 11:38] LABS: BASO % 1 % (0-3); EOS % 0 % (0-3); HEMATOCRIT 23.9 % (36.0-47.0); HEMOGLOBIN 7.3 g/dL (12.0-15.5); LYMPH # 1.3 x10^3/uL (1.0-4.8); LYMPH % 39 % (24-48); MEAN CORPUSCULAR HEMOGLOBIN 23 pg (25-35); MEAN CORPUSCULAR HGB CONC 31 g/dL (31-37); MEAN CORPUSCULAR VOLUME 74 fL (79-100); MONO % 11 % (0-9); NEUT % 49 % (31-73); PLATELET COUNT 232 x10^3/uL (140-400); RED BLOOD COUNT 3.24 x10^6/uL (3.50-5.40); RED CELL DISTRIBUTION WIDTH 18.5 % (11.5-14.5); WHITE BLOOD COUNT 3.5 x10^3/uL (4.0-11.0)
[2017-05-26 11:53] LABS: ALBUMIN 2.9 g/dL (3.4-5.0); ALBUMIN/GLOBULIN RATIO 0.9 (1.0-1.7); CALCIUM 8.4 mg/dL (8.5-10.1); CREATININE 0.7 mg/dL (0.6-1.0); GFR 91.8; POTASSIUM 3.9 mmol/L (3.5-5.1); TOTAL BILIRUBIN 0.1 mg/dL (0.2-1.0); TOTAL PROTEIN 6.1 g/dL (6.4-8.2)
[2017-05-26 16:00] VITALS: BP 105/51
--- NOTE | 2017-05-26 18:06 | PDOC ---
PROGRESS NOTES Chief Complaint Chief Complaint acute abdominal pain, nausea without vomiting, improved vaginal bleeding, acute on chronic, may resume Xarelto soon per Heme Anemia, acute blood loss, and appears iron deficient per MCV, check iron panel , B12, folate, consult Heme, recent left leg DVT, will stop Xarelto, should we consider IVC filter? MS new on old left leg pain, pain shooting down leg, migranes prior CVA depression, anxiety, poss bipolar obesity, BMI 31, w moderate malnutrition History of Present Illness History of Present Illness left left pain walking with some difficulty hgb back downtoday Vitals Vitals Vital Signs Date Time Temp Pulse Resp B/P (MAP) Pulse Ox O2 Delivery O2 Flow Rate FiO2 05/26/17 16:00 97.7 90 20 105/51 (69) 97.7 05/26/17 10:10 Room Air 05/26/17 06:20 97 Physical Exam General: Alert, Oriented X3, Cooperative, No acute distress Heart: Regular rate, Normal S1, Normal S2, No murmurs Lungs: Clear Abdomen: Soft, Other (mild ttp RUQ) Extremities: No clubbing, No cyanosis Skin: No rashes, No breakdown Labs LABS Laboratory Tests Test 05/26/17 11:21 White Blood Count 3.5 x10^3/uL (4.0-11.0) Red Blood Count 3.24 x10^6/uL (3.50-5.40) Hemoglobin 7.3 g/dL (12.0-15.5) Hematocrit 23.9 % (36.0-47.0) Mean Corpuscular Volume 74 fL (79-100) Mean Corpuscular Hemoglobin 23 pg (25-35) Mean Corpuscular Hemoglobin Concent 31 g/dL (31-37) Red Cell Distribution Width 18.5 % (11.5-14.5) Platelet Count 232 x10^3/uL (140-400) Neutrophils (%) (Auto) 49 % (31-73) Lymphocytes (%) (Auto) 39 % (24-48) Monocytes (%) (Auto) 11 % (0-9) Eosinophils (%) (Auto) 0 % (0-3) Basophils (%) (Auto) 1 % (0-3) Neutrophils # (Auto) 1.7 x10^3uL (1.8-7.7) Lymphocytes # (Auto) 1.3 x10^3/uL (1.0-4.8) Monocytes # (Auto) 0.4 x10^3/uL (0.0-1.1) Eosinophils # (Auto) 0.0 x10^3/uL (0.0-0.7) Basophils # (Auto) 0.0 x10^3/uL (0.0-0.2) Sodium Level 144 mmol/L (136-145) Potassium Level 3.9 mmol/L (3.5-5.1) Chloride Level 112 mmol/L (98-107) Carbon Dioxide Level 26 mmol/L (21-32) Anion Gap 6 (6-14) Blood Urea Nitrogen 10 mg/dL (7-20) Creatinine 0.7 mg/dL (0.6-1.0) Estimated GFR (Cockcroft-Gault) 91.8 BUN/Creatinine Ratio 14 (6-20) Glucose Level 96 mg/dL (70-99) Calcium Level 8.4 mg/dL (8.5-10.1) Total Bilirubin 0.1 mg/dL (0.2-1.0) Aspartate Amino Transf (AST/SGOT) 13 U/L (15-37) Alanine Aminotransferase (ALT/SGPT) 17 U/L (14-59) Alkaline Phosphatase 54 U/L (46-116) Total Protein 6.1 g/dL (6.4-8.2) Albumin 2.9 g/dL (3.4-5.0) Albumin/Globulin Ratio 0.9 (1.0-1.7) Assessment and Plan Assessmemt and Plan recheck hgb in AM Problems: Comment Review of Relevant I have reviewed the following items rayne (where applicable) has been applied. Labs Laboratory Tests Test 05/25/17 03:00 05/26/17 11:21 White Blood Count 5.5 x10^3/uL (4.0-11.0) 3.5 x10^3/uL (4.0-11.0) Red Blood Count 3.69 x10^6/uL (3.50-5.40) 3.24 x10^6/uL (3.50-5.40) Hemoglobin 8.5 g/dL (12.0-15.5) 7.3 g/dL (12.0-15.5) Hematocrit 27.7 % (36.0-47.0) 23.9 % (36.0-47.0) Mean Corpuscular Volume 75 fL (79-100) 74 fL (79-100) Mean Corpuscular Hemoglobin 23 pg (25-35) 23 pg (25-35) Mean Corpuscular Hemoglobin Concent 31 g/dL (31-37) 31 g/dL (31-37) Red Cell Distribution Width 18.2 % (11.5-14.5) 18.5 % (11.5-14.5) Platelet Count 239 x10^3/uL (140-400) 232 x10^3/uL (140-400) Neutrophils (%) (Auto) 86 % (31-73) 49 % (31-73) Lymphocytes (%) (Auto) 12 % (24-48) 39 % (24-48) Monocytes (%) (Auto) 2 % (0-9) 11 % (0-9) Eosinophils (%) (Auto) 0 % (0-3) 0 % (0-3) Basophils (%) (Auto) 0 % (0-3) 1 % (0-3) Neutrophils # (Auto) 4.8 x10^3uL (1.8-7.7) 1.7 x10^3uL (1.8-7.7) Lymphocytes # (Auto) 0.7 x10^3/uL (1.0-4.8) 1.3 x10^3/uL (1.0-4.8) Monocytes # (Auto) 0.1 x10^3/uL (0.0-1.1) 0.4 x10^3/uL (0.0-1.1) Eosinophils # (Auto) 0.0 x10^3/uL (0.0-0.7) 0.0 x10^3/uL (0.0-0.7) Basophils # (Auto) 0.0 x10^3/uL (0.0-0.2) 0.0 x10^3/uL (0.0-0.2) Segmented Neutrophils % 81 % (35-66) Band Neutrophils % 1 % (0-9) Lymphocytes % 17 % (24-48) Monocytes % 1 % (0-10) Platelet Estimate Adequate (ADEQUATE) Sodium Level 144 mmol/L (136-145) 144 mmol/L (136-145) Potassium Level 3.4 mmol/L (3.5-5.1) 3.9 mmol/L (3.5-5.1) Chloride Level 108 mmol/L (98-107) 112 mmol/L (98-107) Carbon Dioxide Level 26 mmol/L (21-32) 26 mmol/L (21-32) Anion Gap 10 (6-14) 6 (6-14) Blood Urea Nitrogen 10 mg/dL (7-20) 10 mg/dL (7-20) Creatinine 0.9 mg/dL (0.6-1.0) 0.7 mg/dL (0.6-1.0) Estimated GFR (Cockcroft-Gault) 68.7 91.8 BUN/Creatinine Ratio 11 (6-20) 14 (6-20) Glucose Level 107 mg/dL (70-99) 96 mg/dL (70-99) Calcium Level 8.2 mg/dL (8.5-10.1) 8.4 mg/dL (8.5-10.1) Total Bilirubin 0.1 mg/dL (0.2-1.0) 0.1 mg/dL (0.2-1.0) Aspartate Amino Transf (AST/SGOT) 14 U/L (15-37) 13 U/L (15-37) Alanine Aminotransferase (ALT/SGPT) 18 U/L (14-59) 17 U/L (14-59) Alkaline Phosphatase 60 U/L (46-116) 54 U/L (46-116) Total Protein 6.7 g/dL (6.4-8.2) 6.1 g/dL (6.4-8.2) Albumin 3.3 g/dL (3.4-5.0) 2.9 g/dL (3.4-5.0) Albumin/Globulin Ratio 1.0 (1.0-1.7) 0.9 (1.0-1.7) Laboratory Tests Test 05/26/17 11:21 White Blood Count 3.5 x10^3/uL (4.0-11.0) Red Blood Count 3.24 x10^6/uL (3.50-5.40) Hemoglobin 7.3 g/dL (12.0-15.5) Hematocrit 23.9 % (36.0-47.0) Mean Corpuscular Volume 74 fL (79-100) Mean Corpuscular Hemoglobin 23 pg (25-35) Mean Corpuscular Hemoglobin Concent 31 g/dL (31-37) Red Cell Distribution Width 18.5 % (11.5-14.5) Platelet Count 232 x10^3/uL (140-400) Neutrophils (%) (Auto) 49 % (31-73) Lymphocytes (%) (Auto) 39 % (24-48) Monocytes (%) (Auto) 11 % (0-9) Eosinophils (%) (Auto) 0 % (0-3) Basophils (%) (Auto) 1 % (0-3) Neutrophils # (Auto) 1.7 x10^3uL (1.8-7.7) Lymphocytes # (Auto) 1.3 x10^3/uL (1.0-4.8) Monocytes # (Auto) 0.4 x10^3/uL (0.0-1.1) Eosinophils # (Auto) 0.0 x10^3/uL (0.0-0.7) Basophils # (Auto) 0.0 x10^3/uL (0.0-0.2) Sodium Level 144 mmol/L (136-145) Potassium Level 3.9 mmol/L (3.5-5.1) Chloride Level 112 mmol/L (98-107) Carbon Dioxide Level 26 mmol/L (21-32) Anion Gap 6 (6-14) Blood Urea Nitrogen 10 mg/dL (7-20) Creatinine 0.7 mg/dL (0.6-1.0) Estimated GFR (Cockcroft-Gault) 91.8 BUN/Creatinine Ratio 14 (6-20) Glucose Level 96 mg/dL (70-99) Calcium Level 8.4 mg/dL (8.5-10.1) Total Bilirubin 0.1 mg/dL (0.2-1.0) Aspartate Amino Transf (AST/SGOT) 13 U/L (15-37) Alanine Aminotransferase (ALT/SGPT) 17 U/L (14-59) Alkaline Phosphatase 54 U/L (46-116) Total Protein 6.1 g/dL (6.4-8.2) Albumin 2.9 g/dL (3.4-5.0) Albumin/Globulin Ratio 0.9 (1.0-1.7) Medications Current Medications Acetaminophen (Tylenol) 650 mg PRN Q6HRS PRN PO PAIN Last administered on 05/25 19:33; Start 05/23/17 at 22:45 Morphine Sulfate 4 mg PRN Q4HRS PRN IV PAIN Last administered on 05/24/17 19: 41; Start 05/23/17 at 22:45 Sodium Chloride 1,000 ml @ 100 mls/hr Q10H IV Last administered on 05/24/17 18:37; Start 05/23/17 at 22:45 Ondansetron HCl (Zofran) 4 mg PRN Q4HRS PRN IV NAUSEA/VOMITING Last administered on 05/25/17 06:46; Start 05/23/17 at 22:45 Alprazolam (Xanax) 0.25 mg PRN DAILY PRN PO ANXIETY; Start 05/24/17 at 09:15 Clonazepam (KlonoPIN) 0.5 mg PRN DAILY PRN PO ANXIETY Last administered on 13:05; Start 05/24/17 at 09:15 Gabapentin (Neurontin) 100 mg TID PO Last administered on 05/25/17 13:04; Start 05/24/17 at 10:00; Stop 05/25/17 at 17:21; Status DC Non-Formulary Medication 1 puff PRN Q6HRS PRN INH SHORTNESS OF BREATH; Start 05/24/17 at 09:15; Stop 05/24/17 at 09:55; Status DC Sumatriptan Succinate (Imitrex) 100 mg PRN DAILY PRN PO MIGRAINE HEADACHE; Start 05/24/17 at 12:00 Hydroxyzine Pamoate (Vistaril) 25 mg PRN BID PRN PO .ANXIETY Last administered on 05/25/17 19:33; Start 05/24/17 at 09:45 Mirtazapine (Remeron) 30 mg QHS PO Last administered on 05/25/17 21:05; Start 05/24/17 at 21:00 Famotidine (Pepcid) 40 mg QHS PO ; Start 05/24/17 at 21:00; Stop 05/24/17 at 21:00; Status DC Topiramate (Topamax) 50 mg BID PO Last administered on 05/26/17 09:05; Start 05/24/17 at 09:45 Non-Formulary Medication 10 mg DAILY PO ; Start 05/25/17 at 09:00; Status UNV Albuterol Sulfate (Ventolin Neb Soln) 2.5 mg PRN Q6HRS PRN NEB SHORTNESS OF BREATH; Start 05/24/17 at 09:45 Pantoprazole Sodium (Protonix) 40 mg BIDAC PO Last administered on 05/26/17 16:36; Start 05/24/17 at 16:30 Iron Sucrose 500 mg/Sodium Chloride 275 ml @ 78.571 mls/ hr 1X ONCE IV Last administered on 05/24/17 19:41; Start 05/24/17 at 18:00; Stop 05/24/17 at 21 :29; Status DC Potassium Chloride (Klor-Con) 40 meq 1X ONCE PO Last administered on 13:05; Start 05/25/17 at 10:00; Stop 05/25/17 at 10:01; Status DC Gabapentin (Neurontin) 300 mg TID PO Last administered on 05/26/17 14:13; Start 05/25/17 at 21:00 Acetaminophen/ Butalbital/ Caffeine (Fioricet) 2 tab PRN Q6HRS PRN PO MIGRAINE HEADACHE Last administered on 05/26/17 14:14; Start 05/25/17 at 17:30 Info (Do NOT chart on this placeholder) 5 each 1X ONCE MC ; Start 05/26/17 at 08:00; Stop 05/26/17 at 08:01; Status UNV Influenza Virus Vaccine Quadrival (Fluarix Quad 3019-3805 Syringe) 0.5 ml ONCE ONCE VAX IM Last administered on 05/26/17 09:07; Start 05/26/17 at 09:00; Stop 05/26/17 at 09:01; Status DC Active Scripts Active Gabapentin 100 Mg Capsule 100 Mg PO TID Aspirin Ec (Aspirin) 325 Mg Tablet. 325 Mg PO DAILYWBKFT 30 Days Topiramate 50 Mg Tablet 1 Tab PO BID Relpax (Eletriptan Hbr) 40 Mg Tablet 40 Mg PO DAILY 30 Days Trintellix (Vortioxetine) 10 Mg Tablet 10 Mg PO DAILY 30 Days Zantac (Ranitidine Hcl) 300 Mg Tablet 1 Tab PO QHS Reported Proair Hfa Inhaler (Albuterol Sulfate) 8.5 Gm Hfa.aer.ad 1 Puff INH PRN Q6HRS PRN Tramadol Hcl 50 Mg Tablet 1 Tab PO PRN Q6HRS Clonazepam 0.5 Mg Tablet 1 Tab PO DAILY PRN Xarelto (Rivaroxaban) 20 Mg Tablet 20 Mg PO DAILY Alprazolam 0.25 Mg Tablet 1 Tab PO DAILY PRN Mirtazapine 30 Mg Tablet 1 Tab PO QHS Hydroxyzine Hcl 25 Mg Tablet 1 Tab PO BID PRN Metoprolol Succinate ( Xl ) (Metoprolol Succinate) 25 Mg Tab.er.24h 1 Tab PO DAILY Vitals/I & O Vital Sign - Last 24 Hours 05/25/17 05/26/17 05/26/17 05/26/17 19:53 06:20 10:10 11:37 Temp 97.9 97.7 97.9 97.9 97.7 97.9 Pulse 92 90 81 Resp 18 18 20 B/P (MAP) 104/58 (73) 85/42 (56) 97/55 (69) Pulse Ox 98 97 O2 Delivery Room Air Room Air 05/26/17 16:00 Temp 97.7 97.7 Pulse 90 Resp 20 B/P (MAP) 105/51 (69) Intake and Output 05/25/17 05/25/17 05/26/17 15:00 23:00 07:00 Output Total 1300 ml Balance -1300 ml GARRETT ARREAGA MD May 26, 2017 18:06
[2017-05-26 21:19] VITALS: BP 107/54
[2017-05-26] MEDS: MIRTAZAPINE 15 MG TABLET PO SCH (21:59)
[2017-05-27] VITALS (9 sets, daily range): BP systolic 95–122; BP diastolic 46–78
[2017-05-27] MEDS: ACETAMINOPHEN 325 MG TABLET. PO PRN ×3 (04:35→21:37)
[2017-05-27] MEDS: IV NORMAL SALINE 1000ML BAG 1,000 ML IV SCH ×3 (06:45→23:55)
[2017-05-27] MEDS: PANTOPRAZOLE 40 MG TABLET.DR. PO SCH ×3 (07:30→19:28)
[2017-05-27] MEDS: GABAPENTIN 300 MG CAPSULE. PO SCH ×3 (08:11→21:37)
[2017-05-27] MEDS: TOPIRAMATE 25 MG TABLET. PO SCH ×3 (08:11→21:37)
[2017-05-27 08:37] LABS: BASO % 1 % (0-3); EOS % 0 % (0-3); HEMATOCRIT 26.2 % (36.0-47.0); LYMPH # 2.1 x10^3/uL (1.0-4.8); LYMPH % 35 % (24-48); MEAN CORPUSCULAR HEMOGLOBIN 23 pg (25-35); MEAN CORPUSCULAR HGB CONC 31 g/dL (31-37); MEAN CORPUSCULAR VOLUME 75 fL (79-100); MONO % 9 % (0-9); NEUT % 56 % (31-73); PLATELET COUNT 276 x10^3/uL (140-400); RED BLOOD COUNT 3.49 x10^6/uL (3.50-5.40); RED CELL DISTRIBUTION WIDTH 18.6 % (11.5-14.5); WHITE BLOOD COUNT 5.9 x10^3/uL (4.0-11.0)
[2017-05-27 08:52] LABS: CALCIUM 8.6 mg/dL (8.5-10.1); CREATININE 0.8 mg/dL (0.6-1.0); GFR 78.7; POTASSIUM 3.6 mmol/L (3.5-5.1)
--- NOTE | 2017-05-27 09:33 | PDOC ---
DESTINY JOHNS STAFFING COORDINATOR 05/27/17 0932: SURGICAL PROGRESS NOTE Subjective eating, no n/v does report abdominal pain Vital Signs Vital Signs Date Time Temp Pulse Resp B/P (MAP) Pulse Ox O2 Delivery O2 Flow Rate FiO2 05/27/17 08:36 97.9 80 18 103/46 (65) 99 Room Air 97.9 General: Alert, Oriented X3, Cooperative, No acute distress Abdomen: Soft, Other (midly tender upper abdomen) Labs Laboratory Tests Test 05/26/17 11:21 05/27/17 08:20 White Blood Count 3.5 x10^3/uL (4.0-11.0) 5.9 x10^3/uL (4.0-11.0) Red Blood Count 3.24 x10^6/uL (3.50-5.40) 3.49 x10^6/uL (3.50-5.40) Hemoglobin 7.3 g/dL (12.0-15.5) 8.0 g/dL (12.0-15.5) Hematocrit 23.9 % (36.0-47.0) 26.2 % (36.0-47.0) Mean Corpuscular Volume 74 fL (79-100) 75 fL (79-100) Mean Corpuscular Hemoglobin 23 pg (25-35) 23 pg (25-35) Mean Corpuscular Hemoglobin Concent 31 g/dL (31-37) 31 g/dL (31-37) Red Cell Distribution Width 18.5 % (11.5-14.5) 18.6 % (11.5-14.5) Platelet Count 232 x10^3/uL (140-400) 276 x10^3/uL (140-400) Neutrophils (%) (Auto) 49 % (31-73) 56 % (31-73) Lymphocytes (%) (Auto) 39 % (24-48) 35 % (24-48) Monocytes (%) (Auto) 11 % (0-9) 9 % (0-9) Eosinophils (%) (Auto) 0 % (0-3) 0 % (0-3) Basophils (%) (Auto) 1 % (0-3) 1 % (0-3) Neutrophils # (Auto) 1.7 x10^3uL (1.8-7.7) 3.3 x10^3uL (1.8-7.7) Lymphocytes # (Auto) 1.3 x10^3/uL (1.0-4.8) 2.1 x10^3/uL (1.0-4.8) Monocytes # (Auto) 0.4 x10^3/uL (0.0-1.1) 0.5 x10^3/uL (0.0-1.1) Eosinophils # (Auto) 0.0 x10^3/uL (0.0-0.7) 0.0 x10^3/uL (0.0-0.7) Basophils # (Auto) 0.0 x10^3/uL (0.0-0.2) 0.0 x10^3/uL (0.0-0.2) Sodium Level 144 mmol/L (136-145) 140 mmol/L (136-145) Potassium Level 3.9 mmol/L (3.5-5.1) 3.6 mmol/L (3.5-5.1) Chloride Level 112 mmol/L (98-107) 109 mmol/L (98-107) Carbon Dioxide Level 26 mmol/L (21-32) 23 mmol/L (21-32) Anion Gap 6 (6-14) 8 (6-14) Blood Urea Nitrogen 10 mg/dL (7-20) 11 mg/dL (7-20) Creatinine 0.7 mg/dL (0.6-1.0) 0.8 mg/dL (0.6-1.0) Estimated GFR (Cockcroft-Gault) 91.8 78.7 BUN/Creatinine Ratio 14 (6-20) Glucose Level 96 mg/dL (70-99) 106 mg/dL (70-99) Calcium Level 8.4 mg/dL (8.5-10.1) 8.6 mg/dL (8.5-10.1) Total Bilirubin 0.1 mg/dL (0.2-1.0) Aspartate Amino Transf (AST/SGOT) 13 U/L (15-37) Alanine Aminotransferase (ALT/SGPT) 17 U/L (14-59) Alkaline Phosphatase 54 U/L (46-116) Total Protein 6.1 g/dL (6.4-8.2) Albumin 2.9 g/dL (3.4-5.0) Albumin/Globulin Ratio 0.9 (1.0-1.7) Laboratory Tests Test 05/26/17 11:21 05/27/17 08:20 White Blood Count 3.5 x10^3/uL (4.0-11.0) 5.9 x10^3/uL (4.0-11.0) Red Blood Count 3.24 x10^6/uL (3.50-5.40) 3.49 x10^6/uL (3.50-5.40) Hemoglobin 7.3 g/dL (12.0-15.5) 8.0 g/dL (12.0-15.5) Hematocrit 23.9 % (36.0-47.0) 26.2 % (36.0-47.0) Mean Corpuscular Volume 74 fL (79-100) 75 fL (79-100) Mean Corpuscular Hemoglobin 23 pg (25-35) 23 pg (25-35) Mean Corpuscular Hemoglobin Concent 31 g/dL (31-37) 31 g/dL (31-37) Red Cell Distribution Width 18.5 % (11.5-14.5) 18.6 % (11.5-14.5) Platelet Count 232 x10^3/uL (140-400) 276 x10^3/uL (140-400) Neutrophils (%) (Auto) 49 % (31-73) 56 % (31-73) Lymphocytes (%) (Auto) 39 % (24-48) 35 % (24-48) Monocytes (%) (Auto) 11 % (0-9) 9 % (0-9) Eosinophils (%) (Auto) 0 % (0-3) 0 % (0-3) Basophils (%) (Auto) 1 % (0-3) 1 % (0-3) Neutrophils # (Auto) 1.7 x10^3uL (1.8-7.7) 3.3 x10^3uL (1.8-7.7) Lymphocytes # (Auto) 1.3 x10^3/uL (1.0-4.8) 2.1 x10^3/uL (1.0-4.8) Monocytes # (Auto) 0.4 x10^3/uL (0.0-1.1) 0.5 x10^3/uL (0.0-1.1) Eosinophils # (Auto) 0.0 x10^3/uL (0.0-0.7) 0.0 x10^3/uL (0.0-0.7) Basophils # (Auto) 0.0 x10^3/uL (0.0-0.2) 0.0 x10^3/uL (0.0-0.2) Sodium Level 144 mmol/L (136-145) 140 mmol/L (136-145) Potassium Level 3.9 mmol/L (3.5-5.1) 3.6 mmol/L (3.5-5.1) Chloride Level 112 mmol/L (98-107) 109 mmol/L (98-107) Carbon Dioxide Level 26 mmol/L (21-32) 23 mmol/L (21-32) Anion Gap 6 (6-14) 8 (6-14) Blood Urea Nitrogen 10 mg/dL (7-20) 11 mg/dL (7-20) Creatinine 0.7 mg/dL (0.6-1.0) 0.8 mg/dL (0.6-1.0) Estimated GFR (Cockcroft-Gault) 91.8 78.7 BUN/Creatinine Ratio 14 (6-20) Glucose Level 96 mg/dL (70-99) 106 mg/dL (70-99) Calcium Level 8.4 mg/dL (8.5-10.1) 8.6 mg/dL (8.5-10.1) Total Bilirubin 0.1 mg/dL (0.2-1.0) Aspartate Amino Transf (AST/SGOT) 13 U/L (15-37) Alanine Aminotransferase (ALT/SGPT) 17 U/L (14-59) Alkaline Phosphatase 54 U/L (46-116) Total Protein 6.1 g/dL (6.4-8.2) Albumin 2.9 g/dL (3.4-5.0) Albumin/Globulin Ratio 0.9 (1.0-1.7) Problem List consider cholecystectomy, after completes DVT treatment Problems: SPARKLE CORDERO MD 05/27/17 1424: SURGICAL PROGRESS NOTE Assessment/Plan Pt seen and examined. Agree with Ms. Johns's note Pt with c/o persistent RUQ pain abd soft, mild TTP RUQ pt has been off anticoagulation will schedule lap valorie with grams in AM R/B/A d/w pt Problems: DESTINY JOHNS APRN May 27, 2017 09:32 SPARKLE CORDERO MD May 27, 2017 14:24
[2017-05-27] MEDS ORDERED: IRON SUCROSE COMPLEX 200 MG in IV NORMAL SALINE 100ML 100 ML IV ONE (15:30)
--- NOTE | 2017-05-27 16:47 | PDOC ---
PROGRESS NOTES Chief Complaint Chief Complaint acute abdominal pain, nausea without vomiting, improved vaginal bleeding, acute on chronic, may resume Xarelto soon per Heme Anemia, thought to be acute, but more chronic blood loss, iron deficient - has fibroids noted, consult Heme, recent left leg DVT, will stop Xarelto, should we consider IVC filter? Multiple sclerosis, new on old left leg pain, pain shooting down leg, migranes prior CVA depression, anxiety, poss bipolar disorder, she would prefer to have her family make medical decisions, obesity, BMI 31, w moderate malnutrition History of Present Illness History of Present Illness patient is agreeable to valorie in the AM, she would prefer that her sister, who is DPOA, also sign the consent form. holding xarelto for bleeding, may proceed with surg, would restart after surg left leg pain is better, now just abd pain and reproducible walking with some difficulty hgb back downtoday Vitals Vitals Vital Signs Date Time Temp Pulse Resp B/P (MAP) Pulse Ox O2 Delivery O2 Flow Rate FiO2 05/27/17 08:36 97.9 80 18 103/46 (65) 99 Room Air 97.9 Physical Exam General: Alert, Oriented X3, Cooperative, No acute distress Heart: Regular rate, Normal S1, Normal S2, No murmurs Lungs: Clear Abdomen: Soft, Other Extremities: No clubbing, No cyanosis Skin: No rashes, No breakdown Labs LABS Laboratory Tests Test 05/27/17 08:20 White Blood Count 5.9 x10^3/uL (4.0-11.0) Red Blood Count 3.49 x10^6/uL (3.50-5.40) Hemoglobin 8.0 g/dL (12.0-15.5) Hematocrit 26.2 % (36.0-47.0) Mean Corpuscular Volume 75 fL (79-100) Mean Corpuscular Hemoglobin 23 pg (25-35) Mean Corpuscular Hemoglobin Concent 31 g/dL (31-37) Red Cell Distribution Width 18.6 % (11.5-14.5) Platelet Count 276 x10^3/uL (140-400) Neutrophils (%) (Auto) 56 % (31-73) Lymphocytes (%) (Auto) 35 % (24-48) Monocytes (%) (Auto) 9 % (0-9) Eosinophils (%) (Auto) 0 % (0-3) Basophils (%) (Auto) 1 % (0-3) Neutrophils # (Auto) 3.3 x10^3uL (1.8-7.7) Lymphocytes # (Auto) 2.1 x10^3/uL (1.0-4.8) Monocytes # (Auto) 0.5 x10^3/uL (0.0-1.1) Eosinophils # (Auto) 0.0 x10^3/uL (0.0-0.7) Basophils # (Auto) 0.0 x10^3/uL (0.0-0.2) Sodium Level 140 mmol/L (136-145) Potassium Level 3.6 mmol/L (3.5-5.1) Chloride Level 109 mmol/L (98-107) Carbon Dioxide Level 23 mmol/L (21-32) Anion Gap 8 (6-14) Blood Urea Nitrogen 11 mg/dL (7-20) Creatinine 0.8 mg/dL (0.6-1.0) Estimated GFR (Cockcroft-Gault) 78.7 Glucose Level 106 mg/dL (70-99) Calcium Level 8.6 mg/dL (8.5-10.1) Review of Systems Review of Systems abdominal discomfort nausea no Comment Review of Relevant I have reviewed the following items rayne (where applicable) has been applied. Labs Laboratory Tests Test 05/26/17 11:21 05/27/17 08:20 White Blood Count 3.5 x10^3/uL (4.0-11.0) 5.9 x10^3/uL (4.0-11.0) Red Blood Count 3.24 x10^6/uL (3.50-5.40) 3.49 x10^6/uL (3.50-5.40) Hemoglobin 7.3 g/dL (12.0-15.5) 8.0 g/dL (12.0-15.5) Hematocrit 23.9 % (36.0-47.0) 26.2 % (36.0-47.0) Mean Corpuscular Volume 74 fL (79-100) 75 fL (79-100) Mean Corpuscular Hemoglobin 23 pg (25-35) 23 pg (25-35) Mean Corpuscular Hemoglobin Concent 31 g/dL (31-37) 31 g/dL (31-37) Red Cell Distribution Width 18.5 % (11.5-14.5) 18.6 % (11.5-14.5) Platelet Count 232 x10^3/uL (140-400) 276 x10^3/uL (140-400) Neutrophils (%) (Auto) 49 % (31-73) 56 % (31-73) Lymphocytes (%) (Auto) 39 % (24-48) 35 % (24-48) Monocytes (%) (Auto) 11 % (0-9) 9 % (0-9) Eosinophils (%) (Auto) 0 % (0-3) 0 % (0-3) Basophils (%) (Auto) 1 % (0-3) 1 % (0-3) Neutrophils # (Auto) 1.7 x10^3uL (1.8-7.7) 3.3 x10^3uL (1.8-7.7) Lymphocytes # (Auto) 1.3 x10^3/uL (1.0-4.8) 2.1 x10^3/uL (1.0-4.8) Monocytes # (Auto) 0.4 x10^3/uL (0.0-1.1) 0.5 x10^3/uL (0.0-1.1) Eosinophils # (Auto) 0.0 x10^3/uL (0.0-0.7) 0.0 x10^3/uL (0.0-0.7) Basophils # (Auto) 0.0 x10^3/uL (0.0-0.2) 0.0 x10^3/uL (0.0-0.2) Sodium Level 144 mmol/L (136-145) 140 mmol/L (136-145) Potassium Level 3.9 mmol/L (3.5-5.1) 3.6 mmol/L (3.5-5.1) Chloride Level 112 mmol/L (98-107) 109 mmol/L (98-107) Carbon Dioxide Level 26 mmol/L (21-32) 23 mmol/L (21-32) Anion Gap 6 (6-14) 8 (6-14) Blood Urea Nitrogen 10 mg/dL (7-20) 11 mg/dL (7-20) Creatinine 0.7 mg/dL (0.6-1.0) 0.8 mg/dL (0.6-1.0) Estimated GFR (Cockcroft-Gault) 91.8 78.7 BUN/Creatinine Ratio 14 (6-20) Glucose Level 96 mg/dL (70-99) 106 mg/dL (70-99) Calcium Level 8.4 mg/dL (8.5-10.1) 8.6 mg/dL (8.5-10.1) Total Bilirubin 0.1 mg/dL (0.2-1.0) Aspartate Amino Transf (AST/SGOT) 13 U/L (15-37) Alanine Aminotransferase (ALT/SGPT) 17 U/L (14-59) Alkaline Phosphatase 54 U/L (46-116) Total Protein 6.1 g/dL (6.4-8.2) Albumin 2.9 g/dL (3.4-5.0) Albumin/Globulin Ratio 0.9 (1.0-1.7) Laboratory Tests Test 05/27/17 08:20 White Blood Count 5.9 x10^3/uL (4.0-11.0) Red Blood Count 3.49 x10^6/uL (3.50-5.40) Hemoglobin 8.0 g/dL (12.0-15.5) Hematocrit 26.2 % (36.0-47.0) Mean Corpuscular Volume 75 fL (79-100) Mean Corpuscular Hemoglobin 23 pg (25-35) Mean Corpuscular Hemoglobin Concent 31 g/dL (31-37) Red Cell Distribution Width 18.6 % (11.5-14.5) Platelet Count 276 x10^3/uL (140-400) Neutrophils (%) (Auto) 56 % (31-73) Lymphocytes (%) (Auto) 35 % (24-48) Monocytes (%) (Auto) 9 % (0-9) Eosinophils (%) (Auto) 0 % (0-3) Basophils (%) (Auto) 1 % (0-3) Neutrophils # (Auto) 3.3 x10^3uL (1.8-7.7) Lymphocytes # (Auto) 2.1 x10^3/uL (1.0-4.8) Monocytes # (Auto) 0.5 x10^3/uL (0.0-1.1) Eosinophils # (Auto) 0.0 x10^3/uL (0.0-0.7) Basophils # (Auto) 0.0 x10^3/uL (0.0-0.2) Sodium Level 140 mmol/L (136-145) Potassium Level 3.6 mmol/L (3.5-5.1) Chloride Level 109 mmol/L (98-107) Carbon Dioxide Level 23 mmol/L (21-32) Anion Gap 8 (6-14) Blood Urea Nitrogen 11 mg/dL (7-20) Creatinine 0.8 mg/dL (0.6-1.0) Estimated GFR (Cockcroft-Gault) 78.7 Glucose Level 106 mg/dL (70-99) Calcium Level 8.6 mg/dL (8.5-10.1) Medications Current Medications Acetaminophen (Tylenol) 650 mg PRN Q6HRS PRN PO PAIN Last administered on 05/27 14:11; Start 05/23/17 at 22:45 Morphine Sulfate 4 mg PRN Q4HRS PRN IV PAIN Last administered on 05/24/17 19: 41; Start 05/23/17 at 22:45 Sodium Chloride 1,000 ml @ 100 mls/hr Q10H IV Last administered on 05/24/17 18:37; Start 05/23/17 at 22:45 Ondansetron HCl (Zofran) 4 mg PRN Q4HRS PRN IV NAUSEA/VOMITING Last administered on 05/25/17 06:46; Start 05/23/17 at 22:45 Alprazolam (Xanax) 0.25 mg PRN DAILY PRN PO ANXIETY; Start 05/24/17 at 09:15 Clonazepam (KlonoPIN) 0.5 mg PRN DAILY PRN PO ANXIETY Last administered on 13:05; Start 05/24/17 at 09:15 Gabapentin (Neurontin) 100 mg TID PO Last administered on 05/25/17 13:04; Start 05/24/17 at 10:00; Stop 05/25/17 at 17:21; Status DC Non-Formulary Medication 1 puff PRN Q6HRS PRN INH SHORTNESS OF BREATH; Start 05/24/17 at 09:15; Stop 05/24/17 at 09:55; Status DC Sumatriptan Succinate (Imitrex) 100 mg PRN DAILY PRN PO MIGRAINE HEADACHE; Start 05/24/17 at 12:00 Hydroxyzine Pamoate (Vistaril) 25 mg PRN BID PRN PO .ANXIETY Last administered on 05/25/17 19:33; Start 05/24/17 at 09:45 Mirtazapine (Remeron) 30 mg QHS PO Last administered on 05/26/17 21:59; Start 05/24/17 at 21:00 Famotidine (Pepcid) 40 mg QHS PO ; Start 05/24/17 at 21:00; Stop 05/24/17 at 21:00; Status DC Topiramate (Topamax) 50 mg BID PO Last administered on 05/27/17 08:11; Start 05/24/17 at 09:45 Non-Formulary Medication 10 mg DAILY PO ; Start 05/25/17 at 09:00; Stop at 10:35; Status DC Albuterol Sulfate (Ventolin Neb Soln) 2.5 mg PRN Q6HRS PRN NEB SHORTNESS OF BREATH; Start 05/24/17 at 09:45 Pantoprazole Sodium (Protonix) 40 mg BIDAC PO Last administered on 05/27/17 08:11; Start 05/24/17 at 16:30 Iron Sucrose 500 mg/Sodium Chloride 275 ml @ 78.571 mls/ hr 1X ONCE IV Last administered on 05/24/17 19:41; Start 05/24/17 at 18:00; Stop 05/24/17 at 21 :29; Status DC Potassium Chloride (Klor-Con) 40 meq 1X ONCE PO Last administered on 13:05; Start 05/25/17 at 10:00; Stop 05/25/17 at 10:01; Status DC Gabapentin (Neurontin) 300 mg TID PO Last administered on 05/27/17 14:36; Start 05/25/17 at 21:00 Acetaminophen/ Butalbital/ Caffeine (Fioricet) 2 tab PRN Q6HRS PRN PO MIGRAINE HEADACHE Last administered on 05/26/17 14:14; Start 05/25/17 at 17:30 Info (Do NOT chart on this placeholder) 5 each 1X ONCE MC ; Start 05/26/17 at 08:00; Stop 05/26/17 at 08:01; Status UNV Influenza Virus Vaccine Quadrival (Fluarix Quad [id number] Syringe) 0.5 ml ONCE ONCE VAX IM Last administered on 05/26/17 09:07; Start 05/26/17 at 09:00; Stop 05/26/17 at 09:01; Status DC Cefazolin Sodium/ Dextrose 50 ml @ 100 mls/hr 1X PERIOP IV ; Start 05/28/17 at 08:00 Iron Sucrose 200 mg/Sodium Chloride 110 ml @ 55 mls/hr 1X ONCE IV Last administered on 05/27/17 15:44; Start 05/27/17 at 15:30; Stop 05/27/17 at 17 :29 Active Scripts Active Gabapentin 100 Mg Capsule 100 Mg PO TID Aspirin Ec (Aspirin) 325 Mg Tablet.dr 325 Mg PO DAILYWBKFT 30 Days Topiramate 50 Mg Tablet 1 Tab PO BID Relpax (Eletriptan Hbr) 40 Mg Tablet 40 Mg PO DAILY 30 Days Trintellix (Vortioxetine) 10 Mg Tablet 10 Mg PO DAILY 30 Days Zantac (Ranitidine Hcl) 300 Mg Tablet 1 Tab PO QHS Reported Proair Hfa Inhaler (Albuterol Sulfate) 8.5 Gm Hfa.aer.ad 1 Puff INH PRN Q6HRS PRN Tramadol Hcl 50 Mg Tablet 1 Tab PO PRN Q6HRS Clonazepam 0.5 Mg Tablet 1 Tab PO DAILY PRN Xarelto (Rivaroxaban) 20 Mg Tablet 20 Mg PO DAILY Alprazolam 0.25 Mg Tablet 1 Tab PO DAILY PRN Mirtazapine 30 Mg Tablet 1 Tab PO QHS Hydroxyzine Hcl 25 Mg Tablet 1 Tab PO BID PRN Metoprolol Succinate ( Xl ) (Metoprolol Succinate) 25 Mg Tab.er.24h 1 Tab PO DAILY Vitals/I & O Vital Sign - Last 24 Hours 05/26/17 05/26/17 05/27/17 05/27/17 21:17 21:19 04:35 08:36 Temp 98.3 97.7 97.9 98.3 97.7 97.9 Pulse 85 73 80 Resp 20 20 18 B/P (MAP) 107/54 (71) 95/48 (64) 103/46 (65) Pulse Ox 97 98 99 O2 Delivery Room Air Room Air Room Air Room Air GARRETT ARREAGA MD May 27, 2017 16:47
[2017-05-27] MEDS: MORPHINE SULFATE 4 MG/ML DISP.SYRIN. IV PRN (19:41)
[2017-05-27] MEDS: ONDANSETRON PF 4 MG/2 ML VIAL. IV PRN (20:26)
[2017-05-27] MEDS: MIRTAZAPINE 15 MG TABLET PO SCH (21:37)
[2017-05-28] MEDS: IV NORMAL SALINE 1000ML BAG 1,000 ML IV SCH ×3 (02:45→22:45)
--- NOTE | 2017-05-28 03:11 | CONS ---
DATE OF CONSULTATION: 05/24/2017 REQUESTING PHYSICIAN: Dr. Shelly Tan. REASON FOR CONSULTATION: History of DVT, on Xarelto, now admitted with vaginal bleeding and recommendations regarding anticoagulation. HISTORY OF PRESENT ILLNESS: The patient is a 41-year-old female who was admitted to [facility] on 04/05/2017 for complaints of left lower extremity pain and swelling that started acutely on the day of admission. She did not have any fevers or chills. She underwent venous Doppler of the left lower extremity on 04/05/2017, which revealed extensive acute partially occlusive left external iliac, femoral, popliteal vein thrombosis. There was also evidence of left upper greater saphenous vein acute occlusive thrombus. She was admitted to the hospital from 04/05/2017 and discharged on 04/09/2017. She was initially started on heparin and then placed on Xarelto. She has been taking Xarelto every day and her most recent dose was on 05/23/2017 in the morning. She has noticed excessive vaginal bleeding for 2 weeks prior to admission and hence she came into [facility] and subsequently transferred to [facility]. Gynecology was consulted. She underwent ultrasound of the pelvis on 05/23/2017 at [facility] that revealed no acute abnormalities, heterogenous appearance of the myometrium is nonspecific, possible fibroids or adenomyosis could be the etiology. Continued monitoring was recommended. She was noted to have a hemoglobin of 7.6 on 05/24/2017. The hemoglobin was 12.6 on 11/21/2016. Review of the records from [facility] indicates that her hemoglobin was 9.2 on 04/22/2017. Iron studies from 05/24/2017 revealed iron of 12, TIBC 336, iron saturation of 4. I was asked to see the patient for further evaluation and recommendations regarding anticoagulation. PAST MEDICAL HISTORY: Bronchial asthma, brain tumor, migraine headaches, multiple sclerosis, stroke, DVT of the left lower extremity, diagnosed on 04/05/2017 and placed on Xarelto, bipolar disorder, depression, panic disorder. FAMILY HISTORY: Negative for thromboembolic events. SOCIAL HISTORY: She has quit smoking. REVIEW OF SYSTEMS: A 12-point review of system was performed. Pertinent positives are mentioned in the history of present illness. Rest of the system review is negative. PHYSICAL EXAMINATION: GENERAL APPEARANCE: The patient is a 41-year-old female who is in no acute cardiorespiratory distress. VITAL SIGNS: Blood pressure 103/66, temperature 98.6. HEENT: Head: Atraumatic, normocephalic. Eyes: No icterus. NECK: Supple. CHEST: Bilaterally symmetrical. No crepitations or rhonchi heard. HEART: S1, S2 normal. ABDOMEN: Soft, nontender. CENTRAL NERVOUS SYSTEM: No focal neurological deficits. LYMPHATICS: No lymphadenopathy. SKIN: No rashes. PSYCHOLOGIC: Mood and affect are appropriate. MUSCULOSKELETAL: No joint effusions. PSYCHOLOGIC: Mood and affect are appropriate. LABORATORY DATA: From 05/24/2017, WBC 4.1, hemoglobin 7.6, platelet count 241, MCV 75. Creatinine 0.7. Iron 12, TIBC 336, iron saturation 4. IMPRESSION AND PLAN: 1. Deep venous thrombosis of the left lower extremity, diagnosed on 04/05/2017. She has already received almost 7 weeks of anticoagulation. She now has bleeding complications with persistent vaginal bleeding of 2 weeks' duration. Ultrasound of the pelvis on 05/23/2017 reveals possible fibroids or adenomyosis. I discussed with Gynecology who has recommended a followup in 2 weeks. I will obtain a venous Doppler of the left lower extremity. If her deep venous thrombosis has significantly improved, then it would be reasonable to hold anticoagulation until the bleeding improves and then resume it. If she has evidence of acute deep venous thrombosis, then an inferior vena cava filter would be reasonable. I also discussed with the hairspring vibrator regarding the option of holding Xarelto if a hysterectomy is being contemplated and to resume Xarelto after hysterectomy. 2. Vaginal bleeding. Appreciate consultation by Gynecology. 3. Iron deficiency anemia due to vaginal blood loss. I will also add ferritin level. I will start Venofer 500 mg IV on 05/23/2017 x 1 dose. JODEE SANTIAGO MD DR: LA NENA/sabino JOB#: [id number] / [id number] CELIAD
[2017-05-28] MEDS: MORPHINE SULFATE 4 MG/ML DISP.SYRIN. IV PRN ×3 (05:12→21:34)
[2017-05-28 05:16] VITALS: BP 106/43
[2017-05-28 05:18] LABS: BASO % 1 % (0-3); EOS % 0 % (0-3); HEMATOCRIT 23.6 % (36.0-47.0); HEMOGLOBIN 7.2 g/dL (12.0-15.5); LYMPH # 2.3 x10^3/uL (1.0-4.8); LYMPH % 41 % (24-48); MEAN CORPUSCULAR HEMOGLOBIN 23 pg (25-35); MEAN CORPUSCULAR HGB CONC 31 g/dL (31-37); MEAN CORPUSCULAR VOLUME 76 fL (79-100); MONO % 9 % (0-9); NEUT % 49 % (31-73); PLATELET COUNT 235 x10^3/uL (140-400); RED BLOOD COUNT 3.13 x10^6/uL (3.50-5.40); RED CELL DISTRIBUTION WIDTH 18.7 % (11.5-14.5); WHITE BLOOD COUNT 5.5 x10^3/uL (4.0-11.0)
[2017-05-28 05:35] LABS: ALBUMIN 2.8 g/dL (3.4-5.0); ALBUMIN/GLOBULIN RATIO 1.2 (1.0-1.7); CALCIUM 8.2 mg/dL (8.5-10.1); CREATININE 0.8 mg/dL (0.6-1.0); GFR 78.7; POTASSIUM 3.7 mmol/L (3.5-5.1); TOTAL BILIRUBIN 0.1 mg/dL (0.2-1.0); TOTAL PROTEIN 5.2 g/dL (6.4-8.2)
[2017-05-28] MEDS: ONDANSETRON PF 4 MG/2 ML VIAL. IV PRN (06:06)
[2017-05-28] MEDS: PANTOPRAZOLE 40 MG TABLET.DR. PO SCH ×2 (07:30→17:26)
[2017-05-28] MEDS ORDERED: fentaNYL PF VIAL 100 MCG/2 ML VIAL IV PRN ×2 (08:15)
[2017-05-28] MEDS ORDERED: PROCHLORPERAZINE 10 MG/2 ML VIAL. IV PRN (08:15)
[2017-05-28] MEDS ORDERED: LIDOCAINE 1% PF 2 ML VIAL. ID PRN (08:15)
[2017-05-28] MEDS ORDERED: HYDROmorphone 2 MG/ML VIAL IV PRN ×2 (08:15→14:00)
[2017-05-28] MEDS ORDERED: MORPHINE SULFATE 4 MG/ML DISP.SYRIN. IV PRN (08:15)
[2017-05-28] MEDS ORDERED: ONDANSETRON PF 4 MG/2 ML VIAL. IV PRN (08:15)
[2017-05-28] MEDS: TOPIRAMATE 25 MG TABLET. PO SCH ×2 (09:00→21:35)
[2017-05-28] MEDS: GABAPENTIN 300 MG CAPSULE. PO SCH ×3 (09:00→21:34)
--- NOTE | 2017-05-28 09:32 | PDOC ---
Subjective: Subjective: "All over" abd pain, nausea. Says having surgery today. Objective: Vital Signs: Vital Signs Date Time Temp Pulse Resp B/P (MAP) Pulse Ox O2 Delivery O2 Flow Rate FiO2 05/28/17 05:16 97.7 81 18 106/43 (64) Room Air 97.7 05/27/17 21:30 100 Labs: Laboratory Tests Test 05/28/17 05:05 White Blood Count 5.5 x10^3/uL Red Blood Count 3.13 x10^6/uL Hemoglobin 7.2 g/dL Hematocrit 23.6 % Mean Corpuscular Volume 76 fL Mean Corpuscular Hemoglobin 23 pg Mean Corpuscular Hemoglobin Concent 31 g/dL Red Cell Distribution Width 18.7 % Platelet Count 235 x10^3/uL Neutrophils (%) (Auto) 49 % Lymphocytes (%) (Auto) 41 % Monocytes (%) (Auto) 9 % Eosinophils (%) (Auto) 0 % Basophils (%) (Auto) 1 % Neutrophils # (Auto) 2.7 x10^3uL Lymphocytes # (Auto) 2.3 x10^3/uL Monocytes # (Auto) 0.5 x10^3/uL Eosinophils # (Auto) 0.0 x10^3/uL Basophils # (Auto) 0.0 x10^3/uL Sodium Level 143 mmol/L Potassium Level 3.7 mmol/L Chloride Level 111 mmol/L Carbon Dioxide Level 26 mmol/L Anion Gap 6 Blood Urea Nitrogen 12 mg/dL Creatinine 0.8 mg/dL Estimated GFR (Cockcroft-Gault) 78.7 BUN/Creatinine Ratio 15 Glucose Level 103 mg/dL Calcium Level 8.2 mg/dL Total Bilirubin 0.1 mg/dL Aspartate Amino Transf (AST/SGOT) 11 U/L Alanine Aminotransferase (ALT/SGPT) 15 U/L Alkaline Phosphatase 45 U/L Total Protein 5.2 g/dL Albumin 2.8 g/dL Albumin/Globulin Ratio 1.2 PE: GEN: NAD LUNGS: clear HEART: RRR ABD: uncomfortable NEURO/PSYCH: A & O 3 A/P: AUB, fibroids, RUPERT (Hgb 7.2) -embolization planned -h/o LLE DVT (previously on Xarelto, ASA) -received IV iron x 1 Abd pain, nausea -also h/o GERD on acid 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 ART BAIN May 28, 2017 09:32
[2017-05-28 10:30] VITALS: BP 102/52
[2017-05-28] MEDS: IV RINGERS,LACTATED 1000ML 1,000 ML IV SCH ×2 (11:06→13:35)
[2017-05-28] MEDS ORDERED: ROCURONIUM 50 MG/5 ML VIAL. ONE (11:38)
[2017-05-28] MEDS ORDERED: MIDAZOLAM HCL/PF 2 MG/2 ML VIAL. ONE (11:38)
[2017-05-28] MEDS ORDERED: DEXAMETHASONE SOD PHOS 20 MG/5 ML VIAL. ONE (11:38)
[2017-05-28] MEDS ORDERED: fentaNYL PF VIAL 100 MCG/2 ML VIAL ONE (11:38)
[2017-05-28] MEDS ORDERED: ONDANSETRON PF 4 MG/2 ML VIAL. ONE (11:38)
[2017-05-28] MEDS ORDERED: PROPOFOL 20 ML IV ONE (11:38)
[2017-05-28] MEDS ORDERED: LIDOCAINE 2% PF Vial for OR 5 ML VIAL. ONE (11:38)
[2017-05-28] MEDS ORDERED: IOHEXOL 300 MG/ML 100ML VIAL. ONE (11:54)
[2017-05-28] MEDS ORDERED: GLUCAGON,HUMAN RECOMBINANT 1 MG/ML VIAL. ONE (11:54)
[2017-05-28] MEDS ORDERED: SURGICEL HEMOSTAT 4X8 EACH. ONE (11:54)
[2017-05-28] MEDS ORDERED: BUPIVAC MPF-EPI 0.5%-1:200000 30 ML VIAL. ONE (11:54)
[2017-05-28] MEDS ORDERED: IOHEXOL 300 MG/ML 100ML VIAL. IJ ONE (12:35)
[2017-05-28] MEDS ORDERED: PHENYLEPHRINE in 0.9% NACL PF 1 MG/10 ML DISP.SYRIN. IV ONE (12:35)
[2017-05-28] MEDS ORDERED: BUPIVAC MPF-EPI 0.5%-1:200000 30 ML VIAL. INJ ONE (12:35)
[2017-05-28] MEDS ORDERED: SEVOFLURANE 61 TO 120 MINUTES. IH ONE (12:40)
--- NOTE | 2017-05-28 12:45 | PDOC ---
PROGRESS NOTES Chief Complaint Chief Complaint Acute abdominal pain Vaginal bleeding Anemia Multiple sclerosis Migraines prior CVA Depression Anxiety Possible bipolar disorder History of Present Illness History of Present Illness Per previous note, patient is agreeable to valorie. She would prefer that her sister, who is DPOA, also sign the consent form. Vitals Vitals Vital Signs Date Time Temp Pulse Resp B/P (MAP) Pulse Ox O2 Delivery O2 Flow Rate FiO2 05/28/17 11:04 98.0 81 15 121/58 100 Room Air 98.0 Physical Exam General: Alert, Cooperative, No acute distress Lungs: Clear Skin: No rashes Labs LABS Laboratory Tests Test 05/28/17 05:05 White Blood Count 5.5 x10^3/uL (4.0-11.0) Red Blood Count 3.13 x10^6/uL (3.50-5.40) Hemoglobin 7.2 g/dL (12.0-15.5) Hematocrit 23.6 % (36.0-47.0) Mean Corpuscular Volume 76 fL (79-100) Mean Corpuscular Hemoglobin 23 pg (25-35) Mean Corpuscular Hemoglobin Concent 31 g/dL (31-37) Red Cell Distribution Width 18.7 % (11.5-14.5) Platelet Count 235 x10^3/uL (140-400) Neutrophils (%) (Auto) 49 % (31-73) Lymphocytes (%) (Auto) 41 % (24-48) Monocytes (%) (Auto) 9 % (0-9) Eosinophils (%) (Auto) 0 % (0-3) Basophils (%) (Auto) 1 % (0-3) Neutrophils # (Auto) 2.7 x10^3uL (1.8-7.7) Lymphocytes # (Auto) 2.3 x10^3/uL (1.0-4.8) Monocytes # (Auto) 0.5 x10^3/uL (0.0-1.1) Eosinophils # (Auto) 0.0 x10^3/uL (0.0-0.7) Basophils # (Auto) 0.0 x10^3/uL (0.0-0.2) Sodium Level 143 mmol/L (136-145) Potassium Level 3.7 mmol/L (3.5-5.1) Chloride Level 111 mmol/L (98-107) Carbon Dioxide Level 26 mmol/L (21-32) Anion Gap 6 (6-14) Blood Urea Nitrogen 12 mg/dL (7-20) Creatinine 0.8 mg/dL (0.6-1.0) Estimated GFR (Cockcroft-Gault) 78.7 BUN/Creatinine Ratio 15 (6-20) Glucose Level 103 mg/dL (70-99) Calcium Level 8.2 mg/dL (8.5-10.1) Total Bilirubin 0.1 mg/dL (0.2-1.0) Aspartate Amino Transf (AST/SGOT) 11 U/L (15-37) Alanine Aminotransferase (ALT/SGPT) 15 U/L (14-59) Alkaline Phosphatase 45 U/L (46-116) Total Protein 5.2 g/dL (6.4-8.2) Albumin 2.8 g/dL (3.4-5.0) Albumin/Globulin Ratio 1.2 (1.0-1.7) Assessment and Plan Assessmemt and Plan ASSESSMENT Acute abdominal pain: Nausea without vomiting, improved Vaginal bleeding: Acute on chronic, may resume Xarelto soon per Heme Anemia: Thought to be acute, but more chronic blood loss, iron deficient - has fibroids noted, consult Heme, recent left leg DVT, will stop Xarelto, should we consider IVC filter? Multiple sclerosis: New on old left leg pain, pain shooting down leg, Migraines prior CVA Depression Anxiety Poss bipolar disorder: She would prefer to have her family make medical decisions, Obesity: BMI 31 w/ moderate malnutrition PLAN: Symptomatic gallstones Lap Coli today Hope to discontinue tomorrow if doing well Continue home meds after discharge Follow up with PCP after discharge Problems: Comment Review of Relevant I have reviewed the following items rayne (where applicable) has been applied. Labs Laboratory Tests Test 05/27/17 08:20 05/28/17 05:05 White Blood Count 5.9 x10^3/uL (4.0-11.0) 5.5 x10^3/uL (4.0-11.0) Red Blood Count 3.49 x10^6/uL (3.50-5.40) 3.13 x10^6/uL (3.50-5.40) Hemoglobin 8.0 g/dL (12.0-15.5) 7.2 g/dL (12.0-15.5) Hematocrit 26.2 % (36.0-47.0) 23.6 % (36.0-47.0) Mean Corpuscular Volume 75 fL (79-100) 76 fL (79-100) Mean Corpuscular Hemoglobin 23 pg (25-35) 23 pg (25-35) Mean Corpuscular Hemoglobin Concent 31 g/dL (31-37) 31 g/dL (31-37) Red Cell Distribution Width 18.6 % (11.5-14.5) 18.7 % (11.5-14.5) Platelet Count 276 x10^3/uL (140-400) 235 x10^3/uL (140-400) Neutrophils (%) (Auto) 56 % (31-73) 49 % (31-73) Lymphocytes (%) (Auto) 35 % (24-48) 41 % (24-48) Monocytes (%) (Auto) 9 % (0-9) 9 % (0-9) Eosinophils (%) (Auto) 0 % (0-3) 0 % (0-3) Basophils (%) (Auto) 1 % (0-3) 1 % (0-3) Neutrophils # (Auto) 3.3 x10^3uL (1.8-7.7) 2.7 x10^3uL (1.8-7.7) Lymphocytes # (Auto) 2.1 x10^3/uL (1.0-4.8) 2.3 x10^3/uL (1.0-4.8) Monocytes # (Auto) 0.5 x10^3/uL (0.0-1.1) 0.5 x10^3/uL (0.0-1.1) Eosinophils # (Auto) 0.0 x10^3/uL (0.0-0.7) 0.0 x10^3/uL (0.0-0.7) Basophils # (Auto) 0.0 x10^3/uL (0.0-0.2) 0.0 x10^3/uL (0.0-0.2) Sodium Level 140 mmol/L (136-145) 143 mmol/L (136-145) Potassium Level 3.6 mmol/L (3.5-5.1) 3.7 mmol/L (3.5-5.1) Chloride Level 109 mmol/L (98-107) 111 mmol/L (98-107) Carbon Dioxide Level 23 mmol/L (21-32) 26 mmol/L (21-32) Anion Gap 8 (6-14) 6 (6-14) Blood Urea Nitrogen 11 mg/dL (7-20) 12 mg/dL (7-20) Creatinine 0.8 mg/dL (0.6-1.0) 0.8 mg/dL (0.6-1.0) Estimated GFR (Cockcroft-Gault) 78.7 78.7 Glucose Level 106 mg/dL (70-99) 103 mg/dL (70-99) Calcium Level 8.6 mg/dL (8.5-10.1) 8.2 mg/dL (8.5-10.1) BUN/Creatinine Ratio 15 (6-20) Total Bilirubin 0.1 mg/dL (0.2-1.0) Aspartate Amino Transf (AST/SGOT) 11 U/L (15-37) Alanine Aminotransferase (ALT/SGPT) 15 U/L (14-59) Alkaline Phosphatase 45 U/L (46-116) Total Protein 5.2 g/dL (6.4-8.2) Albumin 2.8 g/dL (3.4-5.0) Albumin/Globulin Ratio 1.2 (1.0-1.7) Laboratory Tests Test 05/28/17 05:05 White Blood Count 5.5 x10^3/uL (4.0-11.0) Red Blood Count 3.13 x10^6/uL (3.50-5.40) Hemoglobin 7.2 g/dL (12.0-15.5) Hematocrit 23.6 % (36.0-47.0) Mean Corpuscular Volume 76 fL (79-100) Mean Corpuscular Hemoglobin 23 pg (25-35) Mean Corpuscular Hemoglobin Concent 31 g/dL (31-37) Red Cell Distribution Width 18.7 % (11.5-14.5) Platelet Count 235 x10^3/uL (140-400) Neutrophils (%) (Auto) 49 % (31-73) Lymphocytes (%) (Auto) 41 % (24-48) Monocytes (%) (Auto) 9 % (0-9) Eosinophils (%) (Auto) 0 % (0-3) Basophils (%) (Auto) 1 % (0-3) Neutrophils # (Auto) 2.7 x10^3uL (1.8-7.7) Lymphocytes # (Auto) 2.3 x10^3/uL (1.0-4.8) Monocytes # (Auto) 0.5 x10^3/uL (0.0-1.1) Eosinophils # (Auto) 0.0 x10^3/uL (0.0-0.7) Basophils # (Auto) 0.0 x10^3/uL (0.0-0.2) Sodium Level 143 mmol/L (136-145) Potassium Level 3.7 mmol/L (3.5-5.1) Chloride Level 111 mmol/L (98-107) Carbon Dioxide Level 26 mmol/L (21-32) Anion Gap 6 (6-14) Blood Urea Nitrogen 12 mg/dL (7-20) Creatinine 0.8 mg/dL (0.6-1.0) Estimated GFR (Cockcroft-Gault) 78.7 BUN/Creatinine Ratio 15 (6-20) Glucose Level 103 mg/dL (70-99) Calcium Level 8.2 mg/dL (8.5-10.1) Total Bilirubin 0.1 mg/dL (0.2-1.0) Aspartate Amino Transf (AST/SGOT) 11 U/L (15-37) Alanine Aminotransferase (ALT/SGPT) 15 U/L (14-59) Alkaline Phosphatase 45 U/L (46-116) Total Protein 5.2 g/dL (6.4-8.2) Albumin 2.8 g/dL (3.4-5.0) Albumin/Globulin Ratio 1.2 (1.0-1.7) Medications Current Medications Acetaminophen (Tylenol) 650 mg PRN Q6HRS PRN PO PAIN Last administered on 05/27 21:37; Start 05/23/17 at 22:45 Morphine Sulfate 4 mg PRN Q4HRS PRN IV PAIN Last administered on 05/28/17 09: 36; Start 05/23/17 at 22:45 Sodium Chloride 1,000 ml @ 100 mls/hr Q10H IV Last administered on 05/27/17 23:55; Start 05/23/17 at 22:45 Ondansetron HCl (Zofran) 4 mg PRN Q4HRS PRN IV NAUSEA/VOMITING Last administered on 05/28/17 06:06; Start 05/23/17 at 22:45 Alprazolam (Xanax) 0.25 mg PRN DAILY PRN PO ANXIETY; Start 05/24/17 at 09:15 Clonazepam (KlonoPIN) 0.5 mg PRN DAILY PRN PO ANXIETY Last administered on 13:05; Start 05/24/17 at 09:15 Gabapentin (Neurontin) 100 mg TID PO Last administered on 05/25/17 13:04; Start 05/24/17 at 10:00; Stop 05/25/17 at 17:21; Status DC Non-Formulary Medication 1 puff PRN Q6HRS PRN INH SHORTNESS OF BREATH; Start 05/24/17 at 09:15; Stop 05/24/17 at 09:55; Status DC Sumatriptan Succinate (Imitrex) 100 mg PRN DAILY PRN PO MIGRAINE HEADACHE; Start 05/24/17 at 12:00 Hydroxyzine Pamoate (Vistaril) 25 mg PRN BID PRN PO .ANXIETY Last administered on 05/25/17 19:33; Start 05/24/17 at 09:45 Mirtazapine (Remeron) 30 mg QHS PO Last administered on 05/27/17 21:37; Start 05/24/17 at 21:00 Famotidine (Pepcid) 40 mg QHS PO ; Start 05/24/17 at 21:00; Stop 05/24/17 at 21:00; Status DC Topiramate (Topamax) 50 mg BID PO Last administered on 05/27/17 21:37; Start 05/24/17 at 09:45 Non-Formulary Medication 10 mg DAILY PO ; Start 05/25/17 at 09:00; Stop at 10:35; Status DC Albuterol Sulfate (Ventolin Neb Soln) 2.5 mg PRN Q6HRS PRN NEB SHORTNESS OF BREATH; Start 05/24/17 at 09:45 Pantoprazole Sodium (Protonix) 40 mg BIDAC PO Last administered on 05/27/17 19:28; Start 05/24/17 at 16:30 Iron Sucrose 500 mg/Sodium Chloride 275 ml @ 78.571 mls/ hr 1X ONCE IV Last administered on 05/24/17 19:41; Start 05/24/17 at 18:00; Stop 05/24/17 at 21 :29; Status DC Potassium Chloride (Klor-Con) 40 meq 1X ONCE PO Last administered on 13:05; Start 05/25/17 at 10:00; Stop 05/25/17 at 10:01; Status DC Gabapentin (Neurontin) 300 mg TID PO Last administered on 05/27/17 21:37; Start 05/25/17 at 21:00 Acetaminophen/ Butalbital/ Caffeine (Fioricet) 2 tab PRN Q6HRS PRN PO MIGRAINE HEADACHE Last administered on 05/26/17 14:14; Start 05/25/17 at 17:30 Info (Do NOT chart on this placeholder) 5 each 1X ONCE MC ; Start 05/26/17 at 08:00; Stop 05/26/17 at 08:01; Status UNV Influenza Virus Vaccine Quadrival (Fluarix Quad [id number] Syringe) 0.5 ml ONCE ONCE VAX IM Last administered on 05/26/17 09:07; Start 05/26/17 at 09:00; Stop 05/26/17 at 09:01; Status DC Cefazolin Sodium/ Dextrose 50 ml @ 100 mls/hr 1X PERIOP IV ; Start 05/28/17 at 08:00; Stop 05/28/17 at 16:00 Iron Sucrose 200 mg/Sodium Chloride 110 ml @ 55 mls/hr 1X ONCE IV Last administered on 05/27/17 15:44; Start 05/27/17 at 15:30; Stop 05/27/17 at 17 :29; Status DC Ondansetron HCl (Zofran) 4 mg PRN Q6HRS PRN IV NAUSEA/VOMITING; Start at 08:15; Stop 05/28/17 at 19:00 Fentanyl Citrate (Fentanyl 2ml Vial) 25 mcg PRN Q5MIN PRN IV MILD PAIN; Start 05/28/17 at 08:15; Stop 05/28/17 at 19:00 Fentanyl Citrate (Fentanyl 2ml Vial) 50 mcg PRN Q5MIN PRN IV MODERATE PAIN; Start 05/28/17 at 08:15; Stop 05/28/17 at 19:00 Morphine Sulfate 1 mg PRN Q10MIN PRN IV SEVERE PAIN; Start 05/28/17 at 08:15; Stop 05/28/17 at 19:00 Ringer's Solution 1,000 ml @ 30 mls/hr Q24H IV Last administered on t 11:06; Start 05/28/17 at 08:07; Stop 05/28/17 at 20:06 Lidocaine HCl (Xylocaine-Mpf 1% Vial) 2 ml 1X PRN PRN ID IV START; Start 05/28 at 08:15; Stop 05/28/17 at 19:00 Hydromorphone HCl (Dilaudid) 0.5 mg PRN Q10MIN PRN IV SEV PAIN, Second choice; Start 05/28/17 at 08:15; Stop 05/28/17 at 19:00 Prochlorperazine Edisylate (Compazine) 5 mg PACU PRN PRN IV NAUSEA, MRX1; Start 05/28/17 at 08:15; Stop 05/28/17 at 19:00 Active Scripts Active Gabapentin 100 Mg Capsule 100 Mg PO TID Aspirin Ec (Aspirin) 325 Mg Tablet.dr 325 Mg PO DAILYWBKFT 30 Days Topiramate 50 Mg Tablet 1 Tab PO BID Relpax (Eletriptan Hbr) 40 Mg Tablet 40 Mg PO DAILY 30 Days Trintellix (Vortioxetine) 10 Mg Tablet 10 Mg PO DAILY 30 Days Zantac (Ranitidine Hcl) 300 Mg Tablet 1 Tab PO QHS Reported Proair Hfa Inhaler (Albuterol Sulfate) 8.5 Gm Hfa.aer.ad 1 Puff INH PRN Q6HRS PRN Tramadol Hcl 50 Mg Tablet 1 Tab PO PRN Q6HRS Clonazepam 0.5 Mg Tablet 1 Tab PO DAILY PRN Xarelto (Rivaroxaban) 20 Mg Tablet 20 Mg PO DAILY Alprazolam 0.25 Mg Tablet 1 Tab PO DAILY PRN Mirtazapine 30 Mg Tablet 1 Tab PO QHS Hydroxyzine Hcl 25 Mg Tablet 1 Tab PO BID PRN Metoprolol Succinate ( Xl ) (Metoprolol Succinate) 25 Mg Tab.er.24h 1 Tab PO DAILY Vitals/I & O Vital Sign - Last 24 Hours 05/27/17 05/27/17 05/27/17 05/27/17 16:45 17:00 17:15 17:30 Pulse 107 98 94 101 Resp 18 18 B/P (MAP) 98/62 (74) 114/66 (82) 122/78 (93) 122/60 (80) Pulse Ox 94 98 O2 Delivery Room Air Room Air 05/27/17 05/27/17 05/27/17 05/27/17 17:45 18:00 19:41 20:15 Pulse 116 109 Resp 18 20 B/P (MAP) 122/69 (86) 116/74 (88) O2 Delivery Room Air Room Air 05/27/17 05/28/17 05/28/17 05/28/17 21:30 02:00 05:12 05:16 Temp 98.4 97.7 98.4 97.7 Pulse 89 81 Resp 20 18 18 18 B/P (MAP) 97/64 (75) 106/43 (64) Pulse Ox 100 O2 Delivery Room Air Room Air Room Air Room Air 05/28/17 05/28/17 05/28/17 05/28/17 09:15 09:36 10:30 11:04 Temp 98.0 98.0 98.0 98.0 Pulse 87 81 Resp 16 18 15 B/P (MAP) 102/52 (69) 121/58 Pulse Ox 100 O2 Delivery Room Air Room Air Room Air SHARMILA TSE III DO May 28, 2017 12:45
[2017-05-28] MEDS ORDERED: GLYCOPYRROLATE 1 MG/5 ML VIAL. ONE (12:57)
[2017-05-28] MEDS ORDERED: NEOSTIGMINE 10 MG/10 ML VIAL. ONE (12:57)
[2017-05-28] MEDS ORDERED: SURGICEL HEMOSTAT 4X8 EACH. TP ONE (12:59)
--- NOTE | 2017-05-28 13:31 | OP ---
DATE OF SURGERY: 05/28/2017 PREOPERATIVE DIAGNOSIS: Symptomatic cholelithiasis. POSTOPERATIVE DIAGNOSIS: Symptomatic cholelithiasis. PROCEDURE: Laparoscopic cholecystectomy. SURGEON: Colette Santiago MD. ANESTHESIA: General endotracheal. ESTIMATED BLOOD LOSS: 20 mL. INTRAVENOUS FLUIDS: 1 L. INDICATIONS: The patient is a 41-year-old with epigastric and right upper quadrant pain. Ultrasound shows stones. She is brought for cholecystectomy. OPERATIVE FINDINGS: The liver was smooth and sharp. The gallbladder was supple containing multiple large stones. Visual inspection of the abdomen failed to reveal obvious abnormalities. DESCRIPTION OF PROCEDURE: The patient brought to the operating suite, given a general endotracheal anesthetic and the abdomen prepped and draped in usual sterile fashion. An infraumbilical incision was infiltrated with local anesthetic, sharply incised and a 5 mm Visiport used to safely gain access into the abdominal cavity. Pneumoperitoneum established. Camera inserted. Inspection carried out with results as noted above. With the table in reverse Trendelenburg rolled to the left, the epigastric and midclavicular ports were placed under direct vision. The lateral port location was used for an "alligator" grasper. Gallbladder was retracted superolaterally and the cystic duct was exposed and clipped on the gallbladder side. In attempts to open the duct for cholangiograms, it transected. Stump was clipped x 2, taking care to avoid injury or compromise of the common duct. The cystic artery was clipped and divided and gallbladder freed from the bed with cautery dissection. A posterior vessel and a small tertiary vessel were encountered and clipped. Gallbladder was freed from the bed and placed in an EndoCatch bag. Hemostasis obtained with cautery and a small piece of Surgicel. Table returned to level. Gallbladder delivered through the epigastric incision. Epigastric incision closed with interrupted 0 Vicryl suture. Intra-abdominal pressure decreased to 6 cm of water. No bleeding from the epigastric closure or from the midclavicular port site after its removal or from the lateral location of the "alligator" grasper. Abdomen decompressed, camera slowly removed, no bleeding seen. Skin incisions closed with subcuticular 4-0 Monocryl. Steri-Strips and sterile dressings applied. The patient awakened from her anesthetic and taken to the recovery room in satisfactory condition. COLETTE SANTIAGO MD DR: Long JOB#: [id number] / [id number]
[2017-05-28 14:40] VITALS: BP 116/71
--- NOTE | 2017-05-28 16:57 | PDOC ---
PROGRESS NOTES Subjective Subjective Pt seen on 05/28/17 at 8.30 am HPI - f/u of DVT and vaginal bleed ROS - improving vaginal bleed Objective Objective Vital Signs Date Time Temp Pulse Resp B/P (MAP) Pulse Ox O2 Delivery O2 Flow Rate FiO2 05/28/17 14:40 97.7 81 18 116/71 (86) 98 Room Air 97.7 05/28/17 13:31 10 Physical Exam Heart: Normal S1, Normal S2 General: Alert, Oriented X3 Lungs: Clear to auscultation Neuro: Normal speech Psych/Mental Status: Mental status NL Assessment Assessment A/P 1. DVT LLE 04/05/17. Resolved per f/u scan 05/24/17. Hence no need for IVC filter. Resume xarelto to complete 6 months of anticoagulation when bleeding improves. If bleeding is a persistent issue then d/c xarelto as there is no residual DVT. 2. Iron def anemia - s/p venofer 05/24/17. Hb 8.5 on 05/25/17, 7.2 on 05/28/17 3. 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 Comment Review of Relevant I have reviewed the following items rayne (where applicable) has been applied. Labs Laboratory Tests Test 05/27/17 08:20 05/28/17 05:05 White Blood Count 5.9 x10^3/uL (4.0-11.0) 5.5 x10^3/uL (4.0-11.0) Red Blood Count 3.49 x10^6/uL (3.50-5.40) 3.13 x10^6/uL (3.50-5.40) Hemoglobin 8.0 g/dL (12.0-15.5) 7.2 g/dL (12.0-15.5) Hematocrit 26.2 % (36.0-47.0) 23.6 % (36.0-47.0) Mean Corpuscular Volume 75 fL (79-100) 76 fL (79-100) Mean Corpuscular Hemoglobin 23 pg (25-35) 23 pg (25-35) Mean Corpuscular Hemoglobin Concent 31 g/dL (31-37) 31 g/dL (31-37) Red Cell Distribution Width 18.6 % (11.5-14.5) 18.7 % (11.5-14.5) Platelet Count 276 x10^3/uL (140-400) 235 x10^3/uL (140-400) Neutrophils (%) (Auto) 56 % (31-73) 49 % (31-73) Lymphocytes (%) (Auto) 35 % (24-48) 41 % (24-48) Monocytes (%) (Auto) 9 % (0-9) 9 % (0-9) Eosinophils (%) (Auto) 0 % (0-3) 0 % (0-3) Basophils (%) (Auto) 1 % (0-3) 1 % (0-3) Neutrophils # (Auto) 3.3 x10^3uL (1.8-7.7) 2.7 x10^3uL (1.8-7.7) Lymphocytes # (Auto) 2.1 x10^3/uL (1.0-4.8) 2.3 x10^3/uL (1.0-4.8) Monocytes # (Auto) 0.5 x10^3/uL (0.0-1.1) 0.5 x10^3/uL (0.0-1.1) Eosinophils # (Auto) 0.0 x10^3/uL (0.0-0.7) 0.0 x10^3/uL (0.0-0.7) Basophils # (Auto) 0.0 x10^3/uL (0.0-0.2) 0.0 x10^3/uL (0.0-0.2) Sodium Level 140 mmol/L (136-145) 143 mmol/L (136-145) Potassium Level 3.6 mmol/L (3.5-5.1) 3.7 mmol/L (3.5-5.1) Chloride Level 109 mmol/L (98-107) 111 mmol/L (98-107) Carbon Dioxide Level 23 mmol/L (21-32) 26 mmol/L (21-32) Anion Gap 8 (6-14) 6 (6-14) Blood Urea Nitrogen 11 mg/dL (7-20) 12 mg/dL (7-20) Creatinine 0.8 mg/dL (0.6-1.0) 0.8 mg/dL (0.6-1.0) Estimated GFR (Cockcroft-Gault) 78.7 78.7 Glucose Level 106 mg/dL (70-99) 103 mg/dL (70-99) Calcium Level 8.6 mg/dL (8.5-10.1) 8.2 mg/dL (8.5-10.1) BUN/Creatinine Ratio 15 (6-20) Total Bilirubin 0.1 mg/dL (0.2-1.0) Aspartate Amino Transf (AST/SGOT) 11 U/L (15-37) Alanine Aminotransferase (ALT/SGPT) 15 U/L (14-59) Alkaline Phosphatase 45 U/L (46-116) Total Protein 5.2 g/dL (6.4-8.2) Albumin 2.8 g/dL (3.4-5.0) Albumin/Globulin Ratio 1.2 (1.0-1.7) Laboratory Tests Test 05/28/17 05:05 White Blood Count 5.5 x10^3/uL (4.0-11.0) Red Blood Count 3.13 x10^6/uL (3.50-5.40) Hemoglobin 7.2 g/dL (12.0-15.5) Hematocrit 23.6 % (36.0-47.0) Mean Corpuscular Volume 76 fL (79-100) Mean Corpuscular Hemoglobin 23 pg (25-35) Mean Corpuscular Hemoglobin Concent 31 g/dL (31-37) Red Cell Distribution Width 18.7 % (11.5-14.5) Platelet Count 235 x10^3/uL (140-400) Neutrophils (%) (Auto) 49 % (31-73) Lymphocytes (%) (Auto) 41 % (24-48) Monocytes (%) (Auto) 9 % (0-9) Eosinophils (%) (Auto) 0 % (0-3) Basophils (%) (Auto) 1 % (0-3) Neutrophils # (Auto) 2.7 x10^3uL (1.8-7.7) Lymphocytes # (Auto) 2.3 x10^3/uL (1.0-4.8) Monocytes # (Auto) 0.5 x10^3/uL (0.0-1.1) Eosinophils # (Auto) 0.0 x10^3/uL (0.0-0.7) Basophils # (Auto) 0.0 x10^3/uL (0.0-0.2) Sodium Level 143 mmol/L (136-145) Potassium Level 3.7 mmol/L (3.5-5.1) Chloride Level 111 mmol/L (98-107) Carbon Dioxide Level 26 mmol/L (21-32) Anion Gap 6 (6-14) Blood Urea Nitrogen 12 mg/dL (7-20) Creatinine 0.8 mg/dL (0.6-1.0) Estimated GFR (Cockcroft-Gault) 78.7 BUN/Creatinine Ratio 15 (6-20) Glucose Level 103 mg/dL (70-99) Calcium Level 8.2 mg/dL (8.5-10.1) Total Bilirubin 0.1 mg/dL (0.2-1.0) Aspartate Amino Transf (AST/SGOT) 11 U/L (15-37) Alanine Aminotransferase (ALT/SGPT) 15 U/L (14-59) Alkaline Phosphatase 45 U/L (46-116) Total Protein 5.2 g/dL (6.4-8.2) Albumin 2.8 g/dL (3.4-5.0) Albumin/Globulin Ratio 1.2 (1.0-1.7) Medications Current Medications Acetaminophen (Tylenol) 650 mg PRN Q6HRS PRN PO PAIN Last administered on 05/27 21:37; Start 05/23/17 at 22:45 Morphine Sulfate 4 mg PRN Q4HRS PRN IV PAIN Last administered on 05/28/17 09: 36; Start 05/23/17 at 22:45 Sodium Chloride 1,000 ml @ 100 mls/hr Q10H IV Last administered on 05/27/17 23:55; Start 05/23/17 at 22:45 Ondansetron HCl (Zofran) 4 mg PRN Q4HRS PRN IV NAUSEA/VOMITING Last administered on 05/28/17 06:06; Start 05/23/17 at 22:45 Alprazolam (Xanax) 0.25 mg PRN DAILY PRN PO ANXIETY; Start 05/24/17 at 09:15 Clonazepam (KlonoPIN) 0.5 mg PRN DAILY PRN PO ANXIETY Last administered on 13:05; Start 05/24/17 at 09:15 Gabapentin (Neurontin) 100 mg TID PO Last administered on 05/25/17 13:04; Start 05/24/17 at 10:00; Stop 05/25/17 at 17:21; Status DC Non-Formulary Medication 1 puff PRN Q6HRS PRN INH SHORTNESS OF BREATH; Start 05/24/17 at 09:15; Stop 05/24/17 at 09:55; Status DC Sumatriptan Succinate (Imitrex) 100 mg PRN DAILY PRN PO MIGRAINE HEADACHE; Start 05/24/17 at 12:00 Hydroxyzine Pamoate (Vistaril) 25 mg PRN BID PRN PO .ANXIETY Last administered on 05/25/17 19:33; Start 05/24/17 at 09:45 Mirtazapine (Remeron) 30 mg QHS PO Last administered on 05/27/17 21:37; Start 05/24/17 at 21:00 Famotidine (Pepcid) 40 mg QHS PO ; Start 05/24/17 at 21:00; Stop 05/24/17 at 21:00; Status DC Topiramate (Topamax) 50 mg BID PO Last administered on 05/27/17 21:37; Start 05/24/17 at 09:45 Non-Formulary Medication 10 mg DAILY PO ; Start 05/25/17 at 09:00; Stop at 10:35; Status DC Albuterol Sulfate (Ventolin Neb Soln) 2.5 mg PRN Q6HRS PRN NEB SHORTNESS OF BREATH; Start 05/24/17 at 09:45 Pantoprazole Sodium (Protonix) 40 mg BIDAC PO Last administered on 05/27/17 19:28; Start 05/24/17 at 16:30 Iron Sucrose 500 mg/Sodium Chloride 275 ml @ 78.571 mls/ hr 1X ONCE IV Last administered on 05/24/17 19:41; Start 05/24/17 at 18:00; Stop 05/24/17 at 21 :29; Status DC Potassium Chloride (Klor-Con) 40 meq 1X ONCE PO Last administered on 13:05; Start 05/25/17 at 10:00; Stop 05/25/17 at 10:01; Status DC Gabapentin (Neurontin) 300 mg TID PO Last administered on 05/27/17 21:37; Start 05/25/17 at 21:00 Acetaminophen/ Butalbital/ Caffeine (Fioricet) 2 tab PRN Q6HRS PRN PO MIGRAINE HEADACHE Last administered on 05/26/17 14:14; Start 05/25/17 at 17:30 Info (Do NOT chart on this placeholder) 5 each 1X ONCE MC ; Start 05/26/17 at 08:00; Stop 05/26/17 at 08:01; Status UNV Influenza Virus Vaccine Quadrival (Fluarix Quad [id number] Syringe) 0.5 ml ONCE ONCE VAX IM Last administered on 05/26/17 09:07; Start 05/26/17 at 09:00; Stop 05/26/17 at 09:01; Status DC Cefazolin Sodium/ Dextrose 50 ml @ 100 mls/hr 1X PERIOP IV Last administered on 05/28/17 12:53; Start 05/28/17 at 08:00; Stop 05/28/17 at 16:00; Status DC Iron Sucrose 200 mg/Sodium Chloride 110 ml @ 55 mls/hr 1X ONCE IV Last administered on 05/27/17 15:44; Start 05/27/17 at 15:30; Stop 05/27/17 at 17 :29; Status DC Ondansetron HCl (Zofran) 4 mg PRN Q6HRS PRN IV NAUSEA/VOMITING; Start at 08:15; Stop 05/28/17 at 19:00 Fentanyl Citrate (Fentanyl 2ml Vial) 25 mcg PRN Q5MIN PRN IV MILD PAIN; Start 05/28/17 at 08:15; Stop 05/28/17 at 19:00 Fentanyl Citrate (Fentanyl 2ml Vial) 50 mcg PRN Q5MIN PRN IV MODERATE PAIN; Start 05/28/17 at 08:15; Stop 05/28/17 at 19:00 Morphine Sulfate 1 mg PRN Q10MIN PRN IV SEVERE PAIN; Start 05/28/17 at 08:15; Stop 05/28/17 at 19:00 Ringer's Solution 1,000 ml @ 30 mls/hr Q24H IV Last administered on 13:35; Start 05/28/17 at 08:07; Stop 05/28/17 at 20:06 Lidocaine HCl (Xylocaine-Mpf 1% Vial) 2 ml 1X PRN PRN ID IV START; Start 05/28 at 08:15; Stop 05/28/17 at 19:00 Hydromorphone HCl (Dilaudid) 0.5 mg PRN Q10MIN PRN IV SEV PAIN, Second choice; Start 05/28/17 at 08:15; Stop 05/28/17 at 19:00 Prochlorperazine Edisylate (Compazine) 5 mg PACU PRN PRN IV NAUSEA, MRX1; Start 05/28/17 at 08:15; Stop 05/28/17 at 19:00 Bupivacaine HCl/ Epinephrine Bitart (Sensorcain-Mpf Epi 0.5%-1:643251) 30 ml STK -MED ONCE INJ Last administered on 05/28/17 12:35; Start 05/28/17 at 12:35; Stop 05/28/17 at 12:52; Status DC Iohexol (Omnipaque 300 Mg/ml) 100 ml STK-MED ONCE IJ Last administered on 05/28 12:35; Start 05/28/17 at 12:35; Stop 05/28/17 at 12:52; Status DC Cellulose 1 each STK-MED ONCE TP Last administered on 05/28/17 12:59; Start 05/28/17 at 12:59; Stop 05/28/17 at 13:03; Status DC Oxycodone/ Acetaminophen (Percocet 5/325) 1 tab PRN Q4HRS PRN PO PAIN; Start 05/28/17 at 14:00 Hydromorphone HCl (Dilaudid) 1 mg Q3HRS PRN IV pain; Start 05/28/17 at 14:00 Active Scripts Active Gabapentin 100 Mg Capsule 100 Mg PO TID Aspirin Ec (Aspirin) 325 Mg Tablet.dr 325 Mg PO DAILYWBKFT 30 Days Topiramate 50 Mg Tablet 1 Tab PO BID Relpax (Eletriptan Hbr) 40 Mg Tablet 40 Mg PO DAILY 30 Days Trintellix (Vortioxetine) 10 Mg Tablet 10 Mg PO DAILY 30 Days Zantac (Ranitidine Hcl) 300 Mg Tablet 1 Tab PO QHS Reported Proair Hfa Inhaler (Albuterol Sulfate) 8.5 Gm Hfa.aer.ad 1 Puff INH PRN Q6HRS PRN Tramadol Hcl 50 Mg Tablet 1 Tab PO PRN Q6HRS Clonazepam 0.5 Mg Tablet 1 Tab PO DAILY PRN Xarelto (Rivaroxaban) 20 Mg Tablet 20 Mg PO DAILY Alprazolam 0.25 Mg Tablet 1 Tab PO DAILY PRN Mirtazapine 30 Mg Tablet 1 Tab PO QHS Hydroxyzine Hcl 25 Mg Tablet 1 Tab PO BID PRN Metoprolol Succinate ( Xl ) (Metoprolol Succinate) 25 Mg Tab.er.24h 1 Tab PO DAILY Vitals/I & O Vital Sign - Last 24 Hours 05/27/17 05/27/17 05/27/17 05/27/17 17:00 17:15 17:30 17:45 Pulse 98 94 101 116 Resp 18 B/P (MAP) 114/66 (82) 122/78 (93) 122/60 (80) 122/69 (86) Pulse Ox 98 O2 Delivery Room Air 05/27/17 05/27/17 05/27/17 05/27/17 18:00 19:41 20:15 21:30 Temp 98.4 98.4 Pulse 109 89 Resp 18 20 20 B/P (MAP) 116/74 (88) 97/64 (75) Pulse Ox 100 O2 Delivery Room Air Room Air Room Air 05/28/17 05/28/17 05/28/17 05/28/17 02:00 05:12 05:16 09:15 Temp 97.7 97.7 Pulse 81 Resp 18 18 18 B/P (MAP) 106/43 (64) O2 Delivery Room Air Room Air Room Air Room Air 05/28/17 05/28/17 05/28/17 05/28/17 09:36 10:30 11:04 13:31 Temp 98.0 98.0 98.0 98.0 Pulse 87 81 Resp 16 18 15 B/P (MAP) 102/52 (69) 121/58 Pulse Ox 100 O2 Delivery Room Air Room Air Mask O2 Flow Rate 10 05/28/17 05/28/17 05/28/17 05/28/17 13:31 13:46 14:01 14:40 Temp 97.6 97.7 97.6 97.7 Pulse 99 91 85 81 Resp 20 20 16 18 B/P (MAP) 135/53 129/57 130/67 116/71 (86) Pulse Ox 100 96 96 98 O2 Delivery Simple Mask Room Air Room Air Room Air O2 Flow Rate 10 JODEE SANTIAGO MD May 28, 2017 16:57
[2017-05-28] MEDS: oxyCODONE/APAP 5/325 1 TAB TABLET PO PRN (17:26)
[2017-05-28 19:00] VITALS: BP 113/64
[2017-05-28] MEDS: MIRTAZAPINE 15 MG TABLET PO SCH (21:35)
[2017-05-28 23:00] VITALS: BP 115/47
[2017-05-29] MEDS: oxyCODONE/APAP 5/325 1 TAB TABLET PO PRN ×4 (01:32→21:35)
[2017-05-29 03:00] VITALS: BP 101/54
[2017-05-29 07:32] VITALS: BP 96/59
--- NOTE | 2017-05-29 09:09 | PDOC ---
PROGRESS NOTES Subjective Subjective HPI - f/u of DVT LLE ROS - no bleed Objective Objective Vital Signs Date Time Temp Pulse Resp B/P (MAP) Pulse Ox O2 Delivery O2 Flow Rate FiO2 05/29/17 07:32 97.7 85 16 96/59 (71) 99 Room Air 97.7 05/28/17 13:31 10 Intake and Output 05/29/17 07:00 Intake Total 1050 ml Output Total 10 ml Balance 1040 ml IV Total 1050 ml Estimated Blood Loss 10 ml Physical Exam Heart: Normal S1, Normal S2 General: Alert, Oriented X3 Lungs: Clear to auscultation Neuro: Normal speech Psych/Mental Status: Mental status NL Assessment Assessment A/P 1. DVT LLE 04/05/17. Resolved per f/u scan 05/24/17. Hence no need for IVC filter. Resume xarelto to complete 6 months of anticoagulation as bleeding has resolved. I d/w pt risks and benefits and she prefers to resume xarelto, ordered 05/29/17. f/u with PCP. 2. Iron def anemia - s/p venofer 05/24/17. Hb 8.5 on 05/25/17, 7.2 on 05/28/17 3. vaginal bleeding - I d/w Welding Machine Tender, resolved. 4. s/p Laparoscopic cholecystectomy 05/28/17. I d/w surgery, ok to resume xarelto Comment Review of Relevant I have reviewed the following items rayne (where applicable) has been applied. Labs Laboratory Tests Test 05/28/17 05:05 White Blood Count 5.5 x10^3/uL (4.0-11.0) Red Blood Count 3.13 x10^6/uL (3.50-5.40) Hemoglobin 7.2 g/dL (12.0-15.5) Hematocrit 23.6 % (36.0-47.0) Mean Corpuscular Volume 76 fL (79-100) Mean Corpuscular Hemoglobin 23 pg (25-35) Mean Corpuscular Hemoglobin Concent 31 g/dL (31-37) Red Cell Distribution Width 18.7 % (11.5-14.5) Platelet Count 235 x10^3/uL (140-400) Neutrophils (%) (Auto) 49 % (31-73) Lymphocytes (%) (Auto) 41 % (24-48) Monocytes (%) (Auto) 9 % (0-9) Eosinophils (%) (Auto) 0 % (0-3) Basophils (%) (Auto) 1 % (0-3) Neutrophils # (Auto) 2.7 x10^3uL (1.8-7.7) Lymphocytes # (Auto) 2.3 x10^3/uL (1.0-4.8) Monocytes # (Auto) 0.5 x10^3/uL (0.0-1.1) Eosinophils # (Auto) 0.0 x10^3/uL (0.0-0.7) Basophils # (Auto) 0.0 x10^3/uL (0.0-0.2) Sodium Level 143 mmol/L (136-145) Potassium Level 3.7 mmol/L (3.5-5.1) Chloride Level 111 mmol/L (98-107) Carbon Dioxide Level 26 mmol/L (21-32) Anion Gap 6 (6-14) Blood Urea Nitrogen 12 mg/dL (7-20) Creatinine 0.8 mg/dL (0.6-1.0) Estimated GFR (Cockcroft-Gault) 78.7 BUN/Creatinine Ratio 15 (6-20) Glucose Level 103 mg/dL (70-99) Calcium Level 8.2 mg/dL (8.5-10.1) Total Bilirubin 0.1 mg/dL (0.2-1.0) Aspartate Amino Transf (AST/SGOT) 11 U/L (15-37) Alanine Aminotransferase (ALT/SGPT) 15 U/L (14-59) Alkaline Phosphatase 45 U/L (46-116) Total Protein 5.2 g/dL (6.4-8.2) Albumin 2.8 g/dL (3.4-5.0) Albumin/Globulin Ratio 1.2 (1.0-1.7) Medications Current Medications Acetaminophen (Tylenol) 650 mg PRN Q6HRS PRN PO PAIN Last administered on 05/27t 21:37; Start 05/23/17 at 22:45 Morphine Sulfate 4 mg PRN Q4HRS PRN IV PAIN Last administered on 05/28/17 21: 34; Start 05/23/17 at 22:45 Sodium Chloride 1,000 ml @ 100 mls/hr Q10H IV Last administered on 05/27/17 23:55; Start 05/23/17 at 22:45; Stop 05/29/17 at 04:07; Status DC Ondansetron HCl (Zofran) 4 mg PRN Q4HRS PRN IV NAUSEA/VOMITING Last administered on 05/28/17 06:06; Start 05/23/17 at 22:45 Alprazolam (Xanax) 0.25 mg PRN DAILY PRN PO ANXIETY; Start 05/24/17 at 09:15 Clonazepam (KlonoPIN) 0.5 mg PRN DAILY PRN PO ANXIETY Last administered on 13:05; Start 05/24/17 at 09:15 Gabapentin (Neurontin) 100 mg TID PO Last administered on 05/25/17 13:04; Start 05/24/17 at 10:00; Stop 05/25/17 at 17:21; Status DC Non-Formulary Medication 1 puff PRN Q6HRS PRN INH SHORTNESS OF BREATH; Start 05/24/17 at 09:15; Stop 05/24/17 at 09:55; Status DC Sumatriptan Succinate (Imitrex) 100 mg PRN DAILY PRN PO MIGRAINE HEADACHE; Start 05/24/17 at 12:00 Hydroxyzine Pamoate (Vistaril) 25 mg PRN BID PRN PO .ANXIETY Last administered on 05/25/17 19:33; Start 05/24/17 at 09:45 Mirtazapine (Remeron) 30 mg QHS PO Last administered on 05/28/17 21:35; Start 05/24/17 at 21:00 Famotidine (Pepcid) 40 mg QHS PO ; Start 05/24/17 at 21:00; Stop 05/24/17 at 21:00; Status DC Topiramate (Topamax) 50 mg BID PO Last administered on 05/28/17 21:35; Start 05/24/17 at 09:45 Non-Formulary Medication 10 mg DAILY PO ; Start 05/25/17 at 09:00; Stop at 10:35; Status DC Albuterol Sulfate (Ventolin Neb Soln) 2.5 mg PRN Q6HRS PRN NEB SHORTNESS OF BREATH; Start 05/24/17 at 09:45 Pantoprazole Sodium (Protonix) 40 mg BIDAC PO Last administered on 05/28/17 17:26; Start 05/24/17 at 16:30 Iron Sucrose 500 mg/Sodium Chloride 275 ml @ 78.571 mls/ hr 1X ONCE IV Last administered on 05/24/17 19:41; Start 05/24/17 at 18:00; Stop 05/24/17 at 21 :29; Status DC Potassium Chloride (Klor-Con) 40 meq 1X ONCE PO Last administered on 13:05; Start 05/25/17 at 10:00; Stop 05/25/17 at 10:01; Status DC Gabapentin (Neurontin) 300 mg TID PO Last administered on 05/28/17 21:34; Start 05/25/17 at 21:00 Acetaminophen/ Butalbital/ Caffeine (Fioricet) 2 tab PRN Q6HRS PRN PO MIGRAINE HEADACHE Last administered on 05/26/17 14:14; Start 05/25/17 at 17:30 Info (Do NOT chart on this placeholder) 5 each 1X ONCE MC ; Start 05/26/17 at 08:00; Stop 05/26/17 at 08:01; Status UNV Influenza Virus Vaccine Quadrival (Fluarix Quad [id number] Syringe) 0.5 ml ONCE ONCE VAX IM Last administered on 05/26/17 09:07; Start 05/26/17 at 09:00; Stop 05/26/17 at 09:01; Status DC Cefazolin Sodium/ Dextrose 50 ml @ 100 mls/hr 1X PERIOP IV Last administered on 05/28/17 12:53; Start 05/28/17 at 08:00; Stop 05/28/17 at 16:00; Status DC Iron Sucrose 200 mg/Sodium Chloride 110 ml @ 55 mls/hr 1X ONCE IV Last administered on 05/27/17 15:44; Start 05/27/17 at 15:30; Stop 05/27/17 at 17 :29; Status DC Ondansetron HCl (Zofran) 4 mg PRN Q6HRS PRN IV NAUSEA/VOMITING; Start at 08:15; Stop 05/28/17 at 19:00; Status DC Fentanyl Citrate (Fentanyl 2ml Vial) 25 mcg PRN Q5MIN PRN IV MILD PAIN; Start 05/28/17 at 08:15; Stop 05/28/17 at 19:00; Status DC Fentanyl Citrate (Fentanyl 2ml Vial) 50 mcg PRN Q5MIN PRN IV MODERATE PAIN; Start 05/28/17 at 08:15; Stop 05/28/17 at 19:00; Status DC Morphine Sulfate 1 mg PRN Q10MIN PRN IV SEVERE PAIN; Start 05/28/17 at 08:15; Stop 05/28/17 at 19:00; Status DC Ringer's Solution 1,000 ml @ 30 mls/hr Q24H IV Last administered on 13:35; Start 05/28/17 at 08:07; Stop 05/28/17 at 20:06; Status DC Lidocaine HCl (Xylocaine-Mpf 1% Vial) 2 ml 1X PRN PRN ID IV START; Start 05/28 at 08:15; Stop 05/28/17 at 19:00; Status DC Hydromorphone HCl (Dilaudid) 0.5 mg PRN Q10MIN PRN IV SEV PAIN, Second choice; Start 05/28/17 at 08:15; Stop 05/28/17 at 19:00; Status DC Prochlorperazine Edisylate (Compazine) 5 mg PACU PRN PRN IV NAUSEA, MRX1; Start 05/28/17 at 08:15; Stop 05/28/17 at 19:00; Status DC Bupivacaine HCl/ Epinephrine Bitart (Sensorcain-Mpf Epi 0.5%-1:365522) 30 ml STK -MED ONCE INJ Last administered on 05/28/17 12:35; Start 05/28/17 at 12:35; Stop 05/28/17 at 12:52; Status DC Iohexol (Omnipaque 300 Mg/ml) 100 ml STK-MED ONCE IJ Last administered on 05/28 12:35; Start 05/28/17 at 12:35; Stop 05/28/17 at 12:52; Status DC Cellulose 1 each STK-MED ONCE TP Last administered on 05/28/17 12:59; Start 05/28/17 at 12:59; Stop 05/28/17 at 13:03; Status DC Oxycodone/ Acetaminophen (Percocet 5/325) 1 tab PRN Q4HRS PRN PO PAIN Last administered on 05/29/17t 01:32; Start 05/28/17 at 14:00 Hydromorphone HCl (Dilaudid) 1 mg Q3HRS PRN IV pain; Start 05/28/17 at 14:00 Active Scripts Active Gabapentin 100 Mg Capsule 100 Mg PO TID Aspirin Ec (Aspirin) 325 Mg Tablet.dr 325 Mg PO DAILYWBKFT 30 Days Topiramate 50 Mg Tablet 1 Tab PO BID Relpax (Eletriptan Hbr) 40 Mg Tablet 40 Mg PO DAILY 30 Days Trintellix (Vortioxetine) 10 Mg Tablet 10 Mg PO DAILY 30 Days Zantac (Ranitidine Hcl) 300 Mg Tablet 1 Tab PO QHS Reported Proair Hfa Inhaler (Albuterol Sulfate) 8.5 Gm Hfa.aer.ad 1 Puff INH PRN Q6HRS PRN Tramadol Hcl 50 Mg Tablet 1 Tab PO PRN Q6HRS Clonazepam 0.5 Mg Tablet 1 Tab PO DAILY PRN Xarelto (Rivaroxaban) 20 Mg Tablet 20 Mg PO DAILY Alprazolam 0.25 Mg Tablet 1 Tab PO DAILY PRN Mirtazapine 30 Mg Tablet 1 Tab PO QHS Hydroxyzine Hcl 25 Mg Tablet 1 Tab PO BID PRN Metoprolol Succinate ( Xl ) (Metoprolol Succinate) 25 Mg Tab.er.24h 1 Tab PO DAILY Vitals/I & O Vital Sign - Last 24 Hours 05/28/17 05/28/17 05/28/17 05/28/17 09:15 09:36 10:30 11:04 Temp 98.0 98.0 98.0 98.0 Pulse 87 81 Resp 16 18 15 B/P (MAP) 102/52 (69) 121/58 Pulse Ox 100 O2 Delivery Room Air Room Air Room Air 05/28/17 05/28/17 05/28/17 05/28/17 13:31 13:31 13:46 14:01 Temp 97.6 97.6 Pulse 99 91 85 Resp 20 20 16 B/P (MAP) 135/53 129/57 130/67 Pulse Ox 100 96 96 O2 Delivery Mask Simple Mask Room Air Room Air O2 Flow Rate 10 10 05/28/17 05/28/17 05/28/17 05/28/17 14:40 17:26 18:30 19:00 Temp 97.7 98.1 97.7 98.1 Pulse 81 85 Resp 18 18 B/P (MAP) 116/71 (86) 113/64 (80) Pulse Ox 98 98 98 98 O2 Delivery Room Air Room Air Room Air 05/28/17 05/28/17 05/28/17 05/28/17 20:00 21:34 22:04 23:00 Temp 97.0 97.0 Pulse 77 Resp 18 B/P (MAP) 115/47 (69) Pulse Ox 99 O2 Delivery Room Air Room Air Room Air Room Air 05/29/17 05/29/17 05/29/17 05/29/17 01:32 02:32 03:00 07:32 Temp 97.9 97.7 97.9 97.7 Pulse 95 85 Resp 18 16 B/P (MAP) 101/54 (70) 96/59 (71) Pulse Ox 97 99 O2 Delivery Room Air Room Air Room Air Room Air Intake and Output 05/28/17 05/28/17 05/29/17 15:00 23:00 07:00 Intake Total 1050 ml Output Total 10 ml Balance 1040 ml JODEE SANTIAGO MD May 29, 2017 09:09
[2017-05-29 09:47] LABS: BASO % 0 % (0-3); EOS % 0 % (0-3); HEMATOCRIT 27.2 % (36.0-47.0); HEMOGLOBIN 8.2 g/dL (12.0-15.5); LYMPH # 1.9 x10^3/uL (1.0-4.8); LYMPH % 21 % (24-48); MEAN CORPUSCULAR HEMOGLOBIN 23 pg (25-35); MEAN CORPUSCULAR HGB CONC 30 g/dL (31-37); MEAN CORPUSCULAR VOLUME 77 fL (79-100); MONO % 7 % (0-9); NEUT % 72 % (31-73); PLATELET COUNT 273 x10^3/uL (140-400); RED BLOOD COUNT 3.56 x10^6/uL (3.50-5.40); RED CELL DISTRIBUTION WIDTH 18.8 % (11.5-14.5)
--- NOTE | 2017-05-29 10:17 | PDOC ---
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: SURGICAL PROGRESS NOTE Subjective some nausea RUQ pain Vital Signs Vital Signs Date Time Temp Pulse Resp B/P (MAP) Pulse Ox O2 Delivery O2 Flow Rate FiO2 05/29/17 07:32 97.7 85 16 96/59 (71) 99 Room Air 97.7 05/28/17 13:31 10 I&O Intake and Output 05/29/17 07:00 Intake Total 1050 ml Output Total 10 ml Balance 1040 ml IV Total 1050 ml Estimated Blood Loss 10 ml General: Alert, Oriented X3, Cooperative, No acute distress Abdomen: Soft, Other (lap dressings dry, incisional TTP) Labs Laboratory Tests Test 05/28/17 05:05 05/29/17 09:30 White Blood Count 5.5 x10^3/uL (4.0-11.0) 9.0 x10^3/uL (4.0-11.0) Red Blood Count 3.13 x10^6/uL (3.50-5.40) 3.56 x10^6/uL (3.50-5.40) Hemoglobin 7.2 g/dL (12.0-15.5) 8.2 g/dL (12.0-15.5) Hematocrit 23.6 % (36.0-47.0) 27.2 % (36.0-47.0) Mean Corpuscular Volume 76 fL (79-100) 77 fL (79-100) Mean Corpuscular Hemoglobin 23 pg (25-35) 23 pg (25-35) Mean Corpuscular Hemoglobin Concent 31 g/dL (31-37) 30 g/dL (31-37) Red Cell Distribution Width 18.7 % (11.5-14.5) 18.8 % (11.5-14.5) Platelet Count 235 x10^3/uL (140-400) 273 x10^3/uL (140-400) Neutrophils (%) (Auto) 49 % (31-73) 72 % (31-73) Lymphocytes (%) (Auto) 41 % (24-48) 21 % (24-48) Monocytes (%) (Auto) 9 % (0-9) 7 % (0-9) Eosinophils (%) (Auto) 0 % (0-3) 0 % (0-3) Basophils (%) (Auto) 1 % (0-3) 0 % (0-3) Neutrophils # (Auto) 2.7 x10^3uL (1.8-7.7) 6.4 x10^3uL (1.8-7.7) Lymphocytes # (Auto) 2.3 x10^3/uL (1.0-4.8) 1.9 x10^3/uL (1.0-4.8) Monocytes # (Auto) 0.5 x10^3/uL (0.0-1.1) 0.6 x10^3/uL (0.0-1.1) Eosinophils # (Auto) 0.0 x10^3/uL (0.0-0.7) 0.0 x10^3/uL (0.0-0.7) Basophils # (Auto) 0.0 x10^3/uL (0.0-0.2) 0.0 x10^3/uL (0.0-0.2) Sodium Level 143 mmol/L (136-145) Potassium Level 3.7 mmol/L (3.5-5.1) Chloride Level 111 mmol/L (98-107) Carbon Dioxide Level 26 mmol/L (21-32) Anion Gap 6 (6-14) Blood Urea Nitrogen 12 mg/dL (7-20) Creatinine 0.8 mg/dL (0.6-1.0) Estimated GFR (Cockcroft-Gault) 78.7 BUN/Creatinine Ratio 15 (6-20) Glucose Level 103 mg/dL (70-99) Calcium Level 8.2 mg/dL (8.5-10.1) Total Bilirubin 0.1 mg/dL (0.2-1.0) Aspartate Amino Transf (AST/SGOT) 11 U/L (15-37) Alanine Aminotransferase (ALT/SGPT) 15 U/L (14-59) Alkaline Phosphatase 45 U/L (46-116) Total Protein 5.2 g/dL (6.4-8.2) Albumin 2.8 g/dL (3.4-5.0) Albumin/Globulin Ratio 1.2 (1.0-1.7) Laboratory Tests Test 05/29/17 09:30 White Blood Count 9.0 x10^3/uL (4.0-11.0) Red Blood Count 3.56 x10^6/uL (3.50-5.40) Hemoglobin 8.2 g/dL (12.0-15.5) Hematocrit 27.2 % (36.0-47.0) Mean Corpuscular Volume 77 fL (79-100) Mean Corpuscular Hemoglobin 23 pg (25-35) Mean Corpuscular Hemoglobin Concent 30 g/dL (31-37) Red Cell Distribution Width 18.8 % (11.5-14.5) Platelet Count 273 x10^3/uL (140-400) Neutrophils (%) (Auto) 72 % (31-73) Lymphocytes (%) (Auto) 21 % (24-48) Monocytes (%) (Auto) 7 % (0-9) Eosinophils (%) (Auto) 0 % (0-3) Basophils (%) (Auto) 0 % (0-3) Neutrophils # (Auto) 6.4 x10^3uL (1.8-7.7) Lymphocytes # (Auto) 1.9 x10^3/uL (1.0-4.8) Monocytes # (Auto) 0.6 x10^3/uL (0.0-1.1) Eosinophils # (Auto) 0.0 x10^3/uL (0.0-0.7) Basophils # (Auto) 0.0 x10^3/uL (0.0-0.2) Assessment/Plan s/p lap valorie stable surgically pain management diet as tolerated ok to resume xalerto Problems: COLETTE SANTIAGO MD 05/29/17 1705: SURGICAL PROGRESS NOTE Assessment/Plan pt seen and examined agree with above Problems: 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
[2017-05-29] MEDS: TOPIRAMATE 25 MG TABLET. PO SCH ×2 (10:23→21:35)
[2017-05-29] MEDS: PANTOPRAZOLE 40 MG TABLET.DR. PO SCH ×2 (10:24→14:45)
[2017-05-29] MEDS: GABAPENTIN 300 MG CAPSULE. PO SCH ×3 (10:24→21:34)
[2017-05-29 10:52] VITALS: BP 104/49
--- NOTE | 2017-05-29 11:23 | PDOC ---
Subjective: Subjective: RUQ pain. Denies nausea, says ate breakfast w/o issue. Objective: Vital Signs: Vital Signs Date Time Temp Pulse Resp B/P (MAP) Pulse Ox O2 Delivery O2 Flow Rate FiO2 05/29/17 10:52 96.0 95 16 104/49 (67) 100 Room Air 96.0 05/28/17 13:31 10 Labs: Laboratory Tests Test 05/29/17 09:30 White Blood Count 9.0 x10^3/uL Red Blood Count 3.56 x10^6/uL Hemoglobin 8.2 g/dL Hematocrit 27.2 % Mean Corpuscular Volume 77 fL Mean Corpuscular Hemoglobin 23 pg Mean Corpuscular Hemoglobin Concent 30 g/dL Red Cell Distribution Width 18.8 % Platelet Count 273 x10^3/uL Neutrophils (%) (Auto) 72 % Lymphocytes (%) (Auto) 21 % Monocytes (%) (Auto) 7 % Eosinophils (%) (Auto) 0 % Basophils (%) (Auto) 0 % Neutrophils # (Auto) 6.4 x10^3uL Lymphocytes # (Auto) 1.9 x10^3/uL Monocytes # (Auto) 0.6 x10^3/uL Eosinophils # (Auto) 0.0 x10^3/uL Basophils # (Auto) 0.0 x10^3/uL PE: GEN: NAD, up to chair LUNGS: CTAB HEART: RRR ABD: RUQ incisional tenderness NEURO/PSYCH: A & O 3, flat A/P: RUPERT, AUB -embolization of fibroids 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 ART BAIN May 29, 2017 11:23
--- NOTE | 2017-05-29 12:39 | PDOC ---
PROGRESS NOTES Chief Complaint Chief Complaint Acute abdominal pain Vaginal bleeding Anemia Multiple sclerosis Migraines prior CVA Depression Anxiety Possible bipolar disorder History of Present Illness History of Present Illness S/P cholecystectomy, day 1 Incision CDI Pt is eating, without nausea or vomiting HH trending upward Hgb 7.2, Hct 23.6 Discussed pt with Nurse Vitals Vitals Vital Signs Date Time Temp Pulse Resp B/P (MAP) Pulse Ox O2 Delivery O2 Flow Rate FiO2 05/29/17 10:52 96.0 95 16 104/49 (67) 100 Room Air 96.0 05/28/17 13:31 10 Physical Exam General: Alert, Oriented X3, Cooperative, No acute distress Heart: Regular rate, Normal S1, Normal S2 Lungs: Clear, Other (No RRW) Abdomen: Soft, Other (lap dressings dry, incisional TTP) Skin: No rashes Labs LABS Laboratory Tests Test 05/29/17 09:30 White Blood Count 9.0 x10^3/uL (4.0-11.0) Red Blood Count 3.56 x10^6/uL (3.50-5.40) Hemoglobin 8.2 g/dL (12.0-15.5) Hematocrit 27.2 % (36.0-47.0) Mean Corpuscular Volume 77 fL (79-100) Mean Corpuscular Hemoglobin 23 pg (25-35) Mean Corpuscular Hemoglobin Concent 30 g/dL (31-37) Red Cell Distribution Width 18.8 % (11.5-14.5) Platelet Count 273 x10^3/uL (140-400) Neutrophils (%) (Auto) 72 % (31-73) Lymphocytes (%) (Auto) 21 % (24-48) Monocytes (%) (Auto) 7 % (0-9) Eosinophils (%) (Auto) 0 % (0-3) Basophils (%) (Auto) 0 % (0-3) Neutrophils # (Auto) 6.4 x10^3uL (1.8-7.7) Lymphocytes # (Auto) 1.9 x10^3/uL (1.0-4.8) Monocytes # (Auto) 0.6 x10^3/uL (0.0-1.1) Eosinophils # (Auto) 0.0 x10^3/uL (0.0-0.7) Basophils # (Auto) 0.0 x10^3/uL (0.0-0.2) Review of Systems Review of Systems General: No fatigue, fever, chills CV: No chest pain, palpitations Assessment and Plan Assessmemt and Plan Assessment: Acute abdominal pain Vaginal bleeding Anemia Multiple sclerosis Migraines prior CVA Depression Anxiety Possible bipolar disorder Plan: Continue wound care Continue Home meds Continue PT/OT Recheck Labs Follow up with PCP Possbile Endometrial Bx with ablation outpatient Probable DC if agreeable with surgery Problems: Comment Review of Relevant I have reviewed the following items rayne (where applicable) has been applied. Labs Laboratory Tests Test 05/28/17 05:05 05/29/17 09:30 White Blood Count 5.5 x10^3/uL (4.0-11.0) 9.0 x10^3/uL (4.0-11.0) Red Blood Count 3.13 x10^6/uL (3.50-5.40) 3.56 x10^6/uL (3.50-5.40) Hemoglobin 7.2 g/dL (12.0-15.5) 8.2 g/dL (12.0-15.5) Hematocrit 23.6 % (36.0-47.0) 27.2 % (36.0-47.0) Mean Corpuscular Volume 76 fL (79-100) 77 fL (79-100) Mean Corpuscular Hemoglobin 23 pg (25-35) 23 pg (25-35) Mean Corpuscular Hemoglobin Concent 31 g/dL (31-37) 30 g/dL (31-37) Red Cell Distribution Width 18.7 % (11.5-14.5) 18.8 % (11.5-14.5) Platelet Count 235 x10^3/uL (140-400) 273 x10^3/uL (140-400) Neutrophils (%) (Auto) 49 % (31-73) 72 % (31-73) Lymphocytes (%) (Auto) 41 % (24-48) 21 % (24-48) Monocytes (%) (Auto) 9 % (0-9) 7 % (0-9) Eosinophils (%) (Auto) 0 % (0-3) 0 % (0-3) Basophils (%) (Auto) 1 % (0-3) 0 % (0-3) Neutrophils # (Auto) 2.7 x10^3uL (1.8-7.7) 6.4 x10^3uL (1.8-7.7) Lymphocytes # (Auto) 2.3 x10^3/uL (1.0-4.8) 1.9 x10^3/uL (1.0-4.8) Monocytes # (Auto) 0.5 x10^3/uL (0.0-1.1) 0.6 x10^3/uL (0.0-1.1) Eosinophils # (Auto) 0.0 x10^3/uL (0.0-0.7) 0.0 x10^3/uL (0.0-0.7) Basophils # (Auto) 0.0 x10^3/uL (0.0-0.2) 0.0 x10^3/uL (0.0-0.2) Sodium Level 143 mmol/L (136-145) Potassium Level 3.7 mmol/L (3.5-5.1) Chloride Level 111 mmol/L (98-107) Carbon Dioxide Level 26 mmol/L (21-32) Anion Gap 6 (6-14) Blood Urea Nitrogen 12 mg/dL (7-20) Creatinine 0.8 mg/dL (0.6-1.0) Estimated GFR (Cockcroft-Gault) 78.7 BUN/Creatinine Ratio 15 (6-20) Glucose Level 103 mg/dL (70-99) Calcium Level 8.2 mg/dL (8.5-10.1) Total Bilirubin 0.1 mg/dL (0.2-1.0) Aspartate Amino Transf (AST/SGOT) 11 U/L (15-37) Alanine Aminotransferase (ALT/SGPT) 15 U/L (14-59) Alkaline Phosphatase 45 U/L (46-116) Total Protein 5.2 g/dL (6.4-8.2) Albumin 2.8 g/dL (3.4-5.0) Albumin/Globulin Ratio 1.2 (1.0-1.7) Laboratory Tests Test 05/29/17 09:30 White Blood Count 9.0 x10^3/uL (4.0-11.0) Red Blood Count 3.56 x10^6/uL (3.50-5.40) Hemoglobin 8.2 g/dL (12.0-15.5) Hematocrit 27.2 % (36.0-47.0) Mean Corpuscular Volume 77 fL (79-100) Mean Corpuscular Hemoglobin 23 pg (25-35) Mean Corpuscular Hemoglobin Concent 30 g/dL (31-37) Red Cell Distribution Width 18.8 % (11.5-14.5) Platelet Count 273 x10^3/uL (140-400) Neutrophils (%) (Auto) 72 % (31-73) Lymphocytes (%) (Auto) 21 % (24-48) Monocytes (%) (Auto) 7 % (0-9) Eosinophils (%) (Auto) 0 % (0-3) Basophils (%) (Auto) 0 % (0-3) Neutrophils # (Auto) 6.4 x10^3uL (1.8-7.7) Lymphocytes # (Auto) 1.9 x10^3/uL (1.0-4.8) Monocytes # (Auto) 0.6 x10^3/uL (0.0-1.1) Eosinophils # (Auto) 0.0 x10^3/uL (0.0-0.7) Basophils # (Auto) 0.0 x10^3/uL (0.0-0.2) Medications Current Medications Acetaminophen (Tylenol) 650 mg PRN Q6HRS PRN PO PAIN Last administered on 05/27 21:37; Start 05/23/17 at 22:45 Morphine Sulfate 4 mg PRN Q4HRS PRN IV PAIN Last administered on 05/28/17 21: 34; Start 05/23/17 at 22:45 Sodium Chloride 1,000 ml @ 100 mls/hr Q10H IV Last administered on 05/27/17 23:55; Start 05/23/17 at 22:45; Stop 05/29/17 at 04:07; Status DC Ondansetron HCl (Zofran) 4 mg PRN Q4HRS PRN IV NAUSEA/VOMITING Last administered on 05/28/17 06:06; Start 05/23/17 at 22:45 Alprazolam (Xanax) 0.25 mg PRN DAILY PRN PO ANXIETY; Start 05/24/17 at 09:15 Clonazepam (KlonoPIN) 0.5 mg PRN DAILY PRN PO ANXIETY Last administered on 13:05; Start 05/24/17 at 09:15 Gabapentin (Neurontin) 100 mg TID PO Last administered on 05/25/17 13:04; Start 05/24/17 at 10:00; Stop 05/25/17 at 17:21; Status DC Non-Formulary Medication 1 puff PRN Q6HRS PRN INH SHORTNESS OF BREATH; Start 05/24/17 at 09:15; Stop 05/24/17 at 09:55; Status DC Sumatriptan Succinate (Imitrex) 100 mg PRN DAILY PRN PO MIGRAINE HEADACHE; Start 05/24/17 at 12:00 Hydroxyzine Pamoate (Vistaril) 25 mg PRN BID PRN PO .ANXIETY Last administered on 05/25/17 19:33; Start 05/24/17 at 09:45 Mirtazapine (Remeron) 30 mg QHS PO Last administered on 05/28/17 21:35; Start 05/24/17 at 21:00 Famotidine (Pepcid) 40 mg QHS PO ; Start 05/24/17 at 21:00; Stop 05/24/17 at 21:00; Status DC Topiramate (Topamax) 50 mg BID PO Last administered on 05/29/17 10:23; Start 05/24/17 at 09:45 Non-Formulary Medication 10 mg DAILY PO ; Start 05/25/17 at 09:00; Stop at 10:35; Status DC Albuterol Sulfate (Ventolin Neb Soln) 2.5 mg PRN Q6HRS PRN NEB SHORTNESS OF BREATH; Start 05/24/17 at 09:45 Pantoprazole Sodium (Protonix) 40 mg BIDAC PO Last administered on 05/29/17 10:24; Start 05/24/17 at 16:30 Iron Sucrose 500 mg/Sodium Chloride 275 ml @ 78.571 mls/ hr 1X ONCE IV Last administered on 05/24/17 19:41; Start 05/24/17 at 18:00; Stop 05/24/17 at 21 :29; Status DC Potassium Chloride (Klor-Con) 40 meq 1X ONCE PO Last administered on 13:05; Start 05/25/17 at 10:00; Stop 05/25/17 at 10:01; Status DC Gabapentin (Neurontin) 300 mg TID PO Last administered on 05/29/17 10:24; Start 05/25/17 at 21:00 Acetaminophen/ Butalbital/ Caffeine (Fioricet) 2 tab PRN Q6HRS PRN PO MIGRAINE HEADACHE Last administered on 05/26/17 14:14; Start 05/25/17 at 17:30 Info (Do NOT chart on this placeholder) 5 each 1X ONCE MC ; Start 05/26/17 at 08:00; Stop 05/26/17 at 08:01; Status UNV Influenza Virus Vaccine Quadrival (Fluarix Quad [id number] Syringe) 0.5 ml ONCE ONCE VAX IM Last administered on 05/26/17 09:07; Start 05/26/17 at 09:00; Stop 05/26/17 at 09:01; Status DC Cefazolin Sodium/ Dextrose 50 ml @ 100 mls/hr 1X PERIOP IV Last administered on 05/28/17 12:53; Start 05/28/17 at 08:00; Stop 05/28/17 at 16:00; Status DC Iron Sucrose 200 mg/Sodium Chloride 110 ml @ 55 mls/hr 1X ONCE IV Last administered on 05/27/17 15:44; Start 05/27/17 at 15:30; Stop 05/27/17 at 17 :29; Status DC Ondansetron HCl (Zofran) 4 mg PRN Q6HRS PRN IV NAUSEA/VOMITING; Start at 08:15; Stop 05/28/17 at 19:00; Status DC Fentanyl Citrate (Fentanyl 2ml Vial) 25 mcg PRN Q5MIN PRN IV MILD PAIN; Start 05/28/17 at 08:15; Stop 05/28/17 at 19:00; Status DC Fentanyl Citrate (Fentanyl 2ml Vial) 50 mcg PRN Q5MIN PRN IV MODERATE PAIN; Start 05/28/17 at 08:15; Stop 05/28/17 at 19:00; Status DC Morphine Sulfate 1 mg PRN Q10MIN PRN IV SEVERE PAIN; Start 05/28/17 at 08:15; Stop 05/28/17 at 19:00; Status DC Ringer's Solution 1,000 ml @ 30 mls/hr Q24H IV Last administered on 13:35; Start 05/28/17 at 08:07; Stop 05/28/17 at 20:06; Status DC Lidocaine HCl (Xylocaine-Mpf 1% Vial) 2 ml 1X PRN PRN ID IV START; Start 05/28 at 08:15; Stop 05/28/17 at 19:00; Status DC Hydromorphone HCl (Dilaudid) 0.5 mg PRN Q10MIN PRN IV SEV PAIN, Second choice; Start 05/28/17 at 08:15; Stop 05/28/17 at 19:00; Status DC Prochlorperazine Edisylate (Compazine) 5 mg PACU PRN PRN IV NAUSEA, MRX1; Start 05/28/17 at 08:15; Stop 05/28/17 at 19:00; Status DC Bupivacaine HCl/ Epinephrine Bitart (Sensorcain-Mpf Epi 0.5%-1:[id number]) 30 ml STK -MED ONCE INJ Last administered on 05/28/17 12:35; Start 05/28/17 at 12:35; Stop 05/28/17 at 12:52; Status DC Iohexol (Omnipaque 300 Mg/ml) 100 ml STK-MED ONCE IJ Last administered on 05/28 12:35; Start 05/28/17 at 12:35; Stop 05/28/17 at 12:52; Status DC Cellulose 1 each STK-MED ONCE TP Last administered on 05/28/17 12:59; Start 05/28/17 at 12:59; Stop 05/28/17 at 13:03; Status DC Oxycodone/ Acetaminophen (Percocet 5/325) 1 tab PRN Q4HRS PRN PO PAIN Last administered on 05/29/17 10:23; Start 05/28/17 at 14:00 Hydromorphone HCl (Dilaudid) 1 mg Q3HRS PRN IV pain; Start 05/28/17 at 14:00 Rivaroxaban (Xarelto) 20 mg DAILYWSUP PO ; Start 05/29/17 at 17:00 Polyethylene Glycol (miraLAX PACKET) 17 gm DAILY PO ; Start 05/29/17 at 12:00 Active Scripts Active Gabapentin 100 Mg Capsule 100 Mg PO TID Aspirin Ec (Aspirin) 325 Mg Tablet.dr 325 Mg PO DAILYWBKFT 30 Days Topiramate 50 Mg Tablet 1 Tab PO BID Relpax (Eletriptan Hbr) 40 Mg Tablet 40 Mg PO DAILY 30 Days Trintellix (Vortioxetine) 10 Mg Tablet 10 Mg PO DAILY 30 Days Zantac (Ranitidine Hcl) 300 Mg Tablet 1 Tab PO QHS Reported Proair Hfa Inhaler (Albuterol Sulfate) 8.5 Gm Hfa.aer.ad 1 Puff INH PRN Q6HRS PRN Tramadol Hcl 50 Mg Tablet 1 Tab PO PRN Q6HRS Clonazepam 0.5 Mg Tablet 1 Tab PO DAILY PRN Xarelto (Rivaroxaban) 20 Mg Tablet 20 Mg PO DAILY Alprazolam 0.25 Mg Tablet 1 Tab PO DAILY PRN Mirtazapine 30 Mg Tablet 1 Tab PO QHS Hydroxyzine Hcl 25 Mg Tablet 1 Tab PO BID PRN Metoprolol Succinate ( Xl ) (Metoprolol Succinate) 25 Mg Tab.er.24h 1 Tab PO DAILY Vitals/I & O Vital Sign - Last 24 Hours 05/28/17 05/28/17 05/28/17 05/28/17 13:31 13:31 13:46 14:01 Temp 97.6 97.6 Pulse 99 91 85 Resp 20 16 B/P (MAP) 135/53 129/57 130/67 Pulse Ox 100 96 96 O2 Delivery Mask Simple Mask Room Air Room Air O2 Flow Rate 10 10 05/28/17 05/28/17 05/28/17 05/28/17 14:40 17:26 18:30 19:00 Temp 97.7 98.1 97.7 98.1 Pulse 81 85 Resp 18 18 B/P (MAP) 116/71 (86) 113/64 (80) Pulse Ox 98 98 98 98 O2 Delivery Room Air Room Air Room Air 05/28/17 05/28/17 05/28/17 05/28/17 20:00 21:34 22:04 23:00 Temp 97.0 97.0 Pulse 77 Resp 18 B/P (MAP) 115/47 (69) Pulse Ox 99 O2 Delivery Room Air Room Air Room Air Room Air 05/29/17 05/29/17 05/29/17 05/29/17 01:32 02:32 03:00 07:32 Temp 97.9 97.7 97.9 97.7 Pulse 95 85 Resp 18 16 B/P (MAP) 101/54 (70) 96/59 (71) Pulse Ox 97 99 O2 Delivery Room Air Room Air Room Air Room Air 05/29/17 05/29/17 10:23 10:52 Temp 96.0 96.0 Pulse 95 Resp 16 16 B/P (MAP) 104/49 (67) Pulse Ox 100 O2 Delivery Room Air Room Air Intake and Output 05/28/17 05/28/17 05/29/17 15:00 23:00 07:00 Intake Total 1050 ml Output Total 10 ml Balance 1040 ml HSARMILA TSE III DO May 29, 2017 12:39
[2017-05-29] MEDS: POLYETHYLENE GLYCOL 3350 17 GM PACKET. PO SCH (14:45)
[2017-05-29 14:53] VITALS: BP 102/46
--- NOTE | 2017-05-29 16:20 | PATHOLOGY ---
PATHOLOGY REPORT * * * * * * * * FINAL DIAGNOSIS: Gallbladder, laparoscopic cholecystectomy: - Cholelithiasis. - Chronic cholecystitis. COMMENT: There is no evidence of malignancy. (JPM:; 05/29/2017) REPORT ELECTRONICALLY SIGNED BY: Trev Rowe M.D. DATE/TIME: 05/29/2017 16:19 * * * * * * * * GROSS PATHOLOGY: Received in formalin labeled "Adenike Olivares, gallbladder sac with contents," is a 2.3 x 3.2 x 2.7 cm, intact gallbladder with light pink, vascular, slightly wrinkled serosal surfaces. Opening the gallbladder reveals light pink, velvety mucosa and an average wall thickness of 0.2 cm. Calculi are present in great abundance, filling the entire volume of the gallbladder, measuring 0.6-0.9 cm in maximum dimension, possessing a dark yellow color, and feeling firm to the touch. No masses are noted grossly. Security Compliance Engineer sections from the body and fundus are submitted along with the proximal margin in cassette A1. (TSD; 05/28/2017) INITIAL CPT CODE(S): A; 84786 Professional services performed [place] [address] Technical services performed by [facility] at [address] [place] [address], [facility] [address], [place] [address]. SPECIMEN(S) RECEIVED: A.Gallbladder sac with contents CLINICAL HISTORY: Cholelithiasis PATIENT: ADENIKE OLIVARES /AGE: 5 1975 (Age: 41) PATIENT #: [id number] ALT CASE #: SPECIMEN COLLECTION DATE: 05/28/2017 SPECIMEN RECEIVED DATE: 05/28/2017 [facility] - [id number] [place] [address] - PHONE: [phone] * * * END OF REPORT * * *
[2017-05-29] MEDS: RIVAROXABAN 10 MG TABLET. PO SCH (17:00)
[2017-05-29 19:00] VITALS: BP 104/54
[2017-05-29] MEDS ORDERED: MAGNESIUM HYDROXIDE 2,400 MG/30 ML ORAL.SUSP. PO PRN (20:30)
[2017-05-29] MEDS ORDERED: DOCUSATE SODIUM 100 MG CAPSULE. PO PRN (20:30)
[2017-05-29] MEDS ORDERED: SENNOSIDES/DOCUSATE 8.6/50MG TABLET. PO PRN (20:30)
[2017-05-29] MEDS ORDERED: BISACODYL 10 MG SUPP.RECT. PR PRN (20:30)
[2017-05-29] MEDS: MIRTAZAPINE 15 MG TABLET PO SCH (21:34)
[2017-05-29 23:00] VITALS: BP 111/60
[2017-05-30 03:00] VITALS: BP 107/71
[2017-05-30 07:00] VITALS: BP 118/71
[2017-05-30] MEDS: PANTOPRAZOLE 40 MG TABLET.DR. PO SCH ×2 (08:55→15:13)
[2017-05-30] MEDS: TOPIRAMATE 25 MG TABLET. PO SCH (08:56)
[2017-05-30] MEDS: GABAPENTIN 300 MG CAPSULE. PO SCH ×2 (08:56→15:13)
[2017-05-30] MEDS: POLYETHYLENE GLYCOL 3350 17 GM PACKET. PO SCH (08:56)
--- NOTE | 2017-05-30 10:23 | PDOC ---
SURGICAL PROGRESS NOTE Subjective up to chair still has some pain "all over" taking diet Vital Signs Vital Signs Date Time Temp Pulse Resp B/P (MAP) Pulse Ox O2 Delivery O2 Flow Rate FiO2 05/30/17 07:00 97.9 95 18 118/71 (87) 99 Room Air 97.9 I&O Intake and Output 05/30/17 07:00 Intake Total 480 ml Balance 480 ml Intake Oral 480 ml # Voids 6 PATIENT HAS A ALONZO: No General: Cooperative, No acute distress Abdomen: Soft, Other (minimal TTP) Labs Laboratory Tests Test 05/29/17 09:30 White Blood Count 9.0 x10^3/uL (4.0-11.0) Red Blood Count 3.56 x10^6/uL (3.50-5.40) Hemoglobin 8.2 g/dL (12.0-15.5) Hematocrit 27.2 % (36.0-47.0) Mean Corpuscular Volume 77 fL (79-100) Mean Corpuscular Hemoglobin 23 pg (25-35) Mean Corpuscular Hemoglobin Concent 30 g/dL (31-37) Red Cell Distribution Width 18.8 % (11.5-14.5) Platelet Count 273 x10^3/uL (140-400) Neutrophils (%) (Auto) 72 % (31-73) Lymphocytes (%) (Auto) 21 % (24-48) Monocytes (%) (Auto) 7 % (0-9) Eosinophils (%) (Auto) 0 % (0-3) Basophils (%) (Auto) 0 % (0-3) Neutrophils # (Auto) 6.4 x10^3uL (1.8-7.7) Lymphocytes # (Auto) 1.9 x10^3/uL (1.0-4.8) Monocytes # (Auto) 0.6 x10^3/uL (0.0-1.1) Eosinophils # (Auto) 0.0 x10^3/uL (0.0-0.7) Basophils # (Auto) 0.0 x10^3/uL (0.0-0.2) Assessment/Plan normal post op pain home any time from my standpoint f/u next week Problems: COLETTE SANTIAGO MD May 30, 2017 10:23
[2017-05-30] MEDS ORDERED: ANTI-COAG MONITOR BY PHARMACY. MC PRN (10:30)
--- NOTE | 2017-05-30 10:36 | PDOC ---
Subjective: Subjective: "All over" abd pain. No stools but passing gas. Tolerating PO. 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 ART BAIN May 30, 2017 10:36
[2017-05-30] MEDS ORDERED: BISACODYL 5 MG TABLET.DR. PO ONE (10:45)
[2017-05-30 11:00] VITALS: BP 112/65
--- NOTE | 2017-05-30 11:52 | PDOC ---
PROGRESS NOTES Subjective Subjective HPI - f/u of DVT LLE ROS - no bleed Objective Objective Vital Signs Date Time Temp Pulse Resp B/P (MAP) Pulse Ox O2 Delivery O2 Flow Rate FiO2 05/30/17 07:00 97.9 95 18 118/71 (87) 99 Room Air 97.9 05/28/17 13:31 10 Intake and Output 05/30/17 07:00 Intake Total 480 ml Balance 480 ml Intake Oral 480 ml # Voids 6 Physical Exam Heart: Normal S1, Normal S2 General: Alert, Oriented X3 Lungs: Clear to auscultation Neuro: Normal speech Psych/Mental Status: Mental status NL Assessment Assessment A/P 1. DVT LLE 04/05/17. Resolved per f/u scan 05/24/17. Hence no need for IVC filter. Resume xarelto to complete 6 months of anticoagulation as bleeding has resolved. I d/w pt risks and benefits and she prefers to resume xarelto, ordered 05/29/17. f/u with PCP. Agree with discharge plans. 2. Iron def anemia - s/p venofer 05/24/17. Hb 8.5 on 05/25/17, 7.2 on 05/28/17 3. vaginal bleeding - I d/w Block Trimmer, resolved. 4. s/p Laparoscopic cholecystectomy 05/28/17. I d/w surgery, ok to resume xarelto 05/30/17. Comment Review of Relevant I have reviewed the following items rayne (where applicable) has been applied. Labs Laboratory Tests Test 05/29/17 09:30 White Blood Count 9.0 x10^3/uL (4.0-11.0) Red Blood Count 3.56 x10^6/uL (3.50-5.40) Hemoglobin 8.2 g/dL (12.0-15.5) Hematocrit 27.2 % (36.0-47.0) Mean Corpuscular Volume 77 fL (79-100) Mean Corpuscular Hemoglobin 23 pg (25-35) Mean Corpuscular Hemoglobin Concent 30 g/dL (31-37) Red Cell Distribution Width 18.8 % (11.5-14.5) Platelet Count 273 x10^3/uL (140-400) Neutrophils (%) (Auto) 72 % (31-73) Lymphocytes (%) (Auto) 21 % (24-48) Monocytes (%) (Auto) 7 % (0-9) Eosinophils (%) (Auto) 0 % (0-3) Basophils (%) (Auto) 0 % (0-3) Neutrophils # (Auto) 6.4 x10^3uL (1.8-7.7) Lymphocytes # (Auto) 1.9 x10^3/uL (1.0-4.8) Monocytes # (Auto) 0.6 x10^3/uL (0.0-1.1) Eosinophils # (Auto) 0.0 x10^3/uL (0.0-0.7) Basophils # (Auto) 0.0 x10^3/uL (0.0-0.2) Medications Current Medications Acetaminophen (Tylenol) 650 mg PRN Q6HRS PRN PO PAIN Last administered on 05/27 21:37; Start 05/23/17 at 22:45 Morphine Sulfate 4 mg PRN Q4HRS PRN IV PAIN Last administered on 05/28/17 21: 34; Start 05/23/17 at 22:45 Sodium Chloride 1,000 ml @ 100 mls/hr Q10H IV Last administered on 05/27/17 23:55; Start 05/23/17 at 22:45; Stop 05/29/17 at 04:07; Status DC Ondansetron HCl (Zofran) 4 mg PRN Q4HRS PRN IV NAUSEA/VOMITING Last administered on 05/28/17 06:06; Start 05/23/17 at 22:45 Alprazolam (Xanax) 0.25 mg PRN DAILY PRN PO ANXIETY (1st Choice); Start at 09:15 Clonazepam (KlonoPIN) 0.5 mg PRN DAILY PRN PO ANXIETY (2nd Choice) Last administered on 05/25/17 13:05; Start 05/24/17 at 09:15 Gabapentin (Neurontin) 100 mg TID PO Last administered on 05/25/17 13:04; Start 05/24/17 at 10:00; Stop 05/25/17 at 17:21; Status DC Non-Formulary Medication 1 puff PRN Q6HRS PRN INH SHORTNESS OF BREATH; Start 05/24/17 at 09:15; Stop 05/24/17 at 09:55; Status DC Sumatriptan Succinate (Imitrex) 100 mg PRN DAILY PRN PO MIGRAINE HEADACHE; Start 05/24/17 at 12:00 Hydroxyzine Pamoate (Vistaril) 25 mg PRN BID PRN PO .ANXIETY Last administered on 05/25/17 19:33; Start 05/24/17 at 09:45 Mirtazapine (Remeron) 30 mg QHS PO Last administered on 05/29/17 21:34; Start 05/24/17 at 21:00 Famotidine (Pepcid) 40 mg QHS PO ; Start 05/24/17 at 21:00; Stop 05/24/17 at 21:00; Status DC Topiramate (Topamax) 50 mg BID PO Last administered on 05/30/17 08:56; Start 05/24/17 at 09:45 Non-Formulary Medication 10 mg DAILY PO ; Start 05/25/17 at 09:00; Stop at 10:35; Status DC Albuterol Sulfate (Ventolin Neb Soln) 2.5 mg PRN Q6HRS PRN NEB SHORTNESS OF BREATH; Start 05/24/17 at 09:45 Pantoprazole Sodium (Protonix) 40 mg BIDAC PO Last administered on 05/30/17 08:55; Start 05/24/17 at 16:30 Iron Sucrose 500 mg/Sodium Chloride 275 ml @ 78.571 mls/ hr 1X ONCE IV Last administered on 05/24/17 19:41; Start 05/24/17 at 18:00; Stop 05/24/17 at 21 :29; Status DC Potassium Chloride (Klor-Con) 40 meq 1X ONCE PO Last administered on 13:05; Start 05/25/17 at 10:00; Stop 05/25/17 at 10:01; Status DC Gabapentin (Neurontin) 300 mg TID PO Last administered on 05/30/17 08:56; Start 05/25/17 at 21:00 Acetaminophen/ Butalbital/ Caffeine (Fioricet) 2 tab PRN Q6HRS PRN PO MIGRAINE HEADACHE Last administered on 05/26/17 14:14; Start 05/25/17 at 17:30 Info (Do NOT chart on this placeholder) 5 each 1X ONCE MC ; Start 05/26/17 at 08:00; Stop 05/26/17 at 08:01; Status UNV Influenza Virus Vaccine Quadrival (Fluarix Quad [id number] Syringe) 0.5 ml ONCE ONCE VAX IM Last administered on 05/26/17 09:07; Start 05/26/17 at 09:00; Stop 05/26/17 at 09:01; Status DC Cefazolin Sodium/ Dextrose 50 ml @ 100 mls/hr 1X PERIOP IV Last administered on 05/28/17 12:53; Start 05/28/17 at 08:00; Stop 05/28/17 at 16:00; Status DC Iron Sucrose 200 mg/Sodium Chloride 110 ml @ 55 mls/hr 1X ONCE IV Last administered on 05/27/17 15:44; Start 05/27/17 at 15:30; Stop 05/27/17 at 17 :29; Status DC Ondansetron HCl (Zofran) 4 mg PRN Q6HRS PRN IV NAUSEA/VOMITING; Start at 08:15; Stop 05/28/17 at 19:00; Status DC Fentanyl Citrate (Fentanyl 2ml Vial) 25 mcg PRN Q5MIN PRN IV MILD PAIN; Start 05/28/17 at 08:15; Stop 05/28/17 at 19:00; Status DC Fentanyl Citrate (Fentanyl 2ml Vial) 50 mcg PRN Q5MIN PRN IV MODERATE PAIN; Start 05/28/17 at 08:15; Stop 05/28/17 at 19:00; Status DC Morphine Sulfate 1 mg PRN Q10MIN PRN IV SEVERE PAIN; Start 05/28/17 at 08:15; Stop 05/28/17 at 19:00; Status DC Ringer's Solution 1,000 ml @ 30 mls/hr Q24H IV Last administered on 13:35; Start 05/28/17 at 08:07; Stop 05/28/17 at 20:06; Status DC Lidocaine HCl (Xylocaine-Mpf 1% Vial) 2 ml 1X PRN PRN ID IV START; Start 05/28 at 08:15; Stop 05/28/17 at 19:00; Status DC Hydromorphone HCl (Dilaudid) 0.5 mg PRN Q10MIN PRN IV SEV PAIN, Second choice; Start 05/28/17 at 08:15; Stop 05/28/17 at 19:00; Status DC Prochlorperazine Edisylate (Compazine) 5 mg PACU PRN PRN IV NAUSEA, MRX1; Start 05/28/17 at 08:15; Stop 05/28/17 at 19:00; Status DC Bupivacaine HCl/ Epinephrine Bitart (Sensorcain-Mpf Epi 0.5%-1:400043) 30 ml STK -MED ONCE INJ Last administered on 05/28/17 12:35; Start 05/28/17 at 12:35; Stop 05/28/17 at 12:52; Status DC Iohexol (Omnipaque 300 Mg/ml) 100 ml STK-MED ONCE IJ Last administered on 05/28 12:35; Start 05/28/17 at 12:35; Stop 05/28/17 at 12:52; Status DC Cellulose 1 each STK-MED ONCE TP Last administered on 05/28/17 12:59; Start 05/28/17 at 12:59; Stop 05/28/17 at 13:03; Status DC Oxycodone/ Acetaminophen (Percocet 5/325) 1 tab PRN Q4HRS PRN PO PAIN Last administered on 05/29/17 21:35; Start 05/28/17 at 14:00 Hydromorphone HCl (Dilaudid) 1 mg Q3HRS PRN IV pain; Start 05/28/17 at 14:00 Rivaroxaban (Xarelto) 20 mg DAILYWSUP PO ; Start 05/29/17 at 17:00 Polyethylene Glycol (miraLAX PACKET) 17 gm DAILY PO Last administered on 08:56; Start 05/29/17 at 12:00; Stop 05/30/17 at 10:38; Status DC Docusate Sodium (Colace) 100 mg PRN DAILY PRN PO CONSTIPATION Last administered on 05/30/17 08:56; Start 05/29/17 at 20:30 Senna/Docusate Sodium (Senna Plus) 1 tab PRN BID PRN PO CONSTIPATION Last administered on 05/30/17 08:56; Start 05/29/17 at 20:30 Bisacodyl (Dulcolax Supp) 10 mg PRN DAILY PRN [place] CONSTIPATION; Start 05/29/17 at 20:30 Magnesium Hydroxide (Milk Of Magnesia) 2,400 mg PRN DAILY PRN PO CONSTIPATION Last administered on 05/30/17 08:56; Start 05/29/17 at 20:30 Info (Anti-Coagulation Monitoring By Pharmacy) 1 each PRN DAILY PRN MC SEE COMMENTS Last administered on 05/30/17 10:25; Start 05/30/17 at 10:30 Polyethylene Glycol (miraLAX PACKET) 17 gm BID PO ; Start 05/30/17 at 21:00 Bisacodyl (Dulcolax Tab) 5 mg 1X ONCE PO ; Start 05/30/17 at 10:45; Stop at 10:46; Status DC Active Scripts Active Gabapentin 100 Mg Capsule 100 Mg PO TID Aspirin Ec (Aspirin) 325 Mg Tablet.dr 325 Mg PO DAILYWBKFT 30 Days Topiramate 50 Mg Tablet 1 Tab PO BID Relpax (Eletriptan Hbr) 40 Mg Tablet 40 Mg PO DAILY 30 Days Trintellix (Vortioxetine) 10 Mg Tablet 10 Mg PO DAILY 30 Days Zantac (Ranitidine Hcl) 300 Mg Tablet 1 Tab PO QHS Reported Proair Hfa Inhaler (Albuterol Sulfate) 8.5 Gm Hfa.aer.ad 1 Puff INH PRN Q6HRS PRN Tramadol Hcl 50 Mg Tablet 1 Tab PO PRN Q6HRS Clonazepam 0.5 Mg Tablet 1 Tab PO DAILY PRN Xarelto (Rivaroxaban) 20 Mg Tablet 20 Mg PO DAILY Alprazolam 0.25 Mg Tablet 1 Tab PO DAILY PRN Mirtazapine 30 Mg Tablet 1 Tab PO QHS Hydroxyzine Hcl 25 Mg Tablet 1 Tab PO BID PRN Metoprolol Succinate ( Xl ) (Metoprolol Succinate) 25 Mg Tab.er.24h 1 Tab PO DAILY Vitals/I & O Vital Sign - Last 24 Hours 05/29/17 05/29/17 05/29/17 05/29/17 14:49 14:53 15:49 19:00 Temp 97.9 99.2 97.9 99.2 Pulse 101 103 Resp 16 16 16 18 B/P (MAP) 102/46 (64) 104/54 (71) Pulse Ox 99 96 O2 Delivery Room Air Room Air Room Air 05/29/17 05/29/17 05/29/17 05/29/17 20:00 21:35 22:35 23:00 Temp 97.6 97.6 Pulse 99 Resp 18 B/P (MAP) 111/60 (77) Pulse Ox 98 O2 Delivery Room Air Room Air Room Air Room Air 05/30/17 05/30/17 03:00 07:00 Temp 98.5 97.9 98.5 97.9 Pulse 90 95 Resp 18 18 B/P (MAP) 107/71 (83) 118/71 (87) Pulse Ox 97 99 O2 Delivery Room Air Room Air Intake and Output 05/29/17 05/29/17 05/30/17 15:00 23:00 07:00 Intake Total 480 ml Balance 480 ml JODEE SANTIAGO MD May 30, 2017 11:52
[2017-05-30 15:00] VITALS: BP 108/65
--- NOTE | 2017-05-30 15:11 | PDOC ---
PROGRESS NOTES Chief Complaint Chief Complaint Acute abdominal pain Vaginal bleeding Anemia Multiple sclerosis Migraines prior CVA Depression Anxiety Possible bipolar disorder History of Present Illness History of Present Illness S/P cholecystectomy, day 2 Incision CDI Pt is eating, without nausea or vomiting No BM x8 days Probable DC today if agreeable with surgery Vitals Vitals Vital Signs Date Time Temp Pulse Resp B/P (MAP) Pulse Ox O2 Delivery O2 Flow Rate FiO2 05/30/17 11:00 98.1 98 18 112/65 (81) 98 Room Air 98.1 Physical Exam General: Alert, Oriented X3 Heart: Normal S1, Normal S2 Lungs: Clear, Other (No RRW) Abdomen: Soft, Other (minimal TTP) Skin: No rashes Review of Systems Review of Systems General: Denies Fever, Chills, CV: Denies Chest Pain, Palpitations Assessment and Plan Assessmemt and Plan Assessment: Acute abdominal pain Vaginal bleeding Anemia Multiple sclerosis Migraines prior CVA Depression Anxiety Possible bipolar disorder Plan: Probable DC today if agreeable with Surgery Continue Home Meds Continue PT/OT Continue Wound Care Follow up With PCP Problems: Comment Review of Relevant I have reviewed the following items rayne (where applicable) has been applied. Labs Laboratory Tests Test 05/29/17 09:30 White Blood Count 9.0 x10^3/uL (4.0-11.0) Red Blood Count 3.56 x10^6/uL (3.50-5.40) Hemoglobin 8.2 g/dL (12.0-15.5) Hematocrit 27.2 % (36.0-47.0) Mean Corpuscular Volume 77 fL (79-100) Mean Corpuscular Hemoglobin 23 pg (25-35) Mean Corpuscular Hemoglobin Concent 30 g/dL (31-37) Red Cell Distribution Width 18.8 % (11.5-14.5) Platelet Count 273 x10^3/uL (140-400) Neutrophils (%) (Auto) 72 % (31-73) Lymphocytes (%) (Auto) 21 % (24-48) Monocytes (%) (Auto) 7 % (0-9) Eosinophils (%) (Auto) 0 % (0-3) Basophils (%) (Auto) 0 % (0-3) Neutrophils # (Auto) 6.4 x10^3uL (1.8-7.7) Lymphocytes # (Auto) 1.9 x10^3/uL (1.0-4.8) Monocytes # (Auto) 0.6 x10^3/uL (0.0-1.1) Eosinophils # (Auto) 0.0 x10^3/uL (0.0-0.7) Basophils # (Auto) 0.0 x10^3/uL (0.0-0.2) Medications Current Medications Acetaminophen (Tylenol) 650 mg PRN Q6HRS PRN PO PAIN Last administered on 05/27 21:37; Start 05/23/17 at 22:45 Morphine Sulfate 4 mg PRN Q4HRS PRN IV PAIN Last administered on 05/28/17 21: 34; Start 05/23/17 at 22:45 Sodium Chloride 1,000 ml @ 100 mls/hr Q10H IV Last administered on 05/27/17 23:55; Start 05/23/17 at 22:45; Stop 05/29/17 at 04:07; Status DC Ondansetron HCl (Zofran) 4 mg PRN Q4HRS PRN IV NAUSEA/VOMITING Last administered on 05/28/17 06:06; Start 05/23/17 at 22:45 Alprazolam (Xanax) 0.25 mg PRN DAILY PRN PO ANXIETY (1st Choice); Start at 09:15 Clonazepam (KlonoPIN) 0.5 mg PRN DAILY PRN PO ANXIETY (2nd Choice) Last administered on 05/25/17 13:05; Start 05/24/17 at 09:15 Gabapentin (Neurontin) 100 mg TID PO Last administered on 05/25/17 13:04; Start 05/24/17 at 10:00; Stop 05/25/17 at 17:21; Status DC Non-Formulary Medication 1 puff PRN Q6HRS PRN INH SHORTNESS OF BREATH; Start 05/24/17 at 09:15; Stop 05/24/17 at 09:55; Status DC Sumatriptan Succinate (Imitrex) 100 mg PRN DAILY PRN PO MIGRAINE HEADACHE; Start 05/24/17 at 12:00 Hydroxyzine Pamoate (Vistaril) 25 mg PRN BID PRN PO .ANXIETY Last administered on 05/25/17 19:33; Start 05/24/17 at 09:45 Mirtazapine (Remeron) 30 mg QHS PO Last administered on 05/29/17 21:34; Start 05/24/17 at 21:00 Famotidine (Pepcid) 40 mg QHS PO ; Start 05/24/17 at 21:00; Stop 05/24/17 at 21:00; Status DC Topiramate (Topamax) 50 mg BID PO Last administered on 05/30/17 08:56; Start 05/24/17 at 09:45 Non-Formulary Medication 10 mg DAILY PO ; Start 05/25/17 at 09:00; Stop at 10:35; Status DC Albuterol Sulfate (Ventolin Neb Soln) 2.5 mg PRN Q6HRS PRN NEB SHORTNESS OF BREATH; Start 05/24/17 at 09:45 Pantoprazole Sodium (Protonix) 40 mg BIDAC PO Last administered on 05/30/17 08:55; Start 05/24/17 at 16:30 Iron Sucrose 500 mg/Sodium Chloride 275 ml @ 78.571 mls/ hr 1X ONCE IV Last administered on 05/24/17 19:41; Start 05/24/17 at 18:00; Stop 05/24/17 at 21 :29; Status DC Potassium Chloride (Klor-Con) 40 meq 1X ONCE PO Last administered on 13:05; Start 05/25/17 at 10:00; Stop 05/25/17 at 10:01; Status DC Gabapentin (Neurontin) 300 mg TID PO Last administered on 05/30/17 08:56; Start 05/25/17 at 21:00 Acetaminophen/ Butalbital/ Caffeine (Fioricet) 2 tab PRN Q6HRS PRN PO MIGRAINE HEADACHE Last administered on 05/26/17 14:14; Start 05/25/17 at 17:30 Info (Do NOT chart on this placeholder) 5 each 1X ONCE MC ; Start 05/26/17 at 08:00; Stop 05/26/17 at 08:01; Status UNV Influenza Virus Vaccine Quadrival (Fluarix Quad [id number] Syringe) 0.5 ml ONCE ONCE VAX IM Last administered on 05/26/17 09:07; Start 05/26/17 at 09:00; Stop 05/26/17 at 09:01; Status DC Cefazolin Sodium/ Dextrose 50 ml @ 100 mls/hr 1X PERIOP IV Last administered on 05/28/17 12:53; Start 05/28/17 at 08:00; Stop 05/28/17 at 16:00; Status DC Iron Sucrose 200 mg/Sodium Chloride 110 ml @ 55 mls/hr 1X ONCE IV Last administered on 05/27/17 15:44; Start 05/27/17 at 15:30; Stop 05/27/17 at 17 :29; Status DC Ondansetron HCl (Zofran) 4 mg PRN Q6HRS PRN IV NAUSEA/VOMITING; Start at 08:15; Stop 05/28/17 at 19:00; Status DC Fentanyl Citrate (Fentanyl 2ml Vial) 25 mcg PRN Q5MIN PRN IV MILD PAIN; Start 05/28/17 at 08:15; Stop 05/28/17 at 19:00; Status DC Fentanyl Citrate (Fentanyl 2ml Vial) 50 mcg PRN Q5MIN PRN IV MODERATE PAIN; Start 05/28/17 at 08:15; Stop 05/28/17 at 19:00; Status DC Morphine Sulfate 1 mg PRN Q10MIN PRN IV SEVERE PAIN; Start 05/28/17 at 08:15; Stop 05/28/17 at 19:00; Status DC Ringer's Solution 1,000 ml @ 30 mls/hr Q24H IV Last administered on 13:35; Start 05/28/17 at 08:07; Stop 05/28/17 at 20:06; Status DC Lidocaine HCl (Xylocaine-Mpf 1% Vial) 2 ml 1X PRN PRN ID IV START; Start 05/28 at 08:15; Stop 05/28/17 at 19:00; Status DC Hydromorphone HCl (Dilaudid) 0.5 mg PRN Q10MIN PRN IV SEV PAIN, Second choice; Start 05/28/17 at 08:15; Stop 05/28/17 at 19:00; Status DC Prochlorperazine Edisylate (Compazine) 5 mg PACU PRN PRN IV NAUSEA, MRX1; Start 05/28/17 at 08:15; Stop 05/28/17 at 19:00; Status DC Bupivacaine HCl/ Epinephrine Bitart (Sensorcain-Mpf Epi 0.5%-1:[id number]) 30 ml STK -MED ONCE INJ Last administered on 05/28/17 12:35; Start 05/28/17 at 12:35; Stop 05/28/17 at 12:52; Status DC Iohexol (Omnipaque 300 Mg/ml) 100 ml STK-MED ONCE IJ Last administered on 05/28 12:35; Start 05/28/17 at 12:35; Stop 05/28/17 at 12:52; Status DC Cellulose 1 each STK-MED ONCE TP Last administered on 05/28/17 12:59; Start 05/28/17 at 12:59; Stop 05/28/17 at 13:03; Status DC Oxycodone/ Acetaminophen (Percocet 5/325) 1 tab PRN Q4HRS PRN PO PAIN Last administered on 05/29/17 21:35; Start 05/28/17 at 14:00 Hydromorphone HCl (Dilaudid) 1 mg Q3HRS PRN IV pain; Start 05/28/17 at 14:00 Rivaroxaban (Xarelto) 20 mg DAILYWSUP PO ; Start 05/29/17 at 17:00 Polyethylene Glycol (miraLAX PACKET) 17 gm DAILY PO Last administered on 08:56; Start 05/29/17 at 12:00; Stop 05/30/17 at 10:38; Status DC Docusate Sodium (Colace) 100 mg PRN DAILY PRN PO CONSTIPATION Last administered on 05/30/17 08:56; Start 05/29/17 at 20:30 Senna/Docusate Sodium (Senna Plus) 1 tab PRN BID PRN PO CONSTIPATION Last administered on 05/30/17 08:56; Start 05/29/17 at 20:30 Bisacodyl (Dulcolax Supp) 10 mg PRN DAILY PRN [place] CONSTIPATION; Start 05/29/17 at 20:30 Magnesium Hydroxide (Milk Of Magnesia) 2,400 mg PRN DAILY PRN PO CONSTIPATION Last administered on 05/30/17 08:56; Start 05/29/17 at 20:30 Info (Anti-Coagulation Monitoring By Pharmacy) 1 each PRN DAILY PRN MC SEE COMMENTS Last administered on 05/30/17t 10:25; Start 05/30/17 at 10:30 Polyethylene Glycol (miraLAX PACKET) 17 gm BID PO ; Start 05/30/17 at 21:00 Bisacodyl (Dulcolax Tab) 5 mg 1X ONCE PO ; Start 05/30/17 at 10:45; Stop at 10:46; Status DC Active Scripts Active Gabapentin 100 Mg Capsule 100 Mg PO TID Aspirin Ec (Aspirin) 325 Mg Tablet.dr 325 Mg PO DAILYWBKFT 30 Days Topiramate 50 Mg Tablet 1 Tab PO BID Relpax (Eletriptan Hbr) 40 Mg Tablet 40 Mg PO DAILY 30 Days Trintellix (Vortioxetine) 10 Mg Tablet 10 Mg PO DAILY 30 Days Zantac (Ranitidine Hcl) 300 Mg Tablet 1 Tab PO QHS Reported Proair Hfa Inhaler (Albuterol Sulfate) 8.5 Gm Hfa.aer.ad 1 Puff INH PRN Q6HRS PRN Tramadol Hcl 50 Mg Tablet 1 Tab PO PRN Q6HRS Clonazepam 0.5 Mg Tablet 1 Tab PO DAILY PRN Xarelto (Rivaroxaban) 20 Mg Tablet 20 Mg PO DAILY Alprazolam 0.25 Mg Tablet 1 Tab PO DAILY PRN Mirtazapine 30 Mg Tablet 1 Tab PO QHS Hydroxyzine Hcl 25 Mg Tablet 1 Tab PO BID PRN Metoprolol Succinate ( Xl ) (Metoprolol Succinate) 25 Mg Tab.er.24h 1 Tab PO DAILY Vitals/I & O Vital Sign - Last 24 Hours 05/29/17 05/29/17 05/29/17 05/29/17 15:49 19:00 20:00 21:35 Temp 99.2 99.2 Pulse 103 Resp 16 18 B/P (MAP) 104/54 (71) Pulse Ox 96 O2 Delivery Room Air Room Air Room Air 05/29/17 05/29/17 05/30/17 05/30/17 22:35 23:00 03:00 07:00 Temp 97.6 98.5 97.9 97.6 98.5 97.9 Pulse 99 90 95 Resp 18 18 18 B/P (MAP) 111/60 (77) 107/71 (83) 118/71 (87) Pulse Ox 98 97 99 O2 Delivery Room Air Room Air Room Air Room Air 05/30/17 11:00 Temp 98.1 98.1 Pulse 98 Resp 18 B/P (MAP) 112/65 (81) Pulse Ox 98 O2 Delivery Room Air Intake and Output 05/29/17 05/29/17 05/30/17 14:59 22:59 06:59 Intake Total 480 ml Balance 480 ml SHARMILA TSE III DO May 30, 2017 15:11
[2017-05-30] MEDS: RIVAROXABAN 10 MG TABLET. PO SCH (15:13)
[2017-05-30] MEDS: oxyCODONE/APAP 5/325 1 TAB TABLET PO PRN (15:14)
[2017-05-30] MEDS ORDERED: POLYETHYLENE GLYCOL 3350 17 GM PACKET. PO SCH (21:00)
--- NOTE | 2017-06-08 10:30 | DS ---
DATE OF DISCHARGE: 05/30/2017 ADMISSION DIAGNOSIS: Vaginal bleeding. SHARMILA TSE DO DR: JACE/sabino JOB#: [id number] / [id number]
--- NOTE | 2017-06-13 11:23 | PDOC ---
BRIEF OPERATIVE NOTE Date: May 28, 2017 Pre-Op Diagnosis cholecystitis Post-Op Diagnosis same Procedure Performed l/s cholecystectomy Surgeon Bertram Anesthesia Type: General Blood Loss 20cc IV Fluid 1000cc Specimens Obtained GB Findings see op note COLETTE SANTIAGO MD Jun 13, 2017 11:23
--- NOTE | 2017-06-22 12:04 | DS ---
DATE OF DISCHARGE: 05/30/2017 ADMISSION DIAGNOSES: Mental status change, abdominal pain. DISCHARGE DIAGNOSIS: Postop laparoscopic cholecystectomy. HOSPITAL COURSE: The patient is a pleasant 41-year-old female who presented originally with some mental status change and some vague complaints of vaginal bleeding, abdominal pain. In the end, we discovered she had a cholecystitis and we consulted general surgery. She went for laparoscopic cholecystectomy. Post-procedure, she did well. We discharged to home with home health. DISPOSITION: Home with home health. ACTIVITY: As tolerated. DIET: Low sodium. MEDICATIONS: Please see the MRAD. TOTAL TIME ON DISCHARGE: 33 minutes. SHARMILA TSE DO DR: JACE/sabino JOB#: [id number] / [id number]
== END 2017-05-30 16:05 | disposition home health service (06) | DRG 418 ==
LOC: 3 NORTH 21:24 → 4 NORTH 05-28 14:47
PROVIDERS: ADMIT Internal Medicine; ATTEND Internal Medicine
PROC: 0FT44ZZ Resection of Gallbladder, Percutaneous Endoscopic Approach (ICD-10-PCS; principal; 2017-05-28 12:15)
DX: K80.20 Calculus of gallbladder without cholecystitis without obstruction (principal); E44.0 Moderate protein-calorie malnutrition; D62 Acute posthemorrhagic anemia; G35 Multiple sclerosis; D25.9 Leiomyoma of uterus, unspecified; F31.9 Bipolar disorder, unspecified; F41.0 Panic disorder [episodic paroxysmal anxiety]; F41.9 Anxiety disorder, unspecified; N92.0 Excessive and frequent menstruation with regular cycle; K21.9 Gastro-esophageal reflux disease without esophagitis; M79.605 Pain in left leg; J45.909 Unspecified asthma, uncomplicated; K59.00 Constipation, unspecified; I10 Essential (primary) hypertension; E66.9 Obesity, unspecified; G43.909 Migraine, unspecified, not intractable, without status migrainosus; Z86.73 Personal history of transient ischemic attack (TIA), and cerebral infarction without residual deficits; Z98.891 History of uterine scar from previous surgery; I25.2 Old myocardial infarction; Z88.2 Allergy status to sulfonamides; Z68.31 Body mass index [BMI] 31.0-31.9, adult; Z86.718 Personal history of other venous thrombosis and embolism; Z79.01 Long term (current) use of anticoagulants; Z87.891 Personal history of nicotine dependence; D50.9 Iron deficiency anemia, unspecified
CPT/HCPCS: 36415; 76705; 80048; 80053; 81001; 81025; 82728; 83540; 83550; 85007; 85025; 85610; 88304; 90686; 93971; 94250; 94760; J0690; J1100; J1610; J1756; J2250; J2270; J2370; J2405; J2704; J2710; J3010; J3490; J7030; J7050; J7120; Q0177; Q9967; J2001

== ENCOUNTER 2017-06-11 11:17 | Emergency (ER) | payer OTHER ==
[~2017-06-11] VITALS: Ht 162.6 cm; Wt 84.4 kg
[~2017-06-11 11:17] MED LIST changes: +CLON0.5T3 PO; +PROAIR HFA8.5 GM INH; +RIVA20TA2 PO; +TRAM50TA PO
[2017-06-11 12:04] LABS: BASO % 1 % (0-3); EOS % 0 % (0-3); HEMATOCRIT 29.1 % (36.0-47.0); HEMOGLOBIN 9.2 g/dL (12.0-15.5); LYMPH # 1.5 x10^3/uL (1.0-4.8); LYMPH % 32 % (24-48); MEAN CORPUSCULAR HEMOGLOBIN 25 pg (25-35); MEAN CORPUSCULAR HGB CONC 32 g/dL (31-37); MEAN CORPUSCULAR VOLUME 79 fL (79-100); MONO % 6 % (0-9); NEUT % 61 % (31-73); PLATELET COUNT 301 x10^3/uL (140-400); RED BLOOD COUNT 3.69 x10^6/uL (3.50-5.40); WHITE BLOOD COUNT 4.8 x10^3/uL (4.0-11.0)
[2017-06-11 12:16] LABS: CREATININE 0.8 mg/dL (0.6-1.0); GFR 78.7
[2017-06-11 12:18] LABS: INR 1.2 (0.8-1.1); PROTHROMBIN TIME PATIENT 14.3 SEC (11.7-14.0)
[2017-06-11 12:21] LABS: ALBUMIN 3.3 g/dL (3.4-5.0); ALBUMIN/GLOBULIN RATIO 0.9 (1.0-1.7); TOTAL BILIRUBIN 0.3 mg/dL (0.2-1.0); TOTAL PROTEIN 6.9 g/dL (6.4-8.2)
[2017-06-11 12:30] VITALS: BP 104/67
[2017-06-11] MEDS ORDERED: KETOROLAC 30 MG/ML INJ. IV ONE (12:45)
[2017-06-11 13:06] LABS: ANISOCYTOSIS PRESENT; PLT ESTIMATE ADEQUATE (ADEQUATE)
[2017-06-11 13:07] LABS: HYPOCHROMIA PRESENT; MICROCYTOSIS PRESENT
[2017-06-11] MEDS ORDERED: IBUP-1007 PO (13:11)
[2017-06-11] MEDS ORDERED: IBUPROFEN 800 MG TABLET. PO ONE (13:15)
--- NOTE | 2017-06-11 14:38 | PHYS DOC ---
Past Medical History Past Medical History: Anxiety, Hypertension, Migraines, Other Additional Past Medical Histor: MS Past Surgical History: Alcohol Use: None Drug Use: Marijuana Adult General Chief Complaint Chief Complaint: VAGINAL BLEEDING HPI HPI Patient is a 41 year old female who presents with vaginal bleeding. Patient's had long-standing history of menorrhagia and was seen yesterday for the same complaint. She was on Xarelto for history DVT and instructed to stop taking this yesterday. She states she continues to have vaginal bleeding and abdominal cramping. She's not attempted any symptom controlling medications for this. 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 Johnson and she has not contacted them today. No near syncope/chest pain or sob Review of Systems Review of Systems Constitutional: Denies fever or chills [] Eyes: Denies change in visual acuity, redness, or eye pain [] HENT: Denies nasal congestion or sore throat [] Respiratory: Denies cough or shortness of breath [] denies chest pain Card: No additional information not addressed in HPI [] GI: Denies nausea, vomiting, bloody stools or diarrhea [] Musculoskeletal: Denies back pain or joint pain [] Integument: Denies rash or skin lesions [] Neurologic: Denies headache, focal weakness or sensory changes [] Endocrine: Denies polyuria or polydipsia [] Current Medications Current Medications Current Medications Medications (Trade) Dose Ordered Sig/Tootie Start Time Stop Time Status Last Admin Dose Admin Ibuprofen (Motrin) 800 mg 1X ONCE 06/11/17 13:15 06/11/17 13:16 DC 06/11/17 13:13 800 MG Ketorolac Tromethamine (Toradol) 30 mg 1X ONCE 06/11/17 12:45 06/11/17 13:09 DC Allergies Allergies Allergies Coded Allergies Type Severity Reaction Last Updated Verified Sulfa (Sulfonamide Antibiotics) Allergy Intermediate 05/28/17 Yes Physical Exam Physical Exam Constitutional: Well developed, well nourished, no acute distress, non-toxic appearance. [] HENT: Normocephalic, atraumatic, bilateral external ears normal, oropharynx moist, no oral exudates, nose normal. [] Eyes: PERRLA, EOMI, conjunctiva normal, no discharge. [] Neck: Normal range of motion, no tenderness, supple, no stridor. [] Cardiovascular:Heart rate regular with regular rhyth Lungs & Thorax: no respiratory distress Abdomen: soft, no tenderness, no masses, no pulsatile masses. : moderate bleeding in vaginal vault, no adnexal ttp Skin: Warm, dry, no erythema, no rash. [] Back: No tenderness, no CVA tenderness. [] Extremities: No tenderness, no cyanosis, no clubbing, ROM intact, no edema. [] Neurologic: Alert and oriented X 3, normal motor function, normal sensory function, no focal deficits noted. [] Psychologic: Affect normal, judgement normal, mood normal. [] Current Patient Data Vital Signs Vital Signs Date Time Temp Pulse Resp B/P (MAP) Pulse Ox O2 Delivery O2 Flow Rate FiO2 06/11/17 11:17 98.4 80 18 115/61 (79) 99 Room Air 98.4 Lab Values Laboratory Tests Test 06/11/17 12:00 White Blood Count 4.8 x10^3/uL (4.0-11.0) Red Blood Count 3.69 x10^6/uL (3.50-5.40) Hemoglobin 9.2 g/dL (12.0-15.5) L Hematocrit 29.1 % (36.0-47.0) L Mean Corpuscular Volume 79 fL (79-100) Mean Corpuscular Hemoglobin 25 pg (25-35) Mean Corpuscular Hemoglobin Concent 32 g/dL (31-37) Red Cell Distribution Width 23.0 % (11.5-14.5) H Platelet Count 301 x10^3/uL (140-400) Neutrophils (%) (Auto) 61 % (31-73) Lymphocytes (%) (Auto) 32 % (24-48) Monocytes (%) (Auto) 6 % (0-9) Eosinophils (%) (Auto) 0 % (0-3) Basophils (%) (Auto) 1 % (0-3) Neutrophils # (Auto) 2.9 x10^3uL (1.8-7.7) Lymphocytes # (Auto) 1.5 x10^3/uL (1.0-4.8) Monocytes # (Auto) 0.3 x10^3/uL (0.0-1.1) Eosinophils # (Auto) 0.0 x10^3/uL (0.0-0.7) Basophils # (Auto) 0.0 x10^3/uL (0.0-0.2) Platelet Estimate Adequate (ADEQUATE) Hypochromasia Present Anisocytosis Present Microcytosis Present Prothrombin Time 14.3 SEC (11.7-14.0) H Prothrombin Time INR 1.2 (0.8-1.1) H Sodium Level 140 mmol/L (136-145) Potassium Level 4.0 mmol/L (3.5-5.1) Chloride Level 108 mmol/L (98-107) H Carbon Dioxide Level 23 mmol/L (21-32) Anion Gap 9 (6-14) Blood Urea Nitrogen 17 mg/dL (7-20) Creatinine 0.8 mg/dL (0.6-1.0) Estimated GFR (Cockcroft-Gault) 78.7 BUN/Creatinine Ratio 21 (6-20) H Glucose Level 101 mg/dL (70-99) H Calcium Level 9.0 mg/dL (8.5-10.1) Total Bilirubin 0.3 mg/dL (0.2-1.0) Aspartate Amino Transferase (AST) 12 U/L (15-37) L Alanine Aminotransferase (ALT) 18 U/L (14-59) Alkaline Phosphatase 82 U/L (46-116) Total Protein 6.9 g/dL (6.4-8.2) Albumin 3.3 g/dL (3.4-5.0) L Albumin/Globulin Ratio 0.9 (1.0-1.7) L Laboratory Tests 06/11/17 12:00 Laboratory Tests 06/11/17 12:00 EKG EKG [] Radiology/Procedures Radiology/Procedures [] Course & Med Decision Making Course & Med Decision Making Pertinent Labs and Imaging studies reviewed. (See chart for details) Pt given PO ibuprofen, hgb at baseline, no significant abnormalities found. Discussed with Dr. Johnson, he asks that pt f/u on outpt basis. She states she has a f/u appt scheduled this month. Return precautions given. Dragon Disclaimer Dragon Disclaimer This electronic medical record was generated, in whole or in part, using a voice recognition dictation system. Departure Departure Impression: Primary Impression: Menorrhagia Disposition: 01 HOME, SELF-CARE Condition: STABLE Referrals: TWAN JOHNSON Jr, MD Patient Instructions: Menorrhagia, [id number] Scripts Ibuprofen (IBUPROFEN) 600 Mg Tablet 600 MG PO PRN Q6HRS Y for PAIN, #20 TAB take with food or milk Prov: HEIDY LR MD 06/11/17 HEIDY LR MD Jun 11, 2017 14:38
== END 2017-06-11 13:16 | disposition home or self-care (01) ==
LOC: ER 11:17
DX: N92.0 Excessive and frequent menstruation with regular cycle (principal); F41.9 Anxiety disorder, unspecified; I10 Essential (primary) hypertension; G35 Multiple sclerosis; G43.909 Migraine, unspecified, not intractable, without status migrainosus; F12.10 Cannabis abuse, uncomplicated; Z88.2 Allergy status to sulfonamides; Z86.718 Personal history of other venous thrombosis and embolism; Z79.01 Long term (current) use of anticoagulants
CPT/HCPCS: 36415; 80053; 85025; 85610; 99284

== ENCOUNTER 2017-06-29 16:05 | Inpatient (IN) | payer OTHER ==
[~2017-06-29] VITALS: Ht 162.6 cm; Wt 81.6 kg
[~2017-06-29 16:05] MED LIST changes: +IBUP-1007 PO
[2017-06-29 17:13] VITALS: BP 110/62
[2017-06-29] MEDS ORDERED: VORT20TA PO (17:34)
[2017-06-29] MEDS ORDERED: ALBUTEROL SULFATE 2.5 MG/3 ML NEBU. NEB PRN (19:00)
[2017-06-29 19:43] VITALS: BP 99/70
[2017-06-29] MEDS: ASPIRIN ENTERIC COATED 325 MG TABLET.DR. PO SCH (20:21)
[2017-06-29] MEDS: GABAPENTIN 100 MG CAPSULE. PO SCH (20:21)
[2017-06-29] MEDS: MIRTAZAPINE 15 MG TABLET PO SCH (20:22)
[2017-06-29] MEDS: TOPIRAMATE 25 MG TABLET. PO SCH (20:22)
[2017-06-29] MEDS: METOPROLOL SUCC 24HR ER 25 MG TAB.ER.24H. PO SCH (20:23)
--- NOTE | 2017-06-29 20:26 | HP ---
ADMIT DATE: 06/29/2017 CHIEF COMPLAINT: Chest pain and weakness. HISTORY OF PRESENT ILLNESS: The patient is a pleasant middle-aged female who has MS. Basically, she lives at home alone. Her son is there sometimes, but apparently, he has gone for [place]. Now, she presented to the ER for evaluation. She came to [facility], they called me and I have accepted her as a transfer to our facility because the patient wants to come to our facility. PAST MEDICAL HISTORY: Extensive. I did review the computerized H and P. Please refer to the computerized H and P. ALLERGIES: None. FAMILY HISTORY: Diabetes. SOCIAL HISTORY: She lives at home. No drinking, smoking or drugs. MEDICATIONS: Reviewed. REVIEW OF SYSTEMS: REVIEW OF SYSTEMS: GENERAL: No history of weight change, weakness or fevers. SKIN: No bruising, hair changes or rashes. EYES: No blurred, double or loss of vision. NOSE AND THROAT: No history of nosebleeds, hoarseness or sore throat. HEART: She complains of chest pain. LUNGS: Denies cough, hemoptysis, wheezing or shortness of breath. GASTROINTESTINAL: Denies changes in appetite, nausea, vomiting, diarrhea or constipation. GENITOURINARY: No history of frequency, urgency, hesitancy or nocturia. NEUROLOGIC: She complains of weakness. PSYCHIATRIC: No history of panic, anxiety or depression. ENDOCRINE: No history of heat or cold intolerance, polyuria or polydipsia. EXTREMITIES: Denies muscle weakness, joint pain, pain on walking or stiffness. PHYSICAL EXAMINATION: VITAL SIGNS: Temperature afebrile, pulse 90, respirations 18, blood pressure 122/64. GENERAL: She is awake, alert. HEART: Normal S1, S2. LUNGS: Clear. ABDOMEN: Soft. EXTREMITIES: Trace edema. SKIN: No rash. ENDOCRINE: No thyromegaly. LYMPHATICS: No cervical nodes. HEMATOPOIETIC: No bruising. NEUROLOGICAL: She is weak. ASSESSMENT AND PLAN: Chest pain and weakness. The patient has been admitted. We will check serial enzymes, serial EKGs, physical therapy, occupational therapy. Resume home medicines. Consult cardiology, cardiac monitoring. SHARMILA TSE DO DR: JACE/sabino JOB#: [id number] / [id number]
[2017-06-29] MEDS: clonazePAM 0.5 MG TABLET PO PRN (22:42)
[2017-06-29] MEDS: traMADol 50 MG TABLET PO PRN (22:42)
[2017-06-29 23:59] VITALS: BP 106/57
[2017-06-30] VITALS (7 sets, daily range): BP systolic 98–130; BP diastolic 43–88
[2017-06-30] MEDS ORDERED: NON FORMULARY ITEM (Vortioxetine Hydrobromide (Trintellix) 20 MG) PO SCH (09:00)
[2017-06-30] MEDS: GABAPENTIN 100 MG CAPSULE. PO SCH ×3 (09:26→21:11)
[2017-06-30] MEDS: ASPIRIN ENTERIC COATED 325 MG TABLET.DR. PO SCH (09:26)
[2017-06-30] MEDS: TOPIRAMATE 25 MG TABLET. PO SCH ×2 (09:26→21:11)
[2017-06-30] MEDS: METOPROLOL SUCC 24HR ER 25 MG TAB.ER.24H. PO SCH ×2 (09:27→09:28)
--- NOTE | 2017-06-30 10:16 | PDOC ---
PROGRESS NOTES Chief Complaint Chief Complaint Chest pain MS, left-sided weakness History of Present Illness History of Present Illness Patient at baseline weakness given history of MS VSS Ordered labs this AM Will consult cardiology, check enzymes, serial EKG Vitals Vitals Vital Signs Date Time Temp Pulse Resp B/P (MAP) Pulse Ox O2 Delivery O2 Flow Rate FiO2 06/30/17 09:28 64 99/53 06/30/17 07:44 98.1 16 98 Room Air 98.1 Physical Exam General: Alert Heart: Regular rate, Normal S1, Normal S2 Lungs: Clear, Other Abdomen: Normal bowel sounds Extremities: No clubbing, No cyanosis Review of Systems Review of Systems Denies abdominal pain Denies dyspnea or dysphagia Reports her legs hurt b/l Assessment and Plan Assessmemt and Plan Assessment Chest pain MS, left-sided weakness Plan Consult cardiology Cardiac monitoring, serial EKG Recheck labs PT/OT Problems: Comment Review of Relevant I have reviewed the following items rayne (where applicable) has been applied. Medications Current Medications Aspirin (Ecotrin) 325 mg DAILYWBKFT PO Last administered on 06/30/17 09:26; Start 06/29/17 at 20:00 Clonazepam (KlonoPIN) 0.5 mg PRN DAILY PRN PO ANXIETY Last administered on 22:42; Start 06/29/17 at 18:45 Gabapentin (Neurontin) 100 mg TID PO Last administered on 06/30/17 09:26; Start 06/29/17 at 21:00 Metoprolol Succinate (Toprol Xl) 25 mg DAILY PO ; Start 06/29/17 at 20:00 Tramadol HCl (Ultram) 50 mg PRN Q6HRS PRN PO PAIN MILD TO MOD Last administered on 06/29/17 22:42; Start 06/29/17 at 18:45 Albuterol Sulfate (Ventolin Neb Soln) 2.5 mg PRN Q6HRS PRN NEB SOA Last administered on 06/29/17 21:01; Start 06/29/17 at 19:00 Mirtazapine (Remeron) 30 mg QHS PO Last administered on 06/29/17 20:22; Start 06/29/17 at 21:00 Topiramate (Topamax) 50 mg BID PO Last administered on 12/23/17at 09:26; Start 06/29/17 at 21:00 Non-Formulary Medication 20 mg DAILY PO ; Start 06/30/17 at 09:00; Status UNV Active Scripts Active Gabapentin 100 Mg Capsule 100 Mg PO TID Aspirin Ec (Aspirin) 325 Mg Tablet.dr 325 Mg PO DAILYWBKFT 30 Days Topiramate 50 Mg Tablet 1 Tab PO BID Reported Trintellix (Vortioxetine) 20 Mg Tablet 20 Mg PO DAILY Proair Hfa Inhaler (Albuterol Sulfate) 8.5 Gm Hfa.aer.ad 1 Puff INH PRN Q6HRS PRN Tramadol Hcl 50 Mg Tablet 1 Tab PO PRN Q6HRS Clonazepam 0.5 Mg Tablet 1 Tab PO DAILY PRN Mirtazapine 30 Mg Tablet 1 Tab PO QHS Metoprolol Succinate ( Xl ) (Metoprolol Succinate) 25 Mg Tab.er.24h 1 Tab PO DAILY Vitals/I & O Vital Sign - Last 24 Hours 06/29/17 06/29/17 06/29/17 06/29/17 17:13 19:43 20:00 20:23 Temp 98.2 98.6 98.2 98.6 Pulse 83 97 97 Resp 15 16 B/P (MAP) 110/62 (78) 99/70 (80) 99/70 Pulse Ox 99 98 O2 Delivery Room Air Room Air Room Air 06/29/17 06/29/17 06/29/17 06/30/17 21:06 22:42 23:59 00:00 Temp 98.7 98.7 Pulse 94 Resp 16 B/P (MAP) 106/57 (73) Pulse Ox 98 97 O2 Delivery Room Air Room Air Room Air Room Air 06/30/17 06/30/17 06/30/17 03:41 07:44 09:28 Temp 97.8 98.1 97.8 98.1 Pulse 79 64 64 Resp 16 16 B/P (MAP) 99/53 (68) 99/53 (68) 99/53 Pulse Ox 100 98 O2 Delivery Room Air Room Air Intake and Output 06/29/17 06/29/17 06/30/17 15:00 23:00 07:00 Intake Total 320 ml 0 ml Balance 320 ml 0 ml SHARMILA TSE III DO Jun 30, 2017 10:16
--- NOTE | 2017-06-30 13:00 | PDOC2 ---
CONSULT Date of Consult Date of Consult DATE: 06/30/17 TIME: 13:00 Reason for Consult Reason for Consult: Chest pain Referring Physician Referring Physician: Dr. Clarke Identification/Chief Complaint Chief Complaint Chest pain Problems: Source Source: Chart review, Patient History of Present Illness Reason for Visit: 41-year-old female presented with retrosternal chest pain that she described as sharp in nature radiating to left shoulder that has been continuous since yesterday. She denied any exertional component. She also denied any orthopnea/ PND, palpitations or syncope. Past Medical History Cardiovascular: HTN CENTRAL NERVOUS SYSTEM: CVA, Other Psych: Anxiety, Bipolar, Depression, Panic, Other (multiple sclerosis) Past Surgical History Past Surgical History: Cholecystectomy, Family History Family History: No Significant, Other Social History ALCOHOL: none Drugs: None Current Medications Current Medications Current Medications Aspirin (Ecotrin) 325 mg DAILYWBKFT PO Last administered on 06/30/17 09:26; Start 06/29/17 at 20:00 Clonazepam (KlonoPIN) 0.5 mg PRN DAILY PRN PO ANXIETY Last administered on 22:42; Start 06/29/17 at 18:45 Gabapentin (Neurontin) 100 mg TID PO Last administered on 06/30/17 09:26; Start 06/29/17 at 21:00 Metoprolol Succinate (Toprol Xl) 25 mg DAILY PO ; Start 06/29/17 at 20:00 Tramadol HCl (Ultram) 50 mg PRN Q6HRS PRN PO PAIN MILD TO MOD Last administered on 06/29/17 22:42; Start 06/29/17 at 18:45 Albuterol Sulfate (Ventolin Neb Soln) 2.5 mg PRN Q6HRS PRN NEB SOA Last administered on 06/29/17 21:01; Start 06/29/17 at 19:00 Mirtazapine (Remeron) 30 mg QHS PO Last administered on 06/29/17 20:22; Start 06/29/17 at 21:00 Topiramate (Topamax) 50 mg BID PO Last administered on 06/30/17 09:26; Start 06/29/17 at 21:00 Non-Formulary Medication 20 mg DAILY PO ; Start 06/30/17 at 09:00; Status UNV Active Scripts Active Gabapentin 100 Mg Capsule 100 Mg PO TID Aspirin Ec (Aspirin) 325 Mg Tablet. 325 Mg PO DAILYWBKFT 30 Days Topiramate 50 Mg Tablet 1 Tab PO BID Reported Trintellix (Vortioxetine) 20 Mg Tablet 20 Mg PO DAILY Proair Hfa Inhaler (Albuterol Sulfate) 8.5 Gm Hfa.aer.ad 1 Puff INH PRN Q6HRS PRN Tramadol Hcl 50 Mg Tablet 1 Tab PO PRN Q6HRS Clonazepam 0.5 Mg Tablet 1 Tab PO DAILY PRN Mirtazapine 30 Mg Tablet 1 Tab PO QHS Metoprolol Succinate ( Xl ) (Metoprolol Succinate) 25 Mg Tab.er.24h 1 Tab PO DAILY Allergies Allergies: Coded Allergies: Sulfa (Sulfonamide Antibiotics) (Verified Allergy, Intermediate, 05/28/17) ROS PSYCHOLOGICAL ROS: No: Hallucinations HEENT: No: Epistaxis Hematological and Lymphatic: YES: Blood Clots Respiratory: No: Hemoptysis Cardiovascular: yes Chest Pain Gastrointestinal: No Vomiting, No Diarrhea Genitourinary: No Hematuria Neurological: No Seizures Skin: No Rash Physical Exam General: Alert, No acute distress HEENT: Atraumatic, PERRLA Lungs: Clear to auscultation Heart: Regular rate Abdomen: Soft, No tenderness Extremities: No edema Psych/Mental Status: Mood NL Vitals VITALS Vital Signs Date Time Temp Pulse Resp B/P (MAP) Pulse Ox O2 Delivery O2 Flow Rate FiO2 06/30/17 11:00 97.9 89 20 130/78 (95) 99 Room Air 97.9 Assessment/Plan Assessment/Plan 1. Chest pain with atypical features, reproducible to palpation and most probably musculoskeletal. Monitor serial cardiac enzymes. Check 2-D echo to assess LV function and rule out wall motion abnormalities - could be done as an outpatient if discharged. 2. Hypertension: Controlled 3. Multiple sclerosis, bipolar disorder/depression: Treated per IM Thank you for your consultation AUSTIN ROMO MD Jun 30, 2017 13:00
[2017-06-30 18:26] LABS: CKMB MASS < 0.5 ng/mL (0.0-3.6); CREATINE KINASE 19 U/L (26-192)
[2017-06-30] MEDS: MIRTAZAPINE 15 MG TABLET PO SCH (21:11)
[2017-06-30] MEDS: traMADol 50 MG TABLET PO PRN (21:11)
[2017-06-30] MEDS: clonazePAM 0.5 MG TABLET PO PRN (21:12)
[2017-07-01 03:24] VITALS: BP 94/38
[2017-07-01 06:01] LABS: CALCIUM 8.6 mg/dL (8.5-10.1); CREATININE 0.8 mg/dL (0.6-1.0); GFR 78.7; POTASSIUM 3.3 mmol/L (3.5-5.1)
[2017-07-01 06:46] LABS: BASO % 1 % (0-3); EOS % 0 % (0-3); HEMATOCRIT 35.8 % (36.0-47.0); HEMOGLOBIN 10.7 g/dL (12.0-15.5); LYMPH # 2.9 x10^3/uL (1.0-4.8); LYMPH % 34 % (24-48); MEAN CORPUSCULAR HEMOGLOBIN 24 pg (25-35); MEAN CORPUSCULAR HGB CONC 30 g/dL (31-37); MEAN CORPUSCULAR VOLUME 79 fL (79-100); MONO % 7 % (0-9); NEUT % 58 % (31-73); PLATELET COUNT 203 x10^3/uL (140-400); RED BLOOD COUNT 4.51 x10^6/uL (3.50-5.40); RED CELL DISTRIBUTION WIDTH 21.3 % (11.5-14.5); WHITE BLOOD COUNT 8.5 x10^3/uL (4.0-11.0)
[2017-07-01 07:00] VITALS: BP 109/61
[2017-07-01 09:14] LABS: ANISOCYTOSIS MOD; HYPOCHROMIA SLIGHT; OVALOCYTES PRESENT; PLT ESTIMATE ADEQUATE (ADEQUATE); POIKILOCYTOSIS PRESENT
[2017-07-01] MEDS: TOPIRAMATE 25 MG TABLET. PO SCH ×2 (09:45→21:15)
[2017-07-01] MEDS: ASPIRIN ENTERIC COATED 325 MG TABLET.DR. PO SCH (09:45)
[2017-07-01] MEDS: GABAPENTIN 100 MG CAPSULE. PO SCH ×3 (09:45→21:15)
[2017-07-01 11:00] VITALS: BP 102/46
--- NOTE | 2017-07-01 12:29 | PDOC ---
PROGRESS NOTES Chief Complaint Chief Complaint Chest pain MS, left-sided weakness History of Present Illness History of Present Illness Patient at baseline weakness given history of MS VSS Ordered labs this AM Cardiology monitoring serial cardiac enzymes and wanting to do a echo Vitals Vitals Vital Signs Date Time Temp Pulse Resp B/P (MAP) Pulse Ox O2 Delivery O2 Flow Rate FiO2 07/01/17 11:00 98.0 91 18 102/46 (64) 100 Room Air 98.0 Physical Exam General: Alert, Oriented X3, Cooperative, No acute distress Heart: Regular rate, Normal S2 Lungs: Clear, Other Abdomen: Soft, No tenderness Extremities: No edema Labs LABS Laboratory Tests Test 06/30/17 17:30 07/01/17 05:30 07/01/17 06:00 Creatine Kinase 19 U/L (26-192) Creatine Kinase MB (Mass) < 0.5 ng/mL (0.0-3.6) Creatine Kinase MB Relative Index % (0-4) Troponin I Quantitative < 0.017 ng/mL (0.000-0.055) Sodium Level 146 mmol/L (136-145) Potassium Level 3.3 mmol/L (3.5-5.1) Chloride Level 110 mmol/L (98-107) Carbon Dioxide Level 24 mmol/L (21-32) Anion Gap 12 (6-14) Blood Urea Nitrogen 19 mg/dL (7-20) Creatinine 0.8 mg/dL (0.6-1.0) Estimated GFR (Cockcroft-Gault) 78.7 Glucose Level 46 mg/dL (70-99) Calcium Level 8.6 mg/dL (8.5-10.1) White Blood Count 8.5 x10^3/uL (4.0-11.0) Red Blood Count 4.51 x10^6/uL (3.50-5.40) Hemoglobin 10.7 g/dL (12.0-15.5) Hematocrit 35.8 % (36.0-47.0) Mean Corpuscular Volume 79 fL (79-100) Mean Corpuscular Hemoglobin 24 pg (25-35) Mean Corpuscular Hemoglobin Concent 30 g/dL (31-37) Red Cell Distribution Width 21.3 % (11.5-14.5) Platelet Count 203 x10^3/uL (140-400) Neutrophils (%) (Auto) 58 % (31-73) Lymphocytes (%) (Auto) 34 % (24-48) Monocytes (%) (Auto) 7 % (0-9) Eosinophils (%) (Auto) 0 % (0-3) Basophils (%) (Auto) 1 % (0-3) Neutrophils # (Auto) 4.9 x10^3uL (1.8-7.7) Lymphocytes # (Auto) 2.9 x10^3/uL (1.0-4.8) Monocytes # (Auto) 0.6 x10^3/uL (0.0-1.1) Eosinophils # (Auto) 0.0 x10^3/uL (0.0-0.7) Basophils # (Auto) 0.0 x10^3/uL (0.0-0.2) Platelet Estimate Adequate (ADEQUATE) Large Platelets Present Hypochromasia Slight Poikilocytosis Present Anisocytosis Mod Ovalocytes Present Review of Systems Review of Systems Denies dyspnea or SOA Denies abdominal pain Assessment and Plan Assessmemt and Plan Assessment Chest pain MS, left-sided weakness Plan Hypoglycemia - following protocol PT/OT Recheck labs Appreciate subspecialty Cardiac enzymes Problems: Comment Review of Relevant I have reviewed the following items rayne (where applicable) has been applied. Labs Laboratory Tests Test 06/30/17 17:30 07/01/17 05:30 07/01/17 06:00 Creatine Kinase 19 U/L (26-192) Creatine Kinase MB (Mass) < 0.5 ng/mL (0.0-3.6) Creatine Kinase MB Relative Index % (0-4) Troponin I Quantitative < 0.017 ng/mL (0.000-0.055) Sodium Level 146 mmol/L (136-145) Potassium Level 3.3 mmol/L (3.5-5.1) Chloride Level 110 mmol/L (98-107) Carbon Dioxide Level 24 mmol/L (21-32) Anion Gap 12 (6-14) Blood Urea Nitrogen 19 mg/dL (7-20) Creatinine 0.8 mg/dL (0.6-1.0) Estimated GFR (Cockcroft-Gault) 78.7 Glucose Level 46 mg/dL (70-99) Calcium Level 8.6 mg/dL (8.5-10.1) White Blood Count 8.5 x10^3/uL (4.0-11.0) Red Blood Count 4.51 x10^6/uL (3.50-5.40) Hemoglobin 10.7 g/dL (12.0-15.5) Hematocrit 35.8 % (36.0-47.0) Mean Corpuscular Volume 79 fL (79-100) Mean Corpuscular Hemoglobin 24 pg (25-35) Mean Corpuscular Hemoglobin Concent 30 g/dL (31-37) Red Cell Distribution Width 21.3 % (11.5-14.5) Platelet Count 203 x10^3/uL (140-400) Neutrophils (%) (Auto) 58 % (31-73) Lymphocytes (%) (Auto) 34 % (24-48) Monocytes (%) (Auto) 7 % (0-9) Eosinophils (%) (Auto) 0 % (0-3) Basophils (%) (Auto) 1 % (0-3) Neutrophils # (Auto) 4.9 x10^3uL (1.8-7.7) Lymphocytes # (Auto) 2.9 x10^3/uL (1.0-4.8) Monocytes # (Auto) 0.6 x10^3/uL (0.0-1.1) Eosinophils # (Auto) 0.0 x10^3/uL (0.0-0.7) Basophils # (Auto) 0.0 x10^3/uL (0.0-0.2) Platelet Estimate Adequate (ADEQUATE) Large Platelets Present Hypochromasia Slight Poikilocytosis Present Anisocytosis Mod Ovalocytes Present Laboratory Tests Test 06/30/17 17:30 07/01/17 05:30 07/01/17 06:00 Creatine Kinase 19 U/L (26-192) Creatine Kinase MB (Mass) < 0.5 ng/mL (0.0-3.6) Creatine Kinase MB Relative Index % (0-4) Troponin I Quantitative < 0.017 ng/mL (0.000-0.055) Sodium Level 146 mmol/L (136-145) Potassium Level 3.3 mmol/L (3.5-5.1) Chloride Level 110 mmol/L (98-107) Carbon Dioxide Level 24 mmol/L (21-32) Anion Gap 12 (6-14) Blood Urea Nitrogen 19 mg/dL (7-20) Creatinine 0.8 mg/dL (0.6-1.0) Estimated GFR (Cockcroft-Gault) 78.7 Glucose Level 46 mg/dL (70-99) Calcium Level 8.6 mg/dL (8.5-10.1) White Blood Count 8.5 x10^3/uL (4.0-11.0) Red Blood Count 4.51 x10^6/uL (3.50-5.40) Hemoglobin 10.7 g/dL (12.0-15.5) Hematocrit 35.8 % (36.0-47.0) Mean Corpuscular Volume 79 fL (79-100) Mean Corpuscular Hemoglobin 24 pg (25-35) Mean Corpuscular Hemoglobin Concent 30 g/dL (31-37) Red Cell Distribution Width 21.3 % (11.5-14.5) Platelet Count 203 x10^3/uL (140-400) Neutrophils (%) (Auto) 58 % (31-73) Lymphocytes (%) (Auto) 34 % (24-48) Monocytes (%) (Auto) 7 % (0-9) Eosinophils (%) (Auto) 0 % (0-3) Basophils (%) (Auto) 1 % (0-3) Neutrophils # (Auto) 4.9 x10^3uL (1.8-7.7) Lymphocytes # (Auto) 2.9 x10^3/uL (1.0-4.8) Monocytes # (Auto) 0.6 x10^3/uL (0.0-1.1) Eosinophils # (Auto) 0.0 x10^3/uL (0.0-0.7) Basophils # (Auto) 0.0 x10^3/uL (0.0-0.2) Platelet Estimate Adequate (ADEQUATE) Large Platelets Present Hypochromasia Slight Poikilocytosis Present Anisocytosis Mod Ovalocytes Present Medications Current Medications Aspirin (Ecotrin) 325 mg DAILYWBKFT PO Last administered on 07/01/17 09:45; Start 06/29/17 at 20:00 Clonazepam (KlonoPIN) 0.5 mg PRN DAILY PRN PO ANXIETY Last administered on 21:12; Start 06/29/17 at 18:45 Gabapentin (Neurontin) 100 mg TID PO Last administered on 07/01/17 09:45; Start 06/29/17 at 21:00 Metoprolol Succinate (Toprol Xl) 25 mg DAILY PO ; Start 06/29/17 at 20:00 Tramadol HCl (Ultram) 50 mg PRN Q6HRS PRN PO PAIN MILD TO MOD Last administered on 06/30/17 21:11; Start 06/29/17 at 18:45 Albuterol Sulfate (Ventolin Neb Soln) 2.5 mg PRN Q6HRS PRN NEB SOA Last administered on 06/29/17 21:01; Start 06/29/17 at 19:00 Mirtazapine (Remeron) 30 mg QHS PO Last administered on 06/30/17 21:11; Start 06/29/17 at 21:00 Topiramate (Topamax) 50 mg BID PO Last administered on 07/01/17 09:45; Start 06/29/17 at 21:00 Non-Formulary Medication 20 mg DAILY PO ; Start 06/30/17 at 09:00; Status UNV Active Scripts Active Gabapentin 100 Mg Capsule 100 Mg PO TID Aspirin Ec (Aspirin) 325 Mg Tablet.dr 325 Mg PO DAILYWBKFT 30 Days Topiramate 50 Mg Tablet 1 Tab PO BID Reported Trintellix (Vortioxetine) 20 Mg Tablet 20 Mg PO DAILY Proair Hfa Inhaler (Albuterol Sulfate) 8.5 Gm Hfa.aer.ad 1 Puff INH PRN Q6HRS PRN Tramadol Hcl 50 Mg Tablet 1 Tab PO PRN Q6HRS Clonazepam 0.5 Mg Tablet 1 Tab PO DAILY PRN Mirtazapine 30 Mg Tablet 1 Tab PO QHS Metoprolol Succinate ( Xl ) (Metoprolol Succinate) 25 Mg Tab.er.24h 1 Tab PO DAILY Vitals/I & O Vital Sign - Last 24 Hours 06/30/17 06/30/17 06/30/17 06/30/17 15:00 17:56 19:00 20:00 Temp 97.5 97.6 97.5 97.6 Pulse 82 78 Resp 20 22 B/P (MAP) 111/61 (78) 125/88 (100) Pulse Ox 98 97 O2 Delivery Room Air Room Air Room Air Room Air 06/30/17 06/30/17 06/30/17 06/30/17 20:05 21:11 22:11 23:08 Temp 97.7 98.4 97.7 98.4 Pulse 81 81 Resp 20 20 B/P (MAP) 106/54 (71) 98/43 (61) Pulse Ox 100 98 O2 Delivery Room Air Room Air Room Air Room Air 07/01/17 07/01/17 07/01/17 07/01/17 03:24 07:00 08:00 11:00 Temp 98.4 98.2 98.0 98.4 98.2 98.0 Pulse 82 72 91 Resp 20 18 18 B/P (MAP) 94/38 (56) 109/61 (77) 102/46 (64) Pulse Ox 98 100 100 O2 Delivery Room Air Room Air Room Air Room Air Intake and Output 06/30/17 06/30/17 07/01/17 15:00 23:00 07:00 Intake Total 1020 ml 1230 ml 360 ml Output Total 600 ml 600 ml Balance 420 ml 630 ml 360 ml SHARMILA TSE III DO Jul 01, 2017 12:29
[2017-07-01 15:00] VITALS: BP 107/57
[2017-07-01 19:16] VITALS: BP 106/46
[2017-07-01] MEDS: MIRTAZAPINE 15 MG TABLET PO SCH (21:15)
[2017-07-01 23:32] VITALS: BP 107/49
[2017-07-02 03:00] VITALS: BP 97/35
[2017-07-02 05:47] LABS: BASO % 1 % (0-3); EOS % 0 % (0-3); HEMATOCRIT 30.3 % (36.0-47.0); HEMOGLOBIN 9.5 g/dL (12.0-15.5); LYMPH # 2.9 x10^3/uL (1.0-4.8); LYMPH % 57 % (24-48); MEAN CORPUSCULAR HEMOGLOBIN 24 pg (25-35); MEAN CORPUSCULAR HGB CONC 31 g/dL (31-37); MEAN CORPUSCULAR VOLUME 78 fL (79-100); MONO % 8 % (0-9); NEUT % 35 % (31-73); PLATELET COUNT 154 x10^3/uL (140-400); RED BLOOD COUNT 3.89 x10^6/uL (3.50-5.40); RED CELL DISTRIBUTION WIDTH 21.2 % (11.5-14.5); WHITE BLOOD COUNT 5.1 x10^3/uL (4.0-11.0)
[2017-07-02 06:07] LABS: CALCIUM 8.2 mg/dL (8.5-10.1); CREATININE 0.8 mg/dL (0.6-1.0); GFR 78.7; POTASSIUM 3.5 mmol/L (3.5-5.1)
[2017-07-02 07:00] VITALS: BP 102/43
[2017-07-02] MEDS: traMADol 50 MG TABLET PO PRN ×2 (07:49→21:05)
[2017-07-02] MEDS: GABAPENTIN 100 MG CAPSULE. PO SCH ×3 (09:25→21:05)
[2017-07-02] MEDS: TOPIRAMATE 25 MG TABLET. PO SCH ×2 (09:25→21:05)
[2017-07-02] MEDS: ASPIRIN ENTERIC COATED 325 MG TABLET.DR. PO SCH (09:25)
[2017-07-02] MEDS: METOPROLOL SUCC 24HR ER 25 MG TAB.ER.24H. PO SCH (09:30)
--- NOTE | 2017-07-02 10:17 | PDOC ---
PROGRESS NOTES Chief Complaint Chief Complaint Chest pain MS, left-sided weakness History of Present Illness History of Present Illness Patient at baseline weakness given history of MS VSS Patient complains of pain in her entire left leg, but admits this is something she deals with chronically Cardiology monitoring serial cardiac enzymes and wanting to do a echo BP low, but patient says she normally runs low Vitals Vitals Vital Signs Date Time Temp Pulse Resp B/P (MAP) Pulse Ox O2 Delivery O2 Flow Rate FiO2 07/02/17 09:30 100 Room Air 07/02/17 09:30 78 102/43 07/02/17 07:00 98.1 18 98.1 Physical Exam General: Alert, Oriented X3, Cooperative, No acute distress Heart: Regular rate, Normal S2 Lungs: Clear, Other Abdomen: Soft, No tenderness Extremities: No edema Labs LABS Laboratory Tests Test 07/02/17 04:25 White Blood Count 5.1 x10^3/uL (4.0-11.0) Red Blood Count 3.89 x10^6/uL (3.50-5.40) Hemoglobin 9.5 g/dL (12.0-15.5) Hematocrit 30.3 % (36.0-47.0) Mean Corpuscular Volume 78 fL (79-100) Mean Corpuscular Hemoglobin 24 pg (25-35) Mean Corpuscular Hemoglobin Concent 31 g/dL (31-37) Red Cell Distribution Width 21.2 % (11.5-14.5) Platelet Count 154 x10^3/uL (140-400) Neutrophils (%) (Auto) 35 % (31-73) Lymphocytes (%) (Auto) 57 % (24-48) Monocytes (%) (Auto) 8 % (0-9) Eosinophils (%) (Auto) 0 % (0-3) Basophils (%) (Auto) 1 % (0-3) Neutrophils # (Auto) 1.8 x10^3uL (1.8-7.7) Lymphocytes # (Auto) 2.9 x10^3/uL (1.0-4.8) Monocytes # (Auto) 0.4 x10^3/uL (0.0-1.1) Eosinophils # (Auto) 0.0 x10^3/uL (0.0-0.7) Basophils # (Auto) 0.0 x10^3/uL (0.0-0.2) Sodium Level 144 mmol/L (136-145) Potassium Level 3.5 mmol/L (3.5-5.1) Chloride Level 110 mmol/L (98-107) Carbon Dioxide Level 25 mmol/L (21-32) Anion Gap 9 (6-14) Blood Urea Nitrogen 12 mg/dL (7-20) Creatinine 0.8 mg/dL (0.6-1.0) Estimated GFR (Cockcroft-Gault) 78.7 Glucose Level 85 mg/dL (70-99) Calcium Level 8.2 mg/dL (8.5-10.1) Review of Systems Review of Systems Denies dyspnea or SOA Denies abdominal pain Assessment and Plan Assessmemt and Plan Assessment Chest pain MS, left-sided weakness Plan Continue pain meds Continue home meds PT/OT Recheck labs Appreciate subspecialty Continue to monitor BP Problems: Comment Review of Relevant I have reviewed the following items rayne (where applicable) has been applied. Labs Laboratory Tests Test 06/30/17 17:30 07/01/17 05:30 07/01/17 06:00 07/02/17 04:25 Creatine Kinase 19 U/L (26-192) Creatine Kinase MB (Mass) < 0.5 ng/mL (0.0-3.6) Creatine Kinase MB Relative Index % (0-4) Troponin I Quantitative < 0.017 ng/mL (0.000-0.055) Sodium Level 146 mmol/L (136-145) 144 mmol/L (136-145) Potassium Level 3.3 mmol/L (3.5-5.1) 3.5 mmol/L (3.5-5.1) Chloride Level 110 mmol/L (98-107) 110 mmol/L (98-107) Carbon Dioxide Level 24 mmol/L (21-32) 25 mmol/L (21-32) Anion Gap 12 (6-14) 9 (6-14) Blood Urea Nitrogen 19 mg/dL (7-20) 12 mg/dL (7-20) Creatinine 0.8 mg/dL (0.6-1.0) 0.8 mg/dL (0.6-1.0) Estimated GFR (Cockcroft-Gault) 78.7 78.7 Glucose Level 46 mg/dL (70-99) 85 mg/dL (70-99) Calcium Level 8.6 mg/dL (8.5-10.1) 8.2 mg/dL (8.5-10.1) White Blood Count 8.5 x10^3/uL (4.0-11.0) 5.1 x10^3/uL (4.0-11.0) Red Blood Count 4.51 x10^6/uL (3.50-5.40) 3.89 x10^6/uL (3.50-5.40) Hemoglobin 10.7 g/dL (12.0-15.5) 9.5 g/dL (12.0-15.5) Hematocrit 35.8 % (36.0-47.0) 30.3 % (36.0-47.0) Mean Corpuscular Volume 79 fL (79-100) 78 fL (79-100) Mean Corpuscular Hemoglobin 24 pg (25-35) 24 pg (25-35) Mean Corpuscular Hemoglobin Concent 30 g/dL (31-37) 31 g/dL (31-37) Red Cell Distribution Width 21.3 % (11.5-14.5) 21.2 % (11.5-14.5) Platelet Count 203 x10^3/uL (140-400) 154 x10^3/uL (140-400) Neutrophils (%) (Auto) 58 % (31-73) 35 % (31-73) Lymphocytes (%) (Auto) 34 % (24-48) 57 % (24-48) Monocytes (%) (Auto) 7 % (0-9) 8 % (0-9) Eosinophils (%) (Auto) 0 % (0-3) 0 % (0-3) Basophils (%) (Auto) 1 % (0-3) 1 % (0-3) Neutrophils # (Auto) 4.9 x10^3uL (1.8-7.7) 1.8 x10^3uL (1.8-7.7) Lymphocytes # (Auto) 2.9 x10^3/uL (1.0-4.8) 2.9 x10^3/uL (1.0-4.8) Monocytes # (Auto) 0.6 x10^3/uL (0.0-1.1) 0.4 x10^3/uL (0.0-1.1) Eosinophils # (Auto) 0.0 x10^3/uL (0.0-0.7) 0.0 x10^3/uL (0.0-0.7) Basophils # (Auto) 0.0 x10^3/uL (0.0-0.2) 0.0 x10^3/uL (0.0-0.2) Platelet Estimate Adequate (ADEQUATE) Large Platelets Present Hypochromasia Slight Poikilocytosis Present Anisocytosis Mod Ovalocytes Present Laboratory Tests Test 07/02/17 04:25 White Blood Count 5.1 x10^3/uL (4.0-11.0) Red Blood Count 3.89 x10^6/uL (3.50-5.40) Hemoglobin 9.5 g/dL (12.0-15.5) Hematocrit 30.3 % (36.0-47.0) Mean Corpuscular Volume 78 fL (79-100) Mean Corpuscular Hemoglobin 24 pg (25-35) Mean Corpuscular Hemoglobin Concent 31 g/dL (31-37) Red Cell Distribution Width 21.2 % (11.5-14.5) Platelet Count 154 x10^3/uL (140-400) Neutrophils (%) (Auto) 35 % (31-73) Lymphocytes (%) (Auto) 57 % (24-48) Monocytes (%) (Auto) 8 % (0-9) Eosinophils (%) (Auto) 0 % (0-3) Basophils (%) (Auto) 1 % (0-3) Neutrophils # (Auto) 1.8 x10^3uL (1.8-7.7) Lymphocytes # (Auto) 2.9 x10^3/uL (1.0-4.8) Monocytes # (Auto) 0.4 x10^3/uL (0.0-1.1) Eosinophils # (Auto) 0.0 x10^3/uL (0.0-0.7) Basophils # (Auto) 0.0 x10^3/uL (0.0-0.2) Sodium Level 144 mmol/L (136-145) Potassium Level 3.5 mmol/L (3.5-5.1) Chloride Level 110 mmol/L (98-107) Carbon Dioxide Level 25 mmol/L (21-32) Anion Gap 9 (6-14) Blood Urea Nitrogen 12 mg/dL (7-20) Creatinine 0.8 mg/dL (0.6-1.0) Estimated GFR (Cockcroft-Gault) 78.7 Glucose Level 85 mg/dL (70-99) Calcium Level 8.2 mg/dL (8.5-10.1) Medications Current Medications Aspirin (Ecotrin) 325 mg DAILYWBKFT PO Last administered on 07/02/17 09:25; Start 06/29/17 at 20:00 Clonazepam (KlonoPIN) 0.5 mg PRN DAILY PRN PO ANXIETY Last administered on 21:12; Start 06/29/17 at 18:45 Gabapentin (Neurontin) 100 mg TID PO Last administered on 07/02/17 09:25; Start 06/29/17 at 21:00 Metoprolol Succinate (Toprol Xl) 25 mg DAILY PO Last administered on 09:30; Start 06/29/17 at 20:00 Tramadol HCl (Ultram) 50 mg PRN Q6HRS PRN PO PAIN MILD TO MOD Last administered on 07/02/17 07:49; Start 06/29/17 at 18:45 Albuterol Sulfate (Ventolin Neb Soln) 2.5 mg PRN Q6HRS PRN NEB SOA Last administered on 06/29/17 21:01; Start 06/29/17 at 19:00 Mirtazapine (Remeron) 30 mg QHS PO Last administered on 07/01/17 21:15; Start 06/29/17 at 21:00 Topiramate (Topamax) 50 mg BID PO Last administered on 07/02/17 09:25; Start 06/29/17 at 21:00 Non-Formulary Medication 20 mg DAILY PO ; Start 06/30/17 at 09:00; Status UNV Active Scripts Active Gabapentin 100 Mg Capsule 100 Mg PO TID Aspirin Ec (Aspirin) 325 Mg Tablet.dr 325 Mg PO DAILYWBKFT 30 Days Topiramate 50 Mg Tablet 1 Tab PO BID Reported Trintellix (Vortioxetine) 20 Mg Tablet 20 Mg PO DAILY Proair Hfa Inhaler (Albuterol Sulfate) 8.5 Gm Hfa.aer.ad 1 Puff INH PRN Q6HRS PRN Tramadol Hcl 50 Mg Tablet 1 Tab PO PRN Q6HRS Clonazepam 0.5 Mg Tablet 1 Tab PO DAILY PRN Mirtazapine 30 Mg Tablet 1 Tab PO QHS Metoprolol Succinate ( Xl ) (Metoprolol Succinate) 25 Mg Tab.er.24h 1 Tab PO DAILY Vitals/I & O Vital Sign - Last 24 Hours 07/01/17 07/01/17 07/01/17 07/01/17 11:00 15:00 19:16 20:00 Temp 98.0 98.6 98.1 98.0 98.6 98.1 Pulse 91 91 83 Resp 18 18 18 B/P (MAP) 102/46 (64) 107/57 (74) 106/46 (66) Pulse Ox 100 98 100 O2 Delivery Room Air Room Air Room Air Room Air 07/01/17 07/02/17 07/02/17 07/02/17 23:32 03:00 07:00 07:49 Temp 98.4 98.1 98.1 98.4 98.1 98.1 Pulse 80 68 78 Resp 18 B/P (MAP) 107/49 (68) 97/35 (55) 102/43 (62) Pulse Ox 99 100 100 100 O2 Delivery Room Air Room Air Room Air Room Air 07/02/17 07/02/17 07/02/17 08:00 09:30 09:30 Pulse 78 B/P (MAP) 102/43 Pulse Ox 100 O2 Delivery Room Air Room Air Intake and Output 07/01/17 07/01/17 07/02/17 15:00 23:00 07:00 Intake Total 400 ml 400 ml Output Total 650 ml 1000 ml Balance -250 ml -600 ml SHARMILA TSE III DO Jul 02, 2017 10:17
[2017-07-02 11:00] VITALS: BP 122/53
[2017-07-02 14:28] VITALS: BP 103/43
[2017-07-02 19:00] VITALS: BP 105/35
[2017-07-02] MEDS: clonazePAM 0.5 MG TABLET PO PRN (21:04)
[2017-07-02] MEDS: MIRTAZAPINE 15 MG TABLET PO SCH (21:05)
[2017-07-02 23:59] VITALS: BP 96/38
[2017-07-03 03:00] VITALS: BP 97/60
[2017-07-03 05:39] LABS: BASO % 0 % (0-3); EOS % 0 % (0-3); HEMATOCRIT 32.2 % (36.0-47.0); HEMOGLOBIN 9.9 g/dL (12.0-15.5); LYMPH # 2.7 x10^3/uL (1.0-4.8); LYMPH % 50 % (24-48); MEAN CORPUSCULAR HEMOGLOBIN 24 pg (25-35); MEAN CORPUSCULAR HGB CONC 31 g/dL (31-37); MEAN CORPUSCULAR VOLUME 78 fL (79-100); MONO % 8 % (0-9); NEUT % 42 % (31-73); PLATELET COUNT 169 x10^3/uL (140-400); RED CELL DISTRIBUTION WIDTH 21.2 % (11.5-14.5); WHITE BLOOD COUNT 5.4 x10^3/uL (4.0-11.0)
[2017-07-03 06:02] LABS: CALCIUM 7.9 mg/dL (8.5-10.1); CREATININE 0.8 mg/dL (0.6-1.0); GFR 78.7; POTASSIUM 3.4 mmol/L (3.5-5.1)
[2017-07-03 07:15] VITALS: BP 100/51
[2017-07-03] MEDS: POLYETHYLENE GLYCOL 3350 17 GM PACKET. PO SCH (08:54)
[2017-07-03] MEDS: GABAPENTIN 100 MG CAPSULE. PO SCH ×3 (08:54→20:50)
[2017-07-03] MEDS: TOPIRAMATE 25 MG TABLET. PO SCH ×2 (08:54→20:50)
[2017-07-03] MEDS: METOPROLOL SUCC 24HR ER 25 MG TAB.ER.24H. PO SCH (08:54)
[2017-07-03] MEDS: ASPIRIN ENTERIC COATED 325 MG TABLET.DR. PO SCH (08:55)
[2017-07-03] MEDS: traMADol 50 MG TABLET PO PRN ×3 (08:55→20:59)
--- NOTE | 2017-07-03 10:31 | PDOC ---
PROGRESS NOTES Chief Complaint Chief Complaint Chest pain MS, left-sided weakness History of Present Illness History of Present Illness Patient at baseline weakness given history of MS VSS Cardiology monitoring serial cardiac enzymes and wanting to do a echo, possibly as outpatient BP low, but patient says she normally runs low DC disposition pending. Possibly SNF tomorrow Vitals Vitals Vital Signs Date Time Temp Pulse Resp B/P (MAP) Pulse Ox O2 Delivery O2 Flow Rate FiO2 07/03/17 09:58 100 Room Air 07/03/17 08:54 71 100/51 07/03/17 07:15 97.9 19 97.9 Physical Exam General: Alert, Oriented X3, Cooperative, No acute distress Heart: Regular rate, Normal S2 Lungs: Clear, Other Abdomen: Soft, No tenderness Extremities: No edema Labs LABS Laboratory Tests Test 07/03/17 04:20 White Blood Count 5.4 x10^3/uL (4.0-11.0) Red Blood Count 4.10 x10^6/uL (3.50-5.40) Hemoglobin 9.9 g/dL (12.0-15.5) Hematocrit 32.2 % (36.0-47.0) Mean Corpuscular Volume 78 fL (79-100) Mean Corpuscular Hemoglobin 24 pg (25-35) Mean Corpuscular Hemoglobin Concent 31 g/dL (31-37) Red Cell Distribution Width 21.2 % (11.5-14.5) Platelet Count 169 x10^3/uL (140-400) Neutrophils (%) (Auto) 42 % (31-73) Lymphocytes (%) (Auto) 50 % (24-48) Monocytes (%) (Auto) 8 % (0-9) Eosinophils (%) (Auto) 0 % (0-3) Basophils (%) (Auto) 0 % (0-3) Neutrophils # (Auto) 2.3 x10^3uL (1.8-7.7) Lymphocytes # (Auto) 2.7 x10^3/uL (1.0-4.8) Monocytes # (Auto) 0.4 x10^3/uL (0.0-1.1) Eosinophils # (Auto) 0.0 x10^3/uL (0.0-0.7) Basophils # (Auto) 0.0 x10^3/uL (0.0-0.2) Sodium Level 143 mmol/L (136-145) Potassium Level 3.4 mmol/L (3.5-5.1) Chloride Level 108 mmol/L (98-107) Carbon Dioxide Level 26 mmol/L (21-32) Anion Gap 9 (6-14) Blood Urea Nitrogen 15 mg/dL (7-20) Creatinine 0.8 mg/dL (0.6-1.0) Estimated GFR (Cockcroft-Gault) 78.7 Glucose Level 92 mg/dL (70-99) Calcium Level 7.9 mg/dL (8.5-10.1) Troponin I Quantitative < 0.017 ng/mL (0.000-0.055) Review of Systems Review of Systems Denies abdominal pain, N/V/D/C Denies dyspnea or SOA Assessment and Plan Assessmemt and Plan Assessment Chest pain MS, left-sided weakness Plan DC disposition pending. Possibly SNF tomorrow. Continue home meds Continue cardiac monitoring PT/OT Recheck labs Appreciate subspecialty Problems: Comment Review of Relevant I have reviewed the following items rayne (where applicable) has been applied. Labs Laboratory Tests Test 07/02/17 04:25 07/03/17 04:20 White Blood Count 5.1 x10^3/uL (4.0-11.0) 5.4 x10^3/uL (4.0-11.0) Red Blood Count 3.89 x10^6/uL (3.50-5.40) 4.10 x10^6/uL (3.50-5.40) Hemoglobin 9.5 g/dL (12.0-15.5) 9.9 g/dL (12.0-15.5) Hematocrit 30.3 % (36.0-47.0) 32.2 % (36.0-47.0) Mean Corpuscular Volume 78 fL (79-100) 78 fL (79-100) Mean Corpuscular Hemoglobin 24 pg (25-35) 24 pg (25-35) Mean Corpuscular Hemoglobin Concent 31 g/dL (31-37) 31 g/dL (31-37) Red Cell Distribution Width 21.2 % (11.5-14.5) 21.2 % (11.5-14.5) Platelet Count 154 x10^3/uL (140-400) 169 x10^3/uL (140-400) Neutrophils (%) (Auto) 35 % (31-73) 42 % (31-73) Lymphocytes (%) (Auto) 57 % (24-48) 50 % (24-48) Monocytes (%) (Auto) 8 % (0-9) 8 % (0-9) Eosinophils (%) (Auto) 0 % (0-3) 0 % (0-3) Basophils (%) (Auto) 1 % (0-3) 0 % (0-3) Neutrophils # (Auto) 1.8 x10^3uL (1.8-7.7) 2.3 x10^3uL (1.8-7.7) Lymphocytes # (Auto) 2.9 x10^3/uL (1.0-4.8) 2.7 x10^3/uL (1.0-4.8) Monocytes # (Auto) 0.4 x10^3/uL (0.0-1.1) 0.4 x10^3/uL (0.0-1.1) Eosinophils # (Auto) 0.0 x10^3/uL (0.0-0.7) 0.0 x10^3/uL (0.0-0.7) Basophils # (Auto) 0.0 x10^3/uL (0.0-0.2) 0.0 x10^3/uL (0.0-0.2) Sodium Level 144 mmol/L (136-145) 143 mmol/L (136-145) Potassium Level 3.5 mmol/L (3.5-5.1) 3.4 mmol/L (3.5-5.1) Chloride Level 110 mmol/L (98-107) 108 mmol/L (98-107) Carbon Dioxide Level 25 mmol/L (21-32) 26 mmol/L (21-32) Anion Gap 9 (6-14) 9 (6-14) Blood Urea Nitrogen 12 mg/dL (7-20) 15 mg/dL (7-20) Creatinine 0.8 mg/dL (0.6-1.0) 0.8 mg/dL (0.6-1.0) Estimated GFR (Cockcroft-Gault) 78.7 78.7 Glucose Level 85 mg/dL (70-99) 92 mg/dL (70-99) Calcium Level 8.2 mg/dL (8.5-10.1) 7.9 mg/dL (8.5-10.1) Troponin I Quantitative < 0.017 ng/mL (0.000-0.055) Laboratory Tests Test 07/03/17 04:20 White Blood Count 5.4 x10^3/uL (4.0-11.0) Red Blood Count 4.10 x10^6/uL (3.50-5.40) Hemoglobin 9.9 g/dL (12.0-15.5) Hematocrit 32.2 % (36.0-47.0) Mean Corpuscular Volume 78 fL (79-100) Mean Corpuscular Hemoglobin 24 pg (25-35) Mean Corpuscular Hemoglobin Concent 31 g/dL (31-37) Red Cell Distribution Width 21.2 % (11.5-14.5) Platelet Count 169 x10^3/uL (140-400) Neutrophils (%) (Auto) 42 % (31-73) Lymphocytes (%) (Auto) 50 % (24-48) Monocytes (%) (Auto) 8 % (0-9) Eosinophils (%) (Auto) 0 % (0-3) Basophils (%) (Auto) 0 % (0-3) Neutrophils # (Auto) 2.3 x10^3uL (1.8-7.7) Lymphocytes # (Auto) 2.7 x10^3/uL (1.0-4.8) Monocytes # (Auto) 0.4 x10^3/uL (0.0-1.1) Eosinophils # (Auto) 0.0 x10^3/uL (0.0-0.7) Basophils # (Auto) 0.0 x10^3/uL (0.0-0.2) Sodium Level 143 mmol/L (136-145) Potassium Level 3.4 mmol/L (3.5-5.1) Chloride Level 108 mmol/L (98-107) Carbon Dioxide Level 26 mmol/L (21-32) Anion Gap 9 (6-14) Blood Urea Nitrogen 15 mg/dL (7-20) Creatinine 0.8 mg/dL (0.6-1.0) Estimated GFR (Cockcroft-Gault) 78.7 Glucose Level 92 mg/dL (70-99) Calcium Level 7.9 mg/dL (8.5-10.1) Troponin I Quantitative < 0.017 ng/mL (0.000-0.055) Medications Current Medications Aspirin (Ecotrin) 325 mg DAILYWBKFT PO Last administered on 07/03/17 08:55; Start 06/29/17 at 20:00 Clonazepam (KlonoPIN) 0.5 mg PRN DAILY PRN PO ANXIETY Last administered on 21:04; Start 06/29/17 at 18:45 Gabapentin (Neurontin) 100 mg TID PO Last administered on 07/03/17 08:54; Start 06/29/17 at 21:00 Metoprolol Succinate (Toprol Xl) 25 mg DAILY PO Last administered on 08:54; Start 06/29/17 at 20:00 Tramadol HCl (Ultram) 50 mg PRN Q6HRS PRN PO PAIN MILD TO MOD Last administered on 07/03/17 08:55; Start 06/29/17 at 18:45 Albuterol Sulfate (Ventolin Neb Soln) 2.5 mg PRN Q6HRS PRN NEB SOA Last administered on 06/29/17 21:01; Start 06/29/17 at 19:00 Mirtazapine (Remeron) 30 mg QHS PO Last administered on 07/02/17 21:05; Start 06/29/17 at 21:00 Topiramate (Topamax) 50 mg BID PO Last administered on 07/03/17 08:54; Start 06/29/17 at 21:00 Non-Formulary Medication 20 mg DAILY PO ; Start 06/30/17 at 09:00; Status UNV Polyethylene Glycol (miraLAX PACKET) 17 gm DAILY PO Last administered on 08:54; Start 07/03/17 at 09:00 Active Scripts Active Gabapentin 100 Mg Capsule 100 Mg PO TID Aspirin Ec (Aspirin) 325 Mg Tablet.dr 325 Mg PO DAILYWBKFT 30 Days Topiramate 50 Mg Tablet 1 Tab PO BID Reported Trintellix (Vortioxetine) 20 Mg Tablet 20 Mg PO DAILY Proair Hfa Inhaler (Albuterol Sulfate) 8.5 Gm Hfa.aer.ad 1 Puff INH PRN Q6HRS PRN Tramadol Hcl 50 Mg Tablet 1 Tab PO PRN Q6HRS Clonazepam 0.5 Mg Tablet 1 Tab PO DAILY PRN Mirtazapine 30 Mg Tablet 1 Tab PO QHS Metoprolol Succinate ( Xl ) (Metoprolol Succinate) 25 Mg Tab.er.24h 1 Tab PO DAILY Vitals/I & O Vital Sign - Last 24 Hours 07/02/17 07/02/17 07/02/17 07/02/17 11:00 14:28 19:00 20:00 Temp 97.9 98.1 97.9 97.9 98.1 97.9 Pulse 90 88 80 Resp 18 18 16 B/P (MAP) 122/53 (76) 103/43 (63) 105/35 (58) Pulse Ox 100 100 98 O2 Delivery Room Air Room Air Room Air Room Air 07/02/17 07/02/17 07/03/17 07/03/17 21:05 23:59 03:00 07:15 Temp 98.6 98.2 97.9 98.6 98.2 97.9 Pulse 83 69 71 Resp 18 16 16 19 B/P (MAP) 96/38 (57) 97/60 (72) 100/51 (67) Pulse Ox 98 98 100 100 O2 Delivery Room Air Room Air Room Air Room Air 07/03/17 07/03/17 07/03/17 07/03/17 07:34 08:54 08:55 09:58 Pulse 71 B/P (MAP) 100/51 Pulse Ox 100 100 O2 Delivery Room Air Room Air Room Air Intake and Output 07/02/17 07/02/17 07/03/17 15:00 23:00 07:00 Intake Total 220 ml 200 ml 440 ml Output Total 820 ml Balance -600 ml 200 ml 440 ml SHARMILA TSE III DO Jul 03, 2017 10:31
[2017-07-03 10:40] VITALS: BP 106/52
[2017-07-03 14:30] VITALS: BP 96/56
[2017-07-03 19:30] VITALS: BP 95/45
[2017-07-03] MEDS: clonazePAM 0.5 MG TABLET PO PRN (20:50)
[2017-07-03] MEDS: MIRTAZAPINE 15 MG TABLET PO SCH (20:50)
[2017-07-03 23:30] VITALS: BP 96/41
[2017-07-04 03:30] VITALS: BP 112/41
[2017-07-04 04:46] LABS: BASO % 0 % (0-3); EOS % 0 % (0-3); HEMATOCRIT 31.9 % (36.0-47.0); HEMOGLOBIN 9.8 g/dL (12.0-15.5); LYMPH # 2.8 x10^3/uL (1.0-4.8); LYMPH % 46 % (24-48); MEAN CORPUSCULAR HEMOGLOBIN 24 pg (25-35); MEAN CORPUSCULAR HGB CONC 31 g/dL (31-37); MEAN CORPUSCULAR VOLUME 78 fL (79-100); MONO % 7 % (0-9); NEUT % 47 % (31-73); PLATELET COUNT 158 x10^3/uL (140-400); RED BLOOD COUNT 4.08 x10^6/uL (3.50-5.40); RED CELL DISTRIBUTION WIDTH 21.2 % (11.5-14.5); WHITE BLOOD COUNT 6.1 x10^3/uL (4.0-11.0)
[2017-07-04 05:04] LABS: CALCIUM 7.8 mg/dL (8.5-10.1); CREATININE 0.8 mg/dL (0.6-1.0); GFR 78.7; POTASSIUM 3.7 mmol/L (3.5-5.1)
[2017-07-04 07:20] VITALS: BP 95/49
[2017-07-04] MEDS: METOPROLOL SUCC 24HR ER 25 MG TAB.ER.24H. PO SCH (09:00)
[2017-07-04] MEDS: TOPIRAMATE 25 MG TABLET. PO SCH (09:28)
[2017-07-04] MEDS: GABAPENTIN 100 MG CAPSULE. PO SCH (09:28)
[2017-07-04] MEDS: ASPIRIN ENTERIC COATED 325 MG TABLET.DR. PO SCH (09:28)
[2017-07-04] MEDS: traMADol 50 MG TABLET PO PRN (09:29)
[2017-07-04] MEDS: POLYETHYLENE GLYCOL 3350 17 GM PACKET. PO SCH (09:29)
[2017-07-04 10:53] VITALS: BP 99/47
--- NOTE | 2017-07-04 10:59 | PDOC ---
PROGRESS NOTES Chief Complaint Chief Complaint MS exacerbation left-sided weakness HTN Chest pain w/atypical features - most likely musculoskeletal as per cardiology History of Present Illness History of Present Illness Discussed patient care plan with social science teacher and patient to be discharged to [facility] rehab. Patient has returned to baseline secondary to PMH of MS. Patient receive echo today, and d/c if okay with cardio. Vitals Vitals Vital Signs Date Time Temp Pulse Resp B/P (MAP) Pulse Ox O2 Delivery O2 Flow Rate FiO2 07/04/17 10:53 97.9 90 17 99/47 (64) 100 Room Air 97.9 Physical Exam General: Alert, Oriented X3, Cooperative, No acute distress Heart: Regular rate, Normal S2 Lungs: Clear, Other Abdomen: Soft, No tenderness Extremities: No edema Labs LABS Laboratory Tests Test 07/04/17 03:25 White Blood Count 6.1 x10^3/uL (4.0-11.0) Red Blood Count 4.08 x10^6/uL (3.50-5.40) Hemoglobin 9.8 g/dL (12.0-15.5) Hematocrit 31.9 % (36.0-47.0) Mean Corpuscular Volume 78 fL (79-100) Mean Corpuscular Hemoglobin 24 pg (25-35) Mean Corpuscular Hemoglobin Concent 31 g/dL (31-37) Red Cell Distribution Width 21.2 % (11.5-14.5) Platelet Count 158 x10^3/uL (140-400) Neutrophils (%) (Auto) 47 % (31-73) Lymphocytes (%) (Auto) 46 % (24-48) Monocytes (%) (Auto) 7 % (0-9) Eosinophils (%) (Auto) 0 % (0-3) Basophils (%) (Auto) 0 % (0-3) Neutrophils # (Auto) 2.8 x10^3uL (1.8-7.7) Lymphocytes # (Auto) 2.8 x10^3/uL (1.0-4.8) Monocytes # (Auto) 0.4 x10^3/uL (0.0-1.1) Eosinophils # (Auto) 0.0 x10^3/uL (0.0-0.7) Basophils # (Auto) 0.0 x10^3/uL (0.0-0.2) Sodium Level 143 mmol/L (136-145) Potassium Level 3.7 mmol/L (3.5-5.1) Chloride Level 109 mmol/L (98-107) Carbon Dioxide Level 27 mmol/L (21-32) Anion Gap 7 (6-14) Blood Urea Nitrogen 16 mg/dL (7-20) Creatinine 0.8 mg/dL (0.6-1.0) Estimated GFR (Cockcroft-Gault) 78.7 Glucose Level 89 mg/dL (70-99) Calcium Level 7.8 mg/dL (8.5-10.1) Review of Systems Review of Systems Patient reports weakness at baseline Patient denies CP Assessment and Plan Assessmemt and Plan Assessment: MS exacerbation left-sided weakness HTN Chest pain w/atypical features - most likely musculoskeletal as per cardiology Plan: Echo today Recheck labs PT/OT Home meds Discussed patient care plan w/social science teacher D/c to [facility] rehab Problems: Comment Review of Relevant I have reviewed the following items rayne (where applicable) has been applied. Labs Laboratory Tests Test 07/03/17 04:20 07/04/17 03:25 White Blood Count 5.4 x10^3/uL (4.0-11.0) 6.1 x10^3/uL (4.0-11.0) Red Blood Count 4.10 x10^6/uL (3.50-5.40) 4.08 x10^6/uL (3.50-5.40) Hemoglobin 9.9 g/dL (12.0-15.5) 9.8 g/dL (12.0-15.5) Hematocrit 32.2 % (36.0-47.0) 31.9 % (36.0-47.0) Mean Corpuscular Volume 78 fL (79-100) 78 fL (79-100) Mean Corpuscular Hemoglobin 24 pg (25-35) 24 pg (25-35) Mean Corpuscular Hemoglobin Concent 31 g/dL (31-37) 31 g/dL (31-37) Red Cell Distribution Width 21.2 % (11.5-14.5) 21.2 % (11.5-14.5) Platelet Count 169 x10^3/uL (140-400) 158 x10^3/uL (140-400) Neutrophils (%) (Auto) 42 % (31-73) 47 % (31-73) Lymphocytes (%) (Auto) 50 % (24-48) 46 % (24-48) Monocytes (%) (Auto) 8 % (0-9) 7 % (0-9) Eosinophils (%) (Auto) 0 % (0-3) 0 % (0-3) Basophils (%) (Auto) 0 % (0-3) 0 % (0-3) Neutrophils # (Auto) 2.3 x10^3uL (1.8-7.7) 2.8 x10^3uL (1.8-7.7) Lymphocytes # (Auto) 2.7 x10^3/uL (1.0-4.8) 2.8 x10^3/uL (1.0-4.8) Monocytes # (Auto) 0.4 x10^3/uL (0.0-1.1) 0.4 x10^3/uL (0.0-1.1) Eosinophils # (Auto) 0.0 x10^3/uL (0.0-0.7) 0.0 x10^3/uL (0.0-0.7) Basophils # (Auto) 0.0 x10^3/uL (0.0-0.2) 0.0 x10^3/uL (0.0-0.2) Sodium Level 143 mmol/L (136-145) 143 mmol/L (136-145) Potassium Level 3.4 mmol/L (3.5-5.1) 3.7 mmol/L (3.5-5.1) Chloride Level 108 mmol/L (98-107) 109 mmol/L (98-107) Carbon Dioxide Level 26 mmol/L (21-32) 27 mmol/L (21-32) Anion Gap 9 (6-14) 7 (6-14) Blood Urea Nitrogen 15 mg/dL (7-20) 16 mg/dL (7-20) Creatinine 0.8 mg/dL (0.6-1.0) 0.8 mg/dL (0.6-1.0) Estimated GFR (Cockcroft-Gault) 78.7 78.7 Glucose Level 92 mg/dL (70-99) 89 mg/dL (70-99) Calcium Level 7.9 mg/dL (8.5-10.1) 7.8 mg/dL (8.5-10.1) Troponin I Quantitative < 0.017 ng/mL (0.000-0.055) Laboratory Tests Test 07/04/17 03:25 White Blood Count 6.1 x10^3/uL (4.0-11.0) Red Blood Count 4.08 x10^6/uL (3.50-5.40) Hemoglobin 9.8 g/dL (12.0-15.5) Hematocrit 31.9 % (36.0-47.0) Mean Corpuscular Volume 78 fL (79-100) Mean Corpuscular Hemoglobin 24 pg (25-35) Mean Corpuscular Hemoglobin Concent 31 g/dL (31-37) Red Cell Distribution Width 21.2 % (11.5-14.5) Platelet Count 158 x10^3/uL (140-400) Neutrophils (%) (Auto) 47 % (31-73) Lymphocytes (%) (Auto) 46 % (24-48) Monocytes (%) (Auto) 7 % (0-9) Eosinophils (%) (Auto) 0 % (0-3) Basophils (%) (Auto) 0 % (0-3) Neutrophils # (Auto) 2.8 x10^3uL (1.8-7.7) Lymphocytes # (Auto) 2.8 x10^3/uL (1.0-4.8) Monocytes # (Auto) 0.4 x10^3/uL (0.0-1.1) Eosinophils # (Auto) 0.0 x10^3/uL (0.0-0.7) Basophils # (Auto) 0.0 x10^3/uL (0.0-0.2) Sodium Level 143 mmol/L (136-145) Potassium Level 3.7 mmol/L (3.5-5.1) Chloride Level 109 mmol/L (98-107) Carbon Dioxide Level 27 mmol/L (21-32) Anion Gap 7 (6-14) Blood Urea Nitrogen 16 mg/dL (7-20) Creatinine 0.8 mg/dL (0.6-1.0) Estimated GFR (Cockcroft-Gault) 78.7 Glucose Level 89 mg/dL (70-99) Calcium Level 7.8 mg/dL (8.5-10.1) Medications Current Medications Aspirin (Ecotrin) 325 mg DAILYWBKFT PO Last administered on 07/04/17 09:28; Start 06/29/17 at 20:00 Clonazepam (KlonoPIN) 0.5 mg PRN DAILY PRN PO ANXIETY Last administered on 20:50; Start 06/29/17 at 18:45 Gabapentin (Neurontin) 100 mg TID PO Last administered on 07/04/17 09:28; Start 06/29/17 at 21:00 Metoprolol Succinate (Toprol Xl) 25 mg DAILY PO Last administered on 08:54; Start 06/29/17 at 20:00 Tramadol HCl (Ultram) 50 mg PRN Q6HRS PRN PO PAIN MILD TO MOD Last administered on 07/04/17 09:29; Start 06/29/17 at 18:45 Albuterol Sulfate (Ventolin Neb Soln) 2.5 mg PRN Q6HRS PRN NEB SOA Last administered on 06/29/17 21:01; Start 06/29/17 at 19:00 Mirtazapine (Remeron) 30 mg QHS PO Last administered on 07/03/17 20:50; Start 06/29/17 at 21:00 Topiramate (Topamax) 50 mg BID PO Last administered on 07/04/17 09:28; Start 06/29/17 at 21:00 Non-Formulary Medication 20 mg DAILY PO ; Start 06/30/17 at 09:00; Status UNV Polyethylene Glycol (miraLAX PACKET) 17 gm DAILY PO Last administered on 09:29; Start 07/03/17 at 09:00 Active Scripts Active Gabapentin 100 Mg Capsule 100 Mg PO TID Aspirin Ec (Aspirin) 325 Mg Tablet. 325 Mg PO DAILYWBKFT 30 Days Topiramate 50 Mg Tablet 1 Tab PO BID Reported Trintellix (Vortioxetine) 20 Mg Tablet 20 Mg PO DAILY Proair Hfa Inhaler (Albuterol Sulfate) 8.5 Gm Hfa.aer.ad 1 Puff INH PRN Q6HRS PRN Tramadol Hcl 50 Mg Tablet 1 Tab PO PRN Q6HRS Clonazepam 0.5 Mg Tablet 1 Tab PO DAILY PRN Mirtazapine 30 Mg Tablet 1 Tab PO QHS Metoprolol Succinate ( Xl ) (Metoprolol Succinate) 25 Mg Tab.er.24h 1 Tab PO DAILY Vitals/I & O Vital Sign - Last 24 Hours 07/03/17 07/03/17 07/03/17 07/03/17 14:30 15:22 19:30 20:00 Temp 98.3 97.5 98.3 97.5 Pulse 77 93 Resp 17 18 B/P (MAP) 96/56 (69) 95/45 (62) Pulse Ox 97 97 99 O2 Delivery Room Air Room Air Room Air Room Air 07/03/17 07/03/17 07/03/17 07/04/17 20:59 21:59 23:30 03:30 Temp 98.1 98.0 98.1 98.0 Pulse 84 81 Resp 18 18 B/P (MAP) 96/41 (59) 112/41 (64) Pulse Ox 99 99 98 100 O2 Delivery Room Air Room Air Room Air Room Air 07/04/17 07/04/17 07/04/17 07/04/17 07:20 09:00 09:29 10:53 Temp 98.3 97.9 98.3 97.9 Pulse 85 85 90 Resp 17 B/P (MAP) 95/49 (64) 95/49 99/47 (64) Pulse Ox 100 100 O2 Delivery Room Air Room Air Room Air Intake and Output 07/03/17 07/03/17 07/04/17 15:00 23:00 07:00 Intake Total 800 ml 500 ml Balance 800 ml 500 ml SHARMILA TSE III DO Jul 04, 2017 10:59
--- NOTE | 2017-07-04 17:13 | CARD ---
MR#: [id number] Date of Study: 07/04/2017 Ordering Physician: ANDREW SEARS, Referring Physician: Valentin MIGUEL: [facility] APPROVED REPORT EXAM: Two-dimensional and M-mode echocardiogram with Doppler and color Doppler. Other Information Quality : Average INDICATION Left sided weakness 2D DIMENSIONS Left Atrium(2D)3.7 (1.6-4.0cm)IVSd1.0 (0.7-1.1cm) Aortic Root(2D)2.9 (2.0-3.7cm)LVDd4.4 (3.9-5.9cm) LVOT Diameter2.0 (1.8-2.4cm)PWd1.1 (0.7-1.1cm) LVDs3.0 (2.5-4.0cm)FS (%) 31.8 % SV51.9 mlLVEF(%)60.1 (>50%) Aortic Valve LVOT Peak Sai.90.8cm/s Mitral Valve MV E Dxjddizk79.3cm/sMV DECEL [id number] MV A Iizbfkaz27.5cm/sE/A Ratio1.3 TDI E/Lateral E'0.1 Pulmonary Valve PV Peak Hxzmadoe80.1cm/s LEFT VENTRICLE The left ventricle is normal size. There is normal left ventricular wall thickness. The left ventricu lar systolic function is normal. The Ejection Fraction is 55-60%. There is normal LV segmental wall m otion. RIGHT VENTRICLE The right ventricle is normal size. There is normal right ventricular wall thickness. The right ventr icular systolic function is normal. ATRIA The left atrium size is normal. The right atrium size is normal. AORTIC VALVE The aortic valve is normal in structure and function. Doppler and Color Flow revealed no significant aortic regurgitation. There is no significant aortic valvular stenosis. MITRAL VALVE The mitral valve is normal in structure and function. There is no evidence of mitral valve prolapse. There is no mitral valve stenosis. TRICUSPID VALVE The tricuspid valve is normal in structure and function. Doppler and Color Flow revealed no tricuspid valve regurgitation noted. PULMONIC VALVE The pulmonary valve is normal in structure and function. Doppler and Color Flow revealed no pulmonic valvular regurgitation. GREAT VESSELS The aortic root is normal in size. The ascending aorta is normal in size. There are no subcostal view s. Not able to assess the IVC. PERICARDIAL EFFUSION There is no pleural effusion. There is no evidence of significant pericardial effusion. Critical Notification Critical Value: No <Conclusion> The left ventricular systolic function is normal. The Ejection Fraction is 55-60%. There is normal LV segmental wall motion. There is no evidence of significant pericardial effusion. Signed by : Jass Garcia, Electronically Approved : 07/04/2017 17:12:27
--- NOTE | 2017-07-05 15:35 | DS ---
DATE OF DISCHARGE: 07/04/2017 DISCHARGE DIAGNOSES: Left-sided weakness and chest pain. DISCHARGE DIAGNOSES: Resolving left-sided weakness, resolving chest pain. HOSPITAL COURSE: The patient is a pleasant 41-year-old female who presented basically with chest pain and left-sided weakness. We just discharged her a few days earlier. We admitted the patient. We consulted Cardiology and Neurology. We did a full workup, everything seems to be okay. We plan to discharge with close outpatient followup. DISPOSITION: Home. ACTIVITY: As tolerated. DIET: Low sodium. MEDICATIONS: Please see the MRAD. TOTAL TIME: 34 minutes. NIAL Mayra TSE DO DR: JACE/sabino JOB#: [id number] / [id number]
== END 2017-07-04 12:45 | disposition home health service (06) | DRG 60 ==
LOC: 6 SOUTH 16:56
PROVIDERS: ADMIT Internal Medicine; ATTEND Internal Medicine
DX: G35 Multiple sclerosis (principal); F31.9 Bipolar disorder, unspecified; R07.89 Other chest pain; R53.1 Weakness; I10 Essential (primary) hypertension; F41.9 Anxiety disorder, unspecified; Z83.3 Family history of diabetes mellitus; Z86.73 Personal history of transient ischemic attack (TIA), and cerebral infarction without residual deficits; Z88.2 Allergy status to sulfonamides
CPT/HCPCS: 36415; 80048; 82553; 84484; 85025; 93306; 94640; 94760; 99406; J7613; 97110; 97116

== ENCOUNTER 2018-03-01 22:05 | Emergency (ER) | payer OTHER ==
[~2018-03-01] VITALS: Ht 162.6 cm; Wt 76.2 kg
[~2018-03-01 22:05] MED LIST changes: +CLON0.5T11 PO; -CLON0.5T3 PO; +VORT20TA PO
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
[2018-03-01 22:57] LABS: BILIRUBIN,URINE NEGATIVE (NEG); CLARITY,URINE CLOUDY; COLOR,URINE YELLOW; NITRITE,URINE NEGATIVE (NEG); PH,URINE 7.5; PROTEIN,URINE NEGATIVE (NEG-TRACE); UROBILINOGEN,URINE 0.2 mg/dL (0.2 mg/dL)
[2018-03-01 23:05] LABS: BARBITURATES NEG (NEG); BENZODIAZEPINES NEG (NEG); CANNABINOIDS NEG (NEG); COCAINE NEG (NEG); METHADONE NEG (NEG); OPIATES POS (NEG); PHENCYCLIDINE NEG (NEG)
[2018-03-01 23:06] LABS: AMPHETAMINE/METHAMPHETAMINE NEG (NEG)
[2018-03-01 23:06] LABS: BASO % 1 % (0-3); EOS % 0 % (0-3); HEMATOCRIT 33.2 % (36.0-47.0); HEMOGLOBIN 10.6 g/dL (12.0-15.5); LYMPH # 2.6 x10^3/uL (1.0-4.8); LYMPH % 51 % (24-48); MEAN CORPUSCULAR HEMOGLOBIN 25 pg (25-35); MEAN CORPUSCULAR HGB CONC 32 g/dL (31-37); MEAN CORPUSCULAR VOLUME 78 fL (79-100); MONO # 0.4 x10^3/uL (0.0-1.1); MONO % 8 % (0-9); NEUT # 2.1 x10^3uL (1.8-7.7); NEUT % 41 % (31-73); PLATELET COUNT 218 x10^3/uL (140-400); RED BLOOD COUNT 4.24 x10^6/uL (3.50-5.40); RED CELL DISTRIBUTION WIDTH 22.1 % (11.5-14.5); WHITE BLOOD COUNT 5.2 x10^3/uL (4.0-11.0)
[2018-03-01 23:10] LABS: BACTERIA,URINE 0 /HPF (0-FEW); RBC,URINE 0 /HPF (0-2); SQUAMOUS EPITHELIAL CELL,UR OCC /LPF; WBC,URINE OCC /HPF (0-4)
[2018-03-01 23:11] LABS: AMORPHOUS SEDIMENT,UR PRESENT /HPF
[2018-03-01 23:12] LABS: CALCIUM 9.3 mg/dL (8.5-10.1); GFR 60.5; POTASSIUM 3.6 mmol/L (3.5-5.1)
[2018-03-01 23:18] LABS: ALBUMIN 3.9 g/dL (3.4-5.0); TOTAL BILIRUBIN 0.2 mg/dL (0.2-1.0); TOTAL PROTEIN 7.8 g/dL (6.4-8.2)
[2018-03-01 23:40] LABS: ANISOCYTOSIS SLIGHT; PLT ESTIMATE ADEQUATE (ADEQUATE)
[2018-03-02 02:45] VITALS: BP 99/50
== END 2018-03-02 03:12 | disposition home or self-care (01) ==
LOC: ER 22:05
DX: F41.9 Anxiety disorder, unspecified (principal); F32.9 Major depressive disorder, single episode, unspecified; I10 Essential (primary) hypertension; G43.909 Migraine, unspecified, not intractable, without status migrainosus; Z88.2 Allergy status to sulfonamides; Z88.6 Allergy status to analgesic agent
CPT/HCPCS: 36415; 80053; 80307; 81001; 85025; 99284; G0480; G0479